=== PATIENT | female | born 1930 | race Caucasian/White ===

== ENCOUNTER → 2016-08-06 | Outpatient (CLI) | payer OTHER, MEDICARE ==
[2016-08-06 16:38] LABS: HEMOGLOBIN A1C 8.59 % (4.2-6.0); MEAN BLOOD GLUCOSE (CALC) 200.047 mg/dL
[2016-08-06 16:51] LABS: BUN/CREATININE RATIO 22.85 (6-20); CALCIUM 9.2 mg/dL (8.7-10.7); CREATININE 0.7 mg/dL (0.50-1.20); POTASSIUM 4.3 meq/L (3.8-5.2)
== END ==
LOC: MOB LAB 15:07
DX: E11.9 Type 2 diabetes mellitus without complications (principal); I10 Essential (primary) hypertension; M10.9 Gout, unspecified; M81.0 Age-related osteoporosis without current pathological fracture
CPT/HCPCS: 80048; 83036; 84550

== ENCOUNTER → 2016-09-02 | Outpatient (CLI) | payer OTHER, MEDICARE | LOC: MMPC 11:11 | DX: M10.9 Gout, unspecified (principal); E11.9 Type 2 diabetes mellitus without complications; I10 Essential (primary) hypertension; N20.0 Calculus of kidney; E78.5 Hyperlipidemia, unspecified; M81.0 Age-related osteoporosis without current pathological fracture | CPT/HCPCS: 99213; G0463 ==

== ENCOUNTER 2016-09-15 18:14 | Emergency (ER) | payer OTHER, MEDICARE ==
[2016-09-15] MEDS ORDERED: Metoprolol TARTRATE Tab 50 MG TAB PO ONE (18:27)
--- NOTE | 2016-09-15 18:34 | PDOC ---
Gen Adult / Medical Screen HPI - General Chief Complaint: General Medical Stated Complaint: HIGH BLOOD PRESSURE Date Seen by Provider: 09/15/16 Time Seen by Provider: 18:30 Source: POSITIVE: Patient, RN/MD Exam Limitations: POSITIVE: No limitations Nurse's Notes Reviewed & Considered: Yes - Indicators Temperature Between 95 and 101 Degrees: Yes Respirations Between 12 and 20: Yes Blood Pressure Between 100-165 (sys) and 60-100 (hadley): No (222\100) Pulse Range Between 60-105 (100 for age > 60 years): No Severe Pain (Greater than 5/10 Reported): No Chest or Abdominal Pain: No Inability to Walk: No Pt Reports Active High Risk Cond. (TB/Hepatitis/HIV/Chemo): No - History of Present Illness Initial Comments: Patient comes in today with chief complaint of high blood pressure. He was sent in by her home healthcare nurse after an escalation of her blood pressure over the last 3 days initially blood pressure was noted be 150/92, day before yesterday was found to be 160/94, yesterday was 274/98, today it was 200/100 and she was directed to come to the emergency department. Eyes any fever or chills sweats, no headache, changes in her vision, sore throat, chest pain, shortness of breath, no nausea vomiting or diarrhea, no hematuria or dysuria. Timing: REPORTS: Gradual, Getting Worse Duration: <1 week Similar Symptoms Previously: Yes (patient being treated for hypertension by her primary care physician. ) Recent Care Received: REPORTS: Treated by MD (She is presently being treated with metoprolol and lisinopril for her hypertension.) Any Prior Injuries Related to Current Complaint?: No - Patient Home Medications Home Medications: Home Medications Blood Sugar Diagnostic [Freestyle Lite Strips] 1 each IN QID #120 strip Aspirin [Aspirin EC] 1 tab PO QOD PRN #30 tab 02/16/15 Magnesium Hydroxide Susp [Milk Of Magnesia Susp] 30 ml PO DAILY cup 05/20/16 Atorvastatin Calcium 1 tab PO QD #90 tab 06/23/16 Lisinopril 2 tab PO QD #180 tab 06/23/16 Metformin HCl [Metformin Hcl Er] 2 tab PO BID #120 tab 08/04/16 Colchicine [Colcrys] 1 tab PO QD #85 tab 08/06/16 Allopurinol 1 tab PO BID #180 tab 08/07/16 Dulaglutide [Trulicity] 1.5 mg SUBCUT WEEKLY #12 ml 08/07/16 Cholecalciferol [Vitamin D] 1,000 unit PO DAILY 09/15/16 Metoprolol Tartrate 100 mg PO BID 09/15/16 Multivitamin [Multivitamins] 1 tab PO DAILY 09/15/16 - Patient Allergies Allergies/Adverse Reactions: Allergies Allergy/AdvReac Type Severity Reaction Status Date / Time butorphanol tartrate Allergy Severe Anaphylaxis Verified 09/15/16 18:27 [From Stadol] Penicillins Allergy Mild rash Verified 09/15/16 18:27 mushroom Allergy SHORTNESS Verified 09/15/16 18:27 OF BREATH meperidine HCl [From Demerol] AdvReac Severe difficult Verified 09/15/16 18:27 to arouse Past Medical History - heen HEENT History: Denies History Cardiovascular History: Hypertension Respiratory History: Denies History Gastrointestinal History: Denies History Genitourinary History: Denies History Endocrine History: Type 1 Diabetes Musculoskeletal History: Denies History Neurological History: Denies History Blood Disorders: Denies History Psychiatric History: Denies History History of Sexually Transmitted Diseases: No Cancer History: Denies History History of MDRO: No History of Other Communicable Diseases: No Alcohol Use: None Substance Use Type: None Previous Surgical History: No Significant Family History: No pertinent family hx ROS - Limitations ROS Limitations: No Limitations Constitution: REPORTS: Denies Symptoms Cardiovascular: REPORTS: Denies Cardiac Symptoms Neurological: REPORTS: Denies Neuro Symptoms Gastrointestinal: REPORTS: Denies GI Symptoms Endocrine: REPORTS: Denies Symptoms Musculoskeletal: REPORTS: Joint Pain (Patient with the diagnosis of gout presently on colchicine and allopurinol.) Genitourinary: REPORTS: Denies Symptoms Eyes: REPORTS: Denies Symptoms ENT: REPORTS: Denies Symptoms Skin: REPORTS: Denies Skin Symptoms Lympathic: REPORTS: Denies Lympathic Symptoms Immunologic: POSITIVE: Denies Symptoms Psychiatric: POSITIVE: Denies Psych Symptoms Gen Adult/Medical Screen Exam - General Appearance General Appearance: POSITIVE: Alert, Cooperative, No Acute Distress, No Evidence of Trauma - HEENT HEENT: POSITIVE: Head Inspection Nml, Eyes Inspection Nml, Ears Inspection Nml, Nose Inspection Nml, Oral/Dental Inspect. Nml, Pharynx Inspect. Nml, PERRL, EOMI - Pupils Pupil Size: 4 mm: Bilateral - Neck Neck: POSITIVE: Normal Inspection, Thyroid Normal - Respiratory Respiratory: POSITIVE: No Respiratory Distress, Breath Sounds Normal, Chest Non- Tender - Cardiovascular Cardiovascular: POSITIVE: Regular Rate & Rhythm, No Murmur, No Gallop, PMI Normal - Abdomen Abdomen: Soft: (All Quadrants), Normal Bowel Sounds: (All Quadrants), Denies Tenderness: (All Quadrants) - Neurological / Psychological Mental Status: POSITIVE: Mood Normal, Affect Normal Orientation: POSITIVE: Oriented x 3, Uncooperative - Skin Skin: POSITIVE: Normal Color, Warm, Dry, No Rash - Extremities Extremity: Non-Tender: (All Extremities), Normal ROM: (All Extremities), Normal Inspection: (All Extremities) Gen Adlt/Medical Scrn Progress - Results Reviewed by me Lab Results Reviewed: Yes Lab Results:: Laboratory Results 09/15/16 Range/Units 18:55 WBC 7.92 (4.8-10.8) 10^3/uL RBC 4.78 (4.20-5.40) 10^6/uL Hgb 13.1 (12.0-16.0) g/dL Hct 40.5 (37.0-47.0) % MCV 84.7 (81-99) FL MCH 27.4 (27-31) PG MCHC 32.3 L (33-37) g/dL RDW Std Deviation 51.6 H (39-50) fL RDW Coeff of Naveen 17.0 H (11.5-14.5) % Plt Count 249 (140-350) 10*3/uL MPV 10.8 (7.4-12.2) FL Immature Gran % (Auto) 0.3 (0-5) % Neut % (Auto) 34.7 L (50-80) % Lymph % (Auto) 49.6 (10-50) % [place] % (Auto) 10.0 (5-15) % Eos % (Auto) 4.4 (0-8) % Baso % (Auto) 1.0 (0-1) % Immature Gran # (Auto) 0.02 10*3/UL Neut # (Auto) 2.75 10*3/UL Lymph # (Auto) 3.93 10*3/uL [place] # (Auto) 0.79 (0.3-0.8) 10*3/UL Eos # (Auto) 0.35 10*3/UL Baso # (Auto) 0.08 10*3/UL WBC Morphology Comment Normal morphology (NORM) Plt Morphology Comment Normal morphology (NORM) RBC Morph Comment Normal morphology (NORM) Sodium 141 (135-145) meq/L Potassium 4.3 (3.8-5.2) meq/L Chloride 102 (98-112) meq/L Carbon Dioxide 26 (23-33) meq/L Anion Gap 13 (5-20) BUN 18 (7-22) mg/dL Creatinine 0.6 (0.50-1.20) mg/dL Estimated GFR (>60 ml/min/1.73m(2)) BUN/Creatinine Ratio 30.00 H (6-20) Glucose 174 H (78-110) mg/dL Calculated Osmolality 297.0 H (267-292) mOsm/kg Calcium 9.8 (8.7-10.7) mg/dL Magnesium 1.5 L (1.6-2.4) mg/dL Total Bilirubin 0.5 (0.3-1.2) mg/dL AST 24 (8-39) IU/L ALT 23 (9-52) IU/L Alkaline Phosphatase 74 (38-126) IU/L Total Protein 7.4 (6.1-8.0) g/dL Albumin 4.1 (3.5-4.8) g/dL Globulin 3.3 (2.50-4.10) g/dL Albumin/Globulin Ratio 1.20 L (1.3-2.0) mg/g TSH 2.58 (0.2700-4.2000) uIU/mL - Patient's Progress Pain Medication Addressed: POSITIVE: Not Applicable Re-Examine Time: 19:49 Status: POSITIVE: Improved MDM / ED Course: Patient comes into the emergency department and is examined, an IV started blood drawn and sent to lab for studies, she received metoprolol, lisinopril, and clonidine. Her blood pressures improved to 169/95. Magnesium was noted though this was replaced. She is discharged home in improved condition with instructions to follow up with her primary care physician. - Consult Counseled: POSITIVE: Patient, Family, RE: Lab Results, RE: Radiology Results, RE : DX, RE: Need for F/U Patient Care Time - Estimated PCT Patient Care Time (In Minutes): 20 Vital Signs - Recent Vital Signs Vital Signs: Vital Signs (Last 8 hours) Temp Pulse Resp BP BP Pulse Ox 09/15/16 19:46 167/95 180/96 09/15/16 19:20 222/100 224/102 09/15/16 18:15 99.0 F 89 20 248/128 91 - VS Reviewed Vital Signs Reviewed: Yes Discharge Clinical Impression: Hypertension associated with diabetes Discharge Disposition: Discharged to Home Condition: Stable Patient Instructions Given at Discharge: Hypertension (ED)
[2016-09-15] MEDS ORDERED: LISINOPRIL 10 MG TABLET PO ONE (18:53)
[2016-09-15] MEDS ORDERED: CloNIDine Tab 0.1 MG TABLET PO ONE (18:53)
[2016-09-15 19:02] LABS: BASOPHILS # (AUTO) 0.08 10*3/UL; EOSINOPHILS % (AUTO) 4.4 % (0-8); HEMATOCRIT 40.5 % (37.0-47.0); HEMOGLOBIN 13.1 g/dL (12.0-16.0); IMM GRAN % (AUTO) 0.3 % (0-5); IMM GRAN# (AUTO) 0.02 10*3/UL; LYMPHOCYTES # (AUTO) 3.93 10*3/uL; LYMPHOCYTES % (AUTO) 49.6 % (10-50); MEAN CORPUSCULAR HEMOGLOBIN 27.4 PG (27-31); MEAN CORPUSCULAR HGB CONC 32.3 g/dL (33-37); MEAN PLATELET VOLUME 10.8 FL (7.4-12.2); MONOCYTES # (AUTO) 0.79 10*3/UL (0.3-0.8); NEUTROPHILS # (AUTO) 2.75 10*3/UL; NEUTROPHILS % (AUTO) 34.7 % (50-80); RED BLOOD COUNT 4.78 10^6/uL (4.20-5.40); WHITE BLOOD COUNT 7.92 10^3/uL (4.8-10.8)
[2016-09-15 19:05] LABS: PLATELET MORPHOLOGY COMMENT NORMAL MORPHOLOGY (NORM)
[2016-09-15 19:10] LABS: BILIRUBIN,TOTAL 0.5 mg/dL (0.3-1.2); CALCIUM 9.8 mg/dL (8.7-10.7); CREATININE 0.6 mg/dL (0.50-1.20); MAGNESIUM 1.5 mg/dL (1.6-2.4); POTASSIUM 4.3 meq/L (3.8-5.2); TOTAL PROTEIN 7.4 g/dL (6.1-8.0)
[2016-09-15 19:37] VITALS: RESP 20; TEMP 99
[2016-09-15] MEDS ORDERED: Magnesium Sulfate 1gm (Premix) 1 GM in Dextrose 1 BAG IV ONE (19:47)
[2016-09-15] MEDS ORDERED: Magnesium Sulfate 1gm (Premix) 100 ML IV ONE (19:51)
== END 2016-09-15 20:30 | disposition home or self-care (01) ==
LOC: ER 18:14
DX: I15.2 Hypertension secondary to endocrine disorders (principal); E11.9 Type 2 diabetes mellitus without complications
CPT/HCPCS: 80053; 83735; 84443; 85025; 96365; 96368; 99282; 99283; J3475

== ENCOUNTER → 2016-09-29 | Outpatient (CLI) | payer OTHER, MEDICARE | LOC: MMPC 09:00 | DX: M10.9 Gout, unspecified (principal); E03.0 Congenital hypothyroidism with diffuse goiter; E11.9 Type 2 diabetes mellitus without complications; I10 Essential (primary) hypertension; E78.5 Hyperlipidemia, unspecified; M81.0 Age-related osteoporosis without current pathological fracture; N20.0 Calculus of kidney | CPT/HCPCS: 99213; G0463 ==

== ENCOUNTER → 2016-10-14 | Outpatient (CLI) | payer OTHER, MEDICARE | LOC: MMPC 09:00 | DX: M10.9 Gout, unspecified (principal); E11.9 Type 2 diabetes mellitus without complications; I10 Essential (primary) hypertension; N20.0 Calculus of kidney; M81.0 Age-related osteoporosis without current pathological fracture; E78.5 Hyperlipidemia, unspecified | CPT/HCPCS: 99213; G0463 ==

== ENCOUNTER 2016-10-19 15:39 | Inpatient (IN) | payer OTHER, MEDICARE ==
[2016-10-19] MEDS ORDERED: Sodium Chloride 0.9% 1,000 ML PRIMARY IV ONE ×2 (15:46→16:06)
[2016-10-19] MEDS ORDERED: NORMAL SALINE 10 ML SYRINGE FLUSH IVP PRN ×3 (15:46→19:15)
[2016-10-19] MEDS ORDERED: MORPHINE SULFATE 2 MG/1 ML IVP ONE (15:54)
--- NOTE | 2016-10-19 16:08 | EKG ---
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
--- NOTE | 2016-10-19 16:55 | PDOC ---
Fall HPI - General Chief Complaint: Fall Stated Complaint: FALL/ R HIP PAIN W/ ROTATION, R WRIST PAIN/SWELLIN Date Seen by Provider: 10/19/16 Time Seen by Provider: 15:50 Source: POSITIVE: Patient, EMS Exam Limitations: POSITIVE: No limitations Nurse's Notes Reviewed & Considered: Yes EMS Report Reviewed & Considered: Verbal - History of Present Illness Initial Comments: The patient is an 86-year-old female who is brought to the emergency department by ambulance after a fall. She states that she lost her footing and fell in her kitchen. She states that she did hit the right side of her head on a cabinet door. She also injured her right wrist and right hip. She was unable to get up and EMS was called. She did not have any loss of consciousness from hitting her head and denies any current headache or neck pain. She does however have significant pain in the right wrist and right hip. She states that she has had a history of gout in her right knee which has been bothering her for the past 6 months. She currently has pain with any movement of her right leg from her hip down to her knee. She also has pain and swelling to the right wrist. She did receive 2 doses of 25 g of fentanyl and route per EMS. She denies any chest wall or abdominal pain. She denies taking any blood thinners currently. Have you received a tetanus shot in the past 10 years?: Unknown - Patient Home Medications Home Medications: Home Medications Blood Sugar Diagnostic [Freestyle Lite Strips] 1 each IN QID #120 strip Aspirin [Aspirin EC] 1 tab PO QOD PRN #30 tab 02/16/15 Magnesium Hydroxide Susp [Milk Of Magnesia Susp] 30 ml PO DAILY cup 05/20/16 Atorvastatin Calcium 1 tab PO QD #90 tab 06/23/16 Lisinopril 2 tab PO QD #180 tab 06/23/16 Metformin HCl [Metformin Hcl Er] 2 tab PO BID #120 tab 08/04/16 Colchicine [Colcrys] 1 tab PO QD #85 tab 08/06/16 Allopurinol 1 tab PO BID #180 tab 08/07/16 Dulaglutide [Trulicity] 1.5 mg SUBCUT WEEKLY #12 ml 08/07/16 Cholecalciferol [Vitamin D] 1,000 unit PO DAILY 09/15/16 Metoprolol Tartrate 100 mg PO BID 09/15/16 Multivitamin [Multivitamins] 1 tab PO DAILY 09/15/16 Nifedipine [Nifedipine Er] 1 tab PO QD #90 tab 10/14/16 - Patient Allergies Allergies/Adverse Reactions: Allergies Allergy/AdvReac Type Severity Reaction Status Date / Time butorphanol tartrate Allergy Severe Anaphylaxis Verified 10/19/16 16:30 [From Stadol] Penicillins Allergy Mild rash Verified 10/19/16 16:30 mushroom Allergy SHORTNESS Verified 10/19/16 16:30 OF BREATH meperidine HCl [From Demerol] AdvReac Severe difficult Verified 10/19/16 16:30 to arouse Past Medical History - heen HEENT History: Denies History Cardiovascular History: Hypertension Respiratory History: Denies History Gastrointestinal History: Denies History Genitourinary History: Denies History Endocrine History: Type 2 Diabetes (oral) Musculoskeletal History: Denies History Prosthesis or Implant: No Neurological History: Denies History Blood Disorders: Denies History Psychiatric History: Denies History History of Sexually Transmitted Diseases: No Cancer History: Denies History In Past Year Been Physically Harmed or Verbally Threatened: No History of MDRO: No History of Other Communicable Diseases: No Tobacco Use: Never Smoker Alcohol Use: None Substance Use Type: None Previous Surgical History: No Type / Date of Surgery: Appendectomy. Hysterectomy. x 3 Significant Family History: No pertinent family hx Past Medical History Reviewed: Reviewed - No Changes ROS - Limitations ROS Limitations: No Limitations Constitution: DENIES: Chills, Fever Cardiovascular: DENIES: Chest Pain Respiratory: REPORTS: Denies Resp Symptoms Neurological: DENIES: Confusion, Headache Gastrointestinal: REPORTS: Denies GI Symptoms. DENIES: Abdominal Pain Eyes: REPORTS: Denies Symptoms ENT: REPORTS: Denies Symptoms Skin: DENIES: Rash Fall Physical Exam - General Appearance General Appearance: POSITIVE: Alert, Cooperative, No Acute Distress - HEENT HEENT: POSITIVE: Head Inspection Nml, Eyes Inspection Nml, Ears Inspection Nml, Nose Inspection Nml, Pharynx Inspect. Nml, PERRL, EOMI - Neck Neck: POSITIVE: Non Tender, Painless ROM, Trachea Midline - Respiratory / CVS Respiratory / CVS: POSITIVE: Chest Non Tender, Breath Sounds Normal, No Respiratory Distress, Heart Sounds Normal, Regular Rate/Rhythm - Abdomen Abdomen: Soft: (All Quadrants), Denies Tenderness: (All Quadrants), No Distention: (All Quadrants) Additional Abdominal Details: Pelvis is stable and not significantly tender with lateral compression - Neuro / Psych Neuro / Psych: POSITIVE: Oriented X3, Motor Normal, Sensation Normal - Skin Skin: POSITIVE: Other (She does have a skin tear on the right elbow/proximal forearm) - Extremities Additional Extremities Details: Examination the right wrist reveals significant swelling and early ecchymosis, she has normal sensation and cap refill in her fingertips, fairly good movement of her fingers with limited range of motion at the wrist. Examination the right lower extremity reveals pain with any attempts at flexion or abduction of the right hip, good dorsalis pedis pulse in the right foot and normal sensation in the right foot. Fall Progress - Results Reviewed by me Xrays/CTs/US Reviewed by me: Yes Discussed with Radiologist: Yes Radiology Findings: CT scan of her head reveals age-related atrophy with no acute hemorrhage or skull fracture per radiologist. X-ray of the right wrist reveals a comminuted distal radius fracture with mild dorsal displacement per radiologist. X-ray of the right hip reveals a femoral neck fracture that is impacted per radiologist. CT scan of the hip is pending. Lab Results Reviewed: Yes EKG Interpreted/Reviewed By Me:: Yes EKG Interpretation:: POSITIVE: Normal Sinus Rhythm, Normal Rate, Normal Intervals, Normal QRS, Normal ST/T - Patient's Progress MDM / ED Course: She did receive an additional 2 mg of morphine for pain control on arrival. X- rays of the right wrist, right hip and CT of the head was obtained. Her CT was normal, the x-ray of the right wrist reveals a distal radius fracture that is comminuted and slightly displaced dorsally. X-ray of the right hip reveals a femoral neck fracture that is impacted. She does have a deep skin tear to the right proximal forearm just distal to the elbow, this was cleansed and Steri- Strips were applied. She also has some bruising in this region however no bony tenderness and good range of motion of the elbow. X-ray findings were discussed with the patient. I also did consult Dr. Manriquez from orthopedic surgery. He recommended splinting the wrist in preparation for closed reduction in the OR at the time of her surgery. He also recommended CT of her right hip to evaluate further for surgical approach. He recommended admission to the hospitalist service and will likely perform surgery tomorrow. He recommended the patient stay nothing by mouth after midnight. I subsequently discussed these findings and recommendations with Dr. Fam and he is agreed to admit the patient. The patient was placed in a sugar tong splint of her right arm. - Consult Counseled: POSITIVE: Patient, Family, RE: Lab Results, RE: Radiology Results, RE : DX Patient Care Time - Estimated PCT Patient Care Time (In Minutes): 45 Vital Signs - Recent Vital Signs Vital Signs: Vital Signs (Last 8 hours) Temp Pulse Resp BP Pulse Ox 10/19/16 15:46 97.5 F 92 18 187/105 96 - VS Reviewed Vital Signs Reviewed: Yes Discharge Clinical Impression: Closed fracture of right hip, Fracture of distal end of right radius, Fall, Skin tear of forearm without complication Discharge Disposition: Admit to Inpatient Condition: Fair Date Decision to Admit to Inpatient: 10/19/16 Time Decision to Admit to Inpatient: 17:30
--- NOTE | 2016-10-19 17:22 | DI ---
HISTORY: Fell. Pain. COMPARISON: None available. FINDINGS: Examination of the right hip reveals what appears to be an impacted subcapital fracture of the neck of the femur with no significant displacement. IMPRESSION: 1. Evidence of what appears to be an impacted subcapital fracture of the neck of the femur with no si gnificant displacement. Clinical correlation is requested. NOTIFICATION: The above findings were phoned to Juanis Clarke in the CT Department on 10/19/2016 at 07:42 PM EST.
--- NOTE | 2016-10-19 17:26 | DI ---
HISTORY: Fell. Right wrist pain. COMPARISON: None available. FINDINGS: Examination of the right wrist reveals a slightly impacted triradiate fracture of the dist al radius with very slight dorsal displacement of the distal fracture fragment. IMPRESSION: 1. Slightly impacted triradiate fracture of the distal radius with very slight dorsal displacement of the distal fracture fragment. NOTIFICATION: The above findings were phoned to Juanis Clarke in the CT Department on 10/19/2016 at 07:42 PM EST.
--- NOTE | 2016-10-19 17:35 | DI ---
HISTORY: Fell and hit the right side of the head. COMPARISON: 03/14/2016. TECHNIQUE: CT images were obtained through the brain. FINDINGS: Examination demonstrates diffuse age-related volume loss. There is no mass, hemorrhage nor midline shift. There is near complete opacification of the right maxillary sinus. No fractures. IMPRESSION: 1. Age-related volume loss. 2. Right maxillary sinus disease. NOTIFICATION: The above findings were phoned to Juanis Clarke in the CT Department on 10/19/2016 at 07:42 PM EST.
[2016-10-19] MEDS ORDERED: LORazepam 2 MG/1 ML VIAL IVP ONE (17:44)
[2016-10-19 17:49] LABS: BASOPHILS # (AUTO) 0.03 10*3/UL; BASOPHILS % (AUTO) 0.3 % (0-1); EOSINOPHILS # (AUTO) 0.07 10*3/UL; EOSINOPHILS % (AUTO) 0.7 % (0-8); HEMATOCRIT 40.3 % (37.0-47.0); LYMPHOCYTES # (AUTO) 2.16 10*3/uL; MEAN CORPUSCULAR HEMOGLOBIN 27.2 PG (27-31); MEAN CORPUSCULAR HGB CONC 32.3 g/dL (33-37); MEAN CORPUSCULAR VOLUME 84.3 FL (81-99); MEAN PLATELET VOLUME 11.1 FL (7.4-12.2); MONOCYTES # (AUTO) 0.63 10*3/UL (0.3-0.8); MONOCYTES % (AUTO) 6.3 % (5-15); NEUTROPHILS # (AUTO) 7.02 10*3/UL; NEUTROPHILS % (AUTO) 70.6 % (50-80); RED BLOOD COUNT 4.78 10^6/uL (4.20-5.40)
[2016-10-19 17:55] LABS: PLATELET MORPHOLOGY COMMENT NORMAL MORPHOLOGY (NORM); RBC MORPHOLOGY COMMENT NORMAL MORPHOLOGY (NORM); WBC MORPHOLOGY COMMENT NORMAL MORPHOLOGY (NORM)
[2016-10-19 17:58] LABS: CALCIUM 9.4 mg/dL (8.7-10.7); MAGNESIUM 1.3 mg/dL (1.6-2.4)
--- NOTE | 2016-10-19 18:50 | DI ---
HISTORY: Pain after a fall. COMPARISON: None available. TECHNIQUE: Multiple helically acquired CT images were obtained through the right hip without contras t. FINDINGS: There are a few peripheral vascular calcifications seen. There is diffuse osteopenia. There is a subcapital right femoral neck fracture. Visualized portions of the pelvis are unremarkable. There is a small hemarthrosis. IMPRESSION: 1. Subcapital right femoral neck fracture. NOTIFICATION: The above findings were phoned to David Epstein in the ER Department on 10/19/2016 at 08:5 6 PM EST.
--- NOTE | 2016-10-19 19:05 | PDOC ---
History and Physical - History of Present Illness Date and Time of Service: 10/19/2016 7:42 PM Chief Complaint: Pain in the right wrist and right hip after a fall today History of Present Illness: This is a 86 years old female with medical history significant for history of diabetes, hypertension, hyperlipidemia and history of gout for which she was admitted to the hospital back in April last year, who was brought to the hospital by ambulance after a fall. She said she lost her footing and fell in her kitchen. She fell on the right side she did hit the right side of her head and she also injured her right wrist and right hip. She did not pass out. She was complaining from pain in the right wrist and hip she was unable to stand up. Evaluation in the ER revealed the right wrist and right hip fracture. She had a splint to the right wrist, And the case was discussed with orthopedic on-call who suggested admission. He is planning to do surgery tomorrow morning. Currently she rates her right wrist pain maybe 4 out of 10 and 6 out of 10 in the right hip. She denied chest pain, no neck pain and no headaches currently. She uses a walker and sometimes a cane at home because of her previous knee problem from previous gout attack. No nausea, no vomiting. She denied history of MO, and no history of strokes. Past Medical History Medical History: 1. Diabetes type II. 2. Hypertension. 3. Hyperlipidemia. 4. Osteoporosis. 5. Gout attack back in April 2016 Surgical History: 1. Hysterectomy. 2. Tonsillectomy. 3. History of nephrolithiasis. 4. C-sections Family History: Reviewed an Not Pertinent Past Social History: Doesn't smoke, rarely drinks no drugs. 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 Tobacco Use: Never Smoker Substance Use Type: None Alcohol Use: None Medication / Allergies Home Medications: Home Medications Medication Instructions Recorded Confirmed Type Blood Sugar Diagnostic [Freestyle 1 each IN QID #120 strip 08/16/13 10/19/16 Clinic Lite Strips] Aspirin [Aspirin EC] 1 tab PO QOD PRN #30 tab 02/16/15 10/19/16 Clinic Magnesium Hydroxide Susp [Milk Of 30 ml PO DAILY cup 05/20/16 10/19/16 Rx Magnesia Susp] Atorvastatin Calcium 1 tab PO QD #90 tab 06/23/16 10/19/16 Clinic Lisinopril 2 tab PO QD #180 tab 06/23/16 10/19/16 Clinic Metformin HCl [Metformin Hcl Er] 2 tab PO BID #120 tab 08/04/16 10/19/16 Clinic Colchicine [Colcrys] 1 tab PO QD #85 tab 08/06/16 10/19/16 Clinic Allopurinol 1 tab PO BID #180 tab 08/07/16 10/19/16 Clinic Dulaglutide [Trulicity] 1.5 mg SUBCUT WEEKLY #12 ml 08/07/16 10/19/16 Clinic Cholecalciferol [Vitamin D] 1,000 unit PO DAILY 09/15/16 10/19/16 History Metoprolol Tartrate 100 mg PO BID 09/15/16 10/19/16 History Multivitamin [Multivitamins] 1 tab PO DAILY 09/15/16 10/19/16 History Nifedipine [Nifedipine Er] 1 tab PO QD #90 tab 10/14/16 10/19/16 Clinic Allergies/Adverse Reactions: Allergies Allergy/AdvReac Type Severity Reaction Status Date / Time butorphanol tartrate Allergy Severe Anaphylaxis Verified 10/19/16 16:30 [From Stadol] Penicillins Allergy Mild rash Verified 10/19/16 16:30 mushroom Allergy SHORTNESS Verified 10/19/16 16:30 OF BREATH meperidine HCl [From Demerol] AdvReac Severe difficult Verified 10/19/16 16:30 to arouse Review of Systems - Review of Systems All Systems: Reviewed & No Additional Complaints Except as Stated Exam - General General Appearance: POSITIVE: No Acute Distress, Cooperative, Thin - Head Head Exam: POSITIVE: Normal Inspection, Atraumatic - Eye Eye Exam: POSITIVE: Normal Appearance - ENT ENT Exam: POSITIVE: Normal Exam - Neck Neck Exam: POSITIVE: Normal Inspection - Respiratory Respiratory Exam: POSITIVE: Clear to Auscultation - Bilaterally - Cardiovascular Cardiovascular Exam: POSITIVE: RRR - GI/Abdominal GI/Abdominal Exam: POSITIVE: Normal Bowel Sounds, Non Tender, Non Distended, Soft - Rectal Rectal Exam: POSITIVE: Deferred - External Exam: POSITIVE: Deferred - Extremities Additional Extremities Exam Details: Right forearm in a splint. Right leg somewhat shortened compared to the left. Motion is restricted because of fracture and pain. - Neurological Neurological Exam: POSITIVE: Alert, Oriented x 3, CN II-XII Intact - Psychiatric Psychiatric Exam: POSITIVE: Normal Affect - Integumentary Integumentary Exam: POSITIVE: Normal Color Results - Labs CBC and BMP: 10/19/16 17:40 10/19/16 17:40 Labs - Last 24 Hours: Laboratory Results 10/19/16 Range/Units 17:40 WBC 9.95 (4.8-10.8) 10^3/uL RBC 4.78 (4.20-5.40) 10^6/uL Hgb 13.0 (12.0-16.0) g/dL Hct 40.3 (37.0-47.0) % MCV 84.3 (81-99) FL MCH 27.2 (27-31) PG MCHC 32.3 L (33-37) g/dL RDW Std Deviation 50.2 H (39-50) fL RDW Coeff of Naveen 16.5 H (11.5-14.5) % Plt Count 231 (140-350) 10*3/uL MPV 11.1 (7.4-12.2) FL Immature Gran % (Auto) 0.4 (0-5) % Neut % (Auto) 70.6 (50-80) % Lymph % (Auto) 21.7 (10-50) % [place] % (Auto) 6.3 (5-15) % Eos % (Auto) 0.7 (0-8) % Baso % (Auto) 0.3 (0-1) % Immature Gran # (Auto) 0.04 10*3/UL Neut # (Auto) 7.02 10*3/UL Lymph # (Auto) 2.16 10*3/uL [place] # (Auto) 0.63 (0.3-0.8) 10*3/UL Eos # (Auto) 0.07 10*3/UL Baso # (Auto) 0.03 10*3/UL WBC Morphology Comment Normal morphology (NORM) Plt Morphology Comment Normal morphology (NORM) RBC Morph Comment Normal morphology (NORM) Sodium 138 (135-145) meq/L Potassium 4.0 (3.8-5.2) meq/L Chloride 100 (98-112) meq/L Carbon Dioxide 24 (23-33) meq/L Anion Gap 14 (5-20) BUN 21 (7-22) mg/dL Creatinine 0.6 (0.50-1.20) mg/dL Estimated GFR (>60 ml/min/1.73m(2)) BUN/Creatinine Ratio 35.00 H (6-20) Glucose 220 H (78-110) mg/dL Calculated Osmolality 295.0 H (267-292) mOsm/kg Calcium 9.4 (8.7-10.7) mg/dL Magnesium 1.3 L (1.6-2.4) mg/dL Total Bilirubin 0.8 (0.3-1.2) mg/dL AST 30 (8-39) IU/L ALT 20 (9-52) IU/L Alkaline Phosphatase 69 (38-126) IU/L Troponin I < 0.012 (< 0.040) ng/mL Total Protein 7.3 (6.1-8.0) g/dL Albumin 4.0 (3.5-4.8) g/dL Globulin 3.4 (2.50-4.10) g/dL Albumin/Globulin Ratio 1.10 L (1.3-2.0) mg/g - EKG Data Rate: Normal EKG Shows Normal: Sinus Rhythm - EKG Data EKG Interpretation: Other (EKG showed what looks like Q waves in the anterior leads versus poor R waves progression, when compared to the previous EKG of gets very similar to the EKG that she had back in April.) - Imaging Status: Report Reviewed by Me (Right wrist x-ray showed slightly impacted try fracture of the distal radius with very slight dorsal displacement of the distal fracture fragment, CT of the hip showed subcapital right femoral neck fracture, CT of the head showed age-related volume loss, right hip x-ray showed impacted subcapital fracture of the neck of the femur) Assessment and Plan - Patient Problems (1) Closed right hip fracture Current Visit: Yes Status: Acute Comment: We'll write for pain medication. Plan for her to have surgery tomorrow. We'll keep nothing by mouth after midnight. She is intermediate risk for surgery because of diabetes. I think though because of the need for surgery she can proceed tomorrow as planned. (2) Distal radius fracture, right Current Visit: Yes Status: Acute Comment: Plan to have surgery also tomorrow this is based on my discussion with orthopedic surgeon. We'll keep nothing by mouth after midnight (3) Diabetes Current Visit: No Status: Acute Comment: We'll hold the metformin for now. We'll check her blood sugars, she will be nothing by mouth after midnight tonight. Qualifiers: Diabetes mellitus type: type 2 Diabetes mellitus complication status: without complication Diabetes mellitus tank terminal gauger insulin use: with usp use Qualified Description: Type 2 diabetes mellitus without complication, with long-term current use of insulin Qualifier Code(s): ( E11.9) Type 2 diabetes mellitus without complications (4) Hypertension Current Visit: No Status: Chronic Comment: Blood pressure is elevated, she'll get some pain medication and will see what happens her blood pressure will give her usual medication. May give her additional dosage of nifedipine if blood pressure still high. Qualifiers: Hypertension type: essential hypertension Qualified Description: Essential hypertension Qualifier Code(s): (I10) Essential (primary) hypertension (5) History of gout Current Visit: Yes Status: Acute Comment: Continue allopurinol
[2016-10-19] MEDS ORDERED: ONDANSETRON 4 MG/2 ML VIAL IVP PRN (19:15)
[2016-10-19] MEDS ORDERED: LIDOCAINE W/ SODIUM BICARB 0.5 ML SYR SUBD PRN (19:15)
[2016-10-19] MEDS ORDERED: Magnesium Sulfate 2gm (Premix) 2 GM in Premix 1 BAG IV ONE (19:30)
[2016-10-19] MEDS: HYDROmorphone 2 MG/1 ML IVP PRN ×2 (19:36→23:26)
[2016-10-19] MEDS ORDERED: metFORMIN ER 500 MG TABLET PO SCH (21:00)
[2016-10-19] MEDS: ATORVASTATIN 40 MG TABLET PO SCH (21:15)
[2016-10-19] MEDS: Metoprolol TARTRATE Tab 50 MG TAB PO SCH (21:16)
[2016-10-19] MEDS: ALLOPURINOL 100 MG TABLET PO SCH (21:16)
[2016-10-19] MEDS: traMADol 50 MG TABLET PO PRN (21:19)
[2016-10-19 22:17] LABS: BILIRUBIN,URINE NEGATIVE (NEG); COLOR,URINE YELLOW; GLUCOSE, URINE (UA) 250 mg/dL (NEG); NITRATE,URINE NEGATIVE (NEG); OCCULT BLOOD,URINE SMALL (NEG); PH,URINE 5.5 (5.0-8.5); PROTEIN,URINE NEGATIVE (NEG); UROBILINOGEN,URINE 0.2 EU/dL (0.2)
[2016-10-19 22:19] LABS: BACTERIA,URINE RARE; CLARITY,URINE CLEAR (CLEAR); URINE SAMPLE TYPE CATH SPECIMEN
[2016-10-19] MEDS ORDERED: Sodium Chloride 0.9% 1,000 ML PRIMARY IV SCH (23:50)
--- NOTE | 2016-10-20 08:31 | PDOC(PROG) ---
Date and Time of Service: 10/20/2016 8:29 AM Interval History: Subjective Patient complaining from hip and wrist pain maybe 6-7 out of 10. No other pain , no neck pain and no headaches. No chest pain and no shortness of breath. Objective : Data - Labs CBC and BMP: 10/19/16 17:40 10/19/16 17:40 Labs - Last 24 Hours: Laboratory Results 10/19/16 10/19/16 Range/Units 17:40 22:00 WBC 9.95 (4.8-10.8) 10^3/uL RBC 4.78 (4.20-5.40) 10^6/uL Hgb 13.0 (12.0-16.0) g/dL Hct 40.3 (37.0-47.0) % MCV 84.3 (81-99) FL MCH 27.2 (27-31) PG MCHC 32.3 L (33-37) g/dL RDW Std Deviation 50.2 H (39-50) fL RDW Coeff of Naveen 16.5 H (11.5-14.5) % Plt Count 231 (140-350) 10*3/uL MPV 11.1 (7.4-12.2) FL Immature Gran % (Auto) 0.4 (0-5) % Neut % (Auto) 70.6 (50-80) % Lymph % (Auto) 21.7 (10-50) % [place] % (Auto) 6.3 (5-15) % Eos % (Auto) 0.7 (0-8) % Baso % (Auto) 0.3 (0-1) % Immature Gran # (Auto) 0.04 10*3/UL Neut # (Auto) 7.02 10*3/UL Lymph # (Auto) 2.16 10*3/uL [place] # (Auto) 0.63 (0.3-0.8) 10*3/UL Eos # (Auto) 0.07 10*3/UL Baso # (Auto) 0.03 10*3/UL WBC Morphology Comment Normal morphology (NORM) Plt Morphology Comment Normal morphology (NORM) RBC Morph Comment Normal morphology (NORM) Sodium 138 (135-145) meq/L Potassium 4.0 (3.8-5.2) meq/L Chloride 100 (98-112) meq/L Carbon Dioxide 24 (23-33) meq/L Anion Gap 14 (5-20) BUN 21 (7-22) mg/dL Creatinine 0.6 (0.50-1.20) mg/dL Estimated GFR (>60 ml/min/1.73m(2)) BUN/Creatinine Ratio 35.00 H (6-20) Glucose 220 H (78-110) mg/dL Calculated Osmolality 295.0 H (267-292) mOsm/kg Calcium 9.4 (8.7-10.7) mg/dL Magnesium 1.3 L (1.6-2.4) mg/dL Total Bilirubin 0.8 (0.3-1.2) mg/dL AST 30 (8-39) IU/L ALT 20 (9-52) IU/L Alkaline Phosphatase 69 (38-126) IU/L Troponin I < 0.012 (< 0.040) ng/mL Total Protein 7.3 (6.1-8.0) g/dL Albumin 4.0 (3.5-4.8) g/dL Globulin 3.4 (2.50-4.10) g/dL Albumin/Globulin Ratio 1.10 L (1.3-2.0) mg/g Ur Collection Type Cath specimen Urine Color Yellow Urine Clarity Clear (CLEAR) Urine pH 5.5 (5.0-8.5) Ur Specific [place] 1.025 (1.005-1.030) Urine Protein Negative (NEG) mg/dl Urine Glucose (UA) 250 (NEG) mg/dL Urine Ketones 40 (NEG) Urine Occult Blood Small H (NEG) Urine Nitrate Negative (NEG) Urine Bilirubin Negative (NEG) Urine Urobilinogen 0.2 (0.2) EU/dL Ur Leukocyte Esterase Negative (NEG) Urine RBC 1-3 (NONE) /hpf Urine WBC None (NONE) Ur Squamous Epith Cells None (NONE) Ur Renal Epithelial Cell None (NONE) Urine Crystals None Urine Bacteria Rare (NONE) Urine Casts None (NONE) Urine Mucus None (NONE) Urine Trichomonas None (NONE) Urine Yeast None (NONE) Ur Culture Indicated? Culture not set Objective : Exam - General General Appearance: No Acute Distress, Cooperative - Head Head Exam: Normal Inspection, Atraumatic - Eye Eye Exam: Normal Appearance - ENT ENT Exam: Normal Exam - Neck Neck Exam: Normal Inspection - Respiratory Respiratory Exam: Clear to Auscultation - Bilaterally - Cardiovascular Cardiovascular Exam: RRR - GI/Abdominal GI/Abdominal Exam: Normal Bowel Sounds, Non Tender, Non Distended, Soft - Rectal Rectal Exam: Deferred - External Exam: Deferred - Extremities Additional Extremities Exam Details: Right wrist in splint - Back Back Exam: Normal Inspection - Neurological Neurological Exam: Alert, Oriented x 3, CN II-XII Intact - Psychiatric Psychiatric Exam: Normal Affect Assessment and Plan - Patient Problems (1) Closed right hip fracture Current Visit: Yes Status: Acute Comment: Continue current pain medications, she is nothing by mouth for surgery today at 2:30. (2) Distal radius fracture, right Current Visit: Yes Status: Acute Comment: Same pain medication (3) Diabetes Current Visit: No Status: Acute Comment: Continue holding her metformin for now will see after surgery may consider putting her back on it and Continue monitoring her blood sugar Qualifiers: Diabetes mellitus type: type 2 Diabetes mellitus complication status: without complication Diabetes mellitus correction insulin use: with correction use Qualified Description: Type 2 diabetes mellitus without complication, with long-term current use of insulin Qualifier Code(s): ( E11.9) Type 2 diabetes mellitus without complications (4) Hypertension Current Visit: No Status: Chronic Comment: Same medications, but may hold the linsiporil for now Qualifiers: Hypertension type: essential hypertension Qualified Description: Essential hypertension Qualifier Code(s): (I10) Essential (primary) hypertension (5) History of gout Current Visit: Yes Status: Acute Comment: Same medications
[2016-10-20] MEDS: traMADol 50 MG TABLET PO PRN (08:37)
[2016-10-20] MEDS ORDERED: LISINOPRIL 20 MG TABLET PO SCH (09:00)
[2016-10-20] MEDS ORDERED: NIFEdipine 30 MG ER 24H TABLET PO SCH (09:00)
[2016-10-20] MEDS: Metoprolol TARTRATE Tab 50 MG TAB PO SCH ×2 (10:18→20:30)
[2016-10-20] MEDS: ALLOPURINOL 100 MG TABLET PO SCH ×2 (10:21→20:33)
[2016-10-20] MEDS: HYDROmorphone 2 MG/1 ML IVP PRN (11:22)
[2016-10-20] MEDS ORDERED: Lactated Ringers 1,000 ML PRIMARY IV ONE (11:43)
[2016-10-20] MEDS ORDERED: Vancomycin Inj 1gm vial ONE (12:08)
[2016-10-20] MEDS ORDERED: TRANEXAMIC ACID 1,000 MG / 10 ML VIAL ONE ×2 (12:08→15:02)
[2016-10-20] MEDS ORDERED: Sodium Chloride 0.9% 500 ML ONE (12:09)
[2016-10-20] MEDS ORDERED: Sodium Chloride 0.9% 100 ML IV ONE (12:09)
[2016-10-20] MEDS ORDERED: LIDOCAINE 2%/ EPI 1:200,000 - 20 ML VIAL ONE (12:29)
[2016-10-20] MEDS ORDERED: MORPHINE SULFATE/PF 10 MG/10 ML AMPULE ONE (12:30)
[2016-10-20] MEDS ORDERED: BUPIVACAINE 0.5% W/ EPI - 10 ML VIAL ONE (12:30)
[2016-10-20] MEDS ORDERED: MIDAZOLAM 5 MG/1 ML ONE (12:30)
[2016-10-20] MEDS ORDERED: fentaNYL Inj 250 MCG/5 ML VIAL ONE (12:30)
[2016-10-20] MEDS ORDERED: KETAMINE 100 MG/1 ML - 5 ML ONE (12:30)
[2016-10-20] MEDS ORDERED: LIDOCAINE W/ SODIUM BICARB 0.5 ML SYR ONE (12:42)
[2016-10-20] MEDS ORDERED: CLINDAMYCIN 600 MG IV ONE (14:17)
[2016-10-20] MEDS ORDERED: ePHEDrine Inj 50 MG/ML AMP ONE (14:18)
--- NOTE | 2016-10-20 14:35 | CRNA.PROCE ---
Nerve Block Documentation - - Safety Measures: Time Out Taken, Site Verified - - Type of Nerve Block Used: Right Infraclavicular Block Position for Nerve Block: Supine Moniters Used During Block: EKG, SPO2, NIBP Oxygen Sumpplented: Yes Sedation Used - Enter Amount in Comment Field: Midazolam (mg): Yes (1mg), Fentanyl (mcg): Yes (50mcg) Skin Prep Used: ChloroPrep Draped: No Technique: Nerve Stimulator Nerve Block Needle Used: 80 mm ProBlk II Stimulation Hz: 1.0 Stimulation Staring mA: 1.4 Stimulation Ending mA: 0.6 Local Anesthetic - Enter Amt in Comment Field: 0.5 % Bupivicaine with Epinephrine 1:200,000 (mL): Yes (15ml), 2 % Xylocaine with Epinephrine 1:200, 000 (mL): Yes (15ml)
--- NOTE | 2016-10-20 14:37 | CRNA.PROCE ---
Central Neuraxis Block Placemt - - Safety Measures: Time Out Taken, Site Verified - - Type of Block: Subarachnoid Reason for Block: Surgical Moniters Used During Block: EKG, SPO2, NIBP Positioning: Lateral (Right Lat Decub) Skin Infiltration - Enter Amount Used in Comment Field: 1% Xylocaine (mL): Yes Introducer User: 23 Gauge Spinal Needle Used: 25 Danny 80 mm Local Anesthetic - Enter Amount Used in Comment Field: 0.75 % Bupivacaine with Dextrose (ml): Yes (12mg) Additive Used - Enter Amount Used in Comment Field: Preservative Free Morphine ( mg): Yes (0.15)
[2016-10-20] MEDS ORDERED: Hetastarch 6% + NS 500 ML IV ONE (14:46)
[2016-10-20] MEDS ORDERED: PHENYLEPHRINE 10,000 MCG/1 ML VIAL ONE (14:47)
[2016-10-20] MEDS ORDERED: BUPivacaine Inj 0.25% PF - 10ml vial ONE (14:55)
--- NOTE | 2016-10-20 17:47 | DI ---
AP PELVIS AND RIGHT HIP, 10/20/2016 4:48 PM: Clinical History: Status post right hemiarthroplasty. Status post subcapital fracture of the right h ip. Previous Exam: 10/19/2016. An AP pelvis with AP and lateral views of the replaced hip are submitted. The patient is status post right hemiarthroplasty. The prosthetic joint articulates normally. There is osteoporosis. The bony pe lvis is intact. Readin. Status post right hemiarthroplasty. The prosthetic joint articulates normally. 2. The bony pelvis is intact. 3. Severe osteoporosis.
[2016-10-20] MEDS ORDERED: CELECOXIB 200 MG CAPSULE PO PRN (18:56)
[2016-10-20] MEDS ORDERED: ONDANSETRON 4 MG/2 ML VIAL IV PRN (18:56)
[2016-10-20] MEDS ORDERED: oxyCODONE-ACETAMINOPHEN 5-325 TAB PO PRN (18:57)
[2016-10-20] MEDS ORDERED: MORPHINE SULFATE 4 MG/1 ML IVP PRN (18:58)
[2016-10-20] MEDS: Lactated Ringers 1,000 ML PRIMARY IV SCH (19:33)
[2016-10-20] MEDS: KETOROLAC 15 MG/1 ML VIAL IVP PRN (20:33)
[2016-10-20] MEDS: ATORVASTATIN 40 MG TABLET PO SCH (20:33)
[2016-10-20] MEDS ORDERED: INSULIN REGULAR, HUMAN 100 UNIT/1 ML - 3 ML SUBCUT SCH (21:00)
[2016-10-20] MEDS ORDERED: DOCUSATE 100 MG CAPSULE PO SCH (21:00)
[2016-10-21] MEDS: KETOROLAC 15 MG/1 ML VIAL IVP PRN (02:30)
[2016-10-21] MEDS: Lactated Ringers 1,000 ML PRIMARY IV SCH ×3 (04:00→22:49)
[2016-10-21] MEDS ORDERED: NALOXONE 0.4 MG/1 ML VIAL ONE (05:11)
[2016-10-21 05:18] LABS: HEMATOCRIT 24.5 % (37.0-47.0); HEMOGLOBIN 7.7 g/dL (12.0-16.0); MEAN CORPUSCULAR HEMOGLOBIN 27.4 PG (27-31); MEAN CORPUSCULAR HGB CONC 31.4 g/dL (33-37); MEAN CORPUSCULAR VOLUME 87.2 FL (81-99); MEAN PLATELET VOLUME 11.6 FL (7.4-12.2); RED BLOOD COUNT 2.81 10^6/uL (4.20-5.40)
[2016-10-21] MEDS ORDERED: NALOXONE 0.4 MG/1 ML VIAL IVP ONE ×2 (05:25→05:49)
[2016-10-21 05:27] LABS: BLOOD UREA NITROGEN 22 mg/dL (7-22); BUN/CREATININE RATIO 16.92 (6-20); SERUM ALBUMIN 2.2 g/dL (3.5-4.8)
[2016-10-21 05:41] LABS: PLATELET MORPHOLOGY COMMENT SEE COMMENTS (NORM); RBC MORPHOLOGY COMMENT NORMAL MORPHOLOGY (NORM); WBC MORPHOLOGY COMMENT NORMAL MORPHOLOGY (NORM)
[2016-10-21 05:42] LABS: BAND NEUTROPHILS % 7 % (0-10); BASOPHILS % (MANUAL) 0 % (0-1); EOSINOPHILS % (MANUAL) 1 % (0-8); LYMPHOCYTES % (MANUAL) 21 % (10-50); MONOCYTES % (MANUAL) 3 % (0-12); NEUTROPHILS % (MANUAL) 68 % (50-80)
[2016-10-21 06:03] LABS: VENOUS PH 7.37 (7.32-7.42)
--- NOTE | 2016-10-21 06:34 | EKG ---
[address] [address] Measurements Intervals [place] Rate: 97 P: 50 NV: 148 QRS: 13 QRSD: 80 T: 87 QT: 361 QTc: 415 Interpretive Statements SINUS RHYTHM MODERATE ST DEPRESSION , POSSIBLE ANTEROLATERAL ISCHEMIA SLOW R WAVE PROGRESSION V1-V3 Compared to ECG 10/19/2016 16:04:43 ST (T wave) deviation now present Myocardial infarct finding no longer present Electronically Signed On 10-21-16 08:58:29 MDT by Andrew Wang [email or web address]
[2016-10-21] MEDS ORDERED: ONDANSETRON 4 MG/2 ML VIAL IVP PRN (07:30)
[2016-10-21] MEDS ORDERED: NORMAL SALINE 10 ML SYRINGE FLUSH IVP PRN (07:30)
[2016-10-21] MEDS ORDERED: HYDROmorphone 2 MG/1 ML IVP PRN (07:30)
[2016-10-21] MEDS ORDERED: oxyCODONE-ACETAMINOPHEN 5-325 TAB PO PRN (07:30)
--- NOTE | 2016-10-21 07:30 | PDOC(PROG) ---
Date and Time of Service: 10/21/2016 4:45 AM Interval History: Subjective I was called this morning to evaluate the patient, nursing staff reported that the patient was responsive and awake and talking to them but then later on they came into check on her she was unresponsive and breathing was also irregular and then I came in to see her. Patient was unresponsive, there was increased muscle tone throughout, pupils were equal the right was reactive to the light, the left was not reactive. Reflexes were symmetrical. She was unresponsive to verbal or painful stimuli. She had alejandro dunn breathing We gave her a total of 0.8 of Narcan. She did wakeup but she was a not communicating and not following commands. We moved her to the ICU and we did a CT of the head and chest x-ray and repeat labs. Abnormal lab was a hemoglobin of 7.7 and minimal rise in troponin. I don't have the CT and the chest x-ray report. I Checked on her again in the ICU which was more than 2 hours after the initial evaluation she started to respond and follow some of the commands. I suspect this may be medication effect. Objective : Data - Labs CBC and BMP: 10/21/16 05:00 10/21/16 05:00 Labs - Last 24 Hours: Laboratory Results 10/20/16 10/21/16 10/21/16 Range/Units 08:30 04:48 05:00 WBC 8.73 (4.8-10.8) 10^3/uL RBC 2.81 L (4.20-5.40) 10^6/uL Hgb 7.7 L (12.0-16.0) g/dL Hct 24.5 L (37.0-47.0) % MCV 87.2 (81-99) FL MCH 27.4 (27-31) PG MCHC 31.4 L (33-37) g/dL RDW Std Deviation 48.8 (39-50) fL RDW Coeff of Naveen 16.0 H (11.5-14.5) % Plt Count 143 (140-350) 10*3/uL MPV 11.6 (7.4-12.2) FL Neutrophils % (Manual) 68 (50-80) % Band Neutrophils % 7 (0-10) % Lymphocytes % (Manual) 21 (10-50) % Monocytes % (Manual) 3 (0-12) % Eosinophils % (Manual) 1 (0-8) % Basophils % (Manual) 0 (0-1) % Metamyelocytes % Not Reportable Myelocytes % Not Reportable Promyelocytes % Not Reportable Blast Cells Not Reportable WBC Morphology Comment Normal morphology (NORM) Plt Morphology Comment See comments (NORM) RBC Morph Comment Normal morphology (NORM) VBG pH 7.37 (7.32-7.42) VBG pCO2 31 L (45-55) mmHg VBG HCO3 18 L (22-26) mmol/L VBG Base Excess -7 L (-2-2) MMOL/L Sodium 135 (135-145) meq/L Potassium 4.4 (3.8-5.2) meq/L Chloride 104 (98-112) meq/L Carbon Dioxide 19 L (23-33) meq/L Anion Gap 12 (5-20) BUN 22 (7-22) mg/dL Creatinine 1.3 H (0.50-1.20) mg/dL Estimated GFR Relationship Management Lead BUN/Creatinine Ratio 16.92 (6-20) Glucose 134 H (78-110) mg/dL Calculated Osmolality 284.0 (267-292) mOsm/kg Calcium 8.0 L (8.7-10.7) mg/dL Magnesium 1.9 (1.6-2.4) mg/dL Total Bilirubin 1.1 (0.3-1.2) mg/dL AST 47 H (8-39) IU/L ALT 29 (9-52) IU/L Alkaline Phosphatase 41 (38-126) IU/L Total Creatine Kinase 462 H (30-136) IU/L Troponin I 0.043 H (< 0.040) ng/mL Total Protein 4.3 L (6.1-8.0) g/dL Albumin 2.2 L (3.5-4.8) g/dL Globulin 2.1 L (2.50-4.10) g/dL Albumin/Globulin Ratio 1.00 L (1.3-2.0) mg/g Objective : Exam - General General Appearance: Thin Additional General Exam Details: Initially unresponsive and now respond more, she follow commands and she could tell me her name but she thought that she was at voodoo - Head Head Exam: Normal Inspection - Eye Eye Exam: Normal Appearance - Neck Additional Neck Exam Details: Neck was stiff initially - Respiratory Respiratory Exam: Clear to Auscultation - Bilaterally - Cardiovascular Cardiovascular Exam: RRR - GI/Abdominal GI/Abdominal Exam: Normal Bowel Sounds, Non Tender, Non Distended, Soft - Rectal Rectal Exam: Deferred - External Exam: Deferred - Extremities Additional Extremities Exam Details: No edema dressing applied to the right side. Tone was increased in all limbs. Reflexes symmetrical. Babinski equivocal. Initially unresponsive and she became more responsive and awake and follows some of the commands - Back Back Exam: Normal Inspection - Neurological Additional Neurological Exam Details: Unresponsive initially and then she'll open her iron response to Narcan, however was not communicating and not following command and now but she is more responsive after more than 2 hours. - Integumentary Integumentary Exam: Normal Color, Dry Assessment and Plan - Patient Problems (1) Altered mental status Current Visit: Yes Status: Acute Comment: More likely medication effect. We'll see what the CT shows. We'll keep her in the ICU provide supportive care. (2) Closed right hip fracture Current Visit: Yes Status: Acute Comment: Status post surgery. (3) Distal radius fracture, right Current Visit: Yes Status: Acute Comment: Status post surgery (4) Diabetes Current Visit: No Status: Acute Comment: We'll monitor her blood sugar. Qualifiers: Diabetes mellitus type: type 2 Diabetes mellitus complication status: without complication Diabetes mellitus group home insulin use: with group home use Qualified Description: Type 2 diabetes mellitus without complication, with long-term current use of insulin Qualifier Code(s): ( E11.9) Type 2 diabetes mellitus without complications (5) Hypertension Current Visit: No Status: Chronic Comment: Her blood pressure is down compared to yesterday we will hold her blood pressure medication for now Qualifiers: Hypertension type: essential hypertension Qualified Description: Essential hypertension Qualifier Code(s): (I10) Essential (primary) hypertension (6) History of gout Current Visit: Yes Status: Acute Comment: Same med (7) Troponin level elevated Current Visit: Yes Status: Acute Comment: Troponins minimally elevated we will recheck it again. EKG showed some ST depression which was not present before. Will put her on aspirin.
[2016-10-21] MEDS ORDERED: Sodium Chloride 0.9% 500 ML PRIMARY IV ONE (07:50)
[2016-10-21] MEDS ORDERED: ACETAMINOPHEN 325 MG TABLET PO PRN (07:52)
--- NOTE | 2016-10-21 07:58 | CRNA.PROGR ---
Anesthesia Note Anesthesia Progress Note: Became less responsive this am around 0430. Is being worked up for reasons for that by Hospitalist. Little improvement with Narcan. Not CO2 retention by venous gas. Does respond and follow some requests such as wiggle toes, squeeze fingers , raise arm. Laboratory Results 10/20/16 10/21/16 10/21/16 Range/Units 08:30 04:48 05:00 WBC 8.73 (4.8-10.8) 10^3/uL RBC 2.81 L (4.20-5.40) 10^6/uL Hgb 7.7 L (12.0-16.0) g/dL Hct 24.5 L (37.0-47.0) % MCV 87.2 (81-99) FL MCH 27.4 (27-31) PG MCHC 31.4 L (33-37) g/dL RDW Std Deviation 48.8 (39-50) fL RDW Coeff of Naveen 16.0 H (11.5-14.5) % Plt Count 143 (140-350) 10*3/uL MPV 11.6 (7.4-12.2) FL Neutrophils % (Manual) 68 (50-80) % Band Neutrophils % 7 (0-10) % Lymphocytes % (Manual) 21 (10-50) % Monocytes % (Manual) 3 (0-12) % Eosinophils % (Manual) 1 (0-8) % Basophils % (Manual) 0 (0-1) % Metamyelocytes % Not Reportable Myelocytes % Not Reportable Promyelocytes % Not Reportable Blast Cells Not Reportable WBC Morphology Comment Normal morphology (NORM) Plt Morphology Comment See comments (NORM) RBC Morph Comment Normal morphology (NORM) VBG pH 7.37 (7.32-7.42) VBG pCO2 31 L (45-55) mmHg VBG HCO3 18 L (22-26) mmol/L VBG Base Excess -7 L (-2-2) MMOL/L Sodium 135 (135-145) meq/L Potassium 4.4 (3.8-5.2) meq/L Chloride 104 (98-112) meq/L Carbon Dioxide 19 L (23-33) meq/L Anion Gap 12 (5-20) BUN 22 (7-22) mg/dL Creatinine 1.3 H (0.50-1.20) mg/dL Estimated GFR Contour Band Saw Operator Vertical BUN/Creatinine Ratio 16.92 (6-20) Glucose 134 H (78-110) mg/dL Calculated Osmolality 284.0 (267-292) mOsm/kg Calcium 8.0 L (8.7-10.7) mg/dL Magnesium 1.9 (1.6-2.4) mg/dL Total Bilirubin 1.1 (0.3-1.2) mg/dL AST 47 H (8-39) IU/L ALT 29 (9-52) IU/L Alkaline Phosphatase 41 (38-126) IU/L Total Creatine Kinase 462 H (30-136) IU/L Troponin I 0.043 H (< 0.040) ng/mL Total Protein 4.3 L (6.1-8.0) g/dL Albumin 2.2 L (3.5-4.8) g/dL Globulin 2.1 L (2.50-4.10) g/dL Albumin/Globulin Ratio 1.00 L (1.3-2.0) mg/g Intake and Output (24hr x 4 totals) 10/19/16 10/20/16 10/21/16 10/22/16 05:59 05:59 05:59 05:59 Intake Total 992 905 Output Total 900 825 Balance 92 80 Vital Signs (24 hrs) Temp Pulse Pulse Pulse Resp BP BP 10/21/16 07:00 93 21 10/21/16 04:53 97.4 F 89 16 102/62 10/21/16 04:33 10/21/16 03:00 79 10/21/16 01:00 97.9 F 86 16 98/45 10/20/16 23:00 76 10/20/16 20:15 97.7 F 96 16 106/78 10/20/16 19:45 97.9 F 93 16 98/68 10/20/16 19:15 97.5 F 89 16 99/66 10/20/16 19:00 97.6 F 89 90 91 18 114/73 10/20/16 18:40 97.6 F 93 16 123/74 10/20/16 18:09 97.4 F 100 16 104/84 10/20/16 17:55 98.8 F 92 24 132/73 10/20/16 17:50 91 15 144/77 10/20/16 17:40 89 29 H 128/73 10/20/16 17:30 90 23 124/71 10/20/16 17:20 99 26 H 119/66 10/20/16 17:10 91 23 112/88 10/20/16 17:05 92 33 H 142/70 10/20/16 17:02 97.8 F 89 17 138/89 10/20/16 12:20 97.7 F 96 22 201/91 10/20/16 11:59 182/101 10/20/16 11:14 98.4 F 101 H 18 193/110 10/20/16 11:00 99 10/20/16 09:16 98.2 F 99 18 182/94 Pulse Ox 10/21/16 07:00 10/21/16 04:53 92 10/21/16 04:33 3 10/21/16 03:00 10/21/16 01:00 99 10/20/16 23:00 10/20/16 20:15 98 10/20/16 19:45 94 10/20/16 19:15 93 10/20/16 19:00 98 10/20/16 18:40 97 10/20/16 18:09 91 10/20/16 17:55 10/20/16 17:50 10/20/16 17:40 10/20/16 17:30 10/20/16 17:20 10/20/16 17:10 10/20/16 17:05 10/20/16 17:02 10/20/16 12:20 10/20/16 11:59 10/20/16 11:14 95 10/20/16 11:00 10/20/16 09:16 95 Anemic by this am labs. CT scan results pending. Kane RIGGS,BLANCHARD GRINDER OPERATOR
--- NOTE | 2016-10-21 08:05 | DI ---
HISTORY: Irregular breathing. COMPARISON: 10/08/2011. FINDINGS: Borderline cardiomegaly is noted with atheromatous changes of the dorsal aorta. Compared t o the previous examination, there appears to be suspicious early interstitial infiltrate in the right lung base extending from the right infrahilar region. The lung allison are otherwise essentially tank ar. IMPRESSION: 1. Borderline cardiomegaly. 2. Suspicious early right lung base interstitial infiltrates extends from the right infrahilar regio n. Clinical correlation is requested.
--- NOTE | 2016-10-21 08:28 | DI ---
HISTORY: Unresponsive. TECHNIQUE: Unenhanced images of the brain were obtained and submitted for interpretation. FINDINGS: There is no acute infarct, intracranial hemorrhage, or mass effect. There is no hydroceph alus, or significant midline shift. The basal cisterns are not effaced. There is persistent opacification of the right maxillary sinus with hyperdensities within. Features raise possibility of sinusitis. This is unchanged from two days ago. IMPRESSION: 1. No significant interval change. No intracranial hemorrhage. MRI is recommended if clinical symp toms persist.
[2016-10-21] MEDS ORDERED: Metoprolol TARTRATE Tab 50 MG TAB PO SCH (09:00)
[2016-10-21] MEDS ORDERED: ENOXAPARIN SODIUM 30 MG/0.3 ML SYRINGE SUBCUT SCH (09:00)
[2016-10-21] MEDS ORDERED: DULAGLUTIDE 0.75 MG/0.5 ML SUBCUT SCH (09:00)
[2016-10-21] MEDS: ASPIRIN 325 MG TABLET PO SCH (10:22)
[2016-10-21] MEDS: Metoprolol TARTRATE Tab 25 MG TAB PO SCH ×2 (10:22→20:23)
[2016-10-21] MEDS: ALLOPURINOL 100 MG TABLET PO SCH ×2 (10:22→20:23)
[2016-10-21] MEDS ORDERED: Levofloxacin 750mg (Premix) 750 MG in Dextrose 1 BAG IV SCH (11:15)
[2016-10-21] MEDS: SODIUM CHLORIDE 0.9% IV SCH ×2 (13:15→22:36)
[2016-10-21] MEDS: AZTREONAM IV SCH ×2 (13:15→22:36)
[2016-10-21] MEDS ORDERED: Acetaminophen 1000mg Inj 1,000 MG in Premix 1 BAG IV PRN (13:25)
[2016-10-21] MEDS ORDERED: FUROSEMIDE 10 MG/1 ML - 2 ML VIAL IVP ONE (17:12)
--- NOTE | 2016-10-21 18:18 | ORTHO.PROG ---
Last Taken Vital Signs: Vital Signs - Last Taken Temperature 100.2 F H 10/21/16 17:58 Pulse Rate 98 10/21/16 17:58 Respiratory Rate 25 H 10/21/16 17:58 Blood Pressure 150/74 10/21/16 17:58 Pulse Ox 94 10/21/16 17:58 Subjective: Patient had significant mental status changes early in the morning but is doing better today she was able to recognize who I was and tell me some basic information about her current situation. She is sustained a right wrist fracture which required open reduction internal fixation of a hip fracture which required a hemiarthroplasty. Patient was anemic and is receiving blood Objective: Examination shows that the patient has limited motion of the finger she does not have any significant passive stretch type pain. Her sensory exam seems to be intact median and ulna. This sugar tong splint is in place. Dressing in place from hemiarthroplasty. No active bleeding or active issues the hip motor and sensory in the lower extremities is good adductor hiatus popliteal or thigh pain. Radiographs show well-positioned cemented hemiarthroplasty. Right distal radius fracture in good position with volar plate in place Intake and Output - 8hrs 10/20/16 10/21/16 10/21/16 10/21/16 21:59 05:59 13:59 21:59 Intake: IV 0 880 1417 Intake Oral Amount 25 Intake, Blood Product 395 Amount Packed Red Bld Cells 395 Unit [id number] Output: Output, Urinary Catheter 200 Amount Output, Urine Amount 25 Output, Estimated Blood 400 Loss Amount Laboratory Results 10/20/16 10/21/16 10/21/16 Range/Units 08:30 04:48 05:00 WBC 8.73 (4.8-10.8) 10^3/uL RBC 2.81 L (4.20-5.40) 10^6/uL Hgb 7.7 L (12.0-16.0) g/dL Hct 24.5 L (37.0-47.0) % MCV 87.2 (81-99) FL MCH 27.4 (27-31) PG MCHC 31.4 L (33-37) g/dL RDW Std Deviation 48.8 (39-50) fL RDW Coeff of Naveen 16.0 H (11.5-14.5) % Plt Count 143 (140-350) 10*3/uL MPV 11.6 (7.4-12.2) FL Neutrophils % (Manual) 68 (50-80) % Band Neutrophils % 7 (0-10) % Lymphocytes % (Manual) 21 (10-50) % Monocytes % (Manual) 3 (0-12) % Eosinophils % (Manual) 1 (0-8) % Basophils % (Manual) 0 (0-1) % Metamyelocytes % Not Reportable Myelocytes % Not Reportable Promyelocytes % Not Reportable Blast Cells Not Reportable WBC Morphology Comment Normal morphology (NORM) Plt Morphology Comment See comments (NORM) RBC Morph Comment Normal morphology (NORM) VBG pH 7.37 (7.32-7.42) VBG pCO2 31 L (45-55) mmHg VBG HCO3 18 L (22-26) mmol/L VBG Base Excess -7 L (-2-2) MMOL/L Sodium 135 (135-145) meq/L Potassium 4.4 (3.8-5.2) meq/L Chloride 104 (98-112) meq/L Carbon Dioxide 19 L (23-33) meq/L Anion Gap 12 (5-20) BUN 22 (7-22) mg/dL Creatinine 1.3 H (0.50-1.20) mg/dL Estimated GFR Gift Wrapper BUN/Creatinine Ratio 16.92 (6-20) Glucose 134 H (78-110) mg/dL Calculated Osmolality 284.0 (267-292) mOsm/kg Calcium 8.0 L (8.7-10.7) mg/dL Total Bilirubin 1.1 (0.3-1.2) mg/dL AST 47 H (8-39) IU/L ALT 29 (9-52) IU/L Alkaline Phosphatase 41 (38-126) IU/L Total Creatine Kinase 462 H (30-136) IU/L Troponin I 0.043 H (< 0.040) ng/mL Total Protein 4.3 L (6.1-8.0) g/dL Albumin 2.2 L (3.5-4.8) g/dL Globulin 2.1 L (2.50-4.10) g/dL Albumin/Globulin Ratio 1.00 L (1.3-2.0) mg/g Blood Type A POSITIVE Antibody Screen Negative Crossmatch See Detail 10/21/16 Range/Units 11:00 WBC (4.8-10.8) 10^3/uL RBC (4.20-5.40) 10^6/uL Hgb (12.0-16.0) g/dL Hct (37.0-47.0) % MCV (81-99) FL MCH (27-31) PG MCHC (33-37) g/dL RDW Std Deviation (39-50) fL RDW Coeff of Naveen (11.5-14.5) % Plt Count (140-350) 10*3/uL MPV (7.4-12.2) FL Neutrophils % (Manual) (50-80) % Band Neutrophils % (0-10) % Lymphocytes % (Manual) (10-50) % Monocytes % (Manual) (0-12) % Eosinophils % (Manual) (0-8) % Basophils % (Manual) (0-1) % Metamyelocytes % Myelocytes % Promyelocytes % Blast Cells WBC Morphology Comment (NORM) Plt Morphology Comment (NORM) RBC Morph Comment (NORM) VBG pH (7.32-7.42) VBG pCO2 (45-55) mmHg VBG HCO3 (22-26) mmol/L VBG Base Excess (-2-2) MMOL/L Sodium (135-145) meq/L Potassium (3.8-5.2) meq/L Chloride (98-112) meq/L Carbon Dioxide (23-33) meq/L Anion Gap (5-20) BUN (7-22) mg/dL Creatinine (0.50-1.20) mg/dL Estimated GFR BUN/Creatinine Ratio (6-20) Glucose (78-110) mg/dL Calculated Osmolality (267-292) mOsm/kg Calcium (8.7-10.7) mg/dL Total Bilirubin (0.3-1.2) mg/dL AST (8-39) IU/L ALT (9-52) IU/L Alkaline Phosphatase (38-126) IU/L Total Creatine Kinase (30-136) IU/L Troponin I 0.070 H (< 0.040) ng/mL Total Protein (6.1-8.0) g/dL Albumin (3.5-4.8) g/dL Globulin (2.50-4.10) g/dL Albumin/Globulin Ratio (1.3-2.0) mg/g Blood Type Antibody Screen Crossmatch Assessment: Patient with right wrist fracture and hip fracture with open reduction internal fixation of right wrist and hemiarthroplasty cemented doing well. Anemiareceiving blood transfusion Mental status change improved Plan: Patient will continue with pain control hopefully she will be moved from the ICU to a regular bed to help progress with physical therapy and mobilization. Will follow patient along during her hospital stay.
[2016-10-21] MEDS ORDERED: ATORVASTATIN 40 MG TABLET PO SCH (21:00)
[2016-10-21 23:35] LABS: HEMATOCRIT 35.1 % (37.0-47.0); HEMOGLOBIN 11.9 g/dL (12.0-16.0); MEAN CORPUSCULAR HEMOGLOBIN 28.3 PG (27-31); MEAN CORPUSCULAR HGB CONC 33.9 g/dL (33-37); MEAN CORPUSCULAR VOLUME 83.6 FL (81-99); MEAN PLATELET VOLUME 11.4 FL (7.4-12.2); RED BLOOD COUNT 4.2 10^6/uL (4.20-5.40)
[2016-10-22 05:09] LABS: HEMATOCRIT 35.9 % (37.0-47.0); HEMOGLOBIN 12.2 g/dL (12.0-16.0); MEAN CORPUSCULAR HEMOGLOBIN 28.1 PG (27-31); MEAN CORPUSCULAR VOLUME 82.7 FL (81-99); MEAN PLATELET VOLUME 11.5 FL (7.4-12.2); RED BLOOD COUNT 4.34 10^6/uL (4.20-5.40)
[2016-10-22 05:33] LABS: BUN/CREATININE RATIO 36.66 (6-20); SERUM ALBUMIN 2.5 g/dL (3.5-4.8)
[2016-10-22 05:39] LABS: PLATELET MORPHOLOGY COMMENT NORMAL MORPHOLOGY (NORM); RBC MORPHOLOGY COMMENT SEE COMMENTS (NORM); WBC MORPHOLOGY COMMENT SEE COMMENTS (NORM)
[2016-10-22 05:42] LABS: BAND NEUTROPHILS % 2 % (0-10); BASOPHILS % (MANUAL) 0 % (0-1); EOSINOPHILS % (MANUAL) 2 % (0-8); LYMPHOCYTES % (MANUAL) 21 % (10-50); MONOCYTES % (MANUAL) 2 % (0-12); NEUTROPHILS % (MANUAL) 73 % (50-80)
[2016-10-22] MEDS: AZTREONAM IV SCH (06:54)
[2016-10-22] MEDS: SODIUM CHLORIDE 0.9% IV SCH (06:54)
[2016-10-22] MEDS ORDERED: ENOXAPARIN SODIUM 30 MG/0.3 ML SYRINGE SUBCUT SCH (09:00)
[2016-10-22] MEDS: Metoprolol TARTRATE Tab 25 MG TAB PO SCH (09:45)
[2016-10-22] MEDS: Lactated Ringers 1,000 ML PRIMARY IV SCH (09:46)
[2016-10-22] MEDS: ALLOPURINOL 100 MG TABLET PO SCH (09:46)
[2016-10-22] MEDS: ASPIRIN 325 MG TABLET PO SCH (09:46)
--- NOTE | 2016-10-22 12:33 | DCSUMMARY ---
Hospitalization Summary Hospital Course: Final Discharge Diagnosis: Current Visit Problems Problem Status Priority Diagnosed Code Altered mental status Acute R41.82 Closed right hip fracture Acute S72.001A Distal radius fracture, right Acute S52.501A Fall Acute W19.XXXA History of gout Acute Z87.39 Skin tear of forearm without complication Acute S51.819A Troponin level elevated Acute R74.8 Pneumonia Non-STEMI Diagnostic Data, Laboratory Data, and Procedures of Signifigance: Laboratory Results 10/19/16 10/19/16 10/20/16 Range/Units 17:40 22:00 08:30 WBC 9.95 (4.8-10.8) 10^3/uL RBC 4.78 (4.20-5.40) 10^6/uL Hgb 13.0 (12.0-16.0) g/dL Hct 40.3 (37.0-47.0) % MCV 84.3 (81-99) FL MCH 27.2 (27-31) PG MCHC 32.3 L (33-37) g/dL RDW Std Deviation 50.2 H (39-50) fL RDW Coeff of Naveen 16.5 H (11.5-14.5) % Plt Count 231 (140-350) 10*3/uL MPV 11.1 (7.4-12.2) FL Immature Gran % (Auto) 0.4 (0-5) % Neut % (Auto) 70.6 (50-80) % Lymph % (Auto) 21.7 (10-50) % Boyd % (Auto) 6.3 (5-15) % Eos % (Auto) 0.7 (0-8) % Baso % (Auto) 0.3 (0-1) % Immature Gran # (Auto) 0.04 10*3/UL Neut # (Auto) 7.02 10*3/UL Lymph # (Auto) 2.16 10*3/uL Boyd # (Auto) 0.63 (0.3-0.8) 10*3/UL Eos # (Auto) 0.07 10*3/UL Baso # (Auto) 0.03 10*3/UL Neutrophils % (Manual) (50-80) % Band Neutrophils % (0-10) % Lymphocytes % (Manual) (10-50) % Monocytes % (Manual) (0-12) % Eosinophils % (Manual) (0-8) % Basophils % (Manual) (0-1) % Metamyelocytes % Myelocytes % Promyelocytes % Blast Cells WBC Morphology Comment Normal morphology (NORM) Plt Morphology Comment Normal morphology (NORM) RBC Morph Comment Normal morphology (NORM) VBG pH (7.32-7.42) VBG pCO2 (45-55) mmHg VBG HCO3 (22-26) mmol/L VBG Base Excess (-2-2) MMOL/L Sodium 138 (135-145) meq/L Potassium 4.0 (3.8-5.2) meq/L Chloride 100 (98-112) meq/L Carbon Dioxide 24 (23-33) meq/L Anion Gap 14 (5-20) BUN 21 (7-22) mg/dL Creatinine 0.6 (0.50-1.20) mg/dL Estimated GFR (>60 ml/min/1.73m(2)) BUN/Creatinine Ratio 35.00 H (6-20) Glucose 220 H (78-110) mg/dL Calculated Osmolality 295.0 H (267-292) mOsm/kg Calcium 9.4 (8.7-10.7) mg/dL Magnesium 1.3 L 1.9 (1.6-2.4) mg/dL Total Bilirubin 0.8 (0.3-1.2) mg/dL AST 30 (8-39) IU/L ALT 20 (9-52) IU/L Alkaline Phosphatase 69 (38-126) IU/L Total Creatine Kinase (30-136) IU/L Troponin I < 0.012 (< 0.040) ng/mL Total Protein 7.3 (6.1-8.0) g/dL Albumin 4.0 (3.5-4.8) g/dL Globulin 3.4 (2.50-4.10) g/dL Albumin/Globulin Ratio 1.10 L (1.3-2.0) mg/g Ur Collection Type Cath specimen Urine Color Yellow Urine Clarity Clear (CLEAR) Urine pH 5.5 (5.0-8.5) Ur Specific Davison 1.025 (1.005-1.030) Urine Protein Negative (NEG) mg/dl Urine Glucose (UA) 250 (NEG) mg/dL Urine Ketones 40 (NEG) Urine Occult Blood Small H (NEG) Urine Nitrate Negative (NEG) Urine Bilirubin Negative (NEG) Urine Urobilinogen 0.2 (0.2) EU/dL Ur Leukocyte Esterase Negative (NEG) Urine RBC 1-3 (NONE) /hpf Urine WBC None (NONE) Ur Squamous Epith Cells None (NONE) Ur Renal Epithelial Cell None (NONE) Urine Crystals None Urine Bacteria Rare (NONE) Urine Casts None (NONE) Urine Mucus None (NONE) Urine Trichomonas None (NONE) Urine Yeast None (NONE) Ur Culture Indicated? Culture not set Blood Type A POSITIVE Antibody Screen Negative Crossmatch See Detail 10/21/16 10/21/16 10/21/16 Range/Units 04:48 05:00 11:00 WBC 8.73 (4.8-10.8) 10^3/uL RBC 2.81 L (4.20-5.40) 10^6/uL Hgb 7.7 L (12.0-16.0) g/dL Hct 24.5 L (37.0-47.0) % MCV 87.2 (81-99) FL MCH 27.4 (27-31) PG MCHC 31.4 L (33-37) g/dL RDW Std Deviation 48.8 (39-50) fL RDW Coeff of Naveen 16.0 H (11.5-14.5) % Plt Count 143 (140-350) 10*3/uL MPV 11.6 (7.4-12.2) FL Immature Gran % (Auto) (0-5) % Neut % (Auto) (50-80) % Lymph % (Auto) (10-50) % Boyd % (Auto) (5-15) % Eos % (Auto) (0-8) % Baso % (Auto) (0-1) % Immature Gran # (Auto) 10*3/UL Neut # (Auto) 10*3/UL Lymph # (Auto) 10*3/uL Boyd # (Auto) (0.3-0.8) 10*3/UL Eos # (Auto) 10*3/UL Baso # (Auto) 10*3/UL Neutrophils % (Manual) 68 (50-80) % Band Neutrophils % 7 (0-10) % Lymphocytes % (Manual) 21 (10-50) % Monocytes % (Manual) 3 (0-12) % Eosinophils % (Manual) 1 (0-8) % Basophils % (Manual) 0 (0-1) % Metamyelocytes % Not Reportable Myelocytes % Not Reportable Promyelocytes % Not Reportable Blast Cells Not Reportable WBC Morphology Comment Normal morphology (NORM) Plt Morphology Comment See comments (NORM) RBC Morph Comment Normal morphology (NORM) VBG pH 7.37 (7.32-7.42) VBG pCO2 31 L (45-55) mmHg VBG HCO3 18 L (22-26) mmol/L VBG Base Excess -7 L (-2-2) MMOL/L Sodium 135 (135-145) meq/L Potassium 4.4 (3.8-5.2) meq/L Chloride 104 (98-112) meq/L Carbon Dioxide 19 L (23-33) meq/L Anion Gap 12 (5-20) BUN 22 (7-22) mg/dL Creatinine 1.3 H (0.50-1.20) mg/dL Estimated GFR [employer] (>60 ml/min/1.73m(2)) BUN/Creatinine Ratio 16.92 (6-20) Glucose 134 H (78-110) mg/dL Calculated Osmolality 284.0 (267-292) mOsm/kg Calcium 8.0 L (8.7-10.7) mg/dL Magnesium (1.6-2.4) mg/dL Total Bilirubin 1.1 (0.3-1.2) mg/dL AST 47 H (8-39) IU/L ALT 29 (9-52) IU/L Alkaline Phosphatase 41 (38-126) IU/L Total Creatine Kinase 462 H (30-136) IU/L Troponin I 0.043 H 0.070 H (< 0.040) ng/mL Total Protein 4.3 L (6.1-8.0) g/dL Albumin 2.2 L (3.5-4.8) g/dL Globulin 2.1 L (2.50-4.10) g/dL Albumin/Globulin Ratio 1.00 L (1.3-2.0) mg/g Ur Collection Type Urine Color Urine Clarity (CLEAR) Urine pH (5.0-8.5) Ur Specific Davison (1.005-1.030) Urine Protein (NEG) mg/dl Urine Glucose (UA) (NEG) mg/dL Urine Ketones (NEG) Urine Occult Blood (NEG) Urine Nitrate (NEG) Urine Bilirubin (NEG) Urine Urobilinogen (0.2) EU/dL Ur Leukocyte Esterase (NEG) Urine RBC (NONE) /hpf Urine WBC (NONE) Ur Squamous Epith Cells (NONE) Ur Renal Epithelial Cell (NONE) Urine Crystals Urine Bacteria (NONE) Urine Casts (NONE) Urine Mucus (NONE) Urine Trichomonas (NONE) Urine Yeast (NONE) Ur Culture Indicated? Blood Type Antibody Screen Crossmatch 10/21/16 10/22/16 10/22/16 Range/Units 23:28 04:57 10:15 WBC 9.22 9.84 (4.8-10.8) 10^3/uL RBC 4.20 4.34 (4.20-5.40) 10^6/uL Hgb 11.9 L 12.2 (12.0-16.0) g/dL Hct 35.1 L 35.9 L (37.0-47.0) % MCV 83.6 82.7 (81-99) FL MCH 28.3 28.1 (27-31) PG MCHC 33.9 34.0 (33-37) g/dL RDW Std Deviation 46.0 47.1 (39-50) fL RDW Coeff of Naveen 15.3 H 16.0 H (11.5-14.5) % Plt Count 128 L 130 L (140-350) 10*3/uL MPV 11.4 11.5 (7.4-12.2) FL Immature Gran % (Auto) (0-5) % Neut % (Auto) (50-80) % Lymph % (Auto) (10-50) % Boyd % (Auto) (5-15) % Eos % (Auto) (0-8) % Baso % (Auto) (0-1) % Immature Gran # (Auto) 10*3/UL Neut # (Auto) 10*3/UL Lymph # (Auto) 10*3/uL Boyd # (Auto) (0.3-0.8) 10*3/UL Eos # (Auto) 10*3/UL Baso # (Auto) 10*3/UL Neutrophils % (Manual) 73 (50-80) % Band Neutrophils % 2 (0-10) % Lymphocytes % (Manual) 21 (10-50) % Monocytes % (Manual) 2 (0-12) % Eosinophils % (Manual) 2 (0-8) % Basophils % (Manual) 0 (0-1) % Metamyelocytes % Not Reportable Myelocytes % Not Reportable Promyelocytes % Not Reportable Blast Cells Not Reportable WBC Morphology Comment See comments (NORM) Plt Morphology Comment Normal morphology (NORM) RBC Morph Comment See comments (NORM) VBG pH (7.32-7.42) VBG pCO2 (45-55) mmHg VBG HCO3 (22-26) mmol/L VBG Base Excess (-2-2) MMOL/L Sodium 136 (135-145) meq/L Potassium 4.2 (3.8-5.2) meq/L Chloride 104 (98-112) meq/L Carbon Dioxide 21 L (23-33) meq/L Anion Gap 11 (5-20) BUN 33 H (7-22) mg/dL Creatinine 0.9 (0.50-1.20) mg/dL Estimated GFR (>60 ml/min/1.73m(2)) BUN/Creatinine Ratio 36.66 H (6-20) Glucose 290 H (78-110) mg/dL Calculated Osmolality 299.0 H (267-292) mOsm/kg Calcium 8.0 L (8.7-10.7) mg/dL Magnesium (1.6-2.4) mg/dL Total Bilirubin 1.9 H D (0.3-1.2) mg/dL AST 70 H (8-39) IU/L ALT 42 (9-52) IU/L Alkaline Phosphatase 60 (38-126) IU/L Total Creatine Kinase (30-136) IU/L Troponin I 0.120 H 0.095 H (< 0.040) ng/mL Total Protein 5.0 L (6.1-8.0) g/dL Albumin 2.5 L (3.5-4.8) g/dL Globulin 2.5 (2.50-4.10) g/dL Albumin/Globulin Ratio 1.00 L (1.3-2.0) mg/g Ur Collection Type Urine Color Urine Clarity (CLEAR) Urine pH (5.0-8.5) Ur Specific Davison (1.005-1.030) Urine Protein (NEG) mg/dl Urine Glucose (UA) (NEG) mg/dL Urine Ketones (NEG) Urine Occult Blood (NEG) Urine Nitrate (NEG) Urine Bilirubin (NEG) Urine Urobilinogen (0.2) EU/dL Ur Leukocyte Esterase (NEG) Urine RBC (NONE) /hpf Urine WBC (NONE) Ur Squamous Epith Cells (NONE) Ur Renal Epithelial Cell (NONE) Urine Crystals Urine Bacteria (NONE) Urine Casts (NONE) Urine Mucus (NONE) Urine Trichomonas (NONE) Urine Yeast (NONE) Ur Culture Indicated? Blood Type Antibody Screen Crossmatch History and Physical pertinent to Admission: History of Present Illness: Past Medical History Medical History: 1. Diabetes type II. 2. Hypertension. 3. Hyperlipidemia. 4. Osteoporosis. 5. Gout attack back in April 2016 Surgical History: 1. Hysterectomy. 2. Tonsillectomy. 3. History of nephrolithiasis. 4. C-sections Family History: Reviewed an Not Pertinent Past Social History: Doesn't smoke, rarely drinks no drugs. 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 Tobacco Use: Never Smoker Substance Use Type: None Alcohol Use: None Course of Hospitalization: This very nice 86-year-old female with past medical history significant for hypertension, hyperlipidemia, diabetes sustained a fall at home fell on the right side sustaining injuries to the right wrist right hip she did not pass out evaluation in ER revealed the right wrist and right hip fracture denies any history of ND or stroke she is postop day 2 for right hip surgery. There is a small infiltrate on chest x-ray patient was started on antibiotics also she had an episode of unresponsiveness after post operatively most likely secondary to narcotics received an anesthesia she received some Narcan and the this change of mental status totally resolved and is back to her baseline. Troponins were checked and they were 0.043 then 0.070 and then 0.[address]-T wave elevation other than in V4 V5 and V6 may be as some ST depression was likely non-STEMI. I discussed this with family members daughter's grandkids and patient herself she is a full code they would like to be aggressive in treating this I did discuss this with Dr. Tinoco which accepted the patient in transfer and that after he evaluates her they will decide if the to proceed with catheter or treat this medically but they would definitely want to see a glass carrier. Patient has no chest pain at present time I will be I will also told the patient that when she is discharged from [facility] she can come back here and do a rehabilitation in our swing bed unit All in agreement Radiographs show well-positioned cemented hemiarthroplasty. Right distal radius fracture in good position with volar plate in place On the date of discharge, the patient was examined: Gen.: [No acute distress, alert, nontoxic] Heart: [Regular rate and rhythm, no murmurs, clicks, gallops, or rubs] Lungs: [Clear to auscultation bilaterally, breathing is nonlabored] Abdomen/GI: [Normal tones on auscultation, soft, nontender, nondistended] Musculoskeletal/extremities: [No clubbing, cyanosis, or edema] Vitals reviewed and are listed below Vital Signs (24 hrs) Temp Pulse Pulse Pulse Resp BP BP 10/22/16 11:00 98 93 26 H 169/99 10/22/16 10:00 100.0 F H 107 H 28 H 162/92 10/22/16 09:00 106 H 25 H 166/98 10/22/16 08:00 104 H 25 H 10/22/16 07:00 98.4 F 109 H 109 H 104 H 28 H 10/22/16 06:00 109 H 25 H 10/22/16 05:21 10/22/16 05:00 98.2 F 103 H 23 10/22/16 04:00 105 H 25 H 10/22/16 03:00 98.8 F 107 H 106 H 25 H 10/22/16 02:00 108 H 26 H 10/22/16 01:00 99.4 F 105 H 25 H 10/22/16 00:00 108 H 26 H 10/21/16 23:00 99.3 F 104 H 105 H 24 10/21/16 22:00 104 H 28 H 10/21/16 21:24 99.5 F 24 L 103 H 150/94 10/21/16 21:00 104 H 26 H 10/21/16 20:21 100.6 F H 102 H 26 H 150/77 10/21/16 19:37 100.9 F H 101 H 25 H 152/76 10/21/16 19:22 100.8 F H 100 21 136/76 10/21/16 19:07 100.4 F H 101 H 24 137/77 10/21/16 19:00 101 H 101 H 28 H 10/21/16 18:52 100 F H 97 25 H 142/86 10/21/16 17:58 100.2 F H 98 25 H 150/74 10/21/16 17:00 98.4 F 96 98 19 141/74 10/21/16 16:14 98.5 F 97 25 H 130/70 10/21/16 15:09 99 F 94 18 110/58 10/21/16 15:00 95 94 23 10/21/16 14:55 99 F 94 21 110/64 10/21/16 14:25 98 F 95 22 109/56 10/21/16 14:00 93 26 H 10/21/16 13:00 101 F H 93 23 BP Pulse Ox 10/22/16 11:00 97 10/22/16 10:00 96 10/22/16 09:00 94 10/22/16 08:00 95 10/22/16 07:00 161/100 96 10/22/16 06:00 185/105 95 10/22/16 05:21 94 10/22/16 05:00 153/97 95 10/22/16 04:00 169/98 94 10/22/16 03:00 168/95 3 10/22/16 02:00 171/99 95 10/22/16 01:00 165/87 96 10/22/16 00:00 175/96 94 10/21/16 23:00 159/92 94 10/21/16 22:00 168/94 93 10/21/16 21:24 95 10/21/16 21:00 162/83 93 10/21/16 20:21 95 10/21/16 19:37 94 10/21/16 19:22 96 10/21/16 19:07 95 10/21/16 19:00 10/21/16 18:52 93 10/21/16 17:58 94 10/21/16 17:00 141/74 97 10/21/16 16:14 96 10/21/16 15:09 97 10/21/16 15:00 110/58 95 10/21/16 14:55 96 10/21/16 14:25 96 10/21/16 14:00 101/57 95 10/21/16 13:00 95 Assessment and Plan: 1. As per discharge assessments above 2. Disposition: [facility] accepted by Dr. Tinoco cardiology 3. Condition on discharge, stable and improved. 4. Diet: regular diet 5. Activities: resume normal activities 6. Follow-Up: 1. [PCP] 2. 7. Medications at the Time of Discharge: Active Medications Generic Name Dose Route Start Last Admin Trade Name Freq PRN Reason Stop Dose Admin Acetaminophen 650 mg 10/21/16 07:52 Tylenol PO Q6H PRN Pain Allopurinol 100 mg 10/21/16 09:00 10/22/16 09:46 Zyloprim PO 100 mg BID YANNA Administration Aspirin 325 mg 10/21/16 09:00 10/22/16 09:46 Aspirin PO 325 mg DAILY YANNA Administration Atorvastatin Calcium 40 mg 10/21/16 21:00 10/21/16 20:26 Lipitor PO Not Given BEDTIME YANNA Enoxaparin Sodium 30 mg 10/22/16 09:00 10/22/16 09:45 Lovenox Inj SUBCUT 30 mg DAILY YANNA Administration Sodium Chloride 25 mls @ 200 mls/hr 10/21/16 07:30 Normal Saline 0.9% IV .Post Infusion PRN No Primary IV for Flush ONLY Lactated Ringer's 1,000 mls @ 100 mls/hr 10/21/16 07:30 10/22/16 09:46 Lr PRIMARY IV 100 mls/hr .Q10H YANNA Administration Azithromycin 500 mg/ Sodium 250 mls @ 250 mls/hr 10/21/16 11:30 10/22/16 11:45 Chloride IV 250 mls/hr Q24H YANNA Administration Aztreonam 0.5 gm/ Sodium 100 mls @ 200 mls/hr 10/21/16 12:30 10/22/16 06:54 Chloride IV 200 mls/hr Q8H YANNA Administration Acetaminophen 1,000 mg/ Non- 100 mls @ 400 mls/hr 10/21/16 13:25 10/22/16 01:37 Formulary Medication IV 400 mls/hr Q8H PRN Administration Pain Metoprolol Tartrate 12.5 mg 10/21/16 09:00 10/22/16 09:45 Lopressor Tab PO 12.5 mg BID YANNA Administration Ondansetron HCl 4 mg 10/21/16 07:30 Zofran Inj IVP Q4H PRN NAUSEA / VOMITING Sodium Chloride 5 - 20 ml 10/21/16 07:30 Saline Flush IVP BID PRN Flush 8. Time, care, counseling and coordination of care for this discharge is greater than 30 minutes. Exam - Vitals Vital Signs: Vital Signs Temperature 100.0 F Temperature Source Temporal Artery Scan Pulse Rate [Telemetry] 93 Pulse Rate [Left Apical] 109 Pulse Rate [Pulse Oximeter] 91 Pulse Rate 98 Respiratory Rate 26 Blood Pressure [Right Arm] 161/100 Blood Pressure [Left Arm] 169/99 Blood Pressure 150/94 Pulse Ox 97 Oxygen Flow Rate 3 Oxygen Flow Rate 3 Oxygen Delivery Method Nasal Cannula Height 4 ft 11 in Weight 51.71 kg
[2016-10-22] MEDS ORDERED: Metoprolol TARTRATE Tab 50 MG TAB PO ONE (12:46)
[2016-10-22 13:06] VITALS: RESP 20; TEMP 97.8
--- NOTE | 2016-10-22 17:56 | EKG ---
[address] [address] Measurements Intervals Mason Rate: 98 P: 60 HI: 145 QRS: 2 QRSD: 88 T: 40 QT: 350 QTc: 405 Interpretive Statements SINUS RHYTHM Compared to ECG 10/21/2016 06:32:45 ST (T wave) deviation no longer present Possible ischemia no longer present Electronically Signed On 10-23-16 12:33:48 MDT by Andrew Wang [email or web address]
--- NOTE | 2016-10-23 10:18 | PTI REPORT ---
Thank you for the referral of Raymon Aaron. She was seen on 10/22/16 for an inpatient evaluation secondary to right hip and right wrist surgery. SUBJECTIVE: The patient is an 86-year-old female. The patient had surgery on Thursday evening after a slip and fall at home where she fractured her right hip and wrist. They were able to do a hip arthroplasty and ORIF of the right wrist. She spent yesterday in ICU fairly unresponsive. PAST MEDICAL HISTORY: Past medical history can be found in the patient's medical record. OBJECTIVE FINDINGS: General observations: This morning the patient is alert and oriented x1. She is eating a little bit with assistance of the nursing staff and family. Responses are appropriate and she is able to follow verbal commands. Range of motion/Strength: The patient demonstrated range of motion of the left shoulder to 90 degrees of flexion and abduction. Left lower extremity strength was within 2+/5 range. Right lower extremity was painful for any movement with Grade II+ swelling throughout. Right upper extremity was very weak and needed assist of one for active assistive movement to 90 degrees of shoulder flexion or abduction. Bed mobility: The patient needed assist of one to come from supine to sit and tolerated that position with moderate pain of the right hip. Transfers: The patient then transferred from sit to stand and stood for 15 seconds x2 and tolerated a pivot transfer to a gabby chair. ASSESSMENT: Status post fracture of the right wrist and hip. It will be a long, slow recovery due to her age and other hospital history. She does have a supportive family at home. Short-Term Goals: To be met by discharge from inpatient: Patient will be able to perform all bed mobility and transfers with stand by supervision. Patient will be able to ambulate household distances with least restrictive assistive device. Patient will increase lower extremity strength to 3+/5 or greater. Long-Term Goals: To be met following discharge from inpatient: Patient will ultimately be able to return home with family with 24-hour supervision. TREATMENT PLAN: Patient will be seen B.I.D during the week and one time per day over the weekend as an inpatient for transfer training, eventually ambulation, active range of motion, and strengthening. INITIAL TREATMENT: Treatment today consisted of the initial evaluation activities only. MTDD
--- NOTE | 2016-10-23 11:15 | OTI REPORT ---
Thank you for the referral of Raymon Aaron. She was seen on 10/22/16 for an occupational therapy inpatient evaluation secondary to right hip surgery and right wrist surgery. SUBJECTIVE: The patient is an 86-year-old female who is being seen secondary to having a fall. She is status post hip fracture and wrist fracture. She had surgery on the right wrist and the right hip. The patient reports that she lives at home with her . She states typically she is independent with all of her ADLs including dressing herself, making meals, cleaning the house, showering, and feeding self. PAST MEDICAL HISTORY: Past medical history can be found in the patient's medical record. OBJECTIVE FINDINGS: General observations: The patient was supine in bed upon the therapist's arrival. Edema: It was observed that the patient has Grade I-II swelling in the right hand and Grade I-II swelling in the right hip. Range of motion: The patient's left upper extremity demonstrated 0 to 90 degrees of motion. The patient is able to move her right shoulder from 0 to 90 degrees. She does have a temporary cast on the right side. Strength: Strength in the left upper extremity was 3+/5 for flexion and 3+/5 for shoulder extension. Elbow and wrist strength were 3+/5. Bed mobility: The patient requires max assist x2 to come from supine to sit. Transfers: The patient requires max assist to transfer from sit to stand. Activities of daily living: The patient is dependent with donning socks and dependent for lower extremity dressing as she is not able to keep her balance when pulling pants up to waist line. The patient requires max assist for upper extremity dressing. It was observed that the patient was not able to feed herself. The patient is right handed; the therapist tried to adapt the patient' s meal to be set up within easy reach; however, the patient has difficulty with left hand coordination and required max assist to feed herself with a spoon. ASSESSMENT: The patient's family members and nursing staff were instructed that the patient would need assistance in order to get her nutrition. The patient would benefit from skilled occupational therapy to address a number of different needs. She will have to learn adaptive and compensatory strategies in order to dress herself, feed herself, and complete simple ADLs and simple transfers. We will work on completing her overall strength, ADLs, and abilities to complete functional transfers. Short-Term Goals: To be met by discharge from inpatient: Patient will be able to dress upper extremities with mod assist and lower extremities with max assist. Patient will be able to complete a functional commode transfer with mod assist. Patient will be able to improve active range of motion of left upper extremity to 120 degrees to improve reaching tasks. Patient will be able to demonstrate independent exercises with her right fingers such as moving each joint and gross motor movement independently. Patient will be able to feed herself independently after set up. Patient will be able to complete simple hygiene activities while in a seated position using left upper extremity with modified independence. Long-Term Goals: To be met following discharge from inpatient: Patient will be admitted as a swingbed patient for further rehabilitation to improve her independence for home. TREATMENT PLAN: Patient will be seen B.I.D during the week and one time per day over the weekend as an inpatient to address the above goals and objectives. INITIAL TREATMENT: Treatment today consisted of the initial evaluation followed by the patient completing active assistive range of motion to bilateral upper extremities for shoulder flexion and shoulder abduction to 110 degrees x15 repetitions each. We worked on active assistive elbow flexion and extension of the left arm and wrist flexion/extension of the left arm. We also assisted the patient with donning socks. The patient required max assist to transfer from bed to chair. In chair we worked on the patient's ability to feed self. The therapist tried several times to position the patient; the patient needed max assist to hold spoon and to bring spoon to mouth. The patient had difficulty scooping the food and initiating the motion to bring the food to her mouth. The patient was positioned comfortably in her chair. Nursing and the patient's family were notified of the feeding concerns. ELLY
== END 2016-10-22 13:07 | disposition short-term general hospital (02) | DRG 999 ==
LOC: ER 15:39 → MED/SURG 17:34 → OPS 10-20 12:10 → MED/SURG 10-20 17:50 → ICU 10-21 06:24
PROVIDERS: ADMIT Internal Medicine; ATTEND Internal Medicine
PROC: 0QS404Z Reposition Right Acetabulum with Internal Fixation Device, Open Approach (ICD-10-PCS; principal; 2016-10-20 14:30)
PROC: 0SRR0J9 Replacement of Right Hip Joint, Femoral Surface with Synthetic Substitute, Cemented, Open Approach (ICD-10-PCS; 2016-10-20 14:30)
PROC: 30233N1 Transfusion of Nonautologous Red Blood Cells into Peripheral Vein, Percutaneous Approach (ICD-10-PCS; 2016-10-21)
DX: S72.001A Fracture of unspecified part of neck of right femur, initial encounter for closed fracture (principal); I21.4 Non-ST elevation (NSTEMI) myocardial infarction; W18.39XA Other fall on same level, initial encounter; S52.501A Unspecified fracture of the lower end of right radius, initial encounter for closed fracture; S51.811A Laceration without foreign body of right forearm, initial encounter; W18.30XA Fall on same level, unspecified, initial encounter; Y92.000 Kitchen of unspecified non-institutional (private) residence as the place of occurrence of the external cause; D64.9 Anemia, unspecified; E11.9 Type 2 diabetes mellitus without complications; I10 Essential (primary) hypertension; E78.5 Hyperlipidemia, unspecified
CPT/HCPCS: 36415; 36430; 70450; 71010; 73110; 73502; 73700; 76000; 80053; 81001; 81003; 82550; 82803; 82948; 83735; 84484; 85007; 85025; 85027; 86850; 86900; 86901; 86922; 87040; 87641; 93005; 93010; 94150; 94761; 97163; 97166; 97530; 99284; J0131; J1170; J1650; J1885; J1940; J2060; J2250; J2370; J2405; J3010; J3370; J3475; J3490; J7030; J7040; J7050; J7120; P9016; S0073

== ENCOUNTER 2016-10-24 13:22 | Inpatient (IN) | payer OTHER, MEDICARE ==
[~2016-10-24 13:22] MED LIST: ENOXAPARIN SODIUM 30 MG/0.3 ML SYRINGE SUBCUT SCH
--- NOTE | 2016-10-24 14:03 | PDOC ---
History and Physical - History of Present Illness Chief Complaint: Strengthening History of Present Illness: This very nice 86-year-old female status post right hip replacement and right wrist fracture had then non-STEMI post surgery with elevated troponins [facility] and treatment she underwent Lexiscan stress test which was negative and patient was really accepted here in swing bed status to finish her PT OT at the request of the family. Dr. Manriquez the surgeon had recommended alert Andrea Cuadra but family members and patient wanted to come back down in [place] to continue her physical therapy. She also has hard to control hypertension and she is on multiple medications and worst was started by the dairy inspector Dr. Tinoco. Past Medical History Medical History: 1. Diabetes type II. 2. Hypertension. 3. Hyperlipidemia. 4. Osteoporosis. 5. Gout attack back in April 2016 Surgical History: 1. Hysterectomy. 2. Tonsillectomy. 3. History of nephrolithiasis. 4. C-sections Family History: Reviewed an Not Pertinent Past Social History: Doesn't smoke, rarely drinks no drugs. 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 Substance Use Type: None Medication / Allergies Home Medications: Home Medications Medication Instructions Recorded Confirmed Type Blood Sugar Diagnostic [Freestyle 1 each IN QID #120 strip 08/16/13 10/19/16 Clinic Lite Strips] Aspirin [Aspirin EC] 1 tab PO QOD PRN #30 tab 02/16/15 10/20/16 Clinic Magnesium Hydroxide Susp [Milk Of 30 ml PO DAILY cup 05/20/16 10/19/16 Rx Magnesia Susp] Atorvastatin Calcium 1 tab PO QD #90 tab 06/23/16 10/20/16 Clinic Lisinopril 2 tab PO QD #180 tab 06/23/16 10/20/16 Clinic Metformin HCl [Metformin Hcl Er] 2 tab PO BID #120 tab 08/04/16 10/20/16 Clinic Allopurinol 1 tab PO BID #180 tab 08/07/16 10/20/16 Clinic Dulaglutide [Trulicity] 1.5 mg SUBCUT WEEKLY #12 ml 08/07/16 10/19/16 Clinic Cholecalciferol [Vitamin D] 1,000 unit PO DAILY 09/15/16 10/19/16 History Metoprolol Tartrate 100 mg PO BID 09/15/16 10/20/16 History Multivitamin [Multivitamins] 1 tab PO DAILY 09/15/16 10/20/16 History Nifedipine [Nifedipine Er] 1 tab PO QD #90 tab 10/14/16 10/20/16 Clinic Allergies/Adverse Reactions: Allergies Allergy/AdvReac Type Severity Reaction Status Date / Time butorphanol tartrate Allergy Severe Anaphylaxis Verified 10/20/16 22:00 [From Stadol] Penicillins Allergy Mild rash Verified 10/20/16 22:00 mushroom Allergy SHORTNESS Verified 10/20/16 22:00 OF BREATH meperidine HCl [From Demerol] AdvReac Severe difficult Verified 10/20/16 22:00 to arouse Review of Systems - Review of Systems All Systems: Reviewed & No Additional Complaints Except as Stated Exam - Vitals Vital Signs: Vital Signs Height 4 ft 11 in - General General Appearance: POSITIVE: No Acute Distress, Cooperative - Eye Eye Exam: POSITIVE: Normal Appearance - Respiratory Respiratory Exam: POSITIVE: Clear to Auscultation - Bilaterally, Breathing Non Labored, Normal To Percussion, Normal to Percussion and Palpation - Cardiovascular Cardiovascular Exam: POSITIVE: RRR, No Murmur, No Clicks, No Gallops - GI/Abdominal GI/Abdominal Exam: POSITIVE: Non Tender, Non Distended, Soft - Extremities Extremities Exam: POSITIVE: No Clubbing Present, No Edema Present - Neurological Neurological Exam: POSITIVE: Alert, Oriented x 3, Normal Gait, CN II-XII Intact Assessment and Plan - Patient Problems (1) Closed right hip fracture Current Visit: No Status: Acute Comment: Continue PT and OT (2) Diabetes Current Visit: No Status: Acute Comment: Continue usual medication Qualifiers: Qualified Description: Type 2 diabetes mellitus without complication, with long-term current use of insulin Qualifier Code(s): (E11.9) Type 2 diabetes mellitus without complications (3) Distal radius fracture, right Current Visit: No Status: Acute Comment: Tinea PT and OT her surgeon is in [place] inferred (4) Hypercholesterolemia Current Visit: No Status: Acute Comment: Continue statin (5) Severe hypertension Current Visit: No Status: Acute Comment: Continue medication patient had elevated troponins underwent Lexiscan stress test chooses which was negative Photo / Body Diagrams - Uploaded Photos Uploaded Photos:
[2016-10-24] MEDS ORDERED: BLOOD SUGAR DIAGNOSTIC IN SCH (17:00)
[2016-10-24] MEDS ORDERED: ACETAMINOPHEN 325 MG TABLET PO PRN (20:30)
[2016-10-24] MEDS: metFORMIN ER 500 MG TABLET PO SCH (20:33)
[2016-10-24] MEDS: Metoprolol TARTRATE Tab 50 MG TAB PO SCH (20:34)
[2016-10-24] MEDS: ALLOPURINOL 100 MG TABLET PO SCH (20:35)
[2016-10-24] MEDS ORDERED: ATORVASTATIN 40 MG TABLET PO SCH (21:00)
[2016-10-25 08:11] VITALS: RESP 18; TEMP 97.8
[2016-10-25] MEDS ORDERED: ENOXAPARIN SODIUM 30 MG/0.3 ML SYRINGE SUBCUT SCH (09:00)
[2016-10-25] MEDS ORDERED: CHOLECALCIFEROL 1000 IU TABLET PO SCH (09:00)
[2016-10-25] MEDS ORDERED: LISINOPRIL 20 MG TABLET PO SCH (09:00)
[2016-10-25] MEDS ORDERED: MAGNESIUM 400 MG/5 ML - 30 ML (MILK OF MAGNESIA) PO SCH (09:00)
[2016-10-25] MEDS ORDERED: ASPIRIN EC 81 MG TABLET PO SCH (09:00)
[2016-10-25] MEDS ORDERED: DULAGLUTIDE 0.75 MG/0.5 ML SUBCUT SCH (09:00)
[2016-10-25] MEDS: Metoprolol TARTRATE Tab 50 MG TAB PO SCH (09:24)
[2016-10-25] MEDS: ALLOPURINOL 100 MG TABLET PO SCH (09:24)
[2016-10-25] MEDS: metFORMIN ER 500 MG TABLET PO SCH (09:24)
--- NOTE | 2016-10-25 11:34 | PDOC(PROG) ---
Interval History: Was called by nurse patient has black tarry stools otherwise she has no complaints. Objective : Exam - Respiratory Respiratory Exam: Clear to Auscultation - Bilaterally, Breathing Non Labored - Cardiovascular Cardiovascular Exam: No Murmur, No Clicks - Extremities Extremities Exam: No Clubbing Present, No Edema Present, No Cyanosis Present Assessment and Plan - Patient Problems (1) Tarry stools Current Visit: Yes Status: Acute Comment: Start Protonix IV twice a day stop Lovenox check CBC since stools for occult blood might represent upper GI bleed (2) Closed right hip fracture Current Visit: No Status: Acute (3) Diabetes Current Visit: No Status: Acute Qualifiers: Qualified Description: Type 2 diabetes mellitus without complication, with long-term current use of insulin Qualifier Code(s): (E11.9) Type 2 diabetes mellitus without complications (4) Distal radius fracture, right Current Visit: No Status: Acute (5) Hypercholesterolemia Current Visit: No Status: Acute (6) Severe hypertension Current Visit: No Status: Acute Photo / Body Diagrams - Uploaded Photos Uploaded Photos:
[2016-10-25 11:50] LABS: MEAN CORPUSCULAR HEMOGLOBIN 28.5 PG (27-31); RED BLOOD COUNT 2.46 10^6/uL (4.20-5.40)
[2016-10-25 11:54] LABS: HEMATOCRIT 21.4 % (37.0-47.0); MEAN CORPUSCULAR HGB CONC 32.7 g/dL (33-37); MEAN PLATELET VOLUME 11.3 FL (7.4-12.2)
[2016-10-25 12:16] LABS: BAND NEUTROPHILS % 0 % (0-10); BASOPHILS % (MANUAL) 1 % (0-1); EOSINOPHILS % (MANUAL) 0 % (0-8); LYMPHOCYTES % (MANUAL) 25 % (10-50); MONOCYTES % (MANUAL) 7 % (0-12); NEUTROPHILS % (MANUAL) 67 % (50-80); PLATELET MORPHOLOGY COMMENT SEE COMMENTS (NORM); WBC MORPHOLOGY COMMENT NORMAL MORPHOLOGY (NORM)
[2016-10-25 12:17] LABS: RBC MORPHOLOGY COMMENT SEE COMMENTS (NORM)
[2016-10-25] MEDS ORDERED: Pantoprazole Inj 40 MG in Normal Saline Flush 10 ML IVP SCH (21:00)
--- NOTE | 2016-10-26 11:18 | DCSUMMARY ---
Hospitalization Summary Hospital Course: Final Discharge Diagnosis: Current Visit Problems Problem Status Priority Diagnosed Code Anemia Acute D64.9 Status post right hip replacement Acute Z96.641 Diagnostic Data, Laboratory Data, and Procedures of Signifigance: Laboratory Results 10/25/16 10/26/16 Range/Units 11:45 06:01 WBC 12.56 H (4.8-10.8) 10^3/uL RBC 3.98 L (4.20-5.40) 10^6/uL Hgb 11.4 L (12.0-16.0) g/dL Hct 32.1 L (37.0-47.0) % MCV 80.7 L (81-99) FL MCH 28.6 (27-31) PG MCHC 35.5 (33-37) g/dL RDW Std Deviation 46.1 (39-50) fL RDW Coeff of Naveen 16.3 H (11.5-14.5) % Plt Count 142 (140-350) 10*3/uL MPV 11.6 (7.4-12.2) FL Neutrophils % (Manual) 70 (50-80) % Band Neutrophils % 0 (0-10) % Lymphocytes % (Manual) 16 (10-50) % Monocytes % (Manual) 14 H (0-12) % Eosinophils % (Manual) 0 (0-8) % Basophils % (Manual) 0 (0-1) % Metamyelocytes % Not Reportable Myelocytes % Not Reportable Promyelocytes % Not Reportable Blast Cells Not Reportable WBC Morphology Comment Normal morphology (NORM) Plt Morphology Comment Normal morphology (NORM) RBC Morph Comment Normal morphology (NORM) PT 12.6 H (9.7-11.4) secs INR 1.22 (0.00-5.90) N/A Sodium 129 L D (135-145) meq/L Potassium 4.0 (3.8-5.2) meq/L Chloride 97 L (98-112) meq/L Carbon Dioxide 22 L (23-33) meq/L Anion Gap 10 (5-20) BUN 36 H (7-22) mg/dL Creatinine 0.7 (0.50-1.20) mg/dL Estimated GFR (>60 ml/min/1.73m(2)) BUN/Creatinine Ratio 51.42 H (6-20) Glucose 407 H* (78-110) mg/dL Calculated Osmolality 292.0 (267-292) mOsm/kg Calcium 7.4 L (8.7-10.7) mg/dL Blood Type A POSITIVE Antibody Screen Negative Crossmatch See Detail History and Physical pertinent to Admission: Vital Signs (24 hrs) Temp Pulse Pulse Resp BP BP Pulse Ox 10/26/16 09:00 77 20 179/83 1 10/26/16 07:00 75 10/26/16 04:45 97.2 F 72 18 129/68 97 10/26/16 04:06 97 10/26/16 03:00 71 10/26/16 01:14 97.8 F 70 22 115/66 97 10/26/16 00:45 97.6 F 71 18 121/64 97 10/26/16 00:20 97.2 F 71 18 115/59 98 10/25/16 23:48 98.0 F 69 18 112/59 98 10/25/16 23:31 97.8 F 68 18 105/55 96 10/25/16 23:17 97.3 F 73 18 103/54 97 10/25/16 23:03 98.0 F 70 18 100/55 95 10/25/16 23:00 71 10/25/16 22:57 98.0 F 72 18 144/76 94 10/25/16 21:26 98.1 F 78 24 137/74 93 10/25/16 20:51 97.9 F 86 18 180/95 92 10/25/16 20:41 98.6 F 85 20 210/102 94 10/25/16 20:14 98.9 F 86 18 212/98 94 10/25/16 19:41 98.0 F 85 20 174/85 95 10/25/16 19:26 98.3 F 87 18 156/81 92 10/25/16 19:11 97.9 F 82 18 142/69 91 10/25/16 19:00 85 84 18 10/25/16 18:56 98.0 F 86 18 160/80 93 10/25/16 16:20 98.8 F 84 16 137/68 94 Course of Hospitalization: This very nice 86-year-old female who was admitted to swing bed for strengthening secondary to status post hip replacement. Upon checking her labs she was found to have a hemoglobin of 7. Patient will be needing 2 units of packed red blood cells as per charge nurse we cannot do transfusions in swing bed status therefore patient will be discharged from swing bed and admitted to inpatient. Patient is hemodynamically stable. Patient was seen on the date of discharge see my previous soap note Assessment and Plan: 1. As per discharge assessments above 2. Disposition: Admit to inpatient 3. Condition on discharge, stable and improved. 4. Diet: regular diet 5. Activities: resume normal activities 6. Follow-Up: 1. [PCP] 2. 7. Medications at the Time of Discharge: Active Medications Generic Name Dose Route Start Last Admin Trade Name Freq PRN Reason Stop Dose Admin Acetaminophen 650 mg 10/26/16 03:56 Tylenol PO Q6H PRN Pain Allopurinol 100 mg 10/25/16 21:00 10/26/16 09:12 Zyloprim PO 100 mg BID YANNA Administration Atorvastatin Calcium 40 mg 10/25/16 21:00 10/25/16 20:40 Lipitor PO 40 mg BEDTIME YANNA Administration Cholecalciferol 1,000 iu 10/26/16 09:00 10/26/16 09:12 Vitamin D3 PO 1,000 iu DAILY YANNA Administration Sodium Chloride 1,000 mls @ 125 mls/hr 10/25/16 15:45 10/26/16 08:00 Normal Saline PRIMARY IV 125 mls/hr .Q8H YANNA Administration Sodium Chloride 25 mls @ 200 mls/hr 10/25/16 15:42 Normal Saline 0.9% IV .Post Infusion PRN No Primary IV for Flush ONLY Pantoprazole Sodium 40 mg/ 10 mls @ 5 mls/min 10/25/16 21:00 10/25/16 20:50 Sodium Chloride IVP 5 mls/min BEDTIME YANNA Administration Lidocaine HCl 0.5 ml 10/25/16 15:42 Lidocaine Buffered Inj SUBD ONCE PRN IV Starts Magnesium Hydroxide 30 ml 10/26/16 09:00 10/26/16 09:13 Milk Of Magnesia Susp PO 30 ml DAILY YANNA Administration Metoprolol Tartrate 100 mg 10/25/16 21:00 10/26/16 09:12 Lopressor Tab PO 100 mg BID YANNA Administration Multivitamins Therapeutic 1 tab 10/26/16 09:00 10/26/16 09:12 Thera Tab PO 1 tab DAILY YANNA Administration Nf-Dulaglutide [ 1.5 mg 10/27/16 09:00 Trulicity] 1.5 Mg/ 0 SUBCUT .5 Ml WEEKLY YANNA Ondansetron HCl 4 mg 10/25/16 15:42 Zofran Inj IVP Q4H PRN NAUSEA / VOMITING Sodium Chloride 5 - 20 ml 10/25/16 15:42 10/25/16 23:38 Saline Flush IVP 10 ml BID PRN Administration Flush 8. Time, care, counseling and coordination of care for this discharge is greater than 30 minutes. Exam - Vitals Vital Signs: Vital Signs Temperature 97.2 F Temperature Source Oral Pulse Rate [Pulse Oximeter] 77 Pulse Rate 75 Respiratory Rate 20 Blood Pressure [Left Arm] 179/83 Blood Pressure 115/66 Pulse Ox 1 Oxygen Flow Rate 98 Oxygen Delivery Method Nasal Cannula Height 4 ft 11 in Weight 51.982 kg Patient Problems - Patient Problem List (1) Tarry stools Current Visit: No Status: Acute (2) Weakness Current Visit: No Status: Acute (3) Hypertension Current Visit: No Status: Chronic Qualifiers: Qualified Description: Essential hypertension Qualifier Code(s): (I10 ) Essential (primary) hypertension (4) Status post right hip replacement Current Visit: Yes Status: Acute (5) Anemia Current Visit: Yes Status: Acute Qualifiers: Anemia type: unspecified type Qualified Description: Anemia, unspecified type Qualifier Code(s): (D64.9) Anemia, unspecified (6) Diabetes Current Visit: No Status: Acute Qualifiers: Qualified Description: Type 2 diabetes mellitus without complication, with long-term current use of insulin Qualifier Code(s): (E11.9) Type 2 diabetes mellitus without complications
[2016-10-27] MEDS ORDERED: DULAGLUTIDE 0.75 MG/0.5 ML SUBCUT SCH (09:00)
--- NOTE | 2016-10-27 11:23 | PTI REPORT ---
Thank you for the referral of Raymon Aaron. She was seen on 10/25/16 for a swingbed evaluation secondary to weakness. SUBJECTIVE: The patient is an 86-year-old female. The patient reports that she live [facility] with her . She states her helps her with a lot of her mobility. The patient reports she fell and broke her arm and her hip on her right side while using a single point cane. The patient had to go to [place] and is now back and hasn't been moving a whole lot the last couple of days. PAST MEDICAL HISTORY: Past medical history can be found in the patient's medical record. OBJECTIVE FINDINGS: General observations: The patient was seen in her room after nursing was done with her after the commode. The patient has a very posterior pelvic tilt posture. The patient had a soft cast on her right upper extremity and catheter in place. Pain: The patient states she is not in any pain. Strength: The patient's strength was 3-5. Transfers: The patient was unable to perform sit to stand transfer without max assist x2 with max cues for technique. Chair mobility: The patient required max assist for chair mobility in order to sit back into her chair. ASSESSMENT: The patient is an 86-year-old female that presents with generalized weakness following a fall. The patient is weight-bearing as tolerated on right lower extremity per nursing. The patient will benefit from skilled physical therapy in order to improve functional mobility and return to prior level of function. The patient's prognosis for therapy is fair. Problem List: Decreased strength Decreased endurance Decreased independence Decreased functional mobility Short-Term Goals: To be met by discharge from swingbed: Patient will be independent with all transfers with least restrictive assistive device. Patient will be able to ambulate 150 feet with least restrictive assistive device independently. Patient will be able to tolerate 30 minutes of activity in order to improve endurance. Long-Term Goals: To be met following discharge from swingbed: Patient will be able to return home per prior level of function. TREATMENT PLAN: Patient will be seen B.I.D during the week and one time per day over the weekend as a swingbed patient for therapeutic exercise, functional activity, pain relief modalities as needed, neuromuscular reeducation, and gait training. INITIAL TREATMENT: Treatment today consisted of the swingbed evaluation followed by functional activity of dressing the patient's lower extremities with max assist x2 for standing. The patient stood for approximately three minutes with max cues for focused extension. Blood pressure was monitored and was within normal limits. The patient got dizzy after standing and required max assist for positioning back into her chair. The patient was left in room in her chair with her daughter with call light within reach and chair alarm activated. ELLY
== END 2016-10-25 14:53 | disposition other institution (70) | DRG 812 ==
LOC: MED/SURG 15:35
PROVIDERS: ADMIT Internal Medicine; ATTEND Internal Medicine
DX: D64.9 Anemia, unspecified (principal); Z96.641 Presence of right artificial hip joint; R19.5 Other fecal abnormalities; R53.1 Weakness; I10 Essential (primary) hypertension; E11.9 Type 2 diabetes mellitus without complications; S52.501D Unspecified fracture of the lower end of right radius, subsequent encounter for closed fracture with routine healing; E78.00 Pure hypercholesterolemia, unspecified
CPT/HCPCS: 36415; 82272; 85007; 94761; 97161; 97530; J1650

== ENCOUNTER 2016-10-25 14:52 | Inpatient (IN) | payer OTHER, MEDICARE ==
[2016-10-25] MEDS ORDERED: ONDANSETRON 4 MG/2 ML VIAL IVP PRN (15:42)
[2016-10-25] MEDS ORDERED: LIDOCAINE W/ SODIUM BICARB 0.5 ML SYR SUBD PRN (15:42)
[2016-10-25] MEDS ORDERED: predniSONE Tab 20 MG TAB PO ONE (15:49)
[2016-10-25] MEDS ORDERED: FUROSEMIDE 10 MG/1 ML - 2 ML VIAL IVP ONE (15:49)
[2016-10-25] MEDS ORDERED: diphenhydrAMINE 25 MG CAPSULE PO ONE (15:49)
[2016-10-25] MEDS ORDERED: Sodium Chloride 0.9% 500 ML PRIMARY IV ONE (15:49)
[2016-10-25] MEDS ORDERED: ACETAMINOPHEN 325 MG TABLET PO ONE (15:49)
[2016-10-25] MEDS ORDERED: oxyCODONE-ACETAMINOPHEN 5-325 TAB PO ONE (19:51)
[2016-10-25] MEDS ORDERED: traMADol 50 MG TABLET PO PRN (19:58)
[2016-10-25] MEDS ORDERED: traMADol 50 MG TABLET PO ONE (20:07)
[2016-10-25] MEDS ORDERED: CloNIDine Tab 0.1 MG TABLET PO ONE (20:33)
[2016-10-25] MEDS: Metoprolol TARTRATE Tab 50 MG TAB PO SCH (20:39)
[2016-10-25] MEDS: ALLOPURINOL 100 MG TABLET PO SCH (20:40)
[2016-10-25] MEDS: ATORVASTATIN 40 MG TABLET PO SCH (20:40)
[2016-10-25] MEDS: Pantoprazole Inj 40 MG in Normal Saline Flush 10 ML IVP SCH (20:50)
[2016-10-25] MEDS: NORMAL SALINE 10 ML SYRINGE FLUSH IVP PRN ×2 (21:32→23:38)
[2016-10-25] MEDS: Sodium Chloride 0.9% 1,000 ML PRIMARY IV SCH (23:38)
[2016-10-26] MEDS ORDERED: ACETAMINOPHEN 325 MG TABLET PO PRN (03:56)
[2016-10-26 06:07] LABS: HEMATOCRIT 32.1 % (37.0-47.0); HEMOGLOBIN 11.4 g/dL (12.0-16.0); MEAN CORPUSCULAR HEMOGLOBIN 28.6 PG (27-31); MEAN CORPUSCULAR HGB CONC 35.5 g/dL (33-37); MEAN CORPUSCULAR VOLUME 80.7 FL (81-99); MEAN PLATELET VOLUME 11.6 FL (7.4-12.2); RED BLOOD COUNT 3.98 10^6/uL (4.20-5.40)
[2016-10-26 06:29] LABS: BUN/CREATININE RATIO 51.42 (6-20); CALCIUM 7.4 mg/dL (8.7-10.7)
[2016-10-26 06:48] LABS: PLATELET MORPHOLOGY COMMENT NORMAL MORPHOLOGY (NORM); RBC MORPHOLOGY COMMENT NORMAL MORPHOLOGY (NORM); WBC MORPHOLOGY COMMENT NORMAL MORPHOLOGY (NORM)
[2016-10-26 06:49] LABS: BAND NEUTROPHILS % 0 % (0-10); BASOPHILS % (MANUAL) 0 % (0-1); EOSINOPHILS % (MANUAL) 0 % (0-8); LYMPHOCYTES % (MANUAL) 16 % (10-50); MONOCYTES % (MANUAL) 14 % (0-12); NEUTROPHILS % (MANUAL) 70 % (50-80)
[2016-10-26] MEDS ORDERED: Insulin Lispro Flexpen 300 UNIT/3 ML INSULN.PEN SUBCUT ONE ×4 (07:28→11:53)
[2016-10-26] MEDS: Sodium Chloride 0.9% 1,000 ML PRIMARY IV SCH ×2 (08:00)
[2016-10-26] MEDS ORDERED: Pantoprazole Inj 40 MG in Normal Saline Flush 10 ML IVP SCH (09:00)
[2016-10-26] MEDS: CHOLECALCIFEROL 1000 IU TABLET PO SCH (09:12)
[2016-10-26] MEDS: Metoprolol TARTRATE Tab 50 MG TAB PO SCH ×2 (09:12→20:23)
[2016-10-26] MEDS: Multivitamin Tab 1 TAB PO SCH (09:12)
[2016-10-26] MEDS: ALLOPURINOL 100 MG TABLET PO SCH ×2 (09:12→20:23)
[2016-10-26] MEDS: MAGNESIUM 400 MG/5 ML - 30 ML (MILK OF MAGNESIA) PO SCH (09:13)
--- NOTE | 2016-10-26 11:08 | PDOC ---
History and Physical - History of Present Illness History of Present Illness: This very nice 86-year-old female status post right hip replacement and right wrist fracture had then non-STEMI post surgery with elevated troponins was transferred to [facility] for further evaluation and treatment she underwent Lexiscan stress test which was negative .the pt wa reaccepted here in swing bed status to finish her PT OT at the request of the family. anemia was found on lab draw hgb of 7 pt was admitted to inpatient because of inability to give blood in swing bed status as per charge nurse. pt remains hemodynamically stable. tollerated transfusion well patient looks much more energetic today she had a better time with physical therapy her stools are minimal not enough to even sent for Hemoccult. Continue clear liquids for now Past Medical History Medical History: 1. Diabetes type II. 2. Hypertension. 3. Hyperlipidemia. 4. Osteoporosis. 5. Gout attack back in April 2016 Surgical History: 1. Hysterectomy. 2. Tonsillectomy. 3. History of nephrolithiasis. 4. C-sections Family History: Reviewed an Not Pertinent Past Social History: Doesn't smoke, rarely drinks no drugs. 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 Use: Never Smoker Substance Use Type: None Medication / Allergies Home Medications: Home Medications Medication Instructions Recorded Confirmed Type Blood Sugar Diagnostic [Freestyle 1 each IN QID #120 strip 08/16/13 10/19/16 Clinic Lite Strips] Aspirin [Aspirin EC] 1 tab PO QOD PRN #30 tab 02/16/15 10/25/16 Clinic Magnesium Hydroxide Susp [Milk Of 30 ml PO DAILY cup 05/20/16 10/25/16 Rx Magnesia Susp] Atorvastatin Calcium 1 tab PO QD #90 tab 06/23/16 10/20/16 Clinic Lisinopril 2 tab PO QD #180 tab 06/23/16 10/25/16 Clinic Metformin HCl [Metformin Hcl Er] 2 tab PO BID #120 tab 08/04/16 10/25/16 Clinic Allopurinol 1 tab PO BID #180 tab 08/07/16 10/25/16 Clinic Dulaglutide [Trulicity] 1.5 mg SUBCUT WEEKLY #12 ml 08/07/16 10/19/16 Clinic Cholecalciferol [Vitamin D] 1,000 unit PO DAILY 09/15/16 10/25/16 History Metoprolol Tartrate 100 mg PO BID 09/15/16 10/25/16 History Multivitamin [Multivitamins] 1 tab PO DAILY 09/15/16 10/20/16 History Nifedipine [Nifedipine Er] 1 tab PO QD #90 tab 10/14/16 10/20/16 Clinic Allergies/Adverse Reactions: Allergies Allergy/AdvReac Type Severity Reaction Status Date / Time butorphanol tartrate Allergy Severe Anaphylaxis Verified 10/26/16 06:11 [From Stadol] meperidine HCl [From Demerol] Allergy Severe difficult Verified 10/26/16 07:50 to arouse Penicillins Allergy Mild rash Verified 10/26/16 06:11 mushroom Allergy SHORTNESS Verified 10/26/16 06:11 OF BREATH Review of Systems - Review of Systems All Systems: Reviewed & No Additional Complaints Except as Stated - Respiratory Respiratory: DENIES: Negative System Review, Cough, Sputum, Dyspnea At Rest, Dyspnea with Exertion, Pleuritic Pain, Hemoptysis, Wheezing, Other, See HPI - Gastrointestinal Gastrointestinal / Abdominal: DENIES: Negative System Review, Nausea, Vomiting, Diarrhea, Constipation, Abdominal Pain, Bloody Stool, Poor Appetite, Heartburn, Regurgitation, Bloating, Lactose Intolerance, Melena, Bright Red Blood Per Rectum, Other, See HPI - Genitourinary Genitourinary: DENIES: Negative System Review, Pain, Burning, Hematuria, Incontinence, Urgency, Hesitant Stream, Decreased Stream, Nocutria, Discharge, Sexual Dyfunction, Other, See HPI Exam - Vitals Vital Signs: Vital Signs Temperature 97.2 F Temperature Source Oral Pulse Rate [Pulse Oximeter] 77 Pulse Rate 75 Respiratory Rate 20 Blood Pressure [Left Arm] 179/83 Blood Pressure 115/66 Pulse Ox 1 Oxygen Flow Rate 98 Oxygen Delivery Method Nasal Cannula Height 4 ft 11 in Weight 51.982 kg - General General Appearance: POSITIVE: No Acute Distress, Cooperative - Respiratory Respiratory Exam: POSITIVE: Clear to Auscultation - Bilaterally, Breathing Non Labored, Normal To Percussion - Cardiovascular Cardiovascular Exam: POSITIVE: RRR, No Murmur, No Clicks, No Gallops - GI/Abdominal GI/Abdominal Exam: POSITIVE: Non Tender, Non Distended, Soft - Extremities Additional Extremities Exam Details: Her right hand is doing well she moves all the fingers she has good strength Results - Labs CBC and BMP: 10/26/16 06:01 10/26/16 06:01 Labs - Last 24 Hours: Laboratory Results 10/25/16 10/26/16 Range/Units 11:45 06:01 WBC 12.56 H (4.8-10.8) 10^3/uL RBC 3.98 L (4.20-5.40) 10^6/uL Hgb 11.4 L (12.0-16.0) g/dL Hct 32.1 L (37.0-47.0) % MCV 80.7 L (81-99) FL MCH 28.6 (27-31) PG MCHC 35.5 (33-37) g/dL RDW Std Deviation 46.1 (39-50) fL RDW Coeff of Naveen 16.3 H (11.5-14.5) % Plt Count 142 (140-350) 10*3/uL MPV 11.6 (7.4-12.2) FL Neutrophils % (Manual) 70 (50-80) % Band Neutrophils % 0 (0-10) % Lymphocytes % (Manual) 16 (10-50) % Monocytes % (Manual) 14 H (0-12) % Eosinophils % (Manual) 0 (0-8) % Basophils % (Manual) 0 (0-1) % Metamyelocytes % Not Reportable Myelocytes % Not Reportable Promyelocytes % Not Reportable Blast Cells Not Reportable WBC Morphology Comment Normal morphology (NORM) Plt Morphology Comment Normal morphology (NORM) RBC Morph Comment Normal morphology (NORM) PT 12.6 H (9.7-11.4) secs INR 1.22 (0.00-5.90) N/A Sodium 129 L D (135-145) meq/L Potassium 4.0 (3.8-5.2) meq/L Chloride 97 L (98-112) meq/L Carbon Dioxide 22 L (23-33) meq/L Anion Gap 10 (5-20) BUN 36 H (7-22) mg/dL Creatinine 0.7 (0.50-1.20) mg/dL Estimated GFR (>60 ml/min/1.73m(2)) BUN/Creatinine Ratio 51.42 H (6-20) Glucose 407 H* (78-110) mg/dL Calculated Osmolality 292.0 (267-292) mOsm/kg Calcium 7.4 L (8.7-10.7) mg/dL Blood Type A POSITIVE Antibody Screen Negative Crossmatch See Detail Assessment and Plan - Patient Problems (1) Tarry stools Current Visit: No Status: Acute Comment: check stools cont PPI continue clear liquids not enough stool sent for Hemoccult believe she needs EGD at present time we will keep on following H&H's if this should drop more then things would be different I discussed this with the family and they agree (2) Weakness Current Visit: No Status: Acute Comment: cont pt ot she did a lot better today posttransfusion (3) Hypertension Current Visit: No Status: Chronic Comment: stable (4) Status post right hip replacement Current Visit: Yes Status: Acute Comment: cont PT OT (5) Anemia Current Visit: Yes Status: Acute Comment: post op, s/p transfusion of 2 units of PRBC Qualifiers: Anemia type: unspecified type Qualified Description: Anemia, unspecified type Qualifier Code(s): (D64.9) Anemia, unspecified (6) Diabetes Current Visit: No Status: Acute Comment: give with humolog plus cont diabetic meds - Assessment / Plan Additional Assessment/Plan Details: All the above were discussed was discussed with family members and nursing inpatient on agreement Photo / Body Diagrams - Uploaded Photos Uploaded Photos:
[2016-10-26] MEDS: LISINOPRIL 20 MG TABLET PO SCH (12:09)
[2016-10-26 12:10] LABS: HEMOGLOBIN A1C 6.71 % (4.2-6.0)
--- NOTE | 2016-10-26 12:32 | PT.PROG ---
Progress Note Progress Note: daily note following IP eval. S: pt reports she is feeling better today. O: nsg okay'd prior to PT. pt instructed in scooting to Edge of chair with mod- max assist x2. pt instructed to sit<>stand with mod assist x2 for transfer, min assist x 2 or mod assist x 1 for standing balance safety. pt able to stand for 5 minutes. seated rest break and then stand 6 minutes. pt instructed in standing marching unable to lift LLE. pt took 3 shuffling steps forward but unable to right trunk on body with gait and demo posterior lean. pt instructed to perform seated marches, LAQs , and ankle pumps. issued foam for R hand . pt left in chair with chair alarm activated and call light within reach and family members present and ice on R arm, pillow under ankles . A: pt tolerated therapy much better today. pt able to stand more upright and required less assistance. pt continues to benefit from skilled therapy at this time. P: cont per POC.
[2016-10-26] MEDS ORDERED: FUROSEMIDE 10 MG/1 ML - 4 ML IVP ONE (13:08)
[2016-10-26] MEDS: metFORMIN ER 500 MG TABLET PO SCH (17:18)
[2016-10-26] MEDS ORDERED: DULAGLUTIDE 1.5 MG SUBCUT SCH (17:33)
[2016-10-26] MEDS: Pantoprazole Inj 40 MG in Normal Saline Flush 10 ML IVP SCH (20:22)
[2016-10-26] MEDS: ATORVASTATIN 40 MG TABLET PO SCH (20:23)
[2016-10-27 05:35] LABS: MEAN CORPUSCULAR VOLUME 83.3 FL (81-99)
[2016-10-27 05:46] LABS: BUN/CREATININE RATIO 41.42 (6-20); CALCIUM 7.6 mg/dL (8.7-10.7); SERUM ALBUMIN 2.1 g/dL (3.5-4.8)
[2016-10-27 05:57] LABS: HEMATOCRIT 32.5 % (37.0-47.0); MEAN CORPUSCULAR HEMOGLOBIN 28.2 PG (27-31); MEAN CORPUSCULAR HGB CONC 33.8 g/dL (33-37); MEAN PLATELET VOLUME 11.7 FL (7.4-12.2)
[2016-10-27 06:43] LABS: PLATELET MORPHOLOGY COMMENT NORMAL MORPHOLOGY (NORM); RBC MORPHOLOGY COMMENT SEE COMMENTS (NORM)
[2016-10-27 06:44] LABS: BAND NEUTROPHILS % 1 % (0-10); BASOPHILS % (MANUAL) 0 % (0-1); EOSINOPHILS % (MANUAL) 5 % (0-8); LYMPHOCYTES % (MANUAL) 29 % (10-50); MONOCYTES % (MANUAL) 16 % (0-12); NEUTROPHILS % (MANUAL) 49 % (50-80); WBC MORPHOLOGY COMMENT SEE COMMENTS (NORM)
[2016-10-27] MEDS: metFORMIN ER 500 MG TABLET PO SCH ×2 (07:05→17:28)
[2016-10-27] MEDS: MAGNESIUM 400 MG/5 ML - 30 ML (MILK OF MAGNESIA) PO SCH (08:19)
[2016-10-27] MEDS: LISINOPRIL 20 MG TABLET PO SCH (08:19)
[2016-10-27] MEDS: Metoprolol TARTRATE Tab 50 MG TAB PO SCH ×2 (08:19→20:13)
[2016-10-27] MEDS: Multivitamin Tab 1 TAB PO SCH (08:19)
[2016-10-27] MEDS: CHOLECALCIFEROL 1000 IU TABLET PO SCH (08:19)
[2016-10-27] MEDS: ALLOPURINOL 100 MG TABLET PO SCH ×2 (08:19→20:13)
[2016-10-27] MEDS ORDERED: DULAGLUTIDE 1.5 MG/0.5 ML SUBCUT SCH (09:00)
[2016-10-27] MEDS: POTASSIUM CHLORIDE 20 MEQ TAB PO SCH ×2 (09:30→20:13)
--- NOTE | 2016-10-27 11:33 | PTI REPORT ---
Thank you for the referral of Raymon Aaron. She was seen on 10/26/16 for an inpatient evaluation secondary to weakness. SUBJECTIVE: The patient is an 86-year-old female. The patient reports that she [facility] with her . She states her helps her with a lot of her mobility. The patient reports she fell and broke her arm and her hip on her right side while using a single point cane. The patient had to go to [place] and is now back and hasn't been moving a whole lot the last couple of days. PAST MEDICAL HISTORY: Past medical history can be found in the patient's medical record. OBJECTIVE FINDINGS: General observations: The patient was seen in her room after nursing was done with her after the commode. The patient has a very posterior pelvic tilt posture. The patient had a soft cast on her right upper extremity and catheter in place. Pain: The patient states she is not in any pain. Strength: The patient's strength was 3-5. Transfers: The patient was unable to perform sit to stand transfer without max assist x2 with max cues for technique. Chair mobility: The patient required max assist for chair mobility in order to sit back into her chair. ASSESSMENT: The patient is an 86-year-old female that presents with generalized weakness following a fall. The patient is weight-bearing as tolerated on right lower extremity per nursing. The patient will benefit from skilled physical therapy in order to improve functional mobility and return to prior level of function. The patient's prognosis for therapy is fair. Problem List: Decreased strength Decreased endurance Decreased independence Decreased functional mobility Short-Term Goals: To be met by discharge from inpatient: Patient will be independent with all transfers with least restrictive assistive device. Patient will be able to ambulate 150 feet with least restrictive assistive device independently. Patient will be able to tolerate 30 minutes of activity in order to improve endurance. Long-Term Goals: To be met following discharge from inpatient: Patient will be able to return home per prior level of function. TREATMENT PLAN: Patient will be seen B.I.D during the week and one time per day over the weekend as an inpatient for therapeutic exercise, functional activity, pain relief modalities as needed, neuromuscular reeducation, and gait training. INITIAL TREATMENT: Treatment today consisted of the inpatient evaluation followed by ELLY
--- NOTE | 2016-10-27 14:33 | PDOC(PROG) ---
Date and Time of Service: 10/27/2016, 1430 Interval History: No completes of chest pain or shortness breath. She states her pain is controlled and her wrist and in her hip. No nausea or vomiting. Was examined with family in room and we discussed several issues. Apparently the patient had some sort of episode where she did not do well and was a little out of it mentally in relation to her pain medication but they don't remember what pain medicine it was. Right now we cannot do anti-inflammatories due to possible GI bleed. I spoke at length about potential differential diagnosis sees, including ulcer, cancer either gastric or colon, or other issues, and gave options of proceeding with surgical consultation for EGD and colonoscopy, Protonix empirically for possible ulcer disease, and H. pylori testing for possible H. pylori infection. The patient stated that she did not want any EGD or colonoscopy to be done. She is okay with H. pylori testing and with Protonix therapy. She stated she understands that this could mean missing a diagnosis of cancer. Her family understands as well, and they expressed that they would like to keep monitoring blood counts to see if they change erratically. I recommended doing this during the hospital stay and also checking it about 4 weeks and 8 weeks post surgery to see whether or not the blood counts are staying stable or consistently in a range that might suggest that the Hemoccult positive stools related to peptic ulcer disease of some type. Objective : Data - Labs CBC and BMP: 10/27/16 05:21 10/27/16 05:21 Labs - Last 24 Hours: Laboratory Results 10/27/16 10/27/16 Range/Units 05:21 09:29 WBC 13.20 H (4.8-10.8) 10^3/uL RBC 3.90 L (4.20-5.40) 10^6/uL Hgb 11.0 L (12.0-16.0) g/dL Hct 32.5 L (37.0-47.0) % MCV 83.3 (81-99) FL MCH 28.2 (27-31) PG MCHC 33.8 (33-37) g/dL RDW Std Deviation 48.2 (39-50) fL RDW Coeff of Naveen 16.8 H (11.5-14.5) % Plt Count 189 (140-350) 10*3/uL MPV 11.7 (7.4-12.2) FL Neutrophils % (Manual) 49 L (50-80) % Band Neutrophils % 1 (0-10) % Lymphocytes % (Manual) 29 (10-50) % Monocytes % (Manual) 16 H (0-12) % Eosinophils % (Manual) 5 (0-8) % Basophils % (Manual) 0 (0-1) % Metamyelocytes % Not Reportable Myelocytes % Not Reportable Promyelocytes % Not Reportable Blast Cells Not Reportable WBC Morphology Comment See comments (NORM) Plt Morphology Comment Normal morphology (NORM) RBC Morph Comment See comments (NORM) Sodium 130 L (135-145) meq/L Potassium 3.3 L (3.8-5.2) meq/L Chloride 102 (98-112) meq/L Carbon Dioxide 25 (23-33) meq/L Anion Gap 3 L (5-20) BUN 29 H (7-22) mg/dL Creatinine 0.7 (0.50-1.20) mg/dL Estimated GFR (>60 ml/min/1.73m(2)) BUN/Creatinine Ratio 41.42 H (6-20) Glucose 198 H (78-110) mg/dL Calculated Osmolality 281.0 (267-292) mOsm/kg Calcium 7.6 L (8.7-10.7) mg/dL Total Bilirubin 1.3 H (0.3-1.2) mg/dL AST 39 (8-39) IU/L ALT 32 (9-52) IU/L Alkaline Phosphatase 66 (38-126) IU/L Total Protein 4.5 L (6.1-8.0) g/dL Albumin 2.1 L (3.5-4.8) g/dL Globulin 2.4 L (2.50-4.10) g/dL Albumin/Globulin Ratio 0.80 L (1.3-2.0) mg/g Stool Occult Blood Positive (NEGATIVE) Objective : Exam - General General Appearance: No Acute Distress, Cooperative Additional General Exam Details: Vital Signs - Last Taken Temperature 97.7 F 10/27/16 11:03 Pulse Rate 76 10/27/16 11:03 Respiratory Rate 18 10/27/16 11:03 Blood Pressure 131/85 10/27/16 11:03 Pulse Ox 96 10/27/16 11:03 On room air currently. - Eye Eye Exam: No Scleral Icterus - Respiratory Respiratory Exam: Clear to Auscultation - Bilaterally, Breathing Non Labored - Cardiovascular Cardiovascular Exam: RRR, No Murmur, No Clicks, No Gallops, No Rubs, No JVD - GI/Abdominal GI/Abdominal Exam: Normal Bowel Sounds, Non Tender, Non Distended, Soft - Extremities Extremities Exam: No Clubbing Present, No Edema Present, No Cyanosis Present Additional Extremities Exam Details: Some swelling in fingers on right hand, distal neuro sensation is intact. Cap refill looks normal. Some bruising for sure in those fingers. - Neurological Neurological Exam: Alert, Oriented x 3, No Facial Droop, Speech Intact / Clear - Psychiatric Psychiatric Exam: Normal Affect, Normal Mood Assessment and Plan - Patient Problems (1) GI bleed Current Visit: Yes Status: Acute (2) Anemia Current Visit: Yes Status: Acute Qualifiers: Anemia type: unspecified type Qualified Description: Anemia, unspecified type Qualifier Code(s): (D64.9) Anemia, unspecified (3) Closed right hip fracture Current Visit: Yes Status: Acute Qualifiers: Encounter type: initial encounter Qualified Description: Closed fracture of right hip, initial encounter Qualifier Code(s): (S72.001A) Fracture of unspecified part of neck of right femur, initial encounter for closed fracture (4) Distal radius fracture, right Current Visit: Yes Status: Acute Qualifiers: Encounter type: initial encounter Fracture type: closed Fracture morphology: unspecified fracture morphology Qualified Description: Closed fracture of distal end of right radius, unspecified fracture morphology, initial encounter Qualifier Code(s): (S52.501A) Unspecified fracture of the lower end of right radius, initial encounter for closed fracture (5) Weakness Current Visit: Yes Status: Acute (6) Hypertension Current Visit: Yes Status: Chronic Qualifiers: Hypertension type: essential hypertension Qualified Description: Essential hypertension Qualifier Code(s): (I10) Essential (primary) hypertension (7) Diabetes mellitus type II, controlled Current Visit: Yes Status: Acute Qualifiers: Diabetes mellitus complication status: without complication Diabetes mellitus mcc insulin use: with terminal gauger use Qualified Description: Controlled type 2 diabetes mellitus without complication, with long-term current use of insulin Qualifier Code(s): (E11.9) Type 2 diabetes mellitus without complications, (Z79.4) senior living (current) use of insulin - Assessment / Plan Additional Assessment/Plan Details: With black and tarry stools, Hemoccult positive result, I suspect this is likely peptic ulcer disease. She's had a stressful event with the surgery, has been exposed anti-inflammatories such as Toradol, and this seems to be the most likely diagnosis. She has been a chronic user of Pepto-Bismol for several years now, upwards of 2 decades. Pain control with Tylenol and I'll add tramadol if Tylenol does not work. Hold off on anticoagulation until we are sure that the hemoglobin and hematocrit seemed more consistent. PT and OT. Stop telemetry monitoring today. No EGD and no colonoscopy at this time. Discussed in detail with the patient and her family. See the history of present illness from today. Replace potassium. Continue diabetic medications for diabetes. Photo / Body Diagrams - Uploaded Photos Uploaded Photos:
--- NOTE | 2016-10-27 15:44 | PT.PROG ---
Progress Note Progress Note: S. Patient stated that she would go to the therapy gym this is afternoon. O. Patient ambulated 10 feet to the wheelchair then was wheeled to the therapy gym where she had heat to her hip, then performed exercises in the form of heel slides, quad sets, ankle pumps, short arc quads, all x 10 with min assist on the right. seated long arc quads, marches, heel toe raises on left x 10. Patient ambulated 8 feet to the wheelchair and was returned to her room where she ambulated 5 feet to the chair and was left with alarm and call light. A. Patient was unable to perform exercises on her right leg independently, however was able to initiate movement. Patient continues to require mod assist with transfers and ambulation. she would continue to benefit from skilled therapy at this time. P. Continue POC.
--- NOTE | 2016-10-27 16:16 | OT.PROG ---
Progress Note Progress Note: S: pt stated that she wants to get her hair done. She was very pleasant and willing to go down for therapy. O: pt was seen in room in the p.m. and completed dressing of LE/UE with max A at this time due to her pain in R leg and arm. Pt then transferred approx 10 ft before being transferred downstairs in w/c. After completing moist heat to LE , she sat up and completed AROM hand activities by isolating fingers in flex. She also completed reaching task with L and R arm although limited in R arm secondary to cast. A: pt participated well, and transferred further today. Limited with cast on R arm with overall ROM and function. continue to progress with overall transfers. P: continue per plan of care.
[2016-10-27] MEDS: ATORVASTATIN 40 MG TABLET PO SCH (20:12)
[2016-10-27] MEDS: traMADol 50 MG TABLET PO PRN (20:13)
[2016-10-27] MEDS: PANTOPRAZOLE 40 MG TABLET PO SCH (20:14)
[2016-10-27] MEDS ORDERED: Glucagon Inj Vial 1 MG/ML VIAL IM PRN (21:09)
[2016-10-27] MEDS ORDERED: DEXTROSE 31 GM GEL PO PRN (21:09)
[2016-10-27] MEDS ORDERED: Insulin Sliding Scale Protocol SUBCUT PRN (21:09)
[2016-10-27] MEDS ORDERED: DEXTROSE 50%-WATER SYRINGE 50 ML SYRINGE IVP PRN (21:09)
[2016-10-28 04:46] LABS: HEMATOCRIT 34.2 % (37.0-47.0); HEMOGLOBIN 11.2 g/dL (12.0-16.0); MEAN CORPUSCULAR HGB CONC 32.7 g/dL (33-37); MEAN CORPUSCULAR VOLUME 85.5 FL (81-99); MEAN PLATELET VOLUME 11.5 FL (7.4-12.2)
[2016-10-28 04:55] LABS: BUN/CREATININE RATIO 32.85 (6-20)
[2016-10-28] MEDS: Insulin Lispro Flexpen 300 UNIT/3 ML INSULN.PEN SUBCUT SCH ×4 (07:02→20:31)
[2016-10-28] MEDS: metFORMIN ER 500 MG TABLET PO SCH ×2 (07:02→17:27)
[2016-10-28] MEDS: MAGNESIUM 400 MG/5 ML - 30 ML (MILK OF MAGNESIA) PO SCH ×2 (08:31→08:37)
[2016-10-28] MEDS: POTASSIUM CHLORIDE 20 MEQ TAB PO SCH ×2 (08:31→20:29)
[2016-10-28] MEDS: CHOLECALCIFEROL 1000 IU TABLET PO SCH (08:32)
[2016-10-28] MEDS: Multivitamin Tab 1 TAB PO SCH (08:32)
[2016-10-28] MEDS: Metoprolol TARTRATE Tab 50 MG TAB PO SCH ×2 (08:32→20:29)
[2016-10-28] MEDS: ALLOPURINOL 100 MG TABLET PO SCH ×2 (08:32→20:29)
[2016-10-28] MEDS: LISINOPRIL 20 MG TABLET PO SCH (08:32)
[2016-10-28] MEDS: PANTOPRAZOLE 40 MG TABLET PO SCH ×2 (08:32→20:29)
--- NOTE | 2016-10-28 11:42 | PT.PROG ---
Progress Note Progress Note: S. Patient stated that she continues to struggle with pain however she would go to therapy. O. Patient was wheeled to the therapy gym where she transferred to the mat table and had heat to her hip x 20 minutes then performed supine exercises in the form of; heel slides, quad sets, ankle pumps, short arc quads all x 10 with mod assist. Patient was transferred from supine to sit where she performed long arc quads, heel toe raises, and marches on her left leg x 10. Patient ambulated 10 feet to the wheelchair and was wheeled back to her room where she transferred from the wheelchair to the chair and was left with alarm and call light. A. Patient continues to struggle with pain during movement. She continues to require mod to max assist with transfers and ambulation. She reported dizziness after transferring from supine to seated position. she would continue to benefit from skilled therapy to increase strength, mobility and endurance. P. continue POC.
--- NOTE | 2016-10-28 12:32 | OTI REPORT ---
Thank you for the referral of Raymon Aaron. She was seen on 10/27/16 for an occupational therapy inpatient evaluation secondary to generalized weakness. SUBJECTIVE: The patient is an 86-year-old female. The patient was originally admitted to [place] and then went to [place] to assess her heart conditions. She then came back to [place]. The patient reports that she fell in her kitchen while trying to make coffee. She states she had just recently "graduated" to a cane versus using a walker in her home. The patient does live in her home with her . The home is handicap accessible. The patient states she has a walk in shower with grab bars. At this point in time the patient does not sit on a seat when showering. She also has grab bars by her toilet. The patient states she was usually independent with dressing herself. The patient states recently she has had help with her household tasks including laundry and cleaning and her and her just started getting meals on wheels which she states has been a big help. The patient was not using adaptive devices besides her wheeled walker before her admission and fall. PAST MEDICAL HISTORY: Past medical history can be found in the patient's medical record. OBJECTIVE FINDINGS: General observations: The patient was supine in bed upon the therapist's arrival. Bed mobility: The patient needed max assist x2 to come from supine to sit. Transfers: The patient reported she needed to have a bowel movement. She required max assist to stand pivot transfer to the commode. Activities of daily living: The patient was dependent with toilet hygiene. She required max assist to stand for two minutes at a time. The patient required max assist for lower extremity dressing. The patient requires mod assist for upper extremity dressing for balance. Range of motion: Active range of motion for shoulder flexion was approximately 90 degrees bilaterally. Elbow flexion/extension and wrist flexion/extension were within functional limits. 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 She is able to oppose her thumb to each of her digits. Strength: Upper extremity strength is fair to poor Within her available range, strength for shoulder flexion is 3/5, elbow flexion/extension is 3+/5, and wrist flexion/extension is 3+/5. ASSESSMENT: Problem List: Decreased upper extremity range of motion Decreased upper extremity strength Decreased ability to perform functional transfers Short-Term Goals: To be met by discharge from inpatient: Patient will be able to come from supine to sit with mod assist. Patient will be able to sit edge of bed and will be able to dress self with min assist and use of adaptive equipment. Patient will improve upper extremity strength to 4/5 throughout shoulders, elbows, and hands. Patient will be able to complete a bed to commode transfer with mod assist. Patient will be able to dress upper extremities independently after set up. Patient will be able to stand at sink to complete simple hygiene activities x3 minutes without loss of balance with min assist. Long-Term Goals: To be met following discharge from inpatient: Patient will return home safe and independent with all functional transfers and ADLs. TREATMENT PLAN: Patient will be seen B.I.D during the week and one time per day over the weekend as an inpatient to address the above goals and objectives. INITIAL TREATMENT: Treatment today consisted of the initial evaluation activities only. ELLY
--- NOTE | 2016-10-28 14:00 | PDOC(PROG) ---
Date and Time of Service: 10/28/2016, 1359 Interval History: No complaints of chest pain, shortness breath, nausea or vomiting or constipation. The patient states that her wrist on the right side is hurting a bit more. She's had some hip tenderness. Tylenol seems to be helping. She feels more tired today and had a lot of family visitors. Objective : Data - Labs CBC and BMP: 10/28/16 04:17 10/28/16 04:17 Labs - Last 24 Hours: Laboratory Results 10/28/16 Range/Units 04:17 WBC 10.44 (4.8-10.8) 10^3/uL RBC 4.00 L (4.20-5.40) 10^6/uL Hgb 11.2 L (12.0-16.0) g/dL Hct 34.2 L (37.0-47.0) % MCV 85.5 (81-99) FL MCH 28.0 (27-31) PG MCHC 32.7 L (33-37) g/dL RDW Std Deviation 49.3 (39-50) fL RDW Coeff of Naveen 17.4 H (11.5-14.5) % Plt Count 249 (140-350) 10*3/uL MPV 11.5 (7.4-12.2) FL Sodium 133 L (135-145) meq/L Potassium 4.8 D (3.8-5.2) meq/L Chloride 102 (98-112) meq/L Carbon Dioxide 26 (23-33) meq/L Anion Gap 5 (5-20) BUN 23 H (7-22) mg/dL Creatinine 0.7 (0.50-1.20) mg/dL Estimated GFR (>60 ml/min/1.73m(2)) BUN/Creatinine Ratio 32.85 H (6-20) Glucose 243 H (78-110) mg/dL Calculated Osmolality 287.0 (267-292) mOsm/kg Calcium 8.0 L (8.7-10.7) mg/dL Objective : Exam - General General Appearance: No Acute Distress, Cooperative Additional General Exam Details: Vital Signs - Last Taken Temperature 98.9 F 10/28/16 11:05 Pulse Rate 81 10/28/16 11:05 Respiratory Rate 17 10/28/16 11:05 Blood Pressure 143/75 04/11/17 11:05 Pulse Ox 94 10/28/16 11:05 - Respiratory Respiratory Exam: Clear to Auscultation - Bilaterally, Breathing Non Labored - Cardiovascular Cardiovascular Exam: RRR, No Murmur, No Clicks, No Gallops, No Rubs, No JVD - GI/Abdominal GI/Abdominal Exam: Normal Bowel Sounds, Non Tender, Non Distended, Soft - Extremities Extremities Exam: No Clubbing Present, No Edema Present, No Cyanosis Present Additional Extremities Exam Details: Swelling in right hand fingers is better. - Neurological Neurological Exam: Alert, Oriented x 3, No Facial Droop, Speech Intact / Clear, Moves All Extremities Equally Assessment and Plan - Patient Problems (1) GI bleed Current Visit: Yes Status: Resolved Qualifiers: GI bleed type/associated pathology: unspecified gastrointestinal hemorrhage type Qualified Description: Gastrointestinal hemorrhage, unspecified gastrointestinal hemorrhage type Qualifier Code(s): (K92.2) Gastrointestinal hemorrhage, unspecified (2) Anemia Current Visit: Yes Status: Acute Qualifiers: Anemia type: unspecified type Qualified Description: Anemia, unspecified type Qualifier Code(s): (D64.9) Anemia, unspecified (3) Closed right hip fracture Current Visit: Yes Status: Acute Qualifiers: Encounter type: initial encounter Qualified Description: Closed fracture of right hip, initial encounter Qualifier Code(s): (S72.001A) Fracture of unspecified part of neck of right femur, initial encounter for closed fracture (4) Distal radius fracture, right Current Visit: Yes Status: Acute Qualifiers: Encounter type: initial encounter Fracture type: closed Fracture morphology: unspecified fracture morphology Qualified Description: Closed fracture of distal end of right radius, unspecified fracture morphology, initial encounter Qualifier Code(s): (S52.501A) Unspecified fracture of the lower end of right radius, initial encounter for closed fracture (5) Weakness Current Visit: Yes Status: Acute (6) Hypertension Current Visit: Yes Status: Chronic Qualifiers: Hypertension type: essential hypertension Qualified Description: Essential hypertension Qualifier Code(s): (I10) Essential (primary) hypertension (7) Diabetes mellitus type II, controlled Current Visit: Yes Status: Acute Qualifiers: Diabetes mellitus complication status: without complication 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 CBC ordered for tomorrow. Continue Tylenol and tramadol for pain control. Physical therapy and occupational therapy. Follow-up as well over the next 48 hours, may consider resumption of swing bed status. Photo / Body Diagrams - Uploaded Photos Uploaded Photos:
[2016-10-28] MEDS: traMADol 50 MG TABLET PO PRN ×2 (14:23→20:30)
[2016-10-28] MEDS: HEPARIN 5000 UNIT/1 ML SUBCUT SCH ×2 (14:23→21:13)
--- NOTE | 2016-10-28 16:22 | OT.PROG ---
Progress Note Progress Note: S: pt reports being tired. States there is pain in arm and leg. O: pt was seen in her room in the a.m. She was Mod A with sit to stand to finish donning LE pants. Her daughter donned her Ue shirt per pt's request. She then stood x2 more times needing anywhere from Mod A to max A. pt then completed transfer approx 10 ft, very slow and did not need to complete any hygiene activity at this time. She was transferred downstairs in w/c. She then completed sit to stand with Mod A x1 and transferred approx 6 ft needing cues on when to turn and sit. pt needed max A to complete bed mobility. Pt was left in supine position with moist heat on hip and Ice on hand. A: pt may continue to benefit from therapy to increase her overall function during transfers and ADL's. ADL's are difficult due to cast on R arm. P: continue per plan of care.
--- NOTE | 2016-10-28 16:28 | OT.PROG ---
Progress Note Progress Note: No therapy today secondary to pt being extremely fatigued and displayed inability to open eyes.
[2016-10-28] MEDS: ATORVASTATIN 40 MG TABLET PO SCH (20:29)
[2016-10-29] MEDS: traMADol 50 MG TABLET PO PRN ×2 (04:39→20:37)
[2016-10-29 04:52] LABS: HEMATOCRIT 35.6 % (37.0-47.0); HEMOGLOBIN 11.5 g/dL (12.0-16.0); MEAN CORPUSCULAR HEMOGLOBIN 28.1 PG (27-31); MEAN CORPUSCULAR HGB CONC 32.3 g/dL (33-37); MEAN PLATELET VOLUME 11.1 FL (7.4-12.2); RED BLOOD COUNT 4.09 10^6/uL (4.20-5.40)
[2016-10-29] MEDS: HEPARIN 5000 UNIT/1 ML SUBCUT SCH ×3 (05:03→22:33)
[2016-10-29] MEDS: Insulin Lispro Flexpen 300 UNIT/3 ML INSULN.PEN SUBCUT SCH ×4 (07:32→20:39)
[2016-10-29] MEDS: metFORMIN ER 500 MG TABLET PO SCH ×2 (07:49→16:55)
[2016-10-29] MEDS: CHOLECALCIFEROL 1000 IU TABLET PO SCH (08:21)
[2016-10-29] MEDS: Metoprolol TARTRATE Tab 50 MG TAB PO SCH ×2 (08:21→20:37)
[2016-10-29] MEDS: PANTOPRAZOLE 40 MG TABLET PO SCH ×2 (08:21→20:37)
[2016-10-29] MEDS: POTASSIUM CHLORIDE 20 MEQ TAB PO SCH (08:21)
[2016-10-29] MEDS: MAGNESIUM 400 MG/5 ML - 30 ML (MILK OF MAGNESIA) PO SCH ×2 (08:21→08:56)
[2016-10-29] MEDS: LISINOPRIL 20 MG TABLET PO SCH (08:22)
[2016-10-29] MEDS: ALLOPURINOL 100 MG TABLET PO SCH ×2 (08:22→20:37)
[2016-10-29] MEDS: Multivitamin Tab 1 TAB PO SCH (08:22)
--- NOTE | 2016-10-29 11:37 | OT.PROG ---
Progress Note Progress Note: S: pt reported that she was awfully tired yesterday. Reports pain in Leg but not so much in arm today. she believes she can move her arm better today. O: pt was seen in therapy in the a.m. after PT brought them down to the gym. She was in supine position and needed max A to complete transition from supine to EOB. pt completed dynamic reaching task with L and R hand, although limited with R. She had a difficult time reaching directly in front with R arm and mainly used torso. pt also completed Ther ex with L UE with YTB x15 in bicep flex, shoulder ext and bicep flex. Pt needed vc's to stay on task with exercises. She completed postural transfer approx 25 ft and then returned to her room in w/c. Once in room she completed one more transfer approx 6 ft with Mod A sit to stand. She was left in a slightly reclined position in chair with legs up and alarm on and call light within reach. A: pt completed transfer further today and will continue to progress with this task. She needs vc's to stay on task. P: continue per plan of care.
--- NOTE | 2016-10-29 11:42 | PT.PROG ---
Progress Note Progress Note: S. Patient states that she is feeling a little better this morning and would like to go to therapy. O. Patient was wheeled to the therapy gym where she transferred to the mat table and had heat to her hip x 20 minutes then performed supine exercises in the form of; heel slides, quad sets, ankle pumps, short arc quads all x 10 with mod assist. Patient was transferred from supine to sit where she performed long arc quads, heel toe raises, and marches on her left leg x 10. Patient was left with OT for further therapy. A. Patient continues to struggle with pain during movement. She continues to require mod to max assist with transfers and ambulation. She would continue to benefit from skilled therapy to increase strength, mobility and endurance. P. continue POC.
--- NOTE | 2016-10-29 16:13 | PT.PROG ---
Progress Note Progress Note: S. Patient stated that she is very tired this afternoon however would go to the therapy gym. O. Patient ambulated 10 feet to the wheel chair and was wheeled to the therapy gym where she had heat to her hip x 20 minutes. Patient performed supine exercises in the form of; heel slides, quad sets, ankle pumps, short arc quads, seated marches, long arc quads and heel toe raises all x 10 bilaterally. Patient ambulated 30 feet to the wheelchair and was returned to her room and left in bed with alarm and call light. A. Patient continues to require frequent verbal cues for encouragement and to stay on task. Patient requires mod assist with exercise, ambulation and transfers. Patient would continue to benefit from skilled therapy at this time. P. Continue POC.
--- NOTE | 2016-10-29 17:01 | OT.PROG ---
Progress Note Progress Note: S: pt reports that she is really tired today. O: pt was seen in the p.m. in the gym today after PT transferred pt downstairs. While in supine position pt completed BUE with cane into shoulder flex x15. She completed AROM with finger flex and ext with R hand. She completed postural transition with Max A. While sitting upright she completed sit to stand with Mod A and needed vc's in preparation for walking. Assisted pt into bed and completed bed mobility with Max A. Pt was left in supine position in bed with call light within reach and alarm on. A: pt fatigues easily toward end of afternoon. she is completing transfers further at this time. P: continue per plan of care.
[2016-10-29] MEDS: ATORVASTATIN 40 MG TABLET PO SCH (20:38)
[2016-10-29] MEDS: Potassium Chloride 20mEq Packet PO SCH (20:48)
[2016-10-29] MEDS ORDERED: MAGNESIUM 400 MG/5 ML - 30 ML (MILK OF MAGNESIA) PO PRN (21:34)
--- NOTE | 2016-10-29 21:34 | PDOC(PROG) ---
Date and Time of Service: 10/29/2016, 12:30 Interval History: No chest pain and no shortness breath. Seen with 2 of her family members present at bedside. No nausea or vomiting, eating better. Feels like pain is controlled. Feels like bowels are loose enough and not having constipation. Objective : Data - Labs CBC and BMP: 10/29/16 04:32 10/28/16 04:17 Labs - Last 24 Hours: Laboratory Results 10/28/16 10/29/16 Range/Units 04:17 04:32 WBC 11.78 H (4.8-10.8) 10^3/uL RBC 4.09 L (4.20-5.40) 10^6/uL Hgb 11.5 L (12.0-16.0) g/dL Hct 35.6 L (37.0-47.0) % MCV 87.0 (81-99) FL MCH 28.1 (27-31) PG MCHC 32.3 L (33-37) g/dL RDW Std Deviation 50.2 H (39-50) fL RDW Coeff of Naveen 17.3 H (11.5-14.5) % Plt Count 295 (140-350) 10*3/uL MPV 11.1 (7.4-12.2) FL Vitamin B12 890 (239-931) pg/mL Serum Folate 16.3 (2.76-20.0) NG/ML Objective : Exam - General General Appearance: No Acute Distress, Cooperative Additional General Exam Details: Vital Signs - Last Taken Temperature 98.0 F 10/29/16 20:06 Pulse Rate 81 10/29/16 20:06 Respiratory Rate 16 10/29/16 20:06 Blood Pressure 155/76 10/29/16 20:06 Pulse Ox 93 10/29/16 20:06 - Eye Eye Exam: No Scleral Icterus - Respiratory Respiratory Exam: Clear to Auscultation - Bilaterally, Breathing Non Labored - Cardiovascular Cardiovascular Exam: RRR, No Murmur, No Clicks, No Gallops, No Rubs, No JVD - Extremities Extremities Exam: No Clubbing Present, No Edema Present, No Cyanosis Present - Neurological Neurological Exam: Alert, Oriented x 3, No Facial Droop, Speech Intact / Clear Assessment and Plan - Patient Problems (1) Closed right hip fracture Current Visit: Yes Status: Acute Qualifiers: Encounter type: initial encounter Qualified Description: Closed fracture of right hip, initial encounter Qualifier Code(s): (S72.001A) Fracture of unspecified part of neck of right femur, initial encounter for closed fracture (2) GI bleed Current Visit: Yes Status: Resolved Qualifiers: GI bleed type/associated pathology: unspecified gastrointestinal hemorrhage type Qualified Description: Gastrointestinal hemorrhage, unspecified gastrointestinal hemorrhage type Qualifier Code(s): (K92.2) Gastrointestinal hemorrhage, unspecified (3) Anemia Current Visit: Yes Status: Acute Qualifiers: Anemia type: unspecified type Qualified Description: Anemia, unspecified type Qualifier Code(s): (D64.9) Anemia, unspecified (4) Distal radius fracture, right Current Visit: Yes Status: Acute Qualifiers: Encounter type: initial encounter Fracture type: closed Fracture morphology: unspecified fracture morphology Qualified Description: Closed fracture of distal end of right radius, unspecified fracture morphology, initial encounter Qualifier Code(s): (S52.501A) Unspecified fracture of the lower end of right radius, initial encounter for closed fracture (5) Weakness Current Visit: Yes Status: Acute (6) Hypertension Current Visit: Yes Status: Chronic Qualifiers: Hypertension type: essential hypertension Qualified Description: Essential hypertension Qualifier Code(s): (I10) Essential (primary) hypertension (7) Diabetes mellitus type II, controlled Current Visit: Yes Status: Acute Qualifiers: Diabetes mellitus complication status: without complication Diabetes mellitus care home insulin use: with care home use Qualified Description: Controlled type 2 diabetes mellitus without complication, with long-term current use of insulin Qualifier Code(s): (E11.9) Type 2 diabetes mellitus without complications - Assessment / Plan Additional Assessment/Plan Details: I put in for evaluation a swing bed, and hopefully will get to swing bed tomorrow or by Thursday. Very encouraged by the drop in hemoglobin with the start up of subcutaneous heparin for DVT prophylaxis. Would like to continue DVT prophylaxis for a total of 28-35 days. Continue physical therapy and occupational therapy. Back off on medications for constipation. Photo / Body Diagrams - Uploaded Photos Uploaded Photos:
[2016-10-30] MEDS: traMADol 50 MG TABLET PO PRN ×3 (03:34→15:10)
[2016-10-30 05:20] LABS: BUN/CREATININE RATIO 23.33 (6-20); CALCIUM 8.2 mg/dL (8.7-10.7)
[2016-10-30] MEDS: HEPARIN 5000 UNIT/1 ML SUBCUT SCH ×2 (05:36→15:23)
[2016-10-30] MEDS: Insulin Lispro Flexpen 300 UNIT/3 ML INSULN.PEN SUBCUT SCH ×3 (06:58→16:28)
[2016-10-30] MEDS: metFORMIN ER 500 MG TABLET PO SCH (06:58)
[2016-10-30 07:01] VITALS: RESP 17
[2016-10-30] MEDS: Metoprolol TARTRATE Tab 50 MG TAB PO SCH (08:01)
[2016-10-30] MEDS: LISINOPRIL 20 MG TABLET PO SCH (08:01)
[2016-10-30] MEDS: ALLOPURINOL 100 MG TABLET PO SCH (08:02)
[2016-10-30] MEDS: CHOLECALCIFEROL 1000 IU TABLET PO SCH (08:02)
[2016-10-30] MEDS: PANTOPRAZOLE 40 MG TABLET PO SCH (08:02)
[2016-10-30] MEDS: Potassium Chloride 20mEq Packet PO SCH (08:02)
[2016-10-30] MEDS: Multivitamin Tab 1 TAB PO SCH (08:02)
[2016-10-30] MEDS ORDERED: Potassium Chloride 20mEq Packet PO SCH (09:28)
--- NOTE | 2016-10-30 12:24 | PT.PROG ---
Progress Note Progress Note: S. Patient stated that she is in a lot of pain in her right arm however she would go to the therapy gym. O. Patient was wheeled to the therapy gym where she had heat to her hip and arm x 20 minutes then performed exercises in the form of; heel slides, quad sets, ankle pumps, short arc quads all x 10 she then performed seated long arc quads, heel toe raises x 10 on her left leg. Patient performed sit to stands x 3 then ambulated 10 feet to the wheelchair and was returned to her room where she ambulated 10 feet and was left in her chair with alarm and call light. A. Patient continues to require min to mod assist with exercise, transfers and ambulation. Patient struggles when backing up to a chair, she lost her balance and required mod assist to correct before falling. Patient would continue to benefit from skilled therapy to increase strength, mobility, balance and endurance. P. Continue POC.
--- NOTE | 2016-10-30 16:16 | DCSUMMARY ---
Hospitalization Summary Admit Date: 10/26/16 Discharge Date: 10/30/16 Primary Diagnosis:: GI bleed, probably upper GI bleed Secondary Diagnosis:: hip and wrist fracture, right side, s/p ORIF Hospital Course: This very pleasant 86-year-old female who presents with a GI bleed. She bled down to a very low hemoglobin and required blood transfusions. She is placed on a proton pump inhibitor in a yovani discussion with the family regarding EGD and/or colonoscopy and the benefit of that at the patient's age was discussed. Benefits would be potentially diagnosing cancer, ulcer, or lower GI source. Most likely this is an ulcer. Discussing the risks and benefits, the patient and family decided not to proceed with EGD or colonoscopy as it was considered too risky for the patient to do. We did and her proton pump inhibitor therapy as this was most likely some sort of ulcer and the patient's hemoglobin and hematocrit stabilized and we were actually able to resume DVT prophylaxis therapy for the next 28-35 days. The patient did well with therapy although she's had some slow gains, and she is amenable to going back to the swing bed status. Other medical conditions did not cause major issues during the hospital stay, the patient's blood sugars been well controlled in terms of her diabetes. We have had some sliding scale insulin to help with higher blood sugars, and they came down very nicely over the last 48-72 hours to blood sugars 180 or less for the most part. Today, no completes of chest pain, but the patient's arm hurts a little bit more. No nausea or vomiting and no shortness of breath. Assessment and Plan: 1. As per discharge assessments noted 2. Disposition: Patient is discharged to the swing bed 3. Condition on discharge, stable and improved. 4. Diet: regular diet 5. Activities: resume normal activities and as per physical therapy 6. Follow-Up: 1. Hospital service will continue to follow patient's primary care 2. 7. Medications at the Time of Discharge: Home Medications Medication Instructions Recorded Confirmed Type Blood Sugar Diagnostic [Freestyle 1 each IN QID #120 strip 08/16/13 10/19/16 Clinic Lite Strips] Aspirin [Aspirin EC] 1 tab PO QOD PRN #30 tab 02/16/15 10/25/16 Clinic Atorvastatin Calcium 1 tab PO QD #90 tab 06/23/16 10/20/16 Clinic Lisinopril 2 tab PO QD #180 tab 06/23/16 10/25/16 Clinic Metformin HCl [Metformin HCl ER] 2 tab PO BID #120 tab 08/04/16 10/25/16 Clinic Allopurinol 1 tab PO BID #180 tab 08/07/16 10/25/16 Clinic Dulaglutide [Trulicity] 1.5 mg SUBCUT WEEKLY #12 ml 08/07/16 10/19/16 Clinic Cholecalciferol [Vitamin D] 1,000 unit PO DAILY 09/15/16 10/25/16 History Metoprolol Tartrate 100 mg PO BID 09/15/16 10/25/16 History Multivitamin [Multivitamins] 1 tab PO DAILY 09/15/16 10/20/16 History Amlodipine Besylate [Norvasc] 10 mg PO DAILY #30 tab 10/30/16 Rx Magnesium Hydroxide Susp [Milk Of 30 ml PO DAILY PRN #30 cup 10/30/16 Rx Magnesia Susp] 8. Time, care, counseling and coordination of care for this discharge is less than 30 minutes. Exam - Vitals Vital Signs: Vital Signs Vital Signs - Last Taken Temperature 98.6 F 10/30/16 16:18 Pulse Rate 75 10/30/16 16:18 Respiratory Rate 17 10/30/16 16:18 Blood Pressure 146/89 10/30/16 16:18 Pulse Ox 93 10/30/16 16:18 On room air - General General Appearance: POSITIVE: No Acute Distress, Cooperative - Eye Eye Exam: POSITIVE: No Scleral Icterus - Respiratory Respiratory Exam: POSITIVE: Clear to Auscultation - Bilaterally, Breathing Non Labored - Cardiovascular Cardiovascular Exam: POSITIVE: RRR, No Murmur, No Clicks, No Gallops, No Rubs, No JVD - GI/Abdominal GI/Abdominal Exam: POSITIVE: Normal Bowel Sounds, Non Tender, Non Distended, Soft - Extremities Extremities Exam: POSITIVE: No Clubbing Present, No Edema Present, No Cyanosis Present Additional Extremities Exam Details: Edema reduced in right fingers. Good cap refill. Right hip incision is dressed, dry and appears intact. - Neurological Neurological Exam: POSITIVE: Alert, Oriented x 3, No Facial Droop, Speech Intact / Clear Data Perinent Studies: Laboratory Results 04/08/17 04/09/17 04/10/17 Range/Units 11:45 06:01 05:21 WBC 12.56 H 13.20 H (4.8-10.8) 10^3/uL RBC 3.98 L 3.90 L (4.20-5.40) 10^6/uL Hgb 11.4 L 11.0 L (12.0-16.0) g/dL Hct 32.1 L 32.5 L (37.0-47.0) % MCV 80.7 L 83.3 (81-99) FL MCH 28.6 28.2 (27-31) PG MCHC 35.5 33.8 (33-37) g/dL RDW Std Deviation 46.1 48.2 (39-50) fL RDW Coeff of Naveen 16.3 H 16.8 H (11.5-14.5) % Plt Count 142 189 (140-350) 10*3/uL MPV 11.6 11.7 (7.4-12.2) FL Neutrophils % (Manual) 70 49 L (50-80) % Band Neutrophils % 0 1 (0-10) % Lymphocytes % (Manual) 16 29 (10-50) % Monocytes % (Manual) 14 H 16 H (0-12) % Eosinophils % (Manual) 0 5 (0-8) % Basophils % (Manual) 0 0 (0-1) % Metamyelocytes % Not Reportable Not Reportable Myelocytes % Not Reportable Not Reportable Promyelocytes % Not Reportable Not Reportable Blast Cells Not Reportable Not Reportable WBC Morphology Comment Normal morphology See comments (NORM) Plt Morphology Comment Normal morphology Normal morphology (NORM) RBC Morph Comment Normal morphology See comments (NORM) PT 12.6 H (9.7-11.4) secs INR 1.22 (0.00-5.90) N/A Sodium 129 L D 130 L (135-145) meq/L Potassium 4.0 3.3 L (3.8-5.2) meq/L Chloride 97 L 102 (98-112) meq/L Carbon Dioxide 22 L 25 (23-33) meq/L Anion Gap 10 3 L (5-20) BUN 36 H 29 H (7-22) mg/dL Creatinine 0.7 0.7 (0.50-1.20) mg/dL Estimated GFR (>60 ml/min/1.73m(2)) BUN/Creatinine Ratio 51.42 H 41.42 H (6-20) Glucose 407 H* 198 H (78-110) mg/dL Mean Blood Glucose 137.443 mg/dL Hemoglobin A1c 6.71 H (4.2-6.0) % Calculated Osmolality 292.0 281.0 (267-292) mOsm/kg Calcium 7.4 L 7.6 L (8.7-10.7) mg/dL Total Bilirubin 1.3 H (0.3-1.2) mg/dL AST 39 (8-39) IU/L ALT 32 (9-52) IU/L Alkaline Phosphatase 66 (38-126) IU/L Total Protein 4.5 L (6.1-8.0) g/dL Albumin 2.1 L (3.5-4.8) g/dL Globulin 2.4 L (2.50-4.10) g/dL Albumin/Globulin Ratio 0.80 L (1.3-2.0) mg/g Vitamin B12 (239-931) pg/mL Serum Folate (2.76-20.0) NG/ML Stool Occult Blood (NEGATIVE) Blood Type A POSITIVE Antibody Screen Negative Crossmatch See Detail 10/27/16 10/28/16 10/29/16 Range/Units 09:29 04:17 04:32 WBC 10.44 11.78 H (4.8-10.8) 10^3/uL RBC 4.00 L 4.09 L (4.20-5.40) 10^6/uL Hgb 11.2 L 11.5 L (12.0-16.0) g/dL Hct 34.2 L 35.6 L (37.0-47.0) % MCV 85.5 87.0 (81-99) FL MCH 28.0 28.1 (27-31) PG MCHC 32.7 L 32.3 L (33-37) g/dL RDW Std Deviation 49.3 50.2 H (39-50) fL RDW Coeff of Naveen 17.4 H 17.3 H (11.5-14.5) % Plt Count 249 295 (140-350) 10*3/uL MPV 11.5 11.1 (7.4-12.2) FL Neutrophils % (Manual) (50-80) % Band Neutrophils % (0-10) % Lymphocytes % (Manual) (10-50) % Monocytes % (Manual) (0-12) % Eosinophils % (Manual) (0-8) % Basophils % (Manual) (0-1) % Metamyelocytes % Myelocytes % Promyelocytes % Blast Cells WBC Morphology Comment (NORM) Plt Morphology Comment (NORM) RBC Morph Comment (NORM) PT (9.7-11.4) secs INR (0.00-5.90) N/A Sodium 133 L (135-145) meq/L Potassium 4.8 D (3.8-5.2) meq/L Chloride 102 (98-112) meq/L Carbon Dioxide 26 (23-33) meq/L Anion Gap 5 (5-20) BUN 23 H (7-22) mg/dL Creatinine 0.7 (0.50-1.20) mg/dL Estimated GFR (>60 ml/min/1.73m(2)) BUN/Creatinine Ratio 32.85 H (6-20) Glucose 243 H (78-110) mg/dL Mean Blood Glucose mg/dL Hemoglobin A1c (4.2-6.0) % Calculated Osmolality 287.0 (267-292) mOsm/kg Calcium 8.0 L (8.7-10.7) mg/dL Total Bilirubin (0.3-1.2) mg/dL AST (8-39) IU/L ALT (9-52) IU/L Alkaline Phosphatase (38-126) IU/L Total Protein (6.1-8.0) g/dL Albumin (3.5-4.8) g/dL Globulin (2.50-4.10) g/dL Albumin/Globulin Ratio (1.3-2.0) mg/g Vitamin B12 890 (239-931) pg/mL Serum Folate 16.3 (2.76-20.0) NG/ML Stool Occult Blood Positive (NEGATIVE) Blood Type Antibody Screen Crossmatch 10/30/16 Range/Units 04:28 WBC (4.8-10.8) 10^3/uL RBC (4.20-5.40) 10^6/uL Hgb (12.0-16.0) g/dL Hct (37.0-47.0) % MCV (81-99) FL MCH (27-31) PG MCHC (33-37) g/dL RDW Std Deviation (39-50) fL RDW Coeff of Naveen (11.5-14.5) % Plt Count (140-350) 10*3/uL MPV (7.4-12.2) FL Neutrophils % (Manual) (50-80) % Band Neutrophils % (0-10) % Lymphocytes % (Manual) (10-50) % Monocytes % (Manual) (0-12) % Eosinophils % (Manual) (0-8) % Basophils % (Manual) (0-1) % Metamyelocytes % Myelocytes % Promyelocytes % Blast Cells WBC Morphology Comment (NORM) Plt Morphology Comment (NORM) RBC Morph Comment (NORM) PT (9.7-11.4) secs INR (0.00-5.90) N/A Sodium 129 L (135-145) meq/L Potassium 4.6 (3.8-5.2) meq/L Chloride 97 L (98-112) meq/L Carbon Dioxide 26 (23-33) meq/L Anion Gap 6 (5-20) BUN 14 (7-22) mg/dL Creatinine 0.6 (0.50-1.20) mg/dL Estimated GFR (>60 ml/min/1.73m(2)) BUN/Creatinine Ratio 23.33 H (6-20) Glucose 171 H (78-110) mg/dL Mean Blood Glucose mg/dL Hemoglobin A1c (4.2-6.0) % Calculated Osmolality 272.0 (267-292) mOsm/kg Calcium 8.2 L (8.7-10.7) mg/dL Total Bilirubin (0.3-1.2) mg/dL AST (8-39) IU/L ALT (9-52) IU/L Alkaline Phosphatase (38-126) IU/L Total Protein (6.1-8.0) g/dL Albumin (3.5-4.8) g/dL Globulin (2.50-4.10) g/dL Albumin/Globulin Ratio (1.3-2.0) mg/g Vitamin B12 (239-931) pg/mL Serum Folate (2.76-20.0) NG/ML Stool Occult Blood (NEGATIVE) Blood Type Antibody Screen Crossmatch Patient Problems - Patient Problem List (1) Closed right hip fracture Current Visit: Yes Status: Acute Qualifiers: Encounter type: initial encounter Qualified Description: Closed fracture of right hip, initial encounter Qualifier Code(s): (S72.001A) Fracture of unspecified part of neck of right femur, initial encounter for closed fracture (2) GI bleed Current Visit: Yes Status: Resolved Qualifiers: GI bleed type/associated pathology: unspecified gastrointestinal hemorrhage type Qualified Description: Gastrointestinal hemorrhage, unspecified gastrointestinal hemorrhage type Qualifier Code(s): (K92.2) Gastrointestinal hemorrhage, unspecified (3) Anemia Current Visit: Yes Status: Acute Qualifiers: Anemia type: unspecified type Qualified Description: Anemia, unspecified type Qualifier Code(s): (D64.9) Anemia, unspecified (4) Distal radius fracture, right Current Visit: Yes Status: Acute Qualifiers: Encounter type: initial encounter Fracture type: closed Fracture morphology: unspecified fracture morphology Qualified Description: Closed fracture of distal end of right radius, unspecified fracture morphology, initial encounter Qualifier Code(s): (S52.501A) Unspecified fracture of the lower end of right radius, initial encounter for closed fracture (5) Weakness Current Visit: Yes Status: Acute (6) Hypertension Current Visit: Yes Status: Chronic Qualifiers: Hypertension type: essential hypertension Qualified Description: Essential hypertension Qualifier Code(s): (I10) Essential (primary) hypertension (7) Diabetes mellitus type II, controlled Current Visit: Yes Status: Acute Qualifiers: Diabetes mellitus complication status: without complication Diabetes mellitus mcfp insulin use: with manufacturing applications engineer use Qualified Description: Controlled type 2 diabetes mellitus without complication, with long-term current use of insulin Qualifier Code(s): (E11.9) Type 2 diabetes mellitus without complications
--- NOTE | 2016-10-30 16:38 | PT.PROG ---
Progress Note Progress Note: S. Patient stated she was very tired this afternoon due to having company all day. Patient agreed to do exercise in her room. O. Patient performed supine exercises in the form of; heel slides, quad sets, ankle pumps, short arc quads, Patient ambulated 30 feet around her room and was left in her chair with alarm and call light. A. Patient was struggling to stay alert during exercises, she is making gains with mobility however continues to require mod assist with transfers ambulation and exercises. Patient would continue to benefit from skilled therapy at this time. P. Continue POC.
[2016-10-30 16:39] VITALS: TEMP 98.6
--- NOTE | 2016-10-30 16:44 | OT.PROG ---
Progress Note Progress Note: S: pt stated that she is really tired, and reported having visitors in her room all afternoon. O: pt was seen in room and completed toilet/toilet transfer with Joaquín Viera and chair positioning with joaquín Viera. pt was left in chair with call light within reach and was accompanied by friend. A: pt can tolerate x2 a day of therapy but becomes fatigued when she has visitors all day and is unable to rest. Pt is walking further but still needs cues on direction change and proper sit to stands. P: continue per plan of care.
--- NOTE | 2016-11-01 14:09 | OT AM DAY ---
Diagnosis : Weakness AM - Occupational Therapy S: The patient reports she still has decreased endurance. She says she is having a harder day than she did yesterday. O: The patient worked on functional activities including transfer from the chair to the sink. We attempted hygiene activities; however, the patient did not have the balance or the strength to participate at the sink. She was able to walk from her chair to the sink with max assist and max verbal cues; she was lifting her right leg slightly but still drags it along the ground and goes very slowly with her walker with the trough on the right side. The patient also reported today that her right wrist hurt worse than normal. She was cued a couple of times to not put pressure on the wrist. When she first stood up she was pressing on the chair with the right wrist and was advised not to do so. The patient walked approximately 10 feet in the room. We attempted hygiene ; but again, it was very difficult for the patient to stand and participate. Downstairs in therapy the patient completed strengthening exercises with yellow theraband on the left side for elbow flexion, internal/external rotation, and shoulder extension x10 repetitions. The patient needed cues to continue with exercise. We then put yellow theraband around the right humerus and worked on light shoulder extension exercises. A: The patient requires increased time; sometimes her processing skills are decreased and she has difficulty following directions and she needs cues to continue her exercises. Overall, the patient is making gains. P: Continue seeing patient BID during the week and one time per day over the weekend for upper extremity strengthening, ADLs, and overall functional mobility. MTDD
== END 2016-10-30 16:35 | disposition swing bed (61) | DRG 379 ==
LOC: MED/SURG 15:42
PROVIDERS: ADMIT Internal Medicine; ATTEND Internal Medicine
PROC: 30233N1 Transfusion of Nonautologous Red Blood Cells into Peripheral Vein, Percutaneous Approach (ICD-10-PCS; principal; 2016-10-25)
DX: K92.2 Gastrointestinal hemorrhage, unspecified (principal); Z96.641 Presence of right artificial hip joint; S52.501D Unspecified fracture of the lower end of right radius, subsequent encounter for closed fracture with routine healing; D64.9 Anemia, unspecified; R53.1 Weakness; I10 Essential (primary) hypertension; E11.9 Type 2 diabetes mellitus without complications
CPT/HCPCS: 36415; 36430; 80048; 80053; 82272; 82607; 82746; 82948; 83036; 85007; 85027; 85610; 86850; 86900; 86901; 86922; 94761; 97110; 97164; 97165; 97530; J1644; J1940; J3490; J7030; J7040; J7512; P9016; Q0163

== ENCOUNTER 2016-10-30 10:36 | Inpatient (IN) | payer OTHER, MEDICARE ==
[2016-10-30] MEDS ORDERED: MAGNESIUM 400 MG/5 ML - 30 ML (MILK OF MAGNESIA) PO PRN (16:25)
[2016-10-30] MEDS ORDERED: DEXTROSE 31 GM GEL PO PRN (16:26)
[2016-10-30] MEDS ORDERED: ACETAMINOPHEN 325 MG TABLET PO PRN (16:26)
[2016-10-30] MEDS ORDERED: DEXTROSE 50%-WATER SYRINGE 50 ML SYRINGE IVP PRN (16:26)
[2016-10-30] MEDS ORDERED: Glucagon Inj Vial 1 MG/ML VIAL IM PRN (16:26)
[2016-10-30] MEDS ORDERED: Insulin Sliding Scale Protocol SUBCUT PRN (16:26)
[2016-10-30] MEDS: ATORVASTATIN 40 MG TABLET PO SCH (20:07)
[2016-10-30] MEDS: metFORMIN ER 500 MG TABLET PO SCH (20:07)
[2016-10-30] MEDS: Insulin Lispro Flexpen 300 UNIT/3 ML INSULN.PEN SUBCUT SCH (20:07)
[2016-10-30] MEDS: ALLOPURINOL 100 MG TABLET PO SCH (20:08)
[2016-10-30] MEDS: Metoprolol TARTRATE Tab 50 MG TAB PO SCH (20:08)
[2016-10-30] MEDS: HEPARIN 5000 UNIT/1 ML SUBCUT SCH (22:15)
[2016-10-31] MEDS: HEPARIN 5000 UNIT/1 ML SUBCUT SCH ×3 (05:22→20:59)
[2016-10-31 05:37] LABS: HEMATOCRIT 34.9 % (37.0-47.0); HEMOGLOBIN 11.2 g/dL (12.0-16.0); MEAN CORPUSCULAR HEMOGLOBIN 27.9 PG (27-31); MEAN CORPUSCULAR HGB CONC 32.1 g/dL (33-37); MEAN CORPUSCULAR VOLUME 86.8 FL (81-99); MEAN PLATELET VOLUME 11.5 FL (7.4-12.2); RED BLOOD COUNT 4.02 10^6/uL (4.20-5.40)
[2016-10-31] MEDS: Insulin Lispro Flexpen 300 UNIT/3 ML INSULN.PEN SUBCUT SCH ×4 (07:00→20:51)
[2016-10-31] MEDS: LISINOPRIL 20 MG TABLET PO SCH (08:33)
[2016-10-31] MEDS: CHOLECALCIFEROL 1000 IU TABLET PO SCH (08:33)
[2016-10-31] MEDS: ASPIRIN EC 81 MG TABLET PO SCH (08:34)
[2016-10-31] MEDS: metFORMIN ER 500 MG TABLET PO SCH ×2 (08:34→20:46)
[2016-10-31] MEDS: ALLOPURINOL 100 MG TABLET PO SCH ×2 (08:34→20:46)
[2016-10-31] MEDS: Multivitamin Tab 1 TAB PO SCH (08:34)
[2016-10-31] MEDS: Metoprolol TARTRATE Tab 50 MG TAB PO SCH ×2 (08:35→20:46)
--- NOTE | 2016-10-31 14:44 | PDOC(PROG) ---
Date and Time of Service: 10/31/2016, 1440 Interval History: No chest pain and no shortness breath. Patient is napping well. Her pain is well controlled. No nausea or vomiting. She states therapy made her a little tired today. Objective : Data - Labs CBC and BMP: 10/31/16 04:15 Labs - Last 24 Hours: Laboratory Results 10/31/16 Range/Units 04:15 WBC 12.81 H (4.8-10.8) 10^3/uL RBC 4.02 L (4.20-5.40) 10^6/uL Hgb 11.2 L (12.0-16.0) g/dL Hct 34.9 L (37.0-47.0) % MCV 86.8 (81-99) FL MCH 27.9 (27-31) PG MCHC 32.1 L (33-37) g/dL RDW Std Deviation 48.6 (39-50) fL RDW Coeff of Naveen 16.6 H (11.5-14.5) % Plt Count 358 H (140-350) 10*3/uL MPV 11.5 (7.4-12.2) FL Objective : Exam - General General Appearance: No Acute Distress, Cooperative Additional General Exam Details: Vital Signs - Last Taken Temperature 98.2 F 10/31/16 07:13 Pulse Rate 77 10/31/16 07:13 Respiratory Rate 16 10/31/16 07:13 Blood Pressure 148/73 10/31/16 07:13 Pulse Ox 90 10/31/16 07:13 - Eye Eye Exam: No Scleral Icterus - ENT ENT Exam: Mucous Membranes Moist - Respiratory Respiratory Exam: Clear to Auscultation - Bilaterally, Breathing Non Labored - Cardiovascular Cardiovascular Exam: RRR, No Murmur, No Clicks, No Gallops, No Rubs, No JVD - GI/Abdominal GI/Abdominal Exam: Non Tender, Non Distended, Soft - Extremities Extremities Exam: No Clubbing Present, No Edema Present, No Cyanosis Present Additional Extremities Exam Details: Right forearm dressed, swelling is significantly reduced in right hand and fingers. - Neurological Neurological Exam: Alert, Oriented x 3, No Facial Droop, Speech Intact / Clear Assessment and Plan - Patient Problems (1) Weakness Current Visit: Yes Status: Acute (2) Closed right hip fracture Current Visit: Yes Status: Acute Qualifiers: Encounter type: subsequent encounter Fracture healing: with routine healing Qualified Description: Closed fracture of right hip, with routine healing, subsequent encounter Qualifier Code(s): (S72.001D) Fracture of unspecified part of neck of right femur, subsequent encounter for closed fracture with routine healing (3) Diabetes mellitus type II, controlled Current Visit: No Status: Acute Qualifiers: Diabetes mellitus complication status: without complication Diabetes mellitus mcfp insulin use: without mcfp use Qualified Description : Controlled type 2 diabetes mellitus without complication, without long-term current use of insulin Qualifier Code(s): (E11.9) Type 2 diabetes mellitus without complications (4) Distal radius fracture, right Current Visit: Yes Status: Acute Qualifiers: Encounter type: subsequent encounter Fracture type: closed Fracture morphology: unspecified fracture morphology Fracture healing: with routine healing Qualified Description: Closed fracture of distal end of right radius with routine healing, unspecified fracture morphology, subsequent encounter Qualifier Code(s): (S52.501D) Unspecified fracture of the lower end of right radius, subsequent encounter for closed fracture with routine healing (5) Gouty arthropathy Current Visit: Yes Status: Chronic (6) Hypercholesterolemia Current Visit: Yes Status: Chronic (7) Hypertension Current Visit: Yes Status: Chronic Qualifiers: Hypertension type: essential hypertension Qualified Description: Essential hypertension (8) History of GI bleed Current Visit: Yes Status: Acute - Assessment / Plan Additional Assessment/Plan Details: Patient has been admitted to the swing bed. Continue PT and OT. Tylenol and tramadol seem to be controlling pain well. In terms of recent GI bleed as suspected upper GI bleed, hemoglobin is been consistently in the 11's range for this past week, and I think we can go to checking the CBC weekly unless the patient gives a signs of any further bleeding for the short-term. Continue proton pump inhibitor. Blood pressure is well-controlled no changes on blood pressure medicines. Also is aware that the patient is here and will continue to follow as well There is a skin tear or small area close to the right elbow that has an inferior portion of about 1 inch that's open, and we dressed with Silvadene and I think that should be addressed every 48-72 hours and a consult to PT to help assist with wound care. Meds as necessary for constipation. Photo / Body Diagrams - Uploaded Photos Uploaded Photos:
[2016-10-31] MEDS: traMADol 50 MG TABLET PO PRN (15:03)
--- NOTE | 2016-10-31 16:23 | OT.PROG ---
Progress Note Progress Note: S: pt was in her bed sleeping upon arrival. pt did not like the idea of therapy although agreed. pt did report that she was having some pain in the arm and would take a pain pill. O: pt was able to functionally ambulate 20 feet with increased time and min A sit to stand. pt ambulated with the front wheeled walker with a trough for the right arm. pt then came to therapy and completed yellow theraband exercises seated at EOB. pt struggled to complete 10 reps of rows, horiz abduction, shoulder extension, and bicep flexion on the left arm. A: pt struggles with endurance to complete any activities at this time. pain in the hip and arm is hindering pt. nursing reports pt has been refusing pain meds , which would probably increase her ability to complete tasks. P: cont per POC
--- NOTE | 2016-10-31 17:00 | PT.PROG ---
Progress Note Progress Note: S. Patient stated that she is very tired this afternoon however she would be willing to go to the therapy gym. O. Patient was wheeled to the therapy gym where she used the nu-step x 10 minutes, then ambulated 15 feet to the mat table where she performed exercises in the form of; heel toe raises, and long arc quads x 10 bilaterally with mod assist on right. Patient was transferred to supine on the mat table where she had heat to her hip and right shoulder x 20 minutes, Patient ambulated 40 feet to the wheelchair and was wheeled back to her room where she was left on the commode and nursing was notified. A. Patient tolerated exercises fair, she continues to struggle with pain and weakness. She requires mod assist with transfers and ambulation. Patient would continue to benefit from skilled therapy to increase strength, mobility and endurance. P. Continue POC.
[2016-10-31] MEDS: ATORVASTATIN 40 MG TABLET PO SCH (20:46)
[2016-11-01] MEDS: HEPARIN 5000 UNIT/1 ML SUBCUT SCH ×3 (06:07→22:30)
[2016-11-01] MEDS: Insulin Lispro Flexpen 300 UNIT/3 ML INSULN.PEN SUBCUT SCH ×4 (06:40→20:14)
[2016-11-01] MEDS: Multivitamin Tab 1 TAB PO SCH (08:33)
[2016-11-01] MEDS: metFORMIN ER 500 MG TABLET PO SCH ×2 (08:33→20:02)
[2016-11-01] MEDS: CHOLECALCIFEROL 1000 IU TABLET PO SCH (08:33)
[2016-11-01] MEDS: LISINOPRIL 20 MG TABLET PO SCH (08:33)
[2016-11-01] MEDS: Metoprolol TARTRATE Tab 50 MG TAB PO SCH ×2 (08:33→20:03)
[2016-11-01] MEDS: ALLOPURINOL 100 MG TABLET PO SCH ×2 (08:34→20:02)
[2016-11-01] MEDS: traMADol 50 MG TABLET PO PRN ×2 (08:34→20:03)
--- NOTE | 2016-11-01 10:49 | PT.PROG ---
Progress Note Progress Note: S: Pt reports that she is tired this morning and her R elbow is really sore today. O: Treatment consisted of: MH to R hip and R UE 20', followed by STS transfer activities with RW with platform 5x, ambulated 30' with RW with platform, gentle R wrist AROM in all planes 5x each, digits 1-5 AROM in all planes, R UE dressing change: dressing in place soiled with mod dry drainage, R UE cleaned with saline, skin tear on lateral epicondyle covered with silverdon followed by krylex from wrist to elbow and coban. A: Pt required mod VCs for participation and TCing for RW management with amulation, completed activities at self selected pace. P: Continue to treat per POC
--- NOTE | 2016-11-01 11:47 | ORTHO.CON ---
Consult Note - Consult Consult Date: 11/01/16 Reason for Consult: Other (Follow-up from previous surgery by another surgeon.) Requesting Physician: Dr. Spears Primary Care Provider: Krunal Gee MD - History of Present Illness History of Present Illness: Patient is an 86-year-old female who sustained a fracture of her right hip where she underwent a hemiarthroplasty and also right wrist where she underwent open reduction internal fixation. Her postoperative course was complicated by a non-ST elevation myocardial infarction was sent to [facility] and then subsequently was sent back here in apparently had a gastro-intestinal bleed and is making excellent progress and is here for evaluation. Past Medical History Medical History: 1. Diabetes type II. 2. Hypertension. 3. Hyperlipidemia. 4. Osteoporosis. 5. Gout attack back in April 2016 Surgical History: 1. Hysterectomy. 2. Tonsillectomy. 3. History of nephrolithiasis. 4. C-sections Family History: Reviewed an Not Pertinent Past Social History: Doesn't smoke, rarely drinks no drugs. 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 Tobacco Use: Never Smoker Substance Use Type: None Medication / Allergies Home Medications: Home Medications Medication Instructions Recorded Confirmed Type Blood Sugar Diagnostic [Freestyle 1 each IN QID #120 strip 08/16/13 11/01/16 Clinic Lite Strips] Aspirin [Aspirin EC] 1 tab PO QOD PRN #30 tab 02/16/15 11/01/16 Clinic Atorvastatin Calcium 1 tab PO QD #90 tab 06/23/16 11/01/16 Clinic Lisinopril 2 tab PO QD #180 tab 06/23/16 11/01/16 Clinic Metformin HCl [Metformin HCl ER] 2 tab PO BID #120 tab 08/04/16 11/01/16 Clinic Allopurinol 1 tab PO BID #180 tab 08/07/16 11/01/16 Clinic Dulaglutide [Trulicity] 1.5 mg SUBCUT WEEKLY #12 ml 08/07/16 11/01/16 Clinic Cholecalciferol [Vitamin D] 1,000 unit PO DAILY 09/15/16 11/01/16 History Metoprolol Tartrate 100 mg PO BID 09/15/16 11/01/16 History Multivitamin [Multivitamins] 1 tab PO DAILY 09/15/16 11/01/16 History Amlodipine Besylate [Norvasc] 10 mg PO DAILY #30 tab 10/30/16 11/01/16 Rx Magnesium Hydroxide Susp [Milk Of 30 ml PO DAILY PRN #30 cup 10/30/16 11/01/16 Rx Magnesia Susp] Allergies/Adverse Reactions: Allergies Allergy/AdvReac Type Severity Reaction Status Date / Time butorphanol tartrate Allergy Severe Anaphylaxis Verified 11/01/16 06:25 [From Stadol] meperidine HCl [From Demerol] Allergy Severe difficult Verified 11/01/16 06:25 to arouse Penicillins Allergy Mild rash Verified 11/01/16 06:25 mushroom Allergy SHORTNESS Verified 11/01/16 06:25 OF BREATH Exam - - Exam: Examination shows that the patient's arm had a skin tear which is a partially healed over and this is addressed her wrist fracture site is generally clean and dry who is a dressing which was removed which had old dried blood and a volar splint. Wrist motion is limited digit motion is reasonable not a lot of swelling at the current time. Ecchymosis in various stages of near resolution and otherwise good elbow motion the limited supination and pronation. Examination of the hip shows a gentle range of motion well-healed incisions motor and sensory exam is nonfocal with good pulses and brisk refill. X-rays which were obtained previously showed a wrist fracture with a plate in place with near anatomic alignment. Radiographs of the hip showed previous hemiarthroplasty cemented femoral stem. No active issues at that time - Vitals Vital Signs: Vital Signs Temperature 98.6 F Temperature Source Temporal Artery Scan Pulse Rate [Apical] 90 Pulse Rate [Pulse Oximeter] 82 Respiratory Rate 16 Blood Pressure [Left Arm] 141/71 Pulse Ox 91 Oxygen Delivery Method Room Air Height 4 ft 11 in Weight 50.077 kg Results - Labs CBC and BMP: 10/31/16 04:15 Assessment and Plan - Assessment / Plan Additional Assessment/Plan Details: Impression: I have placed the patient's right arm in a volar splint she had a compression dressing on and a dressing covering her skin from sitting volar splint is still needed were too early to be without anything. I think we will get a more formal Thermoplast splint made at the beginning of the week once occupational therapy is available for this. As far as the hip that seems to be doing well she will continue to progress with weightbearing and physical therapy/ occupational therapy. Plan: Patient will continue with physical therapy and occupational therapy as outlined above for both problems and we will continue to follow her and observe her.
--- NOTE | 2016-11-01 14:43 | PTI REPORT ---
Thank you for the referral of Raymon Aaron. She was seen on 10/31/16 for a swingbed evaluation secondary to generalized weakness. SUBJECTIVE: The patient is an 86-year-old female. The patient reports that she [place] [facility] with [place] . She states her helps her with a lot of her mobility. The patient reports she fell and broke her arm and her hip on her right side while using a single point cane. The patient had to go to [facility] and is now back. The patient reports she is getting better each day. The patient states she has a walker at home. PAST MEDICAL HISTORY: Past medical history can be found in the patient's medical record. OBJECTIVE FINDINGS: Bed mobility: The patient requires max assist x2 for bed mobility, depending on the transfer. Transfers: The patient requires mod to max assist x1 for sit to stand transfer. Ambulation: The patient requires mod to max assist x1 for gait with front wheeled walker with platform. The patient is starting to bear more weight on right lower extremity with gait and standing endurance has improved. The patient is able to stand approximately 10 minutes prior to seated rest break. ASSESSMENT: The patient is an 86-year-old female that is status post fall. The patient's endurance is improving and functional mobility is improving but she still requires a lot of assistance for functional activity. The patient will benefit from continued skilled therapy to improve overall mobility. The patient's prognosis for therapy is fair. Problem List: Decreased strength Decreased endurance Decreased independence Decreased functional mobility Short-Term Goals: To be met by discharge from swingbed: Patient will be independent with all transfers with least restrictive assistive device. Patient will be able to ambulate 150 feet with least restrictive assistive device independently. Patient will be able to tolerate 30 minutes of activity in order to improve endurance. Long-Term Goals: To be met following discharge from swingbed: Patient will be able to return to least restrictive assistive device. Patient will be able to perform all activities of daily living independently. TREATMENT PLAN: Patient will be seen B.I.D during the week and one time per day over the weekend as a swingbed patient for therapeutic exercise, functional activity, pain relief modalities as needed, neuromuscular reeducation, and gait training. INITIAL TREATMENT: Treatment today consisted of the swingbed evaluation followed by an application of moist heat pack x20 minutes including set up x20 minutes including set up to the lower back, hip, and left shoulder for pain. The patient performed seated marches, heel/toe raises, and long arc quads. The patient ambulated approximately 40 feet and performed 5 sit to stands. The patient was returned to her room and was placed in her bed with bed alarm activated and call light within reach. ELLY
--- NOTE | 2016-11-01 14:57 | OTI REPORT ---
Thank you for the referral of Raymon Aaron. She was seen on 10/31/16 for an occupational therapy swingbed evaluation secondary to generalized weakness. SUBJECTIVE: The patient is an 86-year-old female. The patient was originally admitted to [facility] and then went to [facility] to assess her heart conditions. She then came back to [facility]. The patient reports that she fell in her kitchen while trying to make coffee. She states she had just recently "graduated" to a cane versus using a walker in her home. The patient does live in her home with her . The home is handicap accessible. The patient states she has a walk in shower with grab bars. At this point in time the patient does not sit on a seat when showering. She also has grab bars by her toilet. The patient states she was usually independent with dressing herself. The patient states recently she has had help with her household tasks including laundry and cleaning and her and her just started getting meals on wheels which she states has been a big help. The patient was not using adaptive devices besides her wheeled walker before her admission and fall. The patient reports she is doing a little bit better today. Her goal is to get home. PAST MEDICAL HISTORY: Past medical history can be found in the patient's medical record. OBJECTIVE FINDINGS: General observations: The patient is alert and oriented x4. Her cognitive and processing is a lot slower and she does need increased time to perform tasks. Transfers: The patient requires mod assist and verbal cues to transfer from sit to stand safely. She requires mod assist for all other functional transfers as well. Activities of daily living: The patient requires max assist for lower extremity dressing and mod assist for upper extremity dressing with button up shirts. The patient requires mod assist to doff briefs for toileting. She is dependent with socks and shoes at this point in time. Range of motion: The patient has shoulder motion of the right upper extremity from 0 to 90 degrees. On the left upper extremity the patient has 0 to 110 degrees. Elbow flexion/extension is within normal limits. Strength: Strength in the hands is limited. Her right fingers have Grade I swelling. Her left fingers have arthritis and she has limited search strategist. Strength in the left upper extremity is 2+/5 for shoulder flexion, 3/5 for elbow flexion/ extension, and 3/5 for wrist flexion/extension. ASSESSMENT: Problem List: Decreased ability to perform activities of daily living Decreased upper extremity range of motion Decreased upper extremity strength Decreased activity tolerance Decreased ability to perform functional transfers Short-Term Goals: To be met by discharge from swingbed: Patient will be able to dress lower extremities with min assist and upper extremities independently after set up. Patient will be able to doff and don her pants independently during toileting task. Patient will be independent with toilet hygiene. Patient will be able to complete a shower with min assist. Patient will improve upper extremity strength in the left arm to 4+/5 and strength in the right shoulder to 4/5. Patient will be able to complete all functional transfers with min assist for balance. Long-Term Goals: To be met following discharge from swingbed: Patient will return home safe and independent with all functional transfers and ADLs. TREATMENT PLAN: Patient will be seen B.I.D during the week and one time per day over the weekend as a swingbed patient to address the above goals and objectives. INITIAL TREATMENT: Treatment today consisted of the swingbed evaluation followed by the patient sitting in chair. She does need increased time to put legs down secondary to right lower extremity pain that she rated as a 6 to 7/10. The patient was able to complete functional transfer with mod assist. Overall it took the patient 40 minutes to get dressed as she did struggle and need increased time to complete task. The therapist tried to promote as much independence as possible. The patient definitely had difficulty on the right side with upper and lower extremity dressing. The patient completed hygiene tasks at the sink x1 minute and then walked out of the room to the nurse's station which was approximately 25 feet. ELLY
[2016-11-01] MEDS: ATORVASTATIN 40 MG TABLET PO SCH (20:03)
[2016-11-02] MEDS: HEPARIN 5000 UNIT/1 ML SUBCUT SCH ×3 (05:29→22:09)
[2016-11-02] MEDS: Insulin Lispro Flexpen 300 UNIT/3 ML INSULN.PEN SUBCUT SCH ×4 (07:15→20:52)
--- NOTE | 2016-11-02 07:47 | PDOC(PROG) ---
Date and Time of Service: 11/02/2016 7:44 AM Interval History: Subjective Patient seemed to be better than the last time I saw her, she said her pain seemed to be controlled with the current pain medication. She is still limited in what she is able to do, she is moving from the bed to the chair, she is denying chest pain, shortness of breath. Some minimal swelling in her legs. She said the swelling in her right wrist seemed to be less compared to what it was. Objective : Data - Labs CBC and BMP: 10/31/16 04:15 Objective : Exam - General General Appearance: No Acute Distress, Cooperative, Thin - Head Head Exam: Normal Inspection, Atraumatic - Eye Eye Exam: Normal Appearance - ENT ENT Exam: Normal Exam - Neck Neck Exam: Normal Inspection - Respiratory Respiratory Exam: Clear to Auscultation - Bilaterally - Cardiovascular Cardiovascular Exam: RRR - GI/Abdominal GI/Abdominal Exam: Normal Bowel Sounds, Non Tender, Non Distended, Soft - Rectal Rectal Exam: Deferred - External Exam: Deferred - Extremities Extremities Exam: Pedal Edema - Back Back Exam: Normal Inspection - Neurological Neurological Exam: Alert, Oriented x 3, CN II-XII Intact Additional Neurological Exam Details: Write the forearm in a splint - Psychiatric Psychiatric Exam: Normal Affect - Integumentary Integumentary Exam: Normal Color Assessment and Plan - Patient Problems (1) Closed right hip fracture Current Visit: Yes Status: Acute Comment: Status post surgery continue PT and OT. Qualifiers: Encounter type: subsequent encounter Fracture healing: with routine healing Qualified Description: Closed fracture of right hip, with routine healing, subsequent encounter Qualifier Code(s): (S72.001D) Fracture of unspecified part of neck of right femur, subsequent encounter for closed fracture with routine healing (2) Distal radius fracture, right Current Visit: Yes Status: Acute Comment: Continue PT and OT. Qualifiers: Encounter type: subsequent encounter Fracture type: closed Fracture morphology: unspecified fracture morphology Fracture healing: with routine healing Qualified Description: Closed fracture of distal end of right radius with routine healing, unspecified fracture morphology, subsequent encounter Qualifier Code(s): (S52.501D) Unspecified fracture of the lower end of right radius, subsequent encounter for closed fracture with routine healing (3) Hypertension Current Visit: Yes Status: Chronic Comment: Same medications Qualifiers: Hypertension type: essential hypertension Qualified Description: Essential hypertension Qualifier Code(s): (I10) Essential (primary) hypertension (4) History of GI bleed Current Visit: Yes Status: Acute Comment: She is on Protonix continue. For DVT prophylaxis she was restarted on heparin hemoglobin seems to be stable continue follow-up. 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
[2016-11-02] MEDS: CHOLECALCIFEROL 1000 IU TABLET PO SCH (08:12)
[2016-11-02] MEDS: Multivitamin Tab 1 TAB PO SCH (08:12)
[2016-11-02] MEDS: LISINOPRIL 20 MG TABLET PO SCH (08:12)
[2016-11-02] MEDS: PANTOPRAZOLE 40 MG TABLET PO SCH ×2 (08:12→17:16)
[2016-11-02] MEDS: Metoprolol TARTRATE Tab 50 MG TAB PO SCH ×2 (08:12→20:36)
[2016-11-02] MEDS: metFORMIN ER 500 MG TABLET PO SCH ×2 (08:12→20:36)
[2016-11-02] MEDS: ASPIRIN EC 81 MG TABLET PO SCH (08:13)
[2016-11-02] MEDS: ALLOPURINOL 100 MG TABLET PO SCH ×2 (08:38→20:36)
[2016-11-02] MEDS: traMADol 50 MG TABLET PO PRN ×2 (08:41→20:35)
--- NOTE | 2016-11-02 09:24 | PT.PROG ---
Progress Note Progress Note: S: Pt reports that she is doing better today, that her hand is moving much more freely. States mild constant R hip ache. O: Treatment consisted of: Yellow theraputty R UE rolling and pinching to fatigue, STS to RW with platform 10x, seated marching 30x ea LE, seated hip abduction 30x each LE, ankle pumps 20x each LE, LAQ 30x each LE, gentle R wrist AROM in all planes to tolerance, R digits 1-5 AROM to pt tolerance, ambulation 40' with RW with platform and CGA. A: Pt was a motivated, active participant in activities today, is demonstrating increased tolerance to theraputic exercise and functional activities. Does require TC for walker management for safety upon fatigue. P: Continue to address established goals and objectives per POC.
[2016-11-02] MEDS ORDERED: DULAGLUTIDE 1.5 MG SUBCUT SCH (16:30)
[2016-11-02] MEDS: ATORVASTATIN 40 MG TABLET PO SCH (20:35)
[2016-11-03] MEDS: HEPARIN 5000 UNIT/1 ML SUBCUT SCH ×3 (05:47→21:05)
[2016-11-03] MEDS: PANTOPRAZOLE 40 MG TABLET PO SCH ×2 (07:13→16:15)
[2016-11-03] MEDS: Insulin Lispro Flexpen 300 UNIT/3 ML INSULN.PEN SUBCUT SCH ×4 (07:14→21:05)
[2016-11-03] MEDS: traMADol 50 MG TABLET PO PRN (09:11)
[2016-11-03] MEDS: metFORMIN ER 500 MG TABLET PO SCH ×2 (09:13→20:23)
[2016-11-03] MEDS: Metoprolol TARTRATE Tab 50 MG TAB PO SCH ×2 (09:13→20:23)
[2016-11-03] MEDS: LISINOPRIL 20 MG TABLET PO SCH (09:14)
[2016-11-03] MEDS: Multivitamin Tab 1 TAB PO SCH (09:15)
[2016-11-03] MEDS: CHOLECALCIFEROL 1000 IU TABLET PO SCH (09:15)
[2016-11-03] MEDS: ALLOPURINOL 100 MG TABLET PO SCH ×2 (09:16→20:23)
--- NOTE | 2016-11-03 11:56 | OT.PROG ---
Progress Note Progress Note: S: pt stated that her leg is not working very well today. O: pt was seen in therapy working on transfers which were completed with Mod A sit to stand and cues for directions and CGA at all times for safety. Pt was also fitted for a wrist cock up brace. A: pt would continue to benefit from therapy to increase overall functional activity such as ADL's and transfers. pt has increase number of visitors in the afternoon that makes her very fatigued in the afternoon for therapy. P: continue per plan of care.
--- NOTE | 2016-11-03 12:07 | PT.PROG ---
Progress Note Progress Note: S. Patient states that she is having pain in her arm and her hip. O. Patient was wheeled to the therapy gym where she had heat on her hip and arm x 20 minutes. Patient performed exercises in the form of; heel slides, quad sets , ankle pumps, short arc quads all x 10 bilaterally, sit to stands x 5. Patient ambulated 40 feet around the physical therapy gym. then was wheeled back to her room where she transferred from the wheelchair to the bed and left with alarm and call light. A. Patient continues to require mod assist with transfers and ambulation. Patient continues to gain strength and mobility, however continues to be very weak and fatigues easily. Patient would continue to benefit from skilled therapy at this time. P. Continue POC.
--- NOTE | 2016-11-03 16:36 | OT.PROG ---
Progress Note Progress Note: S: pt reports pain in forearm. O: pt was seen in therapy in the pm. While receiving moist heat to her back she completed ther ex with RTB with L non affected arm. she completed shoulder flex , ext, bicep flex, tri ext and IROT x15 to increase her strength to assist with postural transitions. Once she sat up she completed reaching task with R arm extending it forward x10 and sitting balance activity with balloon to increase strength and movement of LUE. Pt needed cues to stay engaged in this activity. OT assisted PT with her return to room. A: pt continues to progress with her functional transfers. She does need cues to stay on task. P: continue per plan of care.
--- NOTE | 2016-11-03 16:39 | PT.PROG ---
Progress Note Progress Note: S. Patient stated that she is feeling a little better this afternoon. O. Patient ambulated 60 feet to the wheelchair where she was wheeled to the therapy gym where she had heat to her hip and arm x 20 minutes then performed supine exercises in the form of; heel slides, quad sets, ankle pumps, short arc quads, seated, marches, long arc quads, heel toe raises all x 10 bilaterally. Patient ambulated 60 feet to the wheelchair and was returned to her room where she was left in her chair with alarm and call light. A. Patient tolerated exercise fair this afternoon, she continues to require mod assist with transfers, ambulation, and exercises. Patient continues to very weak and fatigues easily. Patient would continue to benefit from skilled therapy at this time. P. continue POC.
--- NOTE | 2016-11-03 17:02 | ORTHO.PROG ---
Last Taken Vital Signs: Vital Signs - Last Taken Temperature 98.1 F 11/03/16 07:19 Pulse Rate 72 11/03/16 07:19 Respiratory Rate 18 11/03/16 07:19 Blood Pressure 158/76 11/03/16 07:19 Pulse Ox 94 11/03/16 07:19 Subjective: Patient with a right wrist fracture with some discomfort no pain in right hip. Patient had a hemiarthroplasty right hip Objective: Examination of the right hip wound show that the patient has a hematoma that is relatively soft with movement of the deep tissues and the lateral buttock region around her surgical incision. There is no redness or evidence of infection there is some bruising around this which seems to be in various shades of resolution and resorption. She has Steri-Strips in place several areas ofstroke which have worn off. In the most proximal aspect in the incision there is a small amount of dried blood on the Steri-Strips but no active bleeding. Examination of the wrist shows that she has significant arthritis of the fingers ecchymosis into the finger region. She has extension and limited flexion. She has a skin tear up around the elbow joint region. She has generalized soreness and tenderness in the forearm. Intake and Output - 8hrs 11/02/16 11/03/16 11/03/16 11/03/16 21:59 05:59 13:59 21:59 Intake: Intake Oral Amount 240 75 340 450 Output: Output, Urine Amount 60 150 Other: Percent Meal Consumed 75% 75% Output,Number of Bowel 1 1 Movements Number of Voids 1 1 1 Vital Signs (24 hrs) Temp Pulse Resp BP Pulse Ox 11/03/16 07:19 98.1 F 72 18 158/76 94 11/03/16 05:12 94 11/02/16 18:46 98.2 F 76 20 155/73 94 Assessment: Status post right femoral neck fracture with hemiarthroplasty overall doing well Hematoma right hip after surgery Right wrist open reduction internal fixation stable Plan: Patient is 2 weeks out from her surgery I would proceed with some x-rays of the wrist and forearm since she is complaining of some generalized pain. I would also have her continue with therapy for the wrist and the hip and generalized conditioning. We have placed a sterile clean dressing over the hip and we will follow this along clinically. We'll see her back sooner for problems. Activity modifications symptomatic care in the meantime.
[2016-11-03] MEDS: ATORVASTATIN 40 MG TABLET PO SCH (20:23)
[2016-11-04] MEDS: HEPARIN 5000 UNIT/1 ML SUBCUT SCH ×3 (05:08→22:01)
[2016-11-04 07:15] LABS: BASOPHILS # (AUTO) 0.14 10*3/UL; BASOPHILS % (AUTO) 1.7 % (0-1); EOSINOPHILS # (AUTO) 0.27 10*3/UL; EOSINOPHILS % (AUTO) 3.2 % (0-8); HEMATOCRIT 34.9 % (37.0-47.0); HEMOGLOBIN 11.3 g/dL (12.0-16.0); LYMPHOCYTES # (AUTO) 1.99 10*3/uL; MEAN CORPUSCULAR HEMOGLOBIN 28.8 PG (27-31); MEAN CORPUSCULAR HGB CONC 32.4 g/dL (33-37); MEAN CORPUSCULAR VOLUME 88.8 FL (81-99); MEAN PLATELET VOLUME 10.1 FL (7.4-12.2); MONOCYTES # (AUTO) 0.89 10*3/UL (0.3-0.8); MONOCYTES % (AUTO) 10.6 % (5-15); NEUTROPHILS # (AUTO) 5.02 10*3/UL; RED BLOOD COUNT 3.93 10^6/uL (4.20-5.40)
[2016-11-04 07:27] LABS: PLATELET MORPHOLOGY COMMENT NORMAL MORPHOLOGY (NORM); RBC MORPHOLOGY COMMENT NORMAL MORPHOLOGY (NORM); WBC MORPHOLOGY COMMENT NORMAL MORPHOLOGY (NORM)
[2016-11-04 07:36] LABS: BUN/CREATININE RATIO 21.66 (6-20); CALCIUM 8.6 mg/dL (8.7-10.7)
[2016-11-04] MEDS: PANTOPRAZOLE 40 MG TABLET PO SCH ×2 (07:39→16:49)
[2016-11-04] MEDS: Insulin Lispro Flexpen 300 UNIT/3 ML INSULN.PEN SUBCUT SCH ×4 (07:40→20:36)
--- NOTE | 2016-11-04 07:46 | DI ---
RIGHT WRIST, 11/04/2016 7:00 AM: Clinical History: Status post ORIF of the right wrist fracture. Previous Exam: 10/19/2016. AP and lateral views are submitted. The patient is status post ORIF with placement of the volar buttr ess plate to transfix the comminuted impacted distal radial fracture with intra-articular involvement . On the AP view, the articular surface is in anatomic alignment and position. On the lateral view, t he distal radial articular surface is in neutral position. There is a comminuted fracture of the ulna r styloid. Arthritic changes are present in the triscaphe joint. There is severe osteoporosis. Readin. Status post ORIF of the comminuted intra-articular fracture of the distal radius with christianity of length. The articular surface on the AP projection is in anatomic alignment and position and it i s in neutral position on the lateral view. There is a comminuted fracture of the ulnar styloid. 2. Severe osteoporosis. Arthritis of the triscaphe joint.
[2016-11-04] MEDS: traMADol 50 MG TABLET PO PRN (09:05)
[2016-11-04] MEDS: ALLOPURINOL 100 MG TABLET PO SCH ×2 (09:07→20:30)
[2016-11-04] MEDS: Multivitamin Tab 1 TAB PO SCH (09:07)
[2016-11-04] MEDS: metFORMIN ER 500 MG TABLET PO SCH ×2 (09:07→20:30)
[2016-11-04] MEDS: CHOLECALCIFEROL 1000 IU TABLET PO SCH (09:07)
[2016-11-04] MEDS: LISINOPRIL 20 MG TABLET PO SCH (09:07)
[2016-11-04] MEDS: Metoprolol TARTRATE Tab 50 MG TAB PO SCH ×2 (09:07→20:29)
[2016-11-04] MEDS: ASPIRIN EC 81 MG TABLET PO SCH (09:09)
--- NOTE | 2016-11-04 11:52 | PT.PROG ---
Progress Note Progress Note: S. Patient stated that she is feeling a better this morning. O. Patient ambulated 50 feet to the wheelchair then was wheeled to the therapy gym where she had heat on her back and hip x 20 minutes. then performed exercises in the form of; heel slides, quad sets, ankle pumps, short arc quads, seated heel toe raises, long arc quads, all x 10 bilaterally, sit to stands x 5. Patient ambulated approximately 20 feet then was returned to her room where she was left in her chair with call light and alarm. A. Patient continues to be very weak, she was able to ambulate easier this morning compared to previous treatments, she continues to fatigue easily and would continue to benefit from skilled therapy at this time. P. Continue POC.
[2016-11-04] MEDS ORDERED: Ondansetron ODT Tab 4 MG TAB PO PRN (14:00)
--- NOTE | 2016-11-04 16:53 | OT.PROG ---
Progress Note Progress Note: No therapy today secondary to pt not feeling well, as she became nauseous x2.
[2016-11-04] MEDS: ATORVASTATIN 40 MG TABLET PO SCH (20:30)
[2016-11-05] MEDS: HEPARIN 5000 UNIT/1 ML SUBCUT SCH ×3 (05:17→21:17)
[2016-11-05] MEDS: Insulin Lispro Flexpen 300 UNIT/3 ML INSULN.PEN SUBCUT SCH ×4 (07:13→20:48)
[2016-11-05] MEDS: PANTOPRAZOLE 40 MG TABLET PO SCH ×2 (07:15→17:16)
[2016-11-05] MEDS: Multivitamin Tab 1 TAB PO SCH (08:44)
[2016-11-05] MEDS: ALLOPURINOL 100 MG TABLET PO SCH ×2 (08:44→20:43)
[2016-11-05] MEDS: metFORMIN ER 500 MG TABLET PO SCH ×2 (08:45→20:44)
[2016-11-05] MEDS: LISINOPRIL 20 MG TABLET PO SCH (08:45)
[2016-11-05] MEDS: CHOLECALCIFEROL 1000 IU TABLET PO SCH (08:46)
[2016-11-05] MEDS: Metoprolol TARTRATE Tab 50 MG TAB PO SCH ×2 (08:46→20:44)
--- NOTE | 2016-11-05 11:00 | PDOC(PROG) ---
Date and Time of Service: 11/05/2016 11 AM Interval History: Subjective Patient felt nauseated yesterday afternoon after she did vomit and then she said she felt better after that. She is feeling better today. She said that she is a little bit tired but otherwise no other symptoms. Objective : Data - Labs CBC and BMP: 11/04/16 07:10 11/04/16 07:10 Objective : Exam - General General Appearance: No Acute Distress, Cooperative - Head Head Exam: Normal Inspection - Eye Eye Exam: Normal Appearance - ENT ENT Exam: Normal Exam - Neck Neck Exam: Normal Inspection - Respiratory Respiratory Exam: Clear to Auscultation - Bilaterally - Cardiovascular Cardiovascular Exam: RRR - GI/Abdominal GI/Abdominal Exam: Normal Bowel Sounds, Non Tender, Non Distended, Soft - Rectal Rectal Exam: Deferred - External Exam: Deferred - Extremities Additional Extremities Exam Details: Right forearm in splint - Back Back Exam: Normal Inspection - Neurological Neurological Exam: Alert, Oriented x 3, CN II-XII Intact - Psychiatric Psychiatric Exam: Normal Affect - Integumentary Integumentary Exam: Normal Color Assessment and Plan - Patient Problems (1) Closed right hip fracture Current Visit: Yes Status: Acute Comment: Continue PT and OT. Qualifiers: Encounter type: subsequent encounter Fracture healing: with routine healing Qualified Description: Closed fracture of right hip, with routine healing, subsequent encounter Qualifier Code(s): (S72.001D) Fracture of unspecified part of neck of right femur, subsequent encounter for closed fracture with routine healing (2) Distal radius fracture, right Current Visit: Yes Status: Acute Comment: Continue PT and OT Qualifiers: Encounter type: subsequent encounter Fracture type: closed Fracture morphology: unspecified fracture morphology Fracture healing: with routine healing Qualified Description: Closed fracture of distal end of right radius with routine healing, unspecified fracture morphology, subsequent encounter Qualifier Code(s): (S52.501D) Unspecified fracture of the lower end of right radius, subsequent encounter for closed fracture with routine healing (3) Hypertension Current Visit: Yes Status: Chronic Comment: Same blood pressure medication Qualifiers: Hypertension type: essential hypertension Qualified Description: Essential hypertension Qualifier Code(s): (I10) Essential (primary) hypertension (4) History of GI bleed Current Visit: Yes Status: Acute Comment: Continue Protonix. She vomited yesterday but no significant or some other symptoms today I think will watch. (5) Gouty arthropathy Current Visit: Yes Status: Chronic Comment: Same med (6) Diabetes Current Visit: No Status: Chronic Comment: Same med (7) DVT prophylaxis Current Visit: Yes Status: Acute Comment: She is on heparin Photo / Body Diagrams - Uploaded Photos Uploaded Photos:
--- NOTE | 2016-11-05 11:55 | PT.PROG ---
Progress Note Progress Note: S. Patient states that she is feeling better today. "A little better everyday." O. Patient ambulated 40 feet to the wheelchair and was wheeled to the therapy gym where she had heat on her hip and arm x 20 minutes. Patient performed exercises in the form of; heel slides, quad sets, ankle pumps, short arc quads all x 10 bilaterally, sit to stands x 5. Patient ambulated 40 feet around the physical therapy gym. then was wheeled back to her room where she transferred from the wheelchair to the bed and left with alarm and call light. A. Patient continues to require mod assist with transfers and ambulation. Patient continues to gain strength and mobility, however continues to be very weak and fatigues easily. Patient would continue to benefit from skilled therapy at this time. P. Continue POC.
--- NOTE | 2016-11-05 16:24 | PT.PROG ---
Progress Note Progress Note: S. Patient stated that she is tired however continues to feel a little better. O. Patient ambulated 35 feet to the wheelchair and was wheeled to the therapy gym where she ambulated 5 feet and transferred to the mat table and had heat to her hip x 20 minutes then performed exercises in the form of; heel slides, quad sets, ankle pumps, short arc quads, seated heel toe raises, and long arc quads marches x 10 bilaterally with mod assist on right. She was left with OT for further therapy. A. Patient tolerated exercises fair, she continues to struggle with pain and weakness. She requires mod assist with transfers and ambulation, min assist with exercises and frequent verbal cues for encouragement. Patient would continue to benefit from skilled therapy to increase strength, mobility and endurance. P. Continue POC.
--- NOTE | 2016-11-05 16:53 | OT.PROG ---
Progress Note Progress Note: S: pt reports that she is tired. She did ask some questions about home health. O: pt was seen in therapy in the p.m. She completed UE activities to increase function. She has difficulty with extending R affected arm out straight as she appears to lack strength to do so. She completed UE exercises with RTB in shoulder flex/ext, bicep flex and tricep ext x1o. She also completed AROM finger flex and ext needing cues to stay on task. Pt completed transfer upstairs approx 40 ft with walker and CGA for safety. pt was left upright in chair with alarm on and nursing was notified. A: pt lacks function with with RUE, including shoulder flex. Pt needs cues to stay on task. She can tolerate x2 therapy sessions during day when she recieves proper rest. P: continue per plan of care.
[2016-11-05] MEDS: ATORVASTATIN 40 MG TABLET PO SCH (20:43)
[2016-11-06] MEDS: HEPARIN 5000 UNIT/1 ML SUBCUT SCH ×3 (06:26→21:03)
[2016-11-06] MEDS: Insulin Lispro Flexpen 300 UNIT/3 ML INSULN.PEN SUBCUT SCH ×3 (07:31→22:03)
[2016-11-06] MEDS: PANTOPRAZOLE 40 MG TABLET PO SCH ×2 (07:32→16:59)
[2016-11-06] MEDS: metFORMIN ER 500 MG TABLET PO SCH ×2 (08:48→21:02)
[2016-11-06] MEDS: LISINOPRIL 20 MG TABLET PO SCH (08:48)
[2016-11-06] MEDS: CHOLECALCIFEROL 1000 IU TABLET PO SCH (08:48)
[2016-11-06] MEDS: Multivitamin Tab 1 TAB PO SCH (08:49)
[2016-11-06] MEDS: Metoprolol TARTRATE Tab 50 MG TAB PO SCH ×2 (08:49→21:03)
[2016-11-06] MEDS: ALLOPURINOL 100 MG TABLET PO SCH ×2 (08:57→21:03)
[2016-11-06] MEDS: ASPIRIN EC 81 MG TABLET PO SCH (09:25)
--- NOTE | 2016-11-06 10:47 | OT AM DAY ---
Diagnosis : Weakness AM - Occupational Therapy S: The patient reports she is doing okay this morning. 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 O: Today the patient was able to work on upper extremity strengthening x30 minutes. She performed wall pulleys in all motions with yellow theraband including shoulder extension, rows, biceps curls, internal/external rotation, shoulder extension, shoulder adduction, and PNF diagonals. With the left upper extremity she performed right active assistive range of motion with shoulder flexion and elbow flexion/extension. She also performed power web for hand strengthening. A: The patient would continue to benefit from skilled occupational therapy to address overall functional abilities and strength. P: Continue seeing patient BID during the week and one time per day over the weekend for upper extremity strengthening, ADLs, and overall functional mobility. MTDD
--- NOTE | 2016-11-06 11:30 | PDOC(PROG) ---
Interval History: Patient is doing great this very nice to see this lady she is doing well has no complaints no nausea no vomiting no chest pain Objective : Data - Labs CBC and BMP: 11/04/16 07:10 11/04/16 07:10 Objective : Exam - Neck Neck Exam: Normal Inspection - Respiratory Respiratory Exam: Clear to Auscultation - Bilaterally, Breathing Non Labored, Normal To Percussion - Cardiovascular Cardiovascular Exam: RRR, No Murmur, No Clicks - GI/Abdominal GI/Abdominal Exam: Normal Bowel Sounds, Non Tender, Non Distended, Soft Assessment and Plan - Patient Problems (1) Closed right hip fracture Current Visit: Yes Status: Acute Qualifiers: Encounter type: subsequent encounter Fracture healing: with routine healing Qualified Description: Closed fracture of right hip, with routine healing, subsequent encounter Qualifier Code(s): (S72.001D) Fracture of unspecified part of neck of right femur, subsequent encounter for closed fracture with routine healing (2) Distal radius fracture, right Current Visit: Yes Status: Acute Qualifiers: Encounter type: subsequent encounter Fracture type: closed Fracture morphology: unspecified fracture morphology Fracture healing: with routine healing Qualified Description: Closed fracture of distal end of right radius with routine healing, unspecified fracture morphology, subsequent encounter Qualifier Code(s): (S52.501D) Unspecified fracture of the lower end of right radius, subsequent encounter for closed fracture with routine healing (3) Hypercholesterolemia Current Visit: Yes Status: Chronic (4) Hypertension Current Visit: Yes Status: Chronic Qualifiers: Hypertension type: essential hypertension Qualified Description: Essential hypertension Qualifier Code(s): (I10) Essential (primary) hypertension (5) Diabetes mellitus type II, controlled Current Visit: No Status: Acute Qualifiers: Diabetes mellitus complication status: without complication Diabetes mellitus jail insulin use: without ad terminal makeup operator use Qualified Description : Controlled type 2 diabetes mellitus without complication, without long-term current use of insulin Qualifier Code(s): (E11.9) Type 2 diabetes mellitus without complications - Assessment / Plan Additional Assessment/Plan Details: Home medical issues are stable at present time she did have the elevated troponins a couple weeks ago she was sent to [place] where she had a Lexiscan stress test which what we were unable to do here at [facility] at that time also had a non-STEMI with elevated troponins and the family wanted to be very aggressive and wanted everything done and evaluated. I offered him a medical treatment but the without knowing the extent of her coronary artery disease I didn't want to commit this patient to lifelong the cardiac meds patient was readmitted to the [facility] for swing bed status and rehabilitation most likely she will be discharged next week when she gets a little stronger and of dictation thank you Photo / Body Diagrams - Uploaded Photos Uploaded Photos:
--- NOTE | 2016-11-06 11:35 | OT.PROG ---
Progress Note Progress Note: S: pt stated that she had a good night. she reports pain down the her R leg today and pain more in the elbow of her R arm. O: pt was seen in the a.m and was supine in bed. She was assisted with bed mobility Mod-Max A to EOB. Mod A transfer from EOB to bedside commode and from there to w/c with same assistance level. pt was transferred downstairs after meds were administered. After PT completed their portion of therapy we worked on RUE strengthening as it remains weak. She completed some AROM in shoulder flex and AAROM with use of cane. She received PROM to UE shoulder and elbow as well. She completed transfer approx 40 ft before being transferred back to room in w/c. She was left upright in recliner with alarm on. A: pt remains weak in UE shoulder and elbow and has difficulty raising arm Ind past 45-50 deg. Continue to strengthen shoulder to increase her overall function. She tolerates further ambulation. P: continue per plan of care.
--- NOTE | 2016-11-06 16:47 | OT.PROG ---
Progress Note Progress Note: S: pt reports pain going down her R leg. She also stated she was tired. O: pt was seen in therapy today in the p.m. She worked on sitting and standing dynamic balance activities using L UE to reach and tap balloon. While standing we maintained CGA for safety. Pt also completed functional transfer approx 40 ft with CGA and occasional cue to keep walking. Pt completed one more transfer back to recliner and needed Max A x2 for chair mobility. Pt received PROM to [place]. A: pt lacks overall function in BUE's as she had difficulty reaching for objects today. pt needs cues to stay on task as her attention has decreased. Continue to progress with balance and increase strength of UE. P: continue per plan of care.
--- NOTE | 2016-11-06 17:06 | PT.PROG ---
Progress Note Progress Note: S. Patient stated she is tired this afternoon however is feeling better everyday. O. Patient ambulated 40 feet to the wheelchair and was wheeled to the therapy gym where she had heat on her hip and shoulder then Performed exercises in the form of; heel slides, quad sets, ankle pumps, short arc quads, glute sets, abdominal squeezes, seated marches, long arc quads, heel toe raises all x 10 bilaterally. Sit to stands x 5, standing balance x 3 minutes on stable surface and 3 minutes on unstable surface. Patient was left with OT for further therapy. A. Patient continues to make gains with strength, mobility and endurance, she continues to struggle with pain and weakness, she would continue to benefit from skilled therapy at this time to prepare for home soon. P. continue POC.
--- NOTE | 2016-11-06 17:16 | PT.PROG ---
Progress Note Progress Note: S. Patient stated that she is feels a little better everyday. O. Patient ambulated 50 feet to the wheelchair then was wheeled to the therapy gym where she had heat on her back and hip x 20 minutes. then performed exercises in the form of; heel slides, quad sets, ankle pumps, short arc quads, seated heel toe raises, long arc quads, all x 10 bilaterally, sit to stands x 5. Patient ambulated approximately 20 feet then was returned to her room where she was left in her chair with call light and alarm. A. Patient continues to be very weak, she continues to require mod assist with transfers however she is able to ambulate further than previous treatments, she continues to fatigue easily and would continue to benefit from skilled therapy at this time. P. Continue POC.
[2016-11-06] MEDS: ATORVASTATIN 40 MG TABLET PO SCH (21:02)
[2016-11-07] MEDS: HEPARIN 5000 UNIT/1 ML SUBCUT SCH (05:45)
[2016-11-07] MEDS: PANTOPRAZOLE 40 MG TABLET PO SCH (07:32)
[2016-11-07 08:51] VITALS: RESP 18; TEMP 97.6
[2016-11-07] MEDS: LISINOPRIL 20 MG TABLET PO SCH (08:54)
[2016-11-07] MEDS: metFORMIN ER 500 MG TABLET PO SCH (08:54)
[2016-11-07] MEDS: ALLOPURINOL 100 MG TABLET PO SCH (08:55)
[2016-11-07] MEDS: traMADol 50 MG TABLET PO PRN (08:55)
[2016-11-07] MEDS: Metoprolol TARTRATE Tab 50 MG TAB PO SCH (08:55)
[2016-11-07] MEDS: CHOLECALCIFEROL 1000 IU TABLET PO SCH (08:56)
[2016-11-07] MEDS: Multivitamin Tab 1 TAB PO SCH (08:56)
--- NOTE | 2016-11-07 10:31 | DCSUMMARY ---
Hospitalization Summary Hospital Course: Final Discharge Diagnosis: Current Visit Problems Problem Status Priority Diagnosed Code Closed right hip fracture Acute S72.001A DVT prophylaxis Acute [id number] Distal radius fracture, right Acute S52.501A History of GI bleed Acute Z87.19 Weakness Acute R53.1 Gouty arthropathy Chronic M10.9 Hypercholesterolemia Chronic E78.00 Hypertension Chronic I10 Diagnostic Data, Laboratory Data, and Procedures of Signifigance: Laboratory Results 10/31/16 11/04/16 Range/Units 04:15 07:10 WBC 12.81 H 8.38 (4.8-10.8) 10^3/uL RBC 4.02 L 3.93 L (4.20-5.40) 10^6/uL Hgb 11.2 L 11.3 L (12.0-16.0) g/dL Hct 34.9 L 34.9 L (37.0-47.0) % MCV 86.8 88.8 (81-99) FL MCH 27.9 28.8 (27-31) PG MCHC 32.1 L 32.4 L (33-37) g/dL RDW Std Deviation 48.6 51.4 H (39-50) fL RDW Coeff of Naveen 16.6 H 17.0 H (11.5-14.5) % Plt Count 358 H 399 H (140-350) 10*3/uL MPV 11.5 10.1 (7.4-12.2) FL Immature Gran % (Auto) 0.8 (0-5) % Neut % (Auto) 60.0 (50-80) % Lymph % (Auto) 23.7 (10-50) % Cocke % (Auto) 10.6 (5-15) % Eos % (Auto) 3.2 (0-8) % Baso % (Auto) 1.7 H (0-1) % Immature Gran # (Auto) 0.07 10*3/UL Neut # (Auto) 5.02 10*3/UL Lymph # (Auto) 1.99 10*3/uL Cocke # (Auto) 0.89 H (0.3-0.8) 10*3/UL Eos # (Auto) 0.27 10*3/UL Baso # (Auto) 0.14 10*3/UL WBC Morphology Comment Normal morphology (NORM) Plt Morphology Comment Normal morphology (NORM) RBC Morph Comment Normal morphology (NORM) Sodium 135 D (135-145) meq/L Potassium 3.8 (3.8-5.2) meq/L Chloride 102 (98-112) meq/L Carbon Dioxide 26 (23-33) meq/L Anion Gap 7 (5-20) BUN 13 (7-22) mg/dL Creatinine 0.6 (0.50-1.20) mg/dL Estimated GFR (>60 ml/min/1.73m(2)) BUN/Creatinine Ratio 21.66 H (6-20) Glucose 139 H (78-110) mg/dL Calculated Osmolality 281.0 (267-292) mOsm/kg Calcium 8.6 L (8.7-10.7) mg/dL History and Physical pertinent to Admission: Course of Hospitalization: Home medical issues are stable at present time she did have the elevated troponins a couple weeks ago she was sent to [place] where she had a Lexiscan stress test which what we were unable to do here at [facility] at that time also had a non-STEMI with elevated troponins and the family wanted to be very aggressive and wanted everything done and evaluated. I offered him a medical treatment but the without knowing the extent of her coronary artery disease I didn't want to commit this patient to lifelong the cardiac meds patient was readmitted to the [facility] for swing bed status and rehabilitation most likely she will be discharged next week when she gets a little stronger On the date of discharge, the patient was examined: Because of her hematoma she will be made inpatient and taken to the ER by Dr. Jackson Gen.: No acute distress, alert, nontoxic Heart: Regular rate and rhythm, no murmurs, clicks, gallops, or rubs Lungs: Clear to auscultation bilaterally, breathing is nonlabored Abdomen/GI: Normal tones on auscultation, soft, nontender, nondistended Musculoskeletal/extremities: No clubbing, cyanosis, or edema Vitals reviewed and are listed below Assessment and Plan: 1. As per discharge assessments above 2. Disposition: Discharged to inpatient 3. Condition on discharge, stable and improved. 4. Diet: Nothing by mouth 5. Activities: resume normal activities 6. Follow-Up: 1. PCP 2. 7. Medications at the Time of Discharge: 8. Time, care, counseling and coordination of care for this discharge is greater than 30 minutes. Exam - Vitals Vital Signs: Vital Signs Temperature 97.6 F Temperature Source Temporal Artery Scan Pulse Rate [Apical] 74 Pulse Rate [Pulse Oximeter] 86 Respiratory Rate 18 Blood Pressure [Left Arm] 135/66 Pulse Ox 91 Oxygen Delivery Method Room Air Height 4 ft 11 in Weight 46.266 kg Patient Problems - Patient Problem List (1) Closed right hip fracture Current Visit: Yes Status: Acute Qualifiers: Encounter type: subsequent encounter Fracture healing: with routine healing Qualified Description: Closed fracture of right hip, with routine healing, subsequent encounter Qualifier Code(s): (S72.001D) Fracture of unspecified part of neck of right femur, subsequent encounter for closed fracture with routine healing (2) Distal radius fracture, right Current Visit: Yes Status: Acute Qualifiers: Encounter type: subsequent encounter Fracture type: closed Fracture morphology: unspecified fracture morphology Fracture healing: with routine healing Qualified Description: Closed fracture of distal end of right radius with routine healing, unspecified fracture morphology, subsequent encounter Qualifier Code(s): (S52.501D) Unspecified fracture of the lower end of right radius, subsequent encounter for closed fracture with routine healing (3) Hypercholesterolemia Current Visit: Yes Status: Chronic (4) Hypertension Current Visit: Yes Status: Chronic Qualifiers: Hypertension type: essential hypertension Qualified Description: Essential hypertension Qualifier Code(s): (I10) Essential (primary) hypertension (5) Diabetes mellitus type II, controlled Current Visit: No Status: Acute Qualifiers: Diabetes mellitus complication status: without complication Diabetes mellitus intermediate insulin use: without intermediate use Qualified Description : Controlled type 2 diabetes mellitus without complication, without long-term current use of insulin Qualifier Code(s): (E11.9) Type 2 diabetes mellitus without complications
[2016-11-07] MEDS ORDERED: LIDOCAINE W/ SODIUM BICARB 0.5 ML SYR ONE ×2 (11:07→12:50)
--- NOTE | 2016-11-07 11:58 | PT.PROG ---
Progress Note Progress Note: S. Patient stated that she is feeling a little better. O. Patient was wheeled to the therapy gym where she was transferred onto the mat table and had heat to her back and hip x [address] Jackson viewed her incision, which was draining blood, and he suggested that he go back in and wash it out. A. Patient was very worried and fatigued after hearing from the Doctor and was not feeling up to doing exercises, She was left with OT for further therapy. P. continue POC.
[2016-11-07] MEDS ORDERED: Lactated Ringers 1,000 ML PRIMARY IV ONE (12:14)
--- NOTE | 2016-11-07 17:23 | ORTHO.PROG ---
Last Taken Vital Signs: Vital Signs - Last Taken Temperature 97.6 F 11/07/16 08:50 Pulse Rate 86 11/07/16 08:50 Respiratory Rate 18 11/07/16 08:50 Blood Pressure 135/66 11/07/16 08:50 Pulse Ox 91 11/07/16 08:50 Subjective: Patient states she is doing relatively well has some soreness still around the hip. Therapy has been look at her hip because her dressing has some drainage today. Objective: The right hip shows no gross evidence of infection there is ecchymosis in various stages of resolution a palpable hematoma. On the dressing there is black contact type drainage consistent with hematoma coming from the most inferior aspect of the incision and then just a small amount of blood from the superior aspect of the incision. No redness or erythema. Vital Signs (24 hrs) Temp Pulse Pulse Resp BP Pulse Ox 11/07/16 08:50 97.6 F 86 18 135/66 91 11/07/16 07:00 74 11/06/16 19:00 98.0 F 87 16 145/71 90 Assessment: Right hematoma with spontaneous drainage Plan: At the current time we will going to get the patient set up for evacuation of the hematoma and closing this over a deep drain and then also aPREVENA dressing to provide suction to try and prevent hematoma formation. This does not appear to be infected. The best we can tell we will obtain cultures at that point in time. Discussed the case with the patient and her family and they agree and wish to proceed with surgical treatment. We discussed the patient's current condition and clinical findings as it pertains to the current situation. Surgical versus nonsurgical options risks and benefits were discussed and reviewed. Options moving forward include but are not limited to continued choice to live with their current condition; evaluate their current condition further with imaging studies and/or diagnostic testing, etc.; treat problem/problems with surgical versus nonsurgical methods. The patient demonstrates a clear understanding of our discussion. All questions were answered. Surgical versus nonsurgical options risks and benefits were discussed and reviewed. The risks include but are not limited to bleeding, infection, neurovascular damage, wound problems, deep vein thromboses, pulmonary embolism, fracture, dislocation, nonunion/malunion, need for further surgery, need for blood transfusion, and loss of life and limb. Certainly any surgical procedure may not improve symptoms and potentially could makes symptoms worse. There are no guarantees implied with the discussion of surgical treatment. All questions are answered and the patient wishes to proceed with surgical treatment.
--- NOTE | 2016-11-10 10:28 | OT AM DAY ---
Diagnosis : Weakness AM - Occupational Therapy S: The patient was already dressed by the INSPECTING ENGINEER this morning. O: Today the patient was able to complete red theraband for biceps curls, rows, internal/external rotation, shoulder extension, shoulder adduction, PNF patterns with the left arm, active assistive range of motion on the right side, and moving of her right fingers, but nothing majorly resistive on the right side secondary to her fracture healing. The patient worked on hand strength with the left hand with power web and digi-flex x15 repetitions each. A: The patient is doing well with the exercises. She is a little bit slower moving. We are talking with the team about possibly getting home health at some point for this patient. P: Continue seeing patient BID during the week and one time per day over the weekend for upper extremity strengthening, ADLs, and overall functional mobility. MTDD
--- NOTE | 2016-11-10 14:24 | OT AM DAY ---
Diagnosis : WEAKNESS AM - Occupational Therapy S: Patient still reports that she is having some pain down the right side of her leg. Patient was up and ready after breakfast, she was accompanied by her inside plant supervisor. O: Patient was seen in room and was in supine position. Mod to max assists to complete bed mobility to edge of bed, patient was then transferred to [facility] with mod assist stand pivot transfer. We returned later after inside plant supervisor assisted her with toileting, nursing assisted as well. She was transferred downstairs in a wheel chair, with front wheel walker and walked approximately 6 feet, needed cues to rehearse and sit down. Patients bandages were inspected, the doctor reviewed them as well. Patient then received heat to her back. Patient then completed transfer approximately 45 ft, and was transferred the rest of the way in her wheelchair. Patient was assisted with bed mobility with mod to max assist, she was left with the inside plant supervisor and nursing was notified, alarm was set and call light was within reach. A: Determined by Dr. Jackson that due to the hematoma, they will go in and drain the hematoma form her right side, due to increased drainage. Patient will be put on NPO and hold in the afternoon. P: Continue seeing patient per plan of care after surgery BID during the week and one time per day over the weekend for transfers, ambulation, and range of motion/strengthening exercises.[] MTDD
== END 2016-11-07 10:41 | disposition other institution (70) | DRG 999 ==
LOC: MED/SURG 16:23
PROVIDERS: ADMIT Family Medicine; ATTEND Family Medicine
DX: S72.001A Fracture of unspecified part of neck of right femur, initial encounter for closed fracture (principal); S52.501A Unspecified fracture of the lower end of right radius, initial encounter for closed fracture; Z87.19 Personal history of other diseases of the digestive system; R53.1 Weakness; M10.9 Gout, unspecified; E78.00 Pure hypercholesterolemia, unspecified; I10 Essential (primary) hypertension; E11.9 Type 2 diabetes mellitus without complications
CPT/HCPCS: 36415; 73100; 80048; 82948; 85025; 85027; 94761; 97010; 97110; 97164; 97168; 97530; 97535; J1644; J7120

== ENCOUNTER 2016-11-07 10:39 | Inpatient (IN) | payer OTHER, MEDICARE ==
[2016-11-07] MEDS ORDERED: NORMAL SALINE 10 ML SYRINGE FLUSH IVP PRN ×4 (10:42→17:16)
[2016-11-07] MEDS ORDERED: LIDOCAINE W/ SODIUM BICARB 0.5 ML SYR SUBD PRN ×2 (10:42→17:16)
[2016-11-07] MEDS ORDERED: ONDANSETRON 4 MG/2 ML VIAL IVP PRN ×3 (10:42→17:16)
[2016-11-07] MEDS ORDERED: HYDROmorphone 2 MG/1 ML IVP PRN ×3 (10:42→17:16)
[2016-11-07] MEDS ORDERED: Lactated Ringers 1,000 ML PRIMARY IV SCH ×3 (10:45→17:16)
--- NOTE | 2016-11-07 10:49 | PDOC ---
History and Physical - History of Present Illness History of Present Illness: The very nice 86-year-old female who is then was in her swing bed unit for rehabilitation status post right hip surgery she developed the small hematoma which the orthopedic surgeon has decided to go and drain for incision and drainage in the OR. She did have a non-STEMI Lexiscan was negative patient has no other complaint Past Medical History Medical History: 1. Diabetes type II. 2. Hypertension. 3. Hyperlipidemia. 4. Osteoporosis. 5. Gout attack back in April 2016 Surgical History: 1. Hysterectomy. 2. Tonsillectomy. 3. History of nephrolithiasis. 4. C-sections Family History: Reviewed an Not Pertinent Past Social History: Doesn't smoke, rarely drinks no drugs. 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 Substance Use Type: None Medication / Allergies Home Medications: Home Medications Medication Instructions Recorded Confirmed Type Blood Sugar Diagnostic [Freestyle 1 each IN QID #120 strip 08/16/13 11/01/16 Clinic Lite Strips] Aspirin [Aspirin EC] 1 tab PO QOD PRN #30 tab 02/16/15 11/01/16 Clinic Atorvastatin Calcium 1 tab PO QD #90 tab 06/23/16 11/01/16 Clinic Lisinopril 2 tab PO QD #180 tab 06/23/16 11/01/16 Clinic Metformin HCl [Metformin HCl ER] 2 tab PO BID #120 tab 08/04/16 11/01/16 Clinic Allopurinol 1 tab PO BID #180 tab 08/07/16 11/01/16 Clinic Dulaglutide [Trulicity] 1.5 mg SUBCUT WEEKLY #12 ml 08/07/16 11/01/16 Clinic Cholecalciferol [Vitamin D] 1,000 unit PO DAILY 09/15/16 11/01/16 History Metoprolol Tartrate 100 mg PO BID 09/15/16 11/01/16 History Multivitamin [Multivitamins] 1 tab PO DAILY 09/15/16 11/01/16 History Amlodipine Besylate [Norvasc] 10 mg PO DAILY #30 tab 10/30/16 11/01/16 Rx Magnesium Hydroxide Susp [Milk Of 30 ml PO DAILY PRN #30 cup 10/30/16 11/01/16 Rx Magnesia Susp] Allergies/Adverse Reactions: Allergies Allergy/AdvReac Type Severity Reaction Status Date / Time butorphanol tartrate Allergy Severe Anaphylaxis Verified 11/06/16 03:50 [From Stadol] meperidine HCl [From Demerol] Allergy Severe difficult Verified 11/06/16 03:50 to arouse Penicillins Allergy Mild rash Verified 11/06/16 03:50 mushroom Allergy SHORTNESS Verified 11/06/16 03:50 OF BREATH Review of Systems - Respiratory Respiratory: DENIES: Negative System Review, Cough, Sputum, Dyspnea At Rest, Dyspnea with Exertion, Pleuritic Pain, Hemoptysis, Wheezing, Other, See HPI - Cardiovascular Cardiovascular: DENIES: Negative System Review, Chest Pain, Edema, Syncope, Palpitations, Orthopnea, Paroxysmal Nocturnal Dyspnea, Other, See HPI - Gastrointestinal Gastrointestinal / Abdominal: DENIES: Negative System Review, Nausea, Vomiting, Diarrhea, Constipation, Abdominal Pain, Bloody Stool, Poor Appetite, Heartburn, Regurgitation, Bloating, Lactose Intolerance, Melena, Bright Red Blood Per Rectum, Other, See HPI Exam - Vitals Vital Signs: Vital Signs Height 4 ft 11 in - General General Appearance: POSITIVE: No Acute Distress, Cooperative - Eye Eye Exam: POSITIVE: Normal Appearance, PERRL, EOMI - Respiratory Respiratory Exam: POSITIVE: Clear to Auscultation - Bilaterally, Breathing Non Labored, Normal To Percussion - Cardiovascular Cardiovascular Exam: POSITIVE: RRR, No Murmur, No Clicks, No Gallops - GI/Abdominal GI/Abdominal Exam: POSITIVE: Normal Bowel Sounds, Non Tender, Soft - Extremities Extremities Exam: POSITIVE: No Clubbing Present, No Edema Present, No Cyanosis Present Assessment and Plan - Patient Problems (1) Closed right hip fracture Status: Acute Qualifiers: Qualified Description: Closed fracture of right hip, with routine healing, subsequent encounter (2) Distal radius fracture, right Status: Acute Qualifiers: Qualified Description: Closed fracture of distal end of right radius with routine healing, unspecified fracture morphology, subsequent encounter (3) Hypercholesterolemia Status: Chronic (4) Hypertension Status: Chronic Qualifiers: Qualified Description: Essential hypertension (5) Diabetes mellitus type II, controlled Status: Acute Qualifiers: Qualified Description: Controlled type 2 diabetes mellitus without complication, without long-term current use of insulin (6) History of gout Status: Acute - Assessment / Plan Additional Assessment/Plan Details: Patient will be going to the OR this afternoon for right lower extremity hematoma and incision and drainage Diabetes we will hold the metformin and [place] patient is nothing by mouth Hypertension continue Norvasc and beta jerry Coronary artery disease previous non-STEMI 2 weeks ago continue beta jerry aspirin Photo / Body Diagrams - Uploaded Photos Uploaded Photos:
[2016-11-07 11:29] LABS: BASOPHILS # (AUTO) 0.09 10*3/UL; BASOPHILS % (AUTO) 1.2 % (0-1); EOSINOPHILS # (AUTO) 0.23 10*3/UL; EOSINOPHILS % (AUTO) 3.1 % (0-8); HEMOGLOBIN 11.8 g/dL (12.0-16.0); LYMPHOCYTES # (AUTO) 2.37 10*3/uL; MEAN CORPUSCULAR HEMOGLOBIN 28.6 PG (27-31); MEAN CORPUSCULAR HGB CONC 31.9 g/dL (33-37); MEAN CORPUSCULAR VOLUME 89.8 FL (81-99); MEAN PLATELET VOLUME 10.2 FL (7.4-12.2); MONOCYTES # (AUTO) 0.79 10*3/UL (0.3-0.8); MONOCYTES % (AUTO) 10.6 % (5-15); NEUTROPHILS # (AUTO) 3.97 10*3/UL; RED BLOOD COUNT 4.12 10^6/uL (4.20-5.40)
[2016-11-07 11:35] LABS: PLATELET MORPHOLOGY COMMENT NORMAL MORPHOLOGY (NORM); RBC MORPHOLOGY COMMENT NORMAL MORPHOLOGY (NORM); WBC MORPHOLOGY COMMENT NORMAL MORPHOLOGY (NORM)
[2016-11-07 12:38] LABS: BUN/CREATININE RATIO 26.66 (6-20); CALCIUM 8.7 mg/dL (8.7-10.7)
[2016-11-07] MEDS ORDERED: Sodium Chloride 0.9% vial 10 ML ONE (14:02)
[2016-11-07] MEDS ORDERED: Vancomycin Inj 1gm vial ONE (14:02)
[2016-11-07] MEDS ORDERED: fentaNYL Inj 250 MCG/5 ML VIAL ONE (14:27)
[2016-11-07] MEDS ORDERED: MIDAZOLAM 5 MG/1 ML ONE (14:27)
[2016-11-07] MEDS ORDERED: LIDOCAINE MPF 2% - 5 ML (20 MG/1 ML) ONE (14:27)
[2016-11-07] MEDS ORDERED: CLINDAMYCIN 600 MG IV ONE (14:36)
[2016-11-07] MEDS ORDERED: KETAMINE 100 MG/1 ML - 5 ML ONE (15:01)
[2016-11-07] MEDS ORDERED: ONDANSETRON 4 MG/2 ML VIAL ONE (15:19)
[2016-11-07] MEDS ORDERED: HYDROmorphone 2 MG/1 ML ONE (16:23)
[2016-11-07] MEDS ORDERED: fentaNYL Inj 100 MCG/2 ML VIAL IVP PRN (16:25)
[2016-11-07] MEDS ORDERED: ACETAMINOPHEN 325 MG TABLET PO PRN (17:16)
[2016-11-07] MEDS ORDERED: IBUPROFEN 400 MG TABLET PO PRN (17:16)
[2016-11-07] MEDS ORDERED: Prochlorperazine Tab 10 MG TAB PO PRN (17:16)
[2016-11-07] MEDS ORDERED: CALCIUM CARBONATE 500 MG (TUMS) CHEWABLE TABLET PO PRN (17:16)
[2016-11-07] MEDS ORDERED: BISACODYL 10 MG SUPPOSITORY RECTAL PRN (17:16)
[2016-11-07] MEDS ORDERED: BISACODYL 5 MG TABLET PO PRN (17:16)
[2016-11-07] MEDS ORDERED: diphenhydrAMINE 25 MG CAPSULE PO PRN (17:16)
[2016-11-07] MEDS ORDERED: MAG HYDROX/AL HYDROX/SIMETH 30 ML SUSP PO PRN (17:16)
[2016-11-07] MEDS ORDERED: Ondansetron ODT Tab 8 MG TAB PO PRN (17:16)
[2016-11-07] MEDS ORDERED: CLINDAMYCIN IV SCH (19:00)
[2016-11-07] MEDS ORDERED: DEXTROSE IV SCH (19:00)
[2016-11-07] MEDS: Metoprolol TARTRATE Tab 50 MG TAB PO SCH (20:32)
[2016-11-07] MEDS: DOCUSATE 100 MG CAPSULE PO SCH (20:32)
[2016-11-07] MEDS: ATORVASTATIN 40 MG TABLET PO SCH (20:33)
[2016-11-07] MEDS ORDERED: ALLOPURINOL 100 MG TABLET PO SCH (21:00)
[2016-11-07] MEDS ORDERED: Metoprolol TARTRATE Tab 50 MG TAB PO SCH (21:00)
[2016-11-07] MEDS ORDERED: ATORVASTATIN 40 MG TABLET PO SCH (21:00)
[2016-11-07] MEDS: HYDROcodone-APAP 5 MG -325 MG TABLET PO PRN (21:31)
[2016-11-07] MEDS: ALLOPURINOL 100 MG TABLET PO SCH (21:54)
[2016-11-07] MEDS: Lactated Ringers 1,000 ML PRIMARY IV SCH (21:54)
[2016-11-08] MEDS: DEXTROSE IV SCH ×2 (02:36→09:26)
[2016-11-08] MEDS: CLINDAMYCIN IV SCH ×2 (02:36→09:26)
[2016-11-08] MEDS: HYDROcodone-APAP 5 MG -325 MG TABLET PO PRN ×4 (03:21→20:37)
[2016-11-08 05:52] LABS: BASOPHILS # (AUTO) 0.04 10*3/UL; BASOPHILS % (AUTO) 0.5 % (0-1); EOSINOPHILS # (AUTO) 0.26 10*3/UL; EOSINOPHILS % (AUTO) 3.4 % (0-8); HEMATOCRIT 29.8 % (37.0-47.0); HEMOGLOBIN 9.3 g/dL (12.0-16.0); LYMPHOCYTES # (AUTO) 1.68 10*3/uL; MEAN CORPUSCULAR HEMOGLOBIN 28.2 PG (27-31); MEAN CORPUSCULAR HGB CONC 31.2 g/dL (33-37); MEAN CORPUSCULAR VOLUME 90.3 FL (81-99); MEAN PLATELET VOLUME 10.9 FL (7.4-12.2); MONOCYTES # (AUTO) 0.82 10*3/UL (0.3-0.8); MONOCYTES % (AUTO) 10.7 % (5-15); NEUTROPHILS # (AUTO) 4.85 10*3/UL; NEUTROPHILS % (AUTO) 63.2 % (50-80)
[2016-11-08 05:57] LABS: PLATELET MORPHOLOGY COMMENT NORMAL MORPHOLOGY (NORM); RBC MORPHOLOGY COMMENT NORMAL MORPHOLOGY (NORM); WBC MORPHOLOGY COMMENT NORMAL MORPHOLOGY (NORM)
[2016-11-08 05:59] LABS: CALCIUM 8.3 mg/dL (8.7-10.7); SERUM ALBUMIN 2.5 g/dL (3.5-4.8)
[2016-11-08] MEDS: Lactated Ringers 1,000 ML PRIMARY IV SCH ×2 (08:06→12:26)
[2016-11-08] MEDS ORDERED: Multivitamin Tab 1 TAB PO SCH (09:00)
[2016-11-08] MEDS ORDERED: LISINOPRIL 20 MG TABLET PO SCH (09:00)
[2016-11-08] MEDS ORDERED: ASPIRIN EC 81 MG TABLET PO SCH (09:00)
[2016-11-08] MEDS: LISINOPRIL 20 MG TABLET PO SCH (09:25)
[2016-11-08] MEDS: ALLOPURINOL 100 MG TABLET PO SCH ×2 (09:25→20:37)
[2016-11-08] MEDS: Metoprolol TARTRATE Tab 50 MG TAB PO SCH ×2 (09:25→20:37)
[2016-11-08] MEDS: Multivitamin Tab 1 TAB PO SCH (09:26)
--- NOTE | 2016-11-08 09:26 | ORTHO.PROG ---
Last Taken Vital Signs: Vital Signs - Last Taken Temperature 97.8 F 11/08/16 07:38 Pulse Rate 76 11/08/16 07:38 Respiratory Rate 18 11/08/16 07:38 Blood Pressure 128/64 11/08/16 07:38 Pulse Ox 97 11/08/16 07:38 Subjective: Patient is very sleepy and tired this morning. Objective: Patient is alert and oriented 3, pleasant. She has a splint in place on the right hand some mild swelling to the fingers but has good extension and can make a light fist in her brace. Her sensory exam is generally intact with brisk refill. The PREVENA suction dressing is in place and has suction applied and seems to be working well she has a deep drain in place which put out 30 mL over the last PM and this looks mostly like serous he type fluid at the current time and very little blood in the line at the current time. Motor and sensory exam is intact otherwise. Intake and Output - 8hrs 11/07/16 11/07/16 11/08/16 11/08/16 13:59 21:59 05:59 13:59 Intake: IV 1200 1220 Intake Oral Amount 150 50 Output: Output, Drainage Amount 30 right hip 30 Output, Urine Amount 350 100 300 Output, Estimated Blood 100 Loss Amount Other: Percent Meal Consumed Refused Output,Number of Bowel 1 Movements Number of Voids 1 Weight 45.813 kg 47.718 kg Weight Measurement Method Wheelchair Wheelchair Laboratory Results 11/07/16 11/07/16 11/08/16 Range/Units 11:20 14:00 04:50 WBC 7.48 7.67 (4.8-10.8) 10^3/uL RBC 4.12 L 3.30 L (4.20-5.40) 10^6/uL Hgb 11.8 L 9.3 L (12.0-16.0) g/dL Hct 37.0 29.8 L (37.0-47.0) % MCV 89.8 90.3 (81-99) FL MCH 28.6 28.2 (27-31) PG MCHC 31.9 L 31.2 L (33-37) g/dL RDW Std Deviation 54.4 H 53.3 H (39-50) fL RDW Coeff of [place]aveen 17.6 H 17.3 H (11.5-14.5) % Plt Count 411 H 304 (140-350) 10*3/uL MPV 10.2 10.9 (7.4-12.2) FL Immature Gran % (Auto) 0.4 0.3 (0-5) % Neut % (Auto) 53.0 63.2 (50-80) % Lymph % (Auto) 31.7 21.9 (10-50) % [place] % (Auto) 10.6 10.7 (5-15) % Eos % (Auto) 3.1 3.4 (0-8) % Baso % (Auto) 1.2 H 0.5 (0-1) % Immature Gran # (Auto) 0.03 0.02 10*3/UL Neut # (Auto) 3.97 4.85 10*3/UL Lymph # (Auto) 2.37 1.68 10*3/uL [place] # (Auto) 0.79 0.82 H (0.3-0.8) 10*3/UL Eos # (Auto) 0.23 0.26 10*3/UL Baso # (Auto) 0.09 0.04 10*3/UL WBC Morphology Comment Normal morphology Normal morphology (NORM) Plt Morphology Comment Normal morphology Normal morphology (NORM) RBC Morph Comment Normal morphology Normal morphology (NORM) PT 11.8 H (9.7-11.4) secs INR 1.14 (0.00-5.90) N/A APTT 36.2 H (22.6-31.3) SECS Sodium 139 137 (135-145) meq/L Potassium 3.8 3.3 L (3.8-5.2) meq/L Chloride 104 103 (98-112) meq/L Carbon Dioxide 24 28 (23-33) meq/L Anion Gap 11 6 (5-20) BUN 16 12 (7-22) mg/dL Creatinine 0.6 0.6 (0.50-1.20) mg/dL Estimated GFR (>60 ml/min/1.73m(2)) BUN/Creatinine Ratio 26.66 H 20.00 (6-20) Glucose 135 H 88 (78-110) mg/dL Calculated Osmolality 290.0 282.0 (267-292) mOsm/kg Calcium 8.7 8.3 L (8.7-10.7) mg/dL Total Bilirubin 1.0 (0.3-1.2) mg/dL AST 83 H (8-39) IU/L ALT 16 (9-52) IU/L Alkaline Phosphatase 69 (38-126) IU/L Total Protein 4.9 L (6.1-8.0) g/dL Albumin 2.5 L (3.5-4.8) g/dL Globulin 2.4 L (2.50-4.10) g/dL Albumin/Globulin Ratio 1.00 L (1.3-2.0) mg/g Vital Signs (24 hrs) Temp Pulse Pulse Pulse Resp BP BP 11/08/16 07:38 97.8 F 76 18 128/64 11/08/16 05:39 11/08/16 04:52 97.2 F 80 18 125/67 11/08/16 01:00 98.8 F 86 20 110/64 11/07/16 20:25 97.2 F 79 16 133/77 11/07/16 19:55 97.3 F 78 16 139/74 11/07/16 19:00 78 18 11/07/16 18:20 97.4 F 18 128/63 11/07/16 17:54 97.5 F 79 20 125/77 11/07/16 17:40 97.6 F 80 20 132/78 11/07/16 17:26 97.8 F 79 20 123/68 11/07/16 17:10 97.0 F 81 20 140/91 11/07/16 16:50 97.4 F 80 23 146/71 11/07/16 16:45 77 11 L 135/75 11/07/16 16:40 79 21 141/80 11/07/16 16:35 97.1 F 79 18 139/72 11/07/16 16:30 80 24 139/76 11/07/16 16:27 80 15 121/73 11/07/16 16:14 97.3 F 82 22 132/88 11/07/16 13:00 97.9 F 82 28 H 209/119 11/07/16 12:11 97.3 F 82 18 147/72 11/07/16 11:59 97.3 F 74 82 16 147/72 Pulse Ox 11/08/16 07:38 97 11/08/16 05:39 92 11/08/16 04:52 92 11/08/16 01:00 94 11/07/16 20:25 94 11/07/16 19:55 95 11/07/16 19:00 11/07/16 18:20 91 11/07/16 17:54 95 11/07/16 17:40 95 11/07/16 17:26 94 11/07/16 17:10 96 11/07/16 16:50 11/07/16 16:45 11/07/16 16:40 11/07/16 16:35 11/07/16 16:30 11/07/16 16:27 11/07/16 16:14 11/07/16 13:00 11/07/16 12:11 94 11/07/16 11:59 91 Assessment: Patient with significant hematoma above the fascia right hip, hemiarthroplasty. Patient also with open reduction internal fixation fracture of the right wrist , in splint. Plan: There was concerned that the patient had diarrhea and may have C. difficile and is being evaluated for this at the current time. Patient received clindamycin for surgery prophylactically answered several doses postoperatively. Patient only put 30 mL out since time of surgery yesterday about 12 hours. We' ll see how she is doing at the end of the day if there is very little output or if it's about the same we may relieve this until tomorrow morning. Since this is outside of the fascia I think waiting till tomorrow would be fine. We will have the patient continue to mobilize bed to chair as tolerated.
[2016-11-08] MEDS: ASPIRIN EC 81 MG TABLET PO SCH (09:35)
[2016-11-08] MEDS: DOCUSATE 100 MG CAPSULE PO SCH ×2 (09:35→20:36)
--- NOTE | 2016-11-08 10:47 | PT.PROG ---
Progress Note Progress Note: Pt's family refuses therapy today for patient. They state she is tired and needs to rest. Will attempt again tomorrow. Natty Holliday, NETWORK SUPPORT ANALYST
--- NOTE | 2016-11-08 11:07 | PDOC(PROG) ---
Interval History: Patient is doing well but has feels very tired today she did refuse physical therapy as per the family I discussed it with the physical therapist. Denies chest pain nausea vomiting Objective : Data - Labs CBC and BMP: 11/08/16 04:50 11/08/16 04:50 Labs - Last 24 Hours: Laboratory Results 11/07/16 11/07/16 11/08/16 Range/Units 11:20 14:00 04:50 WBC 7.48 7.67 (4.8-10.8) 10^3/uL RBC 4.12 L 3.30 L (4.20-5.40) 10^6/uL Hgb 11.8 L 9.3 L (12.0-16.0) g/dL Hct 37.0 29.8 L (37.0-47.0) % MCV 89.8 90.3 (81-99) FL MCH 28.6 28.2 (27-31) PG MCHC 31.9 L 31.2 L (33-37) g/dL RDW Std Deviation 54.4 H 53.3 H (39-50) fL RDW Coeff of Naveen 17.6 H 17.3 H (11.5-14.5) % Plt Count 411 H 304 (140-350) 10*3/uL MPV 10.2 10.9 (7.4-12.2) FL Immature Gran % (Auto) 0.4 0.3 (0-5) % Neut % (Auto) 53.0 63.2 (50-80) % Lymph % (Auto) 31.7 21.9 (10-50) % [place] % (Auto) 10.6 10.7 (5-15) % Eos % (Auto) 3.1 3.4 (0-8) % Baso % (Auto) 1.2 H 0.5 (0-1) % Immature Gran # (Auto) 0.03 0.02 10*3/UL Neut # (Auto) 3.97 4.85 10*3/UL Lymph # (Auto) 2.37 1.68 10*3/uL [place] # (Auto) 0.79 0.82 H (0.3-0.8) 10*3/UL Eos # (Auto) 0.23 0.26 10*3/UL Baso # (Auto) 0.09 0.04 10*3/UL WBC Morphology Comment Normal morphology Normal morphology (NORM) Plt Morphology Comment Normal morphology Normal morphology (NORM) RBC Morph Comment Normal morphology Normal morphology (NORM) PT 11.8 H (9.7-11.4) secs INR 1.14 (0.00-5.90) N/A APTT 36.2 H (22.6-31.3) SECS Sodium 139 137 (135-145) meq/L Potassium 3.8 3.3 L (3.8-5.2) meq/L Chloride 104 103 (98-112) meq/L Carbon Dioxide 24 28 (23-33) meq/L Anion Gap 11 6 (5-20) BUN 16 12 (7-22) mg/dL Creatinine 0.6 0.6 (0.50-1.20) mg/dL Estimated GFR (>60 ml/min/1.73m(2)) BUN/Creatinine Ratio 26.66 H 20.00 (6-20) Glucose 135 H 88 (78-110) mg/dL Calculated Osmolality 290.0 282.0 (267-292) mOsm/kg Calcium 8.7 8.3 L (8.7-10.7) mg/dL Total Bilirubin 1.0 (0.3-1.2) mg/dL AST 83 H (8-39) IU/L ALT 16 (9-52) IU/L Alkaline Phosphatase 69 (38-126) IU/L Total Protein 4.9 L (6.1-8.0) g/dL Albumin 2.5 L (3.5-4.8) g/dL Globulin 2.4 L (2.50-4.10) g/dL Albumin/Globulin Ratio 1.00 L (1.3-2.0) mg/g Objective : Exam - General General Appearance: Cooperative - Respiratory Respiratory Exam: Clear to Auscultation - Bilaterally, Breathing Non Labored, Normal To Percussion, Normal to Percussion and Palpation - Cardiovascular Cardiovascular Exam: RRR, No Murmur, No Clicks - GI/Abdominal GI/Abdominal Exam: Normal Bowel Sounds, Non Tender, Soft Assessment and Plan - Patient Problems (1) Closed right hip fracture Current Visit: No Status: Acute Comment: With her right hip hematoma status post evacuation defer to orthopedic surgery. Poor urine output hemoglobin stable we'll give half a liter bolus of normal saline Qualifiers: Qualified Description: Closed fracture of right hip, with routine healing, subsequent encounter Qualifier Code(s): (S72.001D) Fracture of unspecified part of neck of right femur, subsequent encounter for closed fracture with routine healing (2) Distal radius fracture, right Current Visit: No Status: Acute Comment: Defer to orthopedic surgery Qualifiers: Qualified Description: Closed fracture of distal end of right radius with routine healing, unspecified fracture morphology, subsequent encounter Qualifier Code(s): (S52.501D) Unspecified fracture of the lower end of right radius, subsequent encounter for closed fracture with routine healing (3) Hypercholesterolemia Current Visit: No Status: Chronic Comment: Stable continue current meds (4) Hypertension Current Visit: No Status: Chronic Comment: Stable at this time Qualifiers: Qualified Description: Essential hypertension Qualifier Code(s): (I10 ) Essential (primary) hypertension (5) Diabetes mellitus type II, controlled Current Visit: No Status: Acute Comment: Continue current meds Qualifiers: Qualified Description: Controlled type 2 diabetes mellitus without complication, without long-term current use of insulin Qualifier Code(s): (E11.9) Type 2 diabetes mellitus without complications (6) History of gout Current Visit: No Status: Acute Comment: Continue current Photo / Body Diagrams - Uploaded Photos Uploaded Photos:
[2016-11-08] MEDS ORDERED: Sodium Chloride 0.9% 500 ML PRIMARY IV ONE ×2 (11:08→12:15)
[2016-11-08] MEDS ORDERED: Sodium Chloride 0.9% 500 ML ONE (11:17)
[2016-11-08] MEDS: POTASSIUM CHLORIDE 20 MEQ TAB PO SCH ×2 (11:22→20:36)
[2016-11-08] MEDS: ATORVASTATIN 40 MG TABLET PO SCH (20:36)
[2016-11-09] MEDS: HYDROcodone-APAP 5 MG -325 MG TABLET PO PRN ×4 (00:30→15:03)
[2016-11-09 05:44] LABS: BASOPHILS # (AUTO) 0.04 10*3/UL; BASOPHILS % (AUTO) 0.5 % (0-1); EOSINOPHILS # (AUTO) 0.34 10*3/UL; EOSINOPHILS % (AUTO) 4.4 % (0-8); HEMATOCRIT 33.4 % (37.0-47.0); HEMOGLOBIN 10.5 g/dL (12.0-16.0); LYMPHOCYTES # (AUTO) 1.86 10*3/uL; MEAN CORPUSCULAR HEMOGLOBIN 28.4 PG (27-31); MEAN CORPUSCULAR HGB CONC 31.4 g/dL (33-37); MEAN CORPUSCULAR VOLUME 90.3 FL (81-99); MEAN PLATELET VOLUME 10.7 FL (7.4-12.2); MONOCYTES # (AUTO) 0.88 10*3/UL (0.3-0.8); MONOCYTES % (AUTO) 11.4 % (5-15); NEUTROPHILS % (AUTO) 59.4 % (50-80)
[2016-11-09 05:45] LABS: PLATELET MORPHOLOGY COMMENT NORMAL MORPHOLOGY (NORM); RBC MORPHOLOGY COMMENT NORMAL MORPHOLOGY (NORM); WBC MORPHOLOGY COMMENT NORMAL MORPHOLOGY (NORM)
[2016-11-09 05:51] LABS: BUN/CREATININE RATIO 18.33 (6-20); CALCIUM 8.8 mg/dL (8.7-10.7); SERUM ALBUMIN 2.9 g/dL (3.5-4.8)
[2016-11-09] MEDS: Metoprolol TARTRATE Tab 50 MG TAB PO SCH ×2 (08:42→20:31)
[2016-11-09] MEDS: ALLOPURINOL 100 MG TABLET PO SCH ×2 (08:43→20:30)
[2016-11-09] MEDS: POTASSIUM CHLORIDE 20 MEQ TAB PO SCH (08:43)
[2016-11-09] MEDS: DOCUSATE 100 MG CAPSULE PO SCH ×2 (08:43→20:30)
[2016-11-09] MEDS: LISINOPRIL 20 MG TABLET PO SCH (08:43)
[2016-11-09] MEDS: Multivitamin Tab 1 TAB PO SCH (08:43)
--- NOTE | 2016-11-09 11:57 | ORTHO.PROG ---
Last Taken Vital Signs: Vital Signs - Last Taken Temperature 98.1 F 11/09/16 11:07 Pulse Rate 81 11/09/16 11:07 Respiratory Rate 16 11/09/16 11:07 Blood Pressure 129/66 11/09/16 11:07 Pulse Ox 96 11/09/16 11:07 Subjective: Patient doing better today with less pain and actually went down to therapy and did up [place] and was able to mobilize and they change her dressing on her wrist/ forearm. Objective: The dressing is clean and dry,PREVENA suction dressing in place working. Deep drain in place with 50 mL last 24 hours serous he bloody fluid. Over the last 6 hours scant amount of fluid less than a few cc. Leg with no marked swelling. Motor and sensory exam is nonfocal with good pulses and brisk refill Laboratory Results 11/09/16 Range/Units 05:20 WBC 7.74 (4.8-10.8) 10^3/uL RBC 3.70 L (4.20-5.40) 10^6/uL Hgb 10.5 L (12.0-16.0) g/dL Hct 33.4 L (37.0-47.0) % MCV 90.3 (81-99) FL MCH 28.4 (27-31) PG MCHC 31.4 L (33-37) g/dL RDW Std Deviation 56.1 H (39-50) fL RDW Coeff of Naveen 17.9 H (11.5-14.5) % Plt Count 303 (140-350) 10*3/uL MPV 10.7 (7.4-12.2) FL Immature Gran % (Auto) 0.3 (0-5) % Neut % (Auto) 59.4 (50-80) % Lymph % (Auto) 24.0 (10-50) % [place] % (Auto) 11.4 (5-15) % Eos % (Auto) 4.4 (0-8) % Baso % (Auto) 0.5 (0-1) % Immature Gran # (Auto) 0.02 10*3/UL Neut # (Auto) 4.60 10*3/UL Lymph # (Auto) 1.86 10*3/uL [place] # (Auto) 0.88 H (0.3-0.8) 10*3/UL Eos # (Auto) 0.34 10*3/UL Baso # (Auto) 0.04 10*3/UL WBC Morphology Comment Normal morphology (NORM) Plt Morphology Comment Normal morphology (NORM) RBC Morph Comment Normal morphology (NORM) Sodium 138 (135-145) meq/L Potassium 4.7 D (3.8-5.2) meq/L Chloride 105 (98-112) meq/L Carbon Dioxide 26 (23-33) meq/L Anion Gap 7 (5-20) BUN 11 (7-22) mg/dL Creatinine 0.6 (0.50-1.20) mg/dL Estimated GFR (>60 ml/min/1.73m(2)) BUN/Creatinine Ratio 18.33 (6-20) Glucose 112 H (78-110) mg/dL Calculated Osmolality 285.0 (267-292) mOsm/kg Calcium 8.8 (8.7-10.7) mg/dL Total Bilirubin 0.9 (0.3-1.2) mg/dL AST 73 H (8-39) IU/L ALT 17 (9-52) IU/L Alkaline Phosphatase 76 (38-126) IU/L Total Protein 5.7 L (6.1-8.0) g/dL Albumin 2.9 L (3.5-4.8) g/dL Globulin 2.8 (2.50-4.10) g/dL Albumin/Globulin Ratio 1.00 L (1.3-2.0) mg/g Intake and Output - 8hrs 11/08/16 11/08/16 11/09/16 11/09/16 13:59 21:59 05:59 13:59 Intake: IV 500 133 310 Intake Oral Amount 480 540 150 480 Output: Output, Drainage Amount 50 right hip 50 Output, Urine Amount 800 375 500 Other: Percent Meal Consumed 25% 75% 100% Output,Number of Bowel 1 Movements Number of Voids 1 1 Weight 47.718 kg 48.262 kg Weight Measurement Method Wheelchair Standing Scale Microbiology 11/07/16 16:18 Hip - Right Gram Stain - Final 11/07/16 16:18 Hip - Right Anaerobic Culture - Preliminary 11/07/16 16:18 Hip - Right Aerobic Culture - Preliminary Cultures negative to date Assessment: Right hip hematoma and a right wrist fracture open reduction internal fixation Anemia Plan: Deep drain was pulled today and sterile dressing applied along the inferior edge where drain was. The suction dressing remains in place working continue with physical therapy mobilization.
--- NOTE | 2016-11-09 12:25 | PDOC(PROG) ---
Interval History: Patient has no complaints she is doing great no nausea no vomiting no chest pain eating with good appetite the deep drain was pulled by Dr. Jackson Objective : Data - Labs CBC and BMP: 11/09/16 05:20 11/09/16 05:20 Labs - Last 24 Hours: Laboratory Results 11/09/16 Range/Units 05:20 WBC 7.74 (4.8-10.8) 10^3/uL RBC 3.70 L (4.20-5.40) 10^6/uL Hgb 10.5 L (12.0-16.0) g/dL Hct 33.4 L (37.0-47.0) % MCV 90.3 (81-99) FL MCH 28.4 (27-31) PG MCHC 31.4 L (33-37) g/dL RDW Std Deviation 56.1 H (39-50) fL RDW Coeff of Naveen 17.9 H (11.5-14.5) % Plt Count 303 (140-350) 10*3/uL MPV 10.7 (7.4-12.2) FL Immature Gran % (Auto) 0.3 (0-5) % Neut % (Auto) 59.4 (50-80) % Lymph % (Auto) 24.0 (10-50) % [place] % (Auto) 11.4 (5-15) % Eos % (Auto) 4.4 (0-8) % Baso % (Auto) 0.5 (0-1) % Immature Gran # (Auto) 0.02 10*3/UL Neut # (Auto) 4.60 10*3/UL Lymph # (Auto) 1.86 10*3/uL [place] # (Auto) 0.88 H (0.3-0.8) 10*3/UL Eos # (Auto) 0.34 10*3/UL Baso # (Auto) 0.04 10*3/UL WBC Morphology Comment Normal morphology (NORM) Plt Morphology Comment Normal morphology (NORM) RBC Morph Comment Normal morphology (NORM) Sodium 138 (135-145) meq/L Potassium 4.7 D (3.8-5.2) meq/L Chloride 105 (98-112) meq/L Carbon Dioxide 26 (23-33) meq/L Anion Gap 7 (5-20) BUN 11 (7-22) mg/dL Creatinine 0.6 (0.50-1.20) mg/dL Estimated GFR (>60 ml/min/1.73m(2)) BUN/Creatinine Ratio 18.33 (6-20) Glucose 112 H (78-110) mg/dL Calculated Osmolality 285.0 (267-292) mOsm/kg Calcium 8.8 (8.7-10.7) mg/dL Total Bilirubin 0.9 (0.3-1.2) mg/dL AST 73 H (8-39) IU/L ALT 17 (9-52) IU/L Alkaline Phosphatase 76 (38-126) IU/L Total Protein 5.7 L (6.1-8.0) g/dL Albumin 2.9 L (3.5-4.8) g/dL Globulin 2.8 (2.50-4.10) g/dL Albumin/Globulin Ratio 1.00 L (1.3-2.0) mg/g Objective : Exam - General General Appearance: Cooperative - Respiratory Respiratory Exam: Clear to Auscultation - Bilaterally, Breathing Non Labored, Normal To Percussion, Normal to Percussion and Palpation - Cardiovascular Cardiovascular Exam: RRR, No Murmur, No Clicks, No Gallops - GI/Abdominal GI/Abdominal Exam: Normal Bowel Sounds, Non Tender, Non Distended, Soft - Extremities Extremities Exam: No Clubbing Present, No Edema Present, No Cyanosis Present - Neurological Neurological Exam: Alert, Oriented x 3, CN II-XII Intact - Psychiatric Psychiatric Exam: Normal Affect, Normal Mood Assessment and Plan - Patient Problems (1) Closed right hip fracture Current Visit: No Status: Acute Comment: Deferred Dr. Jackson deep drain was pulled patient continues to do physical therapy CBC stable cultures negative Qualifiers: Qualified Description: Closed fracture of right hip, with routine healing, subsequent encounter Qualifier Code(s): (S72.001D) Fracture of unspecified part of neck of right femur, subsequent encounter for closed fracture with routine healing (2) Distal radius fracture, right Current Visit: No Status: Acute Comment: Deferred to orthopedic surgery Qualifiers: Qualified Description: Closed fracture of distal end of right radius with routine healing, unspecified fracture morphology, subsequent encounter Qualifier Code(s): (S52.501D) Unspecified fracture of the lower end of right radius, subsequent encounter for closed fracture with routine healing (3) Hypercholesterolemia Current Visit: No Status: Chronic Comment: Continue statin (4) Hypertension Current Visit: No Status: Chronic Comment: Continue usual meds stop IV fluids Qualifiers: Qualified Description: Essential hypertension Qualifier Code(s): (I10 ) Essential (primary) hypertension (5) Diabetes mellitus type II, controlled Current Visit: No Status: Acute Comment: Continue usual meds resume metformin tomorrow Qualifiers: Qualified Description: Controlled type 2 diabetes mellitus without complication, without long-term current use of insulin Qualifier Code(s): (E11.9) Type 2 diabetes mellitus without complications (6) History of gout Current Visit: No Status: Acute Comment: Continue allopurinol (7) Hypokalemia Current Visit: Yes Status: Acute Comment: This is been replaced I will stop replacement therapy Photo / Body Diagrams - Uploaded Photos Uploaded Photos:
[2016-11-09] MEDS: Lactated Ringers 1,000 ML PRIMARY IV SCH (12:34)
[2016-11-09] MEDS: ATORVASTATIN 40 MG TABLET PO SCH (20:33)
[2016-11-10 05:07] LABS: BASOPHILS # (AUTO) 0.05 10*3/UL; BASOPHILS % (AUTO) 0.8 % (0-1); EOSINOPHILS # (AUTO) 0.38 10*3/UL; EOSINOPHILS % (AUTO) 5.7 % (0-8); HEMATOCRIT 34.6 % (37.0-47.0); HEMOGLOBIN 10.9 g/dL (12.0-16.0); LYMPHOCYTES # (AUTO) 2.12 10*3/uL; MEAN CORPUSCULAR HEMOGLOBIN 28.5 PG (27-31); MEAN CORPUSCULAR HGB CONC 31.5 g/dL (33-37); MEAN CORPUSCULAR VOLUME 90.3 FL (81-99); MEAN PLATELET VOLUME 10.4 FL (7.4-12.2); MONOCYTES % (AUTO) 10.5 % (5-15); NEUTROPHILS # (AUTO) 3.38 10*3/UL; NEUTROPHILS % (AUTO) 50.9 % (50-80); RED BLOOD COUNT 3.83 10^6/uL (4.20-5.40)
[2016-11-10 05:09] LABS: PLATELET MORPHOLOGY COMMENT NORMAL MORPHOLOGY (NORM); RBC MORPHOLOGY COMMENT NORMAL MORPHOLOGY (NORM); WBC MORPHOLOGY COMMENT NORMAL MORPHOLOGY (NORM)
--- NOTE | 2016-11-10 06:00 | PDOC(PROG) ---
Interval History: Patient is doing well she has no nausea no vomiting no chest pain she is not confused she rested comfortably no fevers Objective : Data - Labs CBC and BMP: 11/10/16 04:54 11/09/16 05:20 Labs - Last 24 Hours: Laboratory Results 11/09/16 11/10/16 Range/Units 05:20 04:54 WBC 6.64 (4.8-10.8) 10^3/uL RBC 3.83 L (4.20-5.40) 10^6/uL Hgb 10.9 L (12.0-16.0) g/dL Hct 34.6 L (37.0-47.0) % MCV 90.3 (81-99) FL MCH 28.5 (27-31) PG MCHC 31.5 L (33-37) g/dL RDW Std Deviation 56.4 H (39-50) fL RDW Coeff of Naveen 17.9 H (11.5-14.5) % Plt Count 276 (140-350) 10*3/uL MPV 10.4 (7.4-12.2) FL Immature Gran % (Auto) 0.2 (0-5) % Neut % (Auto) 50.9 (50-80) % Lymph % (Auto) 31.9 (10-50) % [place] % (Auto) 10.5 (5-15) % Eos % (Auto) 5.7 (0-8) % Baso % (Auto) 0.8 (0-1) % Immature Gran # (Auto) 0.01 10*3/UL Neut # (Auto) 3.38 10*3/UL Lymph # (Auto) 2.12 10*3/uL [place] # (Auto) 0.70 (0.3-0.8) 10*3/UL Eos # (Auto) 0.38 10*3/UL Baso # (Auto) 0.05 10*3/UL WBC Morphology Comment Normal morphology (NORM) Plt Morphology Comment Normal morphology (NORM) RBC Morph Comment Normal morphology (NORM) Sodium 138 (135-145) meq/L Potassium 4.7 D (3.8-5.2) meq/L Chloride 105 (98-112) meq/L Carbon Dioxide 26 (23-33) meq/L Anion Gap 7 (5-20) BUN 11 (7-22) mg/dL Creatinine 0.6 (0.50-1.20) mg/dL Estimated GFR (>60 ml/min/1.73m(2)) BUN/Creatinine Ratio 18.33 (6-20) Glucose 112 H (78-110) mg/dL Calculated Osmolality 285.0 (267-292) mOsm/kg Calcium 8.8 (8.7-10.7) mg/dL Total Bilirubin 0.9 (0.3-1.2) mg/dL AST 73 H (8-39) IU/L ALT 17 (9-52) IU/L Alkaline Phosphatase 76 (38-126) IU/L Total Protein 5.7 L (6.1-8.0) g/dL Albumin 2.9 L (3.5-4.8) g/dL Globulin 2.8 (2.50-4.10) g/dL Albumin/Globulin Ratio 1.00 L (1.3-2.0) mg/g Objective : Exam - General General Appearance: Cooperative - Head Head Exam: Normal Inspection - Eye Eye Exam: Normal Appearance - Respiratory Respiratory Exam: Clear to Auscultation - Bilaterally, Breathing Non Labored, Normal To Percussion - Cardiovascular Cardiovascular Exam: RRR, No Murmur, No Clicks - GI/Abdominal GI/Abdominal Exam: Normal Bowel Sounds, Non Tender, Non Distended, Soft - Extremities Additional Extremities Exam Details: Trace edema bilaterally - Neurological Neurological Exam: Oriented x 3, CN II-XII Intact Assessment and Plan - Patient Problems (1) Hematoma complicating a procedure Current Visit: Yes Status: Acute Comment: From a right hip replacement evacuated the drain was pulled hemoglobin stable continue PT and OT (2) Closed right hip fracture Current Visit: No Status: Acute Comment: Defer to orthopedic surgery PT and OT as recommended by them (3) Distal radius fracture, right Current Visit: No Status: Acute Comment: Defer to orthopedic surgery PT and OT as recommended by them (4) Hypercholesterolemia Current Visit: No Status: Chronic Comment: Statin (5) Hypertension Current Visit: No Status: Chronic Comment: Patient is already on metoprolol 100 twice a day, fosinopril 40, and Norvasc 10 blood pressures maintaining around 150-160 I will add Lasix 20 by mouth twice a day I will also stop the ibuprofen written by the orthopedic service for pain control (6) Diabetes mellitus type II, controlled Current Visit: No Status: Acute Comment: GEN usual medication may resume metformin (7) History of gout Current Visit: No Status: Acute Comment: Continue allopurinol (8) Hypokalemia Current Visit: Yes Status: Acute Comment: This was replaced (9) Edema Current Visit: Yes Status: Acute Comment: We will start Lasix 20 mg a by mouth twice a day no need for [place] I discussed it with the nurse Photo / Body Diagrams - Uploaded Photos Uploaded Photos:
[2016-11-10] MEDS: FUROSEMIDE 20 MG TABLET PO SCH ×2 (07:04→13:38)
[2016-11-10] MEDS ORDERED: MAGNESIUM 400 MG/5 ML - 30 ML (MILK OF MAGNESIA) PO PRN (07:46)
[2016-11-10] MEDS: ALLOPURINOL 100 MG TABLET PO SCH ×2 (09:05→20:37)
[2016-11-10] MEDS: LISINOPRIL 20 MG TABLET PO SCH (09:05)
[2016-11-10] MEDS: HYDROcodone-APAP 5 MG -325 MG TABLET PO PRN ×3 (09:06→20:49)
[2016-11-10] MEDS: ASPIRIN EC 81 MG TABLET PO SCH (09:06)
[2016-11-10] MEDS: DOCUSATE 100 MG CAPSULE PO SCH ×2 (09:06→20:37)
[2016-11-10] MEDS: metFORMIN ER 500 MG TABLET PO SCH ×2 (09:06→20:38)
[2016-11-10] MEDS: Multivitamin Tab 1 TAB PO SCH (09:07)
[2016-11-10] MEDS: Metoprolol TARTRATE Tab 50 MG TAB PO SCH ×2 (11:13→20:38)
--- NOTE | 2016-11-10 12:35 | PTI REPORT ---
Thank you for the referral of Raymon Aaron. She was seen on 11/07/16 for an inpatient evaluation secondary to weakness. SUBJECTIVE: The patient is an 86-year-old female. The patient reports she had surgery again this afternoon due to excessive bleeding from her incision site. Otherwise she feels like she is doing well. She states due to having surgery she refuses to participate with any physical activity this afternoon. PAST MEDICAL HISTORY: Past medical history can be found in the patient's medical record. OBJECTIVE FINDINGS: Pain: The patient reports a pain level currently of 7/10 on the verbal analog scale (0=no pain, 10=worst pain). Incision: Her incision site was covered with surgical bandaging. Mobility: Her mobility was unable to be assessed or tested due to the patient's refusal to perform any movement; however, prior to the surgery she was able to perform movement with moderate to maximum assistance x1 depending on her fatigue level. ASSESSMENT: The patient is an 86-year-old female that is status post fall. The patient's endurance is improving and functional mobility is improving but she still requires a lot of assistance for functional activity. The patient will benefit from continued skilled therapy to improve overall mobility. The patient's prognosis for therapy is fair. Problem List: Decreased strength Decreased endurance Decreased independence Decreased functional mobility Short-Term Goals: To be met by discharge from inpatient: Patient will be independent with all transfers with least restrictive assistive device. Patient will be able to ambulate 150 feet with least restrictive assistive device independently. Patient will be able to tolerate 30 minutes of activity in order to improve endurance. Long-Term Goals: To be met following discharge from inpatient: Patient will be able to return to least restrictive assistive device. Patient will be able to perform all activities of daily living independently. TREATMENT PLAN: Patient will be seen B.I.D during the week and one time per day over the weekend as an inpatient for therapeutic exercise, functional activity, pain relief modalities as needed, neuromuscular reeducation, and gait training. INITIAL TREATMENT: Treatment today consisted of the inpatient evaluation activities only. ELLY
--- NOTE | 2016-11-10 14:38 | OT.PROG ---
Progress Note Progress Note: S: pt reports that she is really tired. She was accompanied by care provider who reported surgery on thursday went well. O: pt was seen in her room in the a.m. She completed transfer to toilet with Min A sit to stand and cues to maneuver walker. pt was assisted with toileting by PT and care provide. She then transferred downstairs after completing ambulation approx 60 ft. while in therapy pt completed UE exercises with RTB with L non affected arm x10 in all ranges. She then completed Active exercises in shoulder ext/abd x10 with holds at 90 deg. She also completed red powerweb, and digi flex x10. pt was returned to her room and left upright in chair with bed alarm on and call light within reach. A: pt continues to need cues on simple tasks which mainly could be due to decreased attention. She can tolerate ambulation much further than in past. Continue to progress. P: continue per plan of care.
--- NOTE | 2016-11-10 14:39 | OTI REPORT ---
Thank you for the referral of Raymon Aaron. She was seen on 11/09/16 for an occupational therapy inpatient evaluation secondary to weakness. SUBJECTIVE: The patient is an 86-year-old female. The patient reports that she didn't do much in therapy yesterday secondary to having a hematoma removed in her right hip. She reports that this was limiting her quite a bit. The patient's goal is to get back home. She was not expecting to have another surgery. The patient does have a caregiver that has been helping her in the room and this caregiver will follow her to home. The patient was initially admitted to [facility] and then went to [facility] to assess her heart conditions. She then came back to [facility]. The patient reports that she fell in her kitchen while trying to make coffee. The patient does live in her home with her . The home is handicap accessible. The patient states she has a walk in shower with grab bars. At this point in time the patient does not sit on a seat when showering. She also has grab bars by her toilet. The patient states she was usually independent with dressing herself. The patient states recently she has had help with her household tasks including laundry and cleaning and her and her just started getting meals on wheels which she states has been a big help. The patient was not using adaptive devices besides her wheeled walker before her admission and fall. PAST MEDICAL HISTORY: Past medical history can be found in the patient's medical record. OBJECTIVE FINDINGS: Bed mobility: The patient was able to come from supine to sit with max assist x2. Transfers: The patient was able to come from sit to stand with min assist. She had difficulty moving from the back position to the forward position of the chair. Activities of daily living: The patient completed a commode transfer with min assist. The patient needed max assist to doff her pants. She was dependent with toilet hygiene and required max assist to pull her pants to waist line again. The patient needs max assist for lower extremity and upper extremity dressing secondary to her right wrist fracture, right hip surgery, and recent hematoma removal. At this point in time she would need max assist for showering activities. Ambulation: The patient was able to ambulate x10 feet with min assist before transferring into her wheelchair. ASSESSMENT: At this time the patient is demonstrating less abilities than prior to her surgery. She is not moving as well. She requires max assist for mobility within the chair and in bed. She requires max assist for her ADLs. She is not ambulating as well prior to the hematoma removal. The patient needs a lot of increased time to complete activities as she is very slow moving. Problem List: Decreased ability to perform activities of daily living Decreased upper extremity range of motion Decreased upper extremity strength Decreased activity tolerance Decreased ability to perform functional transfers Short-Term Goals: To be met by discharge from inpatient: Patient will be able to dress lower extremities with min assist and upper extremities independently after set up. Patient will be able to doff and don her pants independently during toileting task. Patient will be independent with toilet hygiene. Patient will be able to complete a shower with min assist. Patient will improve upper extremity strength in the left arm to 4+/5 and strength in the right shoulder to 4/5. Patient will be able to complete all functional transfers with min assist for balance. Long-Term Goals: To be met following discharge from inpatient: Patient will return home safe and independent with all functional transfers and ADLs. TREATMENT PLAN: Patient will be seen B.I.D during the week and one time per day over the weekend as an inpatient to address the above goals and objectives. INITIAL TREATMENT: Treatment today consisted of the inpatient evaluation followed by the patient transferring to therapy where she received an application of moist heat pack x20 minutes to her back and hip area. She performed red theraband for biceps curls, internal/external rotation, triceps, shoulder extension, red digi-flex, and red power web on the left side. On the ride side the patient's brace was adjusted. She stated that it was very uncomfortable. The therapist worked on adjusting her brace to have her wrist in more of a neutral position and to have the straps be a little bit more comfortable for her. The patient stated that this felt much better after the adjustments were made. Because it was Thursday, the occupational therapist had instructions from the physical therapist to work on leg exercises. We worked on quad contractions, heel slides with mod assist, toe raises, and short arc quads with mod assist to move leg. The patient rated her leg pain as a 6/10 on the verbal analog scale (0=no pain, 10=worst pain). She then came from supine to sit with max assist x2. She was then able to ambulate x10 feet with min assist. She then transferred into her wheelchair. We then transferred the patient back into her room. She then transferred back into her chair. She needed max assist to transfer to the back of the chair as she is not able to push herself to the back of the chair. ELLY
--- NOTE | 2016-11-10 14:49 | PT.PROG ---
Progress Note Progress Note: S. Patient stated that she is having some pain however is feeling better today compared to yesterday. O. Patient ambulated 50 feet to the wheelchair and was wheeled to the therapy gym where she had heat to her hip and arm x 20 minutes then performed exercises in the form of; heel slides, short arc quads, ankle pumps, hip abduction/ adduction, seated marches, long arc quads, heel toe raises, and sit to stands all x 10 bilaterally. Patient ambulated 30 feet to the wheelchair and was returned to her room where she was left in chair with alarm and call light. A. Patient tolerated therapy fair this morning, she continues to require min assist with exercise and frequent verbal cues for motivation. Patient continues to require mod assist with transfers and ambulation. She would continue to benefit from skilled therapy at this time. P. continue POC.
--- NOTE | 2016-11-10 16:41 | PT.PROG ---
Progress Note Progress Note: S. Patient stated that she is very tired this afternoon. O. Patient ambulated 15 feet to the wheelchair and was wheeled to the therapy gym where she had heat to her hip and arm x 20 minutes, then had bandage on her right arm changed and cleaned with wound cleanser, Adaptic was placed on wound and wrapped with kirlex and coban. Patient performed exercises in the form of; heel slides, quad sets, ankle pumps, glute sets, seated heel toe raises, and long arc quads, patient was left with OT for further therapy. A. Patient's wound was healing well, silverlon was removed and replaced with adaptic. Patient tolerated exercises fair, she continues to require min to mod assist with sit to stand transfer and mod to max assist with supine to sit transfer. Patient requires frequent verbal cues to stay motivated and complete all tasks. P. Continue POC.
--- NOTE | 2016-11-10 16:42 | OT.PROG ---
Progress Note Progress Note: S: pt states that she is tired, but overall in good spirits. O: pt was seen in therapy in the afternoon. After receiving PT, she sat on EOB and completed exercises with RTB in L UE in bicep flex, shoulder ext and rows x25 to increase strength in L non affected UE. Pt completed AROM activities with R UE and was able to complete shoulder flex to 70-80 deg but does use trunk ext to compensate shoulder elevation. pt received PROM of RUE as well. Pt completed x5 sit to stands, before completing transfer back upstairs approx 35 ft and was taken in w/c the rest of way. She was left upright in chair after completing max A x2 chair mobility for comfort. A: pt needs vc's during transfers as she looks towards ground and has difficulty managing turns with walker. pt does display decreased attention and needs cues to stay on task. pt may be a good candidate for home health. P: continue per plan of care.
--- NOTE | 2016-11-10 18:07 | ORTHO.PROG ---
Last Taken Vital Signs: Vital Signs - Last Taken Temperature 98.2 F 11/10/16 16:23 Pulse Rate 74 11/10/16 16:23 Respiratory Rate 17 11/10/16 16:23 Blood Pressure 131/72 11/10/16 16:23 Pulse Ox 93 11/10/16 16:23 Subjective: Patient doing well feels she is getting stronger Objective: PREVENA dressing is in place suction is in place and working no active drainage from around the end of the dressing. Motor and sensory exam in the lower extremities good as well as in the upper extremity. Patient with her a thermoplastic splint in place and dressing no evidence of infection. Laboratory Results 11/10/16 Range/Units 04:54 WBC 6.64 (4.8-10.8) 10^3/uL RBC 3.83 L (4.20-5.40) 10^6/uL Hgb 10.9 L (12.0-16.0) g/dL Hct 34.6 L (37.0-47.0) % MCV 90.3 (81-99) FL MCH 28.5 (27-31) PG MCHC 31.5 L (33-37) g/dL RDW Std Deviation 56.4 H (39-50) fL RDW Coeff of Naveen 17.9 H (11.5-14.5) % Plt Count 276 (140-350) 10*3/uL MPV 10.4 (7.4-12.2) FL Immature Gran % (Auto) 0.2 (0-5) % Neut % (Auto) 50.9 (50-80) % Lymph % (Auto) 31.9 (10-50) % [place] % (Auto) 10.5 (5-15) % Eos % (Auto) 5.7 (0-8) % Baso % (Auto) 0.8 (0-1) % Immature Gran # (Auto) 0.01 10*3/UL Neut # (Auto) 3.38 10*3/UL Lymph # (Auto) 2.12 10*3/uL Hoke # (Auto) 0.70 (0.3-0.8) 10*3/UL Eos # (Auto) 0.38 10*3/UL Baso # (Auto) 0.05 10*3/UL WBC Morphology Comment Normal morphology (NORM) Plt Morphology Comment Normal morphology (NORM) RBC Morph Comment Normal morphology (NORM) Microbiology 11/07/16 16:18 Hip - Right Gram Stain - Final 11/07/16 16:18 Hip - Right Anaerobic Culture - Final 11/07/16 16:18 Hip - Right Aerobic Culture - Final Gram stain results negative and aerobic and anaerobic cultures negative Vital Signs (24 hrs) Temp Pulse Pulse Resp BP Pulse Ox 11/10/16 16:23 98.2 F 74 17 131/72 93 11/10/16 11:06 98.3 F 76 17 139/77 93 11/10/16 07:09 97.6 F 82 16 161/77 95 11/10/16 07:07 82 16 11/10/16 05:00 92 11/10/16 04:59 98.0 F 88 16 168/81 98 11/10/16 00:32 98.1 F 83 16 154/76 93 11/09/16 20:00 98.0 F 79 16 159/76 95 11/09/16 19:00 88 16 Assessment: Right hematoma after right hemiarthroplasty, right distal radius fracture doing well Plan: Continue with physical therapy and occupational therapy Pain control Mobilize with weightbearing as tolerated with a walker. We will remove the dressing once the battery runs place a Silverlon dressing in place.
[2016-11-10] MEDS: ATORVASTATIN 40 MG TABLET PO SCH (20:37)
--- NOTE | 2016-11-11 10:51 | PDOC(PROG) ---
Date and Time of Service: 11/11/2016, 1047 Interval History: No complains of chest pain, shortness breath, nausea or vomiting. Reports increased urinary frequency, upper to 8 times yesterday. Temperature max is up to 99. She was described as lethargic from the nurses but was alert for my exam. She states that she is sore, but Tylenol seems to be controlling her pain. Family wants her to do the swing bed for additional therapy. Objective : Data - Labs CBC and BMP: 11/10/16 04:54 11/09/16 05:20 Labs - Last 24 Hours: Laboratory Results 11/07/16 11/07/16 11/08/16 Range/Units 11:20 14:00 04:50 WBC 7.48 7.67 (4.8-10.8) 10^3/uL RBC 4.12 L 3.30 L (4.20-5.40) 10^6/uL Hgb 11.8 L 9.3 L (12.0-16.0) g/dL Hct 37.0 29.8 L (37.0-47.0) % MCV 89.8 90.3 (81-99) FL MCH 28.6 28.2 (27-31) PG MCHC 31.9 L 31.2 L (33-37) g/dL RDW Std Deviation 54.4 H 53.3 H (39-50) fL RDW Coeff of Naveen 17.6 H 17.3 H (11.5-14.5) % Plt Count 411 H 304 (140-350) 10*3/uL MPV 10.2 10.9 (7.4-12.2) FL Immature Gran % (Auto) 0.4 0.3 (0-5) % Neut % (Auto) 53.0 63.2 (50-80) % Lymph % (Auto) 31.7 21.9 (10-50) % [place] % (Auto) 10.6 10.7 (5-15) % Eos % (Auto) 3.1 3.4 (0-8) % Baso % (Auto) 1.2 H 0.5 (0-1) % Immature Gran # (Auto) 0.03 0.02 10*3/UL Neut # (Auto) 3.97 4.85 10*3/UL Lymph # (Auto) 2.37 1.68 10*3/uL [place] # (Auto) 0.79 0.82 H (0.3-0.8) 10*3/UL Eos # (Auto) 0.23 0.26 10*3/UL Baso # (Auto) 0.09 0.04 10*3/UL WBC Morphology Comment Normal morphology Normal morphology (NORM) Plt Morphology Comment Normal morphology Normal morphology (NORM) RBC Morph Comment Normal morphology Normal morphology (NORM) PT 11.8 H (9.7-11.4) secs INR 1.14 (0.00-5.90) N/A APTT 36.2 H (22.6-31.3) SECS Sodium 139 137 (135-145) meq/L Potassium 3.8 3.3 L (3.8-5.2) meq/L Chloride 104 103 (98-112) meq/L Carbon Dioxide 24 28 (23-33) meq/L Anion Gap 11 6 (5-20) BUN 16 12 (7-22) mg/dL Creatinine 0.6 0.6 (0.50-1.20) mg/dL Estimated GFR (>60 ml/min/1.73m(2)) BUN/Creatinine Ratio 26.66 H 20.00 (6-20) Glucose 135 H 88 (78-110) mg/dL Calculated Osmolality 290.0 282.0 (267-292) mOsm/kg Calcium 8.7 8.3 L (8.7-10.7) mg/dL Total Bilirubin 1.0 (0.3-1.2) mg/dL AST 83 H (8-39) IU/L ALT 16 (9-52) IU/L Alkaline Phosphatase 69 (38-126) IU/L Total Protein 4.9 L (6.1-8.0) g/dL Albumin 2.5 L (3.5-4.8) g/dL Globulin 2.4 L (2.50-4.10) g/dL Albumin/Globulin Ratio 1.00 L (1.3-2.0) mg/g 11/09/16 11/10/16 Range/Units 05:20 04:54 WBC 7.74 6.64 (4.8-10.8) 10^3/uL RBC 3.70 L 3.83 L (4.20-5.40) 10^6/uL Hgb 10.5 L 10.9 L (12.0-16.0) g/dL Hct 33.4 L 34.6 L (37.0-47.0) % MCV 90.3 90.3 (81-99) FL MCH 28.4 28.5 (27-31) PG MCHC 31.4 L 31.5 L (33-37) g/dL RDW Std Deviation 56.1 H 56.4 H (39-50) fL RDW Coeff of Naveen 17.9 H 17.9 H (11.5-14.5) % Plt Count 303 276 (140-350) 10*3/uL MPV 10.7 10.4 (7.4-12.2) FL Immature Gran % (Auto) 0.3 0.2 (0-5) % Neut % (Auto) 59.4 50.9 (50-80) % Lymph % (Auto) 24.0 31.9 (10-50) % [place] % (Auto) 11.4 10.5 (5-15) % Eos % (Auto) 4.4 5.7 (0-8) % Baso % (Auto) 0.5 0.8 (0-1) % Immature Gran # (Auto) 0.02 0.01 10*3/UL Neut # (Auto) 4.60 3.38 10*3/UL Lymph # (Auto) 1.86 2.12 10*3/uL [place] # (Auto) 0.88 H 0.70 (0.3-0.8) 10*3/UL Eos # (Auto) 0.34 0.38 10*3/UL Baso # (Auto) 0.04 0.05 10*3/UL WBC Morphology Comment Normal morphology Normal morphology (NORM) Plt Morphology Comment Normal morphology Normal morphology (NORM) RBC Morph Comment Normal morphology Normal morphology (NORM) PT (9.7-11.4) secs INR (0.00-5.90) N/A APTT (22.6-31.3) SECS Sodium 138 (135-145) meq/L Potassium 4.7 D (3.8-5.2) meq/L Chloride 105 (98-112) meq/L Carbon Dioxide 26 (23-33) meq/L Anion Gap 7 (5-20) BUN 11 (7-22) mg/dL Creatinine 0.6 (0.50-1.20) mg/dL Estimated GFR (>60 ml/min/1.73m(2)) BUN/Creatinine Ratio 18.33 (6-20) Glucose 112 H (78-110) mg/dL Calculated Osmolality 285.0 (267-292) mOsm/kg Calcium 8.8 (8.7-10.7) mg/dL Total Bilirubin 0.9 (0.3-1.2) mg/dL AST 73 H (8-39) IU/L ALT 17 (9-52) IU/L Alkaline Phosphatase 76 (38-126) IU/L Total Protein 5.7 L (6.1-8.0) g/dL Albumin 2.9 L (3.5-4.8) g/dL Globulin 2.8 (2.50-4.10) g/dL Albumin/Globulin Ratio 1.00 L (1.3-2.0) mg/g Objective : Exam - General General Appearance: No Acute Distress, Cooperative Additional General Exam Details: Vital Signs - Last Taken Temperature 99 F 11/11/16 08:22 Pulse Rate 83 11/11/16 08:22 Respiratory Rate 18 11/11/16 08:22 Blood Pressure 135/69 11/11/16 08:22 Pulse Ox 93 11/11/16 08:22 - Eye Eye Exam: No Scleral Icterus - Respiratory Respiratory Exam: Clear to Auscultation - Bilaterally, Breathing Non Labored - Cardiovascular Cardiovascular Exam: RRR, No Murmur, No Clicks, No Gallops, No Rubs, No JVD - GI/Abdominal GI/Abdominal Exam: Normal Bowel Sounds, Non Tender, Non Distended, Soft - Extremities Extremities Exam: No Clubbing Present, No Edema Present, No Cyanosis Present - Neurological Neurological Exam: Alert, No Facial Droop, Speech Intact / Clear Additional Neurological Exam Details: Ambulated well with assistance in the hallway from the shower to her room. Assessment and Plan - Patient Problems (1) Hematoma complicating a procedure Current Visit: Yes Status: Acute (2) Closed right hip fracture Current Visit: Yes Status: Chronic Qualifiers: Encounter type: subsequent encounter Fracture healing: with routine healing Qualified Description: Closed fracture of right hip, with routine healing, subsequent encounter Qualifier Code(s): (S75.001D) Fracture of unspecified part of neck of right femur, subsequent encounter for closed fracture with routine healing (3) Diabetes mellitus type II, controlled Current Visit: Yes Status: Chronic Qualifiers: Diabetes mellitus complication status: without complication Diabetes mellitus intermediate insulin use: without intermediate use Qualified Description : Controlled type 2 diabetes mellitus without complication, without long-term current use of insulin Qualifier Code(s): (E11.9) Type 2 diabetes mellitus without complications (4) Distal radius fracture, right Current Visit: Yes Status: Chronic Qualifiers: Encounter type: subsequent encounter Fracture type: closed Fracture morphology: other fracture Fracture healing: with routine healing Qualified Description: Other closed fracture of distal end of right radius with routine healing, subsequent encounter Qualifier Code(s): (S52.591D) Other fractures of lower end of right radius, subsequent encounter for closed fracture with routine healing (5) History of GI bleed Current Visit: No Status: Acute (6) Gouty arthropathy Current Visit: Yes Status: Chronic (7) Hypercholesterolemia Current Visit: Yes Status: Chronic (8) Hypertension Current Visit: Yes Status: Chronic Qualifiers: Hypertension type: essential hypertension Qualified Description: Essential hypertension Qualifier Code(s): (I10) Essential (primary) hypertension - Assessment / Plan Additional Assessment/Plan Details: I don't think the patient will be able to tolerate Lasix with increased urinary frequency and urgency and 8 times in trying to urinate through the day. This could also be indicative of a urine infection given the increase in temperature for the patient as well. Get H. pylori send out as it does not appear that it was done on prior hospital stays. Continue PT and OT. Swing bed evaluation. Eliminate hydrocodone as Tylenol seems to be controlling the patient's pain, and I think that narcotics could compromise patient's mental status. I discussed the above plan with the patient and she agrees with the plan. I talked with a caregiver who also agreed with plan. Photo / Body Diagrams - Uploaded Photos Uploaded Photos:
[2016-11-11] MEDS: metFORMIN ER 500 MG TABLET PO SCH ×2 (11:31→20:49)
[2016-11-11] MEDS: LISINOPRIL 20 MG TABLET PO SCH (11:31)
[2016-11-11] MEDS: Metoprolol TARTRATE Tab 50 MG TAB PO SCH ×2 (11:31→20:49)
[2016-11-11] MEDS: DOCUSATE 100 MG CAPSULE PO SCH ×2 (11:32→20:49)
[2016-11-11] MEDS: ALLOPURINOL 100 MG TABLET PO SCH ×2 (11:32→20:48)
[2016-11-11] MEDS: Multivitamin Tab 1 TAB PO SCH (11:32)
[2016-11-11] MEDS: FUROSEMIDE 20 MG TABLET PO SCH (11:35)
--- NOTE | 2016-11-11 11:39 | PT.PROG ---
Progress Note Progress Note: S. Patient stated that she is tired this morning, and she didn't sleep well last night. O. Patient was wheeled to the therapy gym where she had heat to her hip and arm x 20 minutes then performed exercises in the form of; heel slides, quad sets, ankle pumps (red theraband), bridges, short arc quads, seated marches, long arc quads, all x 10 bilaterally. Sit to stands x 5 then ambulated 50 feet to the wheelchair and was returned to her room where she was left in her chair with alarm and call light. A. Patient continues to require mod assist with sit to stand transfer, max assist with supine to sit transfers, min with ambulation and balance. Patient continues to require frequent verbal cues for motivation. Patient would continue to benefit from skilled therapy to increase strength, mobility and endurance. P. Continue POC.
[2016-11-11 14:15] LABS: BILIRUBIN,URINE NEGATIVE (NEG); COLOR,URINE YELLOW; GLUCOSE, URINE (UA) NEGATIVE (NEG); NITRATE,URINE NEGATIVE (NEG); OCCULT BLOOD,URINE NEGATIVE (NEG); PH,URINE 6.5 (5.0-8.5); PROTEIN,URINE TRACE mg/dl (NEG)
[2016-11-11 14:27] LABS: BACTERIA,URINE MODERATE; CLARITY,URINE SLIGHTLY CLOUDY (CLEAR); SQUAMOUS EPITHELIAL CELL,UR RARE; URINE SAMPLE TYPE CLEAN CATCH URINE; WBC,URINE 15-20
[2016-11-11] MEDS: ACETAMINOPHEN 500 MG TABLET PO SCH ×2 (14:30→20:49)
--- NOTE | 2016-11-11 16:17 | PT.PROG ---
Progress Note Progress Note: S. Patient stated that she is very tired this afternoon. O. Patient was wheeled to the therapy gym where she had heat to her hip and arm x 20 minutes. Patient performed exercises in the form of; heel slides, quad sets , ankle pumps, glute sets, seated heel toe raises, and long arc quads, patient ambulated 60 feet to the wheelchair and was wheeled to her room where she was left in her chair. A. Patient tolerated exercises fair, she continues to require min to mod assist with sit to stand transfer and mod to max assist with supine to sit transfer. Patient requires frequent verbal cues to stay motivated and complete all tasks. P. Continue POC.
--- NOTE | 2016-11-11 16:28 | OT.PROG ---
Progress Note Progress Note: S: Pt. reported feeling fatigued secondary to having to transfer to the toilet 8 times during the night. Nurse confirmed pt's verbal report. O: Pt. participated in 75 minute OT session in hospital shower to address decreased independence with ADLs secondary to decreased strength, ROM and coordination of the UEs. Session began when therapist arrived, pt. was on the commode and was DEP with toilet hygiene. Pt. required min A to complete sit-to- stand transfers from the commode. Pt. was transported to walk-in shower utilizing wheelchair. Pt. transferred from / to [facility] utilizing a layne- walker with min A to maintain balance. PT. required max A to doff pants, depends and socks. Pt. required max A to complete washing, rinsing and drying of perineum, back and LEs. Pt. required mod A with washing of hair on right side and was (I) with washing of hair on left. Pt. required increased time but was (I) with washing, rinsing and drying of anterior side of trunk and face. Pt. required max A to don shirt and sweater. Pt. was (I) with fastening of front buttons on shirt. Pt. required max A to don depends and pants and was dependent with donning of socks. Pt. required min A to transfer from shower bench to walker to maintain balance and min A to maintain balance while ambulating 30 ft. to [facility] Pt. required mod A with combing of hair on the right side and was (I) with combing on left. Pt. remained alert and attentive for 100% of the session. A: Pt. demonstrates decreased independence with ADLs secondary to decreased strength, ROM and coordination of the UEs which limits her ability to maintain success for d/c home. Pt. genevieve fair progress by remaining alert and attentive for 100% of the treatment session. Pt. genevieve fair rehab potential with desire to d/c home and achieve higher independence. Pt. would benefit from continued skilled OT to address UE strengthening, increase in UE ROM and coordination for an increase in independence with ADLs. P: Pt. will continue skilled OT services 1-2X/day to address UE strength, ROM and coordination for an increase in independence with ADLs.
[2016-11-11] MEDS ORDERED: PANTOPRAZOLE 40 MG TABLET PO SCH (16:30)
--- NOTE | 2016-11-11 16:46 | OT.PROG ---
Progress Note Progress Note: Pt. seen from 3:45 to 4 p.m. for skilled occupational therapy S: Pt. verbalized feeling incredibly fatigued secondary to an inability to sleep throughout the day. O: Pt. participated in 15 minute OT session in therapy gym to address bilateral UE strength and ROM to increase functional independence with ADLs. Pt. completed 7 repetitions of shoulder flexion exercises, shoulder extension exercises, elbow extension exercises and elbow flexion exercises utilizing red resistance theraband bilaterally. Pt. required min tactile cues, one-step commands and visual demonstrations to initiate exercises initially but performed them (I) once demonstration was completed. Pt. completed 10 repetitions of hand and finger flexion and extension utilizing the yellow resistance power web. A: Pt. demonstrates decreased bilateral strength and ROM in UEs which impedes functional independence with ADLs. Pt. demos fair progress by completing 7 repetitions of UE theraband exercises in comparison to 4 from the previous session. Pt. demos fair rehab potential with desire to d/c home and achieve higher independence and strength. Pt. would benefit from continued skilled OT to address bilateral UE strength and ROM to increase functional independence with ADLs. P: Pt. will continue skilled OT services to address decreased bilateral strength and ROM in UEs to improve functional independence with ADLs.
[2016-11-11] MEDS: ATORVASTATIN 40 MG TABLET PO SCH (20:49)
[2016-11-12 05:19] LABS: HEMATOCRIT 34.7 % (37.0-47.0); MEAN CORPUSCULAR HEMOGLOBIN 28.6 PG (27-31); MEAN CORPUSCULAR HGB CONC 31.7 g/dL (33-37); MEAN CORPUSCULAR VOLUME 90.1 FL (81-99); MEAN PLATELET VOLUME 10.1 FL (7.4-12.2); RED BLOOD COUNT 3.85 10^6/uL (4.20-5.40)
--- NOTE | 2016-11-12 08:02 | ORTHO.PROG ---
Last Taken Vital Signs: Vital Signs - Last Taken Temperature 98.9 F 11/12/16 06:46 Pulse Rate 74 11/12/16 07:26 Respiratory Rate 18 11/12/16 07:25 Blood Pressure 158/81 11/12/16 06:46 Pulse Ox 92 11/12/16 06:46 Subjective: Patient doing well has decreasing pain and is slowly getting stronger. Objective: The right hip PREVENA dressing is in place. This is a suction dressing. There is no drainage from the old drain site. There is good motor and sensory exam of the lower extremity upper wrist on the right with her Thermoplast splint in place with no active issues. Laboratory Results 11/11/16 11/12/16 Range/Units 14:09 05:14 WBC 6.02 (4.8-10.8) 10^3/uL RBC 3.85 L (4.20-5.40) 10^6/uL Hgb 11.0 L (12.0-16.0) g/dL Hct 34.7 L (37.0-47.0) % MCV 90.1 (81-99) FL MCH 28.6 (27-31) PG MCHC 31.7 L (33-37) g/dL RDW Std Deviation 57.4 H (39-50) fL RDW Coeff of Naveen 18.1 H (11.5-14.5) % Plt Count 274 (140-350) 10*3/uL MPV 10.1 (7.4-12.2) FL Ur Collection Type Clean catch urine Urine Color Yellow Urine Clarity Slightly cloudy (CLEAR) Urine pH 6.5 (5.0-8.5) Ur Specific [place]da 1.015 (1.005-1.030) Urine Protein Trace (NEG) mg/dl Urine Glucose (UA) Negative (NEG) mg/dL Urine Ketones Negative (NEG) Urine Occult Blood Negative (NEG) Urine Nitrate Negative (NEG) Urine Bilirubin Negative (NEG) Urine Urobilinogen 1.0 (0.2) EU/dL Ur Leukocyte Esterase Small (NEG) Urine RBC 1-3 (NONE) /hpf Urine WBC 15-20 (NONE) Ur Squamous Epith Cells Rare (NONE) Ur Renal Epithelial Cell None (NONE) Urine Crystals None Urine Bacteria Moderate (NONE) Urine Casts None (NONE) Urine Mucus None (NONE) Urine Trichomonas None (NONE) Urine Yeast None (NONE) Ur Culture Indicated? Culture set Assessment: Status post right hematoma evacuation doing well and right wrist fracture open reduction internal fixation doing well Plan: Patient will continue with current plan I think she is going to be transferred to swing bed by the hospitalist which I think is appropriate. The cultures which were taken at the time of surgery with a hematoma had no evidence of organisms on Gram stain and cultures were without growth. Continue with previous plan
[2016-11-12] MEDS: Metoprolol TARTRATE Tab 50 MG TAB PO SCH (08:30)
[2016-11-12] MEDS: metFORMIN ER 500 MG TABLET PO SCH (08:30)
[2016-11-12] MEDS: ASPIRIN EC 81 MG TABLET PO SCH (08:30)
[2016-11-12] MEDS: Multivitamin Tab 1 TAB PO SCH (08:30)
[2016-11-12] MEDS: LISINOPRIL 20 MG TABLET PO SCH (08:30)
[2016-11-12] MEDS: ALLOPURINOL 100 MG TABLET PO SCH (08:31)
[2016-11-12] MEDS: DOCUSATE 100 MG CAPSULE PO SCH (08:31)
[2016-11-12] MEDS: ACETAMINOPHEN 500 MG TABLET PO SCH ×2 (08:31→15:05)
[2016-11-12 12:20] VITALS: RESP 16; TEMP 97.8
--- NOTE | 2016-11-12 14:40 | DCSUMMARY ---
Hospitalization Summary Admit Date: 11/07/16 Discharge Date: 11/12/16 Primary Diagnosis:: hematoma following ORIF of right hip Hospital Course: This very pleasant 86-year-old female who was on the swing bed, but developed a hematoma that required surgical evacuation. She was on heparin for DVT prophylaxis and also on aspirin with the recent non-STEMI although negative for coronary artery disease on stress testing. That said, she went back to the operating room, and had 2 drains placed, and one of them has been removed and the other one will remain in place until or Thursday of this week. At this time, she's been doing well with physical therapy and occupational therapy, her blood counts have remained consistently in the tens to 11 range for her hemoglobin, and her only other complaint was urinary frequency and urgency. Her temperature max was 99, but a urinalysis shows contamination pattern and I think it was more due to the Lasix than anything. Blood pressures have been okay off of Lasix at this time. Blood pressures were elevated at one point, Lasix was attempted to bring them down, but again dysuria and urinary frequency prevented use of this. Systolic pressures have been noticeably in the 130s to 150s over the last 48 hours and I think it's tolerable. Given all this, discussion with the family, the patient and the family felt it was perfect go back to swing bed for continued rehabilitation, physical therapy and occupational therapy. Today, no completes of chest pain, shortness breath, nausea or vomiting. Patient states that she is sore but overall her pain is very well controlled on Tylenol alone. Assessment and Plan: 1. As per discharge assessments noted 2. Disposition: Patient is discharged to swing bed. 3. Condition on discharge, stable and improved. 4. Diet: regular diet 5. Activities: resume normal activities/as per PT and OT 6. Follow-Up: 1. Hospital service and orthopedic service will continue to follow the patient. 2. 7. Medications at the Time of Discharge: Home Medications Medication Instructions Recorded Confirmed Type Blood Sugar Diagnostic [Freestyle 1 each IN QID #120 strip 08/16/13 11/01/16 Clinic Lite Strips] Atorvastatin Calcium 1 tab PO QD #90 tab 06/23/16 11/01/16 Clinic Lisinopril 2 tab PO QD #180 tab 06/23/16 11/01/16 Clinic Metformin HCl [Metformin HCl ER] 2 tab PO BID #120 tab 08/04/16 11/01/16 Clinic Allopurinol 1 tab PO BID #180 tab 08/07/16 11/01/16 Clinic Dulaglutide [Trulicity] 1.5 mg SUBCUT WEEKLY #12 ml 08/07/16 11/01/16 Clinic Cholecalciferol [Vitamin D] 1,000 unit PO DAILY 09/15/16 11/01/16 History Metoprolol Tartrate 100 mg PO BID 09/15/16 11/01/16 History Multivitamin [Multivitamins] 1 tab PO DAILY 09/15/16 11/01/16 History Amlodipine Besylate [Norvasc] 10 mg PO DAILY #30 tab 10/30/16 11/01/16 Rx Magnesium Hydroxide Susp [Milk Of 30 ml PO DAILY PRN #30 cup 10/30/16 11/01/16 Rx Magnesia Susp] Acetaminophen [Tylenol] 1,000 mg PO TID tab 11/12/16 Rx Aspirin EC 81 mg PO Q48H tab 11/12/16 Rx Docusate Sodium [Colace] 100 mg PO BID cap 11/12/16 Rx Pantoprazole Sodium [Protonix] 40 mg PO AC DIN #90 tab 11/12/16 Rx 8. Time, care, counseling and coordination of care for this discharge is greater than 30 minutes. Exam - Vitals Vital Signs: Vital Signs Vital Signs - Last Taken Temperature 97.8 F 11/12/16 12:19 Pulse Rate 67 11/12/16 12:19 Respiratory Rate 16 11/12/16 12:19 Blood Pressure 135/61 11/12/16 12:19 Pulse Ox 92 11/12/16 12:19 - General General Appearance: POSITIVE: No Acute Distress, Cooperative - Respiratory Respiratory Exam: POSITIVE: Clear to Auscultation - Bilaterally, Breathing Non Labored - Cardiovascular Cardiovascular Exam: POSITIVE: RRR, No Murmur, No Clicks, No Gallops, No Rubs, No JVD - GI/Abdominal GI/Abdominal Exam: POSITIVE: Normal Bowel Sounds, Non Tender, Non Distended, Soft - Extremities Extremities Exam: POSITIVE: No Clubbing Present, No Edema Present, No Cyanosis Present - Neurological Neurological Exam: POSITIVE: Alert, Oriented x 3, Normal Gait (Good gait with standby assistance with gait belt and walker. Definitely will require walker indefinitely.), No Facial Droop, Speech Intact / Clear - Psychiatric Psychiatric Exam: POSITIVE: Normal Affect, Normal Mood Data Perinent Studies: Laboratory Results 11/07/16 11/07/16 11/08/16 Range/Units 11:20 14:00 04:50 WBC 7.48 7.67 (4.8-10.8) 10^3/uL RBC 4.12 L 3.30 L (4.20-5.40) 10^6/uL Hgb 11.8 L 9.3 L (12.0-16.0) g/dL Hct 37.0 29.8 L (37.0-47.0) % MCV 89.8 90.3 (81-99) FL MCH 28.6 28.2 (27-31) PG MCHC 31.9 L 31.2 L (33-37) g/dL RDW Std Deviation 54.4 H 53.3 H (39-50) fL RDW Coeff of Naveen 17.6 H 17.3 H (11.5-14.5) % Plt Count 411 H 304 (140-350) 10*3/uL MPV 10.2 10.9 (7.4-12.2) FL Immature Gran % (Auto) 0.4 0.3 (0-5) % Neut % (Auto) 53.0 63.2 (50-80) % Lymph % (Auto) 31.7 21.9 (10-50) % Ferry % (Auto) 10.6 10.7 (5-15) % Eos % (Auto) 3.1 3.4 (0-8) % Baso % (Auto) 1.2 H 0.5 (0-1) % Immature Gran # (Auto) 0.03 0.02 10*3/UL Neut # (Auto) 3.97 4.85 10*3/UL Lymph # (Auto) 2.37 1.68 10*3/uL Ferry # (Auto) 0.79 0.82 H (0.3-0.8) 10*3/UL Eos # (Auto) 0.23 0.26 10*3/UL Baso # (Auto) 0.09 0.04 10*3/UL WBC Morphology Comment Normal morphology Normal morphology (NORM) Plt Morphology Comment Normal morphology Normal morphology (NORM) RBC Morph Comment Normal morphology Normal morphology (NORM) PT 11.8 H (9.7-11.4) secs INR 1.14 (0.00-5.90) N/A APTT 36.2 H (22.6-31.3) SECS Sodium 139 137 (135-145) meq/L Potassium 3.8 3.3 L (3.8-5.2) meq/L Chloride 104 103 (98-112) meq/L Carbon Dioxide 24 28 (23-33) meq/L Anion Gap 11 6 (5-20) BUN 16 12 (7-22) mg/dL Creatinine 0.6 0.6 (0.50-1.20) mg/dL Estimated GFR (>60 ml/min/1.73m(2)) BUN/Creatinine Ratio 26.66 H 20.00 (6-20) Glucose 135 H 88 (78-110) mg/dL Calculated Osmolality 290.0 282.0 (267-292) mOsm/kg Calcium 8.7 8.3 L (8.7-10.7) mg/dL Total Bilirubin 1.0 (0.3-1.2) mg/dL AST 83 H (8-39) IU/L ALT 16 (9-52) IU/L Alkaline Phosphatase 69 (38-126) IU/L Total Protein 4.9 L (6.1-8.0) g/dL Albumin 2.5 L (3.5-4.8) g/dL Globulin 2.4 L (2.50-4.10) g/dL Albumin/Globulin Ratio 1.00 L (1.3-2.0) mg/g Ur Collection Type Urine Color Urine Clarity (CLEAR) Urine pH (5.0-8.5) Ur Specific [place] (1.005-1.030) Urine Protein (NEG) mg/dl Urine Glucose (UA) (NEG) mg/dL Urine Ketones (NEG) Urine Occult Blood (NEG) Urine Nitrate (NEG) Urine Bilirubin (NEG) Urine Urobilinogen (0.2) EU/dL Ur Leukocyte Esterase (NEG) Urine RBC (NONE) /hpf Urine WBC (NONE) Ur Squamous Epith Cells (NONE) Ur Renal Epithelial Cell (NONE) Urine Crystals Urine Bacteria (NONE) Urine Casts (NONE) Urine Mucus (NONE) Urine Trichomonas (NONE) Urine Yeast (NONE) Ur Culture Indicated? 04/23/17 04/24/17 04/25/17 Range/Units 05:20 04:54 14:09 WBC 7.74 6.64 (4.8-10.8) 10^3/uL RBC 3.70 L 3.83 L (4.20-5.40) 10^6/uL Hgb 10.5 L 10.9 L (12.0-16.0) g/dL Hct 33.4 L 34.6 L (37.0-47.0) % MCV 90.3 90.3 (81-99) FL MCH 28.4 28.5 (27-31) PG MCHC 31.4 L 31.5 L (33-37) g/dL RDW Std Deviation 56.1 H 56.4 H (39-50) fL RDW Coeff of Naveen 17.9 H 17.9 H (11.5-14.5) % Plt Count 303 276 (140-350) 10*3/uL MPV 10.7 10.4 (7.4-12.2) FL Immature Gran % (Auto) 0.3 0.2 (0-5) % Neut % (Auto) 59.4 50.9 (50-80) % Lymph % (Auto) 24.0 31.9 (10-50) % Ferry % (Auto) 11.4 10.5 (5-15) % Eos % (Auto) 4.4 5.7 (0-8) % Baso % (Auto) 0.5 0.8 (0-1) % Immature Gran # (Auto) 0.02 0.01 10*3/UL Neut # (Auto) 4.60 3.38 10*3/UL Lymph # (Auto) 1.86 2.12 10*3/uL Ferry # (Auto) 0.88 H 0.70 (0.3-0.8) 10*3/UL Eos # (Auto) 0.34 0.38 10*3/UL Baso # (Auto) 0.04 0.05 10*3/UL WBC Morphology Comment Normal morphology Normal morphology (NORM) Plt Morphology Comment Normal morphology Normal morphology (NORM) RBC Morph Comment Normal morphology Normal morphology (NORM) PT (9.7-11.4) secs INR (0.00-5.90) N/A APTT (22.6-31.3) SECS Sodium 138 (135-145) meq/L Potassium 4.7 D (3.8-5.2) meq/L Chloride 105 (98-112) meq/L Carbon Dioxide 26 (23-33) meq/L Anion Gap 7 (5-20) BUN 11 (7-22) mg/dL Creatinine 0.6 (0.50-1.20) mg/dL Estimated GFR (>60 ml/min/1.73m(2)) BUN/Creatinine Ratio 18.33 (6-20) Glucose 112 H (78-110) mg/dL Calculated Osmolality 285.0 (267-292) mOsm/kg Calcium 8.8 (8.7-10.7) mg/dL Total Bilirubin 0.9 (0.3-1.2) mg/dL AST 73 H (8-39) IU/L ALT 17 (9-52) IU/L Alkaline Phosphatase 76 (38-126) IU/L Total Protein 5.7 L (6.1-8.0) g/dL Albumin 2.9 L (3.5-4.8) g/dL Globulin 2.8 (2.50-4.10) g/dL Albumin/Globulin Ratio 1.00 L (1.3-2.0) mg/g Ur Collection Type Clean catch urine Urine Color Yellow Urine Clarity Slightly cloudy (CLEAR) Urine pH 6.5 (5.0-8.5) Ur Specific [place] 1.015 (1.005-1.030) Urine Protein Trace (NEG) mg/dl Urine Glucose (UA) Negative (NEG) mg/dL Urine Ketones Negative (NEG) Urine Occult Blood Negative (NEG) Urine Nitrate Negative (NEG) Urine Bilirubin Negative (NEG) Urine Urobilinogen 1.0 (0.2) EU/dL Ur Leukocyte Esterase Small (NEG) Urine RBC 1-3 (NONE) /hpf Urine WBC 15-20 (NONE) Ur Squamous Epith Cells Rare (NONE) Ur Renal Epithelial Cell None (NONE) Urine Crystals None Urine Bacteria Moderate (NONE) Urine Casts None (NONE) Urine Mucus None (NONE) Urine Trichomonas None (NONE) Urine Yeast None (NONE) Ur Culture Indicated? Culture set 11/12/16 Range/Units 05:14 WBC 6.02 (4.8-10.8) 10^3/uL RBC 3.85 L (4.20-5.40) 10^6/uL Hgb 11.0 L (12.0-16.0) g/dL Hct 34.7 L (37.0-47.0) % MCV 90.1 (81-99) FL MCH 28.6 (27-31) PG MCHC 31.7 L (33-37) g/dL RDW Std Deviation 57.4 H (39-50) fL RDW Coeff of Naveen 18.1 H (11.5-14.5) % Plt Count 274 (140-350) 10*3/uL MPV 10.1 (7.4-12.2) FL Immature Gran % (Auto) (0-5) % Neut % (Auto) (50-80) % Lymph % (Auto) (10-50) % Ferry % (Auto) (5-15) % Eos % (Auto) (0-8) % Baso % (Auto) (0-1) % Immature Gran # (Auto) 10*3/UL Neut # (Auto) 10*3/UL Lymph # (Auto) 10*3/uL Ferry # (Auto) (0.3-0.8) 10*3/UL Eos # (Auto) 10*3/UL Baso # (Auto) 10*3/UL WBC Morphology Comment (NORM) Plt Morphology Comment (NORM) RBC Morph Comment (NORM) PT (9.7-11.4) secs INR (0.00-5.90) N/A APTT (22.6-31.3) SECS Sodium (135-145) meq/L Potassium (3.8-5.2) meq/L Chloride (98-112) meq/L Carbon Dioxide (23-33) meq/L Anion Gap (5-20) BUN (7-22) mg/dL Creatinine (0.50-1.20) mg/dL Estimated GFR (>60 ml/min/1.73m(2)) BUN/Creatinine Ratio (6-20) Glucose (78-110) mg/dL Calculated Osmolality (267-292) mOsm/kg Calcium (8.7-10.7) mg/dL Total Bilirubin (0.3-1.2) mg/dL AST (8-39) IU/L ALT (9-52) IU/L Alkaline Phosphatase (38-126) IU/L Total Protein (6.1-8.0) g/dL Albumin (3.5-4.8) g/dL Globulin (2.50-4.10) g/dL Albumin/Globulin Ratio (1.3-2.0) mg/g Ur Collection Type Urine Color Urine Clarity (CLEAR) Urine pH (5.0-8.5) Ur Specific [place] (1.005-1.030) Urine Protein (NEG) mg/dl Urine Glucose (UA) (NEG) mg/dL Urine Ketones (NEG) Urine Occult Blood (NEG) Urine Nitrate (NEG) Urine Bilirubin (NEG) Urine Urobilinogen (0.2) EU/dL Ur Leukocyte Esterase (NEG) Urine RBC (NONE) /hpf Urine WBC (NONE) Ur Squamous Epith Cells (NONE) Ur Renal Epithelial Cell (NONE) Urine Crystals Urine Bacteria (NONE) Urine Casts (NONE) Urine Mucus (NONE) Urine Trichomonas (NONE) Urine Yeast (NONE) Ur Culture Indicated? Procedures: See procedure note by Dr. Jackson regarding hematoma evacuation. Patient Problems - Patient Problem List (1) Hematoma complicating a procedure Current Visit: Yes Status: Acute (2) Closed right hip fracture Current Visit: Yes Status: Chronic Qualifiers: Encounter type: subsequent encounter Fracture healing: with routine healing Qualified Description: Closed fracture of right hip, with routine healing, subsequent encounter Qualifier Code(s): (S72.001D) Fracture of unspecified part of neck of right femur, subsequent encounter for closed fracture with routine healing (3) Diabetes mellitus type II, controlled Current Visit: Yes Status: Chronic Qualifiers: Diabetes mellitus complication status: without complication 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 mellitus 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 technician insulin use: without retirement use Qualified Description : Controlled type 2 diabetes mellitus without complication, without long-term current use of insulin Qualifier Code(s): (E11.9) Type 2 diabetes mellitus without complications (4) Distal radius fracture, right Current Visit: Yes Status: Chronic Qualifiers: Encounter type: subsequent encounter Fracture type: closed Fracture morphology: other fracture Fracture healing: with routine healing Qualified Description: Other closed fracture of distal end of right radius with routine healing, subsequent encounter Qualifier Code(s): (S52.596S) Other fractures of lower end of right radius, subsequent encounter for closed fracture with routine healing (5) History of GI bleed Current Visit: No Status: Acute (6) Gouty arthropathy Current Visit: Yes Status: Chronic (7) Hypercholesterolemia Current Visit: Yes Status: Chronic (8) Hypertension Current Visit: Yes Status: Chronic Qualifiers: Hypertension type: essential hypertension Qualified Description: Essential hypertension Qualifier Code(s): (I10) Essential (primary) hypertension
--- NOTE | 2016-11-17 10:31 | PT AM DAY ---
Diagnosis : Weakness AM - Physical Therapy S: The patient states she is feeling better today. She slept better last night and was able to get more rest. O: The patient ambulated 75 feet to the wheelchair and was wheeled to the therapy gym where she received an application of moist heat pack x20 minutes including set up to her hip and arm. She then performed exercises including heel slides, quad sets, short arc quads, ankle pumps, hip abduction/adduction, pillow squeezes, seated long arc quads, heel/toe raises, marches, and sit to stands, all x10. The patient was left with OT for further care. A: The patient tolerated therapy well this morning. She continues to require min assist with transfers and ambulation. The patient would continue to benefit from skilled therapy at this time. P: Continue seeing patient BID during the week and one time per day over the weekend for transfers, ambulation, and range of motion/strengthening exercises. ELLY
--- NOTE | 2016-11-17 10:38 | PT PM DAY ---
Diagnosis : Weakness PM - Physical Therapy S: The patient states she is tired this afternoon; however, she is feeling better everyday. O: The patient ambulated 75 feet to the wheelchair and was wheeled to the therapy gym where she received an application of moist heat pack to her hip and arm x20 minutes. The patient worked with OT and then performed exercises in the form of heel slides, quad sets ankle pumps, and short arc quads, all x10. The patient performed sit to stands x5. The patient then ambulated 75 feet to the wheelchair and was wheeled back to her room where she was left in her chair with alarm and call light. A: The patient tolerated exercise well this afternoon. She continues to make gains with strength and endurance. She is able to walk further today vs. previous treatments. The patient would continue to benefit from skilled therapy. P: Continue seeing patient BID during the week and one time per day over the weekend for transfers, ambulation, and range of motion/strengthening exercises. ELLY
== END 2016-11-12 15:05 | disposition swing bed (61) | DRG 921 ==
LOC: MED/SURG 10:41 → OPS 12:15 → MED/SURG 16:48
PROVIDERS: ADMIT Internal Medicine; ATTEND Orthopaedic Surgery
DX: M96.840 Postprocedural hematoma of a musculoskeletal structure following a musculoskeletal system procedure (principal); S52.591D Other fractures of lower end of right radius, subsequent encounter for closed fracture with routine healing; E11.9 Type 2 diabetes mellitus without complications; M10.9 Gout, unspecified; E78.00 Pure hypercholesterolemia, unspecified; I10 Essential (primary) hypertension
CPT/HCPCS: 36415; 80048; 80053; 81001; 81003; 85025; 85027; 85610; 85730; 87070; 87075; 87088; 87205; 94150; 94761; 97110; 97164; 97168; 97530; 97535; A4216; J1170; J2001; J2250; J2405; J3010; J3370; J3490; J7040; J7120

== ENCOUNTER 2016-11-12 12:07 | Inpatient (IN) | payer OTHER, MEDICARE ==
[2016-11-12] MEDS ORDERED: MAGNESIUM 400 MG/5 ML - 30 ML (MILK OF MAGNESIA) PO PRN (14:45)
[2016-11-12] MEDS: ACETAMINOPHEN 500 MG TABLET PO SCH ×2 (15:26→21:32)
[2016-11-12] MEDS: ASPIRIN EC 81 MG TABLET PO SCH (15:26)
[2016-11-12] MEDS ORDERED: PANTOPRAZOLE 40 MG TABLET PO SCH (16:30)
--- NOTE | 2016-11-12 16:53 | OT.PROG ---
Progress Note Progress Note: S: Pt. reported feeling more energetic secondary to discontinuing her water pill and having to make less frequent transfers during the night. Nurse confirmed client's verbal report. O: Patient participated in 30 minute OT session to address decreased standing tolerance, balance and upper extremity ROM and strength. Pt. transferred from recliner into w/c with the use of hemiwalker and CGA to be transported down to the therapy gym. While standing at walker, pt. completed functional reaching activity with bilateral UEs. Pt. completed two sets of five dynamic reaches with each arm in all planes of motion. Pt. required four sitting rest breaks of three minutes in duration after each set of five functional reaches. During each rest break the pt. transferred from hemiwalker to sitting with CGA and from sitting to hemiwalker with CGA. Pt. required min. tactile cues to reach backwards to maintain balance when transferring into sitting and to push up from the seat when transferring into standing. Pt. also required min. verbal cues for hemiwalker positioning when completing transfers. Pt. was alert, attentive and oriented for 100% of the session and independently initiated participation. A: Pt.'s decreased standing tolerance, balance and upper extremity ROM and strength limit her ability to maintain functional independence. Pt. demos good progress by requiring CGA with all [id number] transfers in comparison to min. A from the previous session. Pt. demos good rehab potential by independently initiating participation in treatment session and maintaining level of alertness , attentiveness and orientation throughout the session. Pt. would benefit from continued skilled OT to address decreased standing tolerance, balance and UE ROM and strength. P: Pt. will continue skilled OT services 2x/day to address decreased standing tolerance, balance and UE ROM and strength to improve functional independence.
[2016-11-12] MEDS: ACIDOPHILUS/BULGARICUS CHEWABLE TABLET PO SCH (21:24)
[2016-11-12] MEDS: metFORMIN ER 500 MG TABLET PO SCH (21:32)
[2016-11-12] MEDS: ATORVASTATIN 40 MG TABLET PO SCH (21:32)
[2016-11-12] MEDS: Metoprolol TARTRATE Tab 50 MG TAB PO SCH (21:32)
[2016-11-12] MEDS: DOCUSATE 100 MG CAPSULE PO SCH (21:33)
[2016-11-13] MEDS: ACIDOPHILUS/BULGARICUS CHEWABLE TABLET PO SCH ×3 (07:45→16:59)
[2016-11-13] MEDS: DOCUSATE 100 MG CAPSULE PO SCH (09:26)
[2016-11-13] MEDS: LISINOPRIL 20 MG TABLET PO SCH (09:26)
[2016-11-13] MEDS: ACETAMINOPHEN 500 MG TABLET PO SCH ×3 (09:26→20:51)
[2016-11-13] MEDS: Multivitamin Tab 1 TAB PO SCH (09:26)
[2016-11-13] MEDS: Metoprolol TARTRATE Tab 50 MG TAB PO SCH ×2 (09:27→20:50)
[2016-11-13] MEDS: ALLOPURINOL 100 MG TABLET PO SCH (09:27)
[2016-11-13] MEDS: metFORMIN ER 500 MG TABLET PO SCH ×2 (09:28→20:50)
[2016-11-13] MEDS: CHOLECALCIFEROL 1000 IU TABLET PO SCH (09:28)
--- NOTE | 2016-11-13 16:40 | PDOC(PROG) ---
Date and Time of Service: 11/13/2016, 1534 Interval History: No chest pain. No shortness of breath. States her pain is well controlled and her wrist and her leg. States the diarrhea is better, but does not feel constipated, and was relieved to find that it was negative for C. difficile toxin. Eating very well. States therapy is going well. Wants to be on Protonix twice daily. Objective : Exam - General General Appearance: No Acute Distress, Cooperative Additional General Exam Details: Vital Signs - Last Taken Temperature 98.7 F 11/13/16 07:57 Pulse Rate 81 11/13/16 07:57 Respiratory Rate 17 11/13/16 07:57 Blood Pressure 144/70 11/13/16 07:57 Pulse Ox 90 11/13/16 07:57 - Eye Eye Exam: No Scleral Icterus - Respiratory Respiratory Exam: Clear to Auscultation - Bilaterally, Breathing Non Labored - Cardiovascular Cardiovascular Exam: RRR, No Murmur, No Clicks, No Gallops, No Rubs, No JVD - GI/Abdominal GI/Abdominal Exam: Non Tender, Non Distended, Soft - Extremities Extremities Exam: No Clubbing Present, No Edema Present, Joint Swelling (Right wrist swelling and elbow swelling has improved. Braces in place.) - Neurological Neurological Exam: Alert, Oriented x 3, No Facial Droop, Speech Intact / Clear Additional Neurological Exam Details: I saw the patient walks in the latter part of yesterday and she did very well with walker with standby assist and her endurance is still quite low, but I think that will improve with therapy on the swing bed. - Psychiatric Psychiatric Exam: Normal Affect, Normal Mood Assessment and Plan - Patient Problems (1) Weakness Current Visit: Yes Status: Acute (2) Status post right hip replacement Current Visit: Yes Status: Acute (3) Diabetes mellitus type II, controlled Current Visit: Yes Status: Chronic Qualifiers: Diabetes mellitus complication status: without complication Diabetes mellitus terminologist insulin use: without terminologist use Qualified Description : Controlled type 2 diabetes mellitus without complication, without long-term current use of insulin Qualifier Code(s): (E11.9) Type 2 diabetes mellitus without complications (4) Distal radius fracture, right Current Visit: Yes Status: Acute Qualifiers: Encounter type: subsequent encounter Fracture type: closed Fracture morphology: other fracture Fracture healing: with routine healing Qualified Description: Other closed fracture of distal end of right radius with routine healing, subsequent encounter Qualifier Code(s): (S52.591D) Other fractures of lower end of right radius, subsequent encounter for closed fracture with routine healing (5) Hypercholesterolemia Current Visit: Yes Status: Chronic (6) Hypertension Current Visit: Yes Status: Chronic Qualifiers: Hypertension type: essential hypertension Qualified Description: Essential hypertension Qualifier Code(s): (I10) Essential (primary) hypertension - Assessment / Plan Additional Assessment/Plan Details: Stop Colace. We've milk of magnesia when necessary in case constipation develops. Off of opiates, so hopefully constipation will become a problem but again addressed above. Continue PT and OT. Changed to consistent carbohydrate diet, continue metformin and trulicity. With a hematoma that had developed, no further DVT prophylaxis. It is too risky from a bleeding standpoint. Protonix to twice a day. Pending is still H. pylori antibody studies. If positive, then treat. Photo / Body Diagrams - Uploaded Photos Uploaded Photos:
--- NOTE | 2016-11-13 16:42 | OT.PROG ---
Progress Note Progress Note: S: pt stated she has a meeting at 3 about her care. O: pt was seen in therapy in the P.m. after PT finished up their portion of tx. While in supine position pt completed cane activity in Bilateral shoulder flex, hor abd/add and press to increase her RUE function and movement. Pt needed Max a to complete bed mobility. she sat on EOB and completed functional reaching activity while crossing midline with L and R. She did use her R hand to grasp ball using tips of her fingers. Pt received manual therapy in form of PROM to RUE to increase ROM and to ensure function when strength returns. pt returned to her room after completing transfer approx 50 ft and was left upright in chair with call light within reach and alarm on. Family was present to take part in care plan. A: pt fatigues easily in afternoon, especially if she has not had adequate sleep. She may be a good candidate for SB next week or two, depending on how strength returns. She does have help at home. P: continue per plan of care.
[2016-11-13] MEDS: PANTOPRAZOLE 40 MG TABLET PO SCH (16:59)
[2016-11-13] MEDS: ATORVASTATIN 40 MG TABLET PO SCH (20:50)
[2016-11-14] MEDS: PANTOPRAZOLE 40 MG TABLET PO SCH ×2 (07:55→17:36)
[2016-11-14] MEDS: ACIDOPHILUS/BULGARICUS CHEWABLE TABLET PO SCH ×3 (07:55→17:36)
[2016-11-14] MEDS: Multivitamin Tab 1 TAB PO SCH (09:14)
[2016-11-14] MEDS: CHOLECALCIFEROL 1000 IU TABLET PO SCH (09:14)
[2016-11-14] MEDS: Metoprolol TARTRATE Tab 50 MG TAB PO SCH ×2 (09:14→20:03)
[2016-11-14] MEDS: LISINOPRIL 20 MG TABLET PO SCH (09:14)
[2016-11-14] MEDS: ACETAMINOPHEN 500 MG TABLET PO SCH ×3 (09:14→20:04)
[2016-11-14] MEDS: ALLOPURINOL 100 MG TABLET PO SCH (09:14)
[2016-11-14] MEDS: metFORMIN ER 500 MG TABLET PO SCH ×2 (09:14→20:03)
--- NOTE | 2016-11-14 12:05 | OT.PROG ---
Progress Note Progress Note: S: Pt. reported significant soreness in her R shoulder secondary to her exercises and level of activity the day prior. She verbalized feeling more alert and ready for therapy. O: Pt. participated in 30 minute OT session to address UE strength. Session began when therapist entered the room and pt. was sitting in recliner. Pt. required min A to slide to the edge of the chair and min A to maintain balance while performing a [id number] transfer to hemiwalker. Pt. required CGA to maintain balance and walker safety while ambulating 90 feet. She required CGA to perform [id number] transfer into w/c to be transported down to therapy. Pt. completed 10 repetitions each of resistance arm exercises with red level theraband for the L UE and gravity resistance for the R UE to strengthen; elbow flexion, elbow extension, IROT, EROT, shoulder flexion, shoulder extension and shoulder abduction. Pt. required three rest breaks of one minute in length each during exercises. Pt. remained alert, attentive and oriented for the duration of the session. A: Pt.'s limited UE strength inhibits her ability to achieve maximal functional independence. Pt. demos good progress by requiring only three rest breaks, ambulating a total of 90 feet with zero rest breaks and requiring CGA while ambulating. Pt. demos good rehab potential by remaining alert, attentive and oriented for the duration of her therapy sessions. Pt. would benefit from continued skilled OT to address decreased bilateral UE strength. P: Pt. will continue skilled OT services 2x/day to address decreased bilateral UE strength for an improvement in functional independence.
[2016-11-14] MEDS ORDERED: Loperamide Tab 2 MG TABLET PO PRN (14:41)
[2016-11-14] MEDS: ASPIRIN EC 81 MG TABLET PO SCH (15:38)
--- NOTE | 2016-11-14 15:56 | OT.PROG ---
Progress Note Progress Note: S: Pt. verbalized that her R hip and R UE hurt more than normal secondary to skipping her acetaminophen earlier in the day. O: Pt. participated in 20 minute OT session to address decreased standing balance and UE strength. Pt. required min A to move R leg when completing a [id number] transfer. Pt. required CGA to perform [id number] transfer to hemiwalker. Pt. completed 7 minutes of functional reaching with an emphasis on spontaneous use of bilateral UEs through the use of a passing activity. Pt. required one three minute rest break after completing first functional reaching activity. Pt. again required CGA to perform [id number] transfer to hemiwalker after rest break. Pt. then completed 5 minutes of UE conditioning utilizing a 1 ft. therapy ball. Pt. then ambulated 121 ft. with CGA and a hemiwalker to maintain balance. Pt. then required min A to sit in w/c for transport back to room. Pt. required CGA to perform [id number] transfer from w/c to recliner and was DEP to reposition herself in the recliner. Pt. remained alert, attentive and oriented for the duration of the session. A: Pt.'s decreased standing balance and UE strength limit her ability to achieve maximum functional independence. Pt. demos good progress by ambulating 121 ft. and requiring only CGA for bal-kv-[id number] transfers for the duration of the session. Pt. demos good rehab potential by remaining alert, attentive and oriented throughout the therapy session. Pt. would benefit from continued skilled OT to address decreased standing balance and UE strength. P: Pt. will continue skilled OT services 2x/day to improve standing balance and UE strength.
--- NOTE | 2016-11-14 16:47 | PT.PROG ---
Progress Note Progress Note: S. Patient stated that she is feeling good this morning. O. patient ambulated 75 feet to the the wheelchair and was wheeled to the therapy gym where she had heat and performed exercises in the form of; heel slides, quad sets, ankle pumps, short arc quads, seated marches, long arc quads and sit to stands all 10. Patient ambulated 60 feet to the wheelchair and was returned to her room where she was left in her chair with alarm and call light. A. Patient tolerated exercises well. She continues to gain strength and mobility. She continues to require min assist with transfers and ambulation. She was able to perform bed mobility much easier today compared to previous treatments. Patient would continue to benefit from skilled therapy at this time. P. Continue POC.
--- NOTE | 2016-11-14 16:51 | PT.PROG ---
Progress Note Progress Note: S. patient stated that she feels that she is getting stronger and is making gains. O. patient ambulated 90 feet to the wheelchair and was wheeled to the therapy gym where she had heat and performed exercises in the form of; heel slides, quad sets, ankle pumps, short arc quads, seated marches, long arc quads and sit to stands all x 10. Patient performed bed mobility x3. Patient was left with OT for further therapy. A. Patient tolerated exercises well this afternoon, she continues to make gains with strength, mobility and endurance. Patient was able to perform bed mobility with min assist. Patient continues to make gains with strength and endurance. Patient would continue to benefit from skilled therapy at this time. P. Continue POC.
--- NOTE | 2016-11-14 17:03 | ORTHO.PROG ---
Last Taken Vital Signs: Vital Signs - Last Taken Temperature 98.4 F 11/14/16 09:44 Pulse Rate 83 11/14/16 08:00 Respiratory Rate 16 11/14/16 08:00 Blood Pressure 161/80 11/14/16 08:00 Pulse Ox 95 11/14/16 08:00 Subjective: Patient doing well today with no complaints of pain or discomfort Objective: Lateral hip incision the suction dressing was removed, this dressing is clean and dry no evidence of hematoma or evidence of infection. Vital Signs (24 hrs) Temp Pulse Resp BP Pulse Ox 11/14/16 09:44 98.4 F 11/14/16 08:00 98.4 F 83 16 161/80 95 11/14/16 07:00 20 11/14/16 05:07 92 11/13/16 19:00 98.1 F 87 20 130/68 92 Assessment: PREVENA Dressing removed and a Silverlon dressing applied no evidence of hematoma she is doing well. Right wrist fracture also doing well in Thermoplast splint Plan: Continue with physical therapy and occupational therapy Plan on removal of shell at around 12-14 days
[2016-11-14] MEDS: ATORVASTATIN 40 MG TABLET PO SCH (20:03)
[2016-11-15] MEDS: PANTOPRAZOLE 40 MG TABLET PO SCH ×2 (08:09→17:15)
[2016-11-15] MEDS: ACIDOPHILUS/BULGARICUS CHEWABLE TABLET PO SCH ×3 (08:10→17:14)
[2016-11-15] MEDS: metFORMIN ER 500 MG TABLET PO SCH ×2 (09:28→20:41)
[2016-11-15] MEDS: CHOLECALCIFEROL 1000 IU TABLET PO SCH (09:29)
[2016-11-15] MEDS: LISINOPRIL 20 MG TABLET PO SCH (09:29)
[2016-11-15] MEDS: ACETAMINOPHEN 500 MG TABLET PO SCH ×3 (09:29→20:41)
[2016-11-15] MEDS: Metoprolol TARTRATE Tab 50 MG TAB PO SCH ×2 (09:29→20:41)
[2016-11-15] MEDS: ALLOPURINOL 100 MG TABLET PO SCH (09:30)
[2016-11-15] MEDS: Multivitamin Tab 1 TAB PO SCH (09:30)
[2016-11-15] MEDS ORDERED: traMADol 50 MG TABLET PO ONE ×2 (17:07→17:14)
[2016-11-15] MEDS: ATORVASTATIN 40 MG TABLET PO SCH (20:41)
[2016-11-16] MEDS: PANTOPRAZOLE 40 MG TABLET PO SCH ×2 (07:59→16:28)
[2016-11-16] MEDS: ACIDOPHILUS/BULGARICUS CHEWABLE TABLET PO SCH ×3 (07:59→16:31)
[2016-11-16] MEDS: ACETAMINOPHEN 500 MG TABLET PO SCH ×3 (08:56→20:28)
[2016-11-16] MEDS: metFORMIN ER 500 MG TABLET PO SCH ×2 (08:57→20:28)
[2016-11-16] MEDS: LISINOPRIL 20 MG TABLET PO SCH (08:57)
[2016-11-16] MEDS: CHOLECALCIFEROL 1000 IU TABLET PO SCH (08:58)
[2016-11-16] MEDS: Multivitamin Tab 1 TAB PO SCH (08:58)
[2016-11-16] MEDS: ALLOPURINOL 100 MG TABLET PO SCH (08:58)
[2016-11-16] MEDS: Metoprolol TARTRATE Tab 50 MG TAB PO SCH ×2 (08:58→20:28)
--- NOTE | 2016-11-16 10:50 | PDOC(PROG) ---
Date and Time of Service: 11/16/2016 10:46 AM Interval History: Subjective Patient is denying new symptoms, no constipation, she had some pain earlier in the hip while working with physical therapy but it's better now. There was a hematoma in the right the thigh she had surgery and that was evacuated and she was switched to inpatient and now she is back on swing bed to continue physical therapy. Objective : Exam - General General Appearance: No Acute Distress, Cooperative - Head Head Exam: Normal Inspection, Atraumatic - Eye Eye Exam: Normal Appearance - ENT ENT Exam: Normal Exam - Neck Neck Exam: Normal Inspection - Respiratory Respiratory Exam: Clear to Auscultation - Bilaterally - Cardiovascular Cardiovascular Exam: RRR - GI/Abdominal GI/Abdominal Exam: Normal Bowel Sounds, Non Tender, Non Distended, Soft - Rectal Rectal Exam: Deferred - External Exam: Deferred - Extremities Extremities Exam: Normal Inspection Additional Extremities Exam Details: Wound looks clean - Back Back Exam: Normal Inspection - Neurological Neurological Exam: Alert, Oriented x 3, CN II-XII Intact, Moves All Extremities Equally - Psychiatric Psychiatric Exam: Normal Affect - Integumentary Integumentary Exam: Normal Color Additional Integumentary Exam Details: Her wound looks clean Assessment and Plan - Patient Problems (1) Hematoma complicating a procedure Current Visit: No Status: Acute Comment: Wound looks clean continue PT and OT. (2) Closed right hip fracture Current Visit: No Status: Chronic Comment: Status post surgery continue PT and OT Qualifiers: Encounter type: subsequent encounter Fracture healing: with routine healing Qualified Description: Closed fracture of right hip, with routine healing, subsequent encounter Qualifier Code(s): (S72.001D) Fracture of unspecified part of neck of right femur, subsequent encounter for closed fracture with routine healing (3) Diabetes mellitus type II, controlled Current Visit: Yes Status: Chronic Comment: Same medications Qualifiers: Diabetes mellitus complication status: without complication Diabetes mellitus nursing home insulin use: without terminologist use Qualified Description : Controlled type 2 diabetes mellitus without complication, without long-term current use of insulin Qualifier Code(s): (E11.9) Type 2 diabetes mellitus without complications (4) Hypertension Current Visit: Yes Status: Chronic Comment: Same med Qualifiers: Hypertension type: essential hypertension Qualified Description: Essential hypertension Qualifier Code(s): (I10) Essential (primary) hypertension (5) Hypercholesterolemia Current Visit: Yes Status: Chronic Comment: Same med Photo / Body Diagrams - Uploaded Photos Uploaded Photos:
--- NOTE | 2016-11-16 11:53 | PT.PROG ---
Progress Note Progress Note: S: Pt. states she is doing ok. O: Treatment consisted of transporting patient to clinic where she received moist heat to hip while performing B UE exercises: bicep curls, IR/ER, rows, bench press; B LE saw, sit to stands x 10, box step ups wtih #2 box x 5, 4 way ankle theraband x 10. She also ambulated approx 30 feet x 1 with walker. Pt. was taken back up to her room and placed in her recliner with call button and nursing notified. A: Pt. continues to present with poor tolerance to ambulating as well as strengthening activities. She attempts most very exercises but is still weak. She continues to benefit from skilled therapeutic intervention to address these areas. P: Continue per POC to increase strength and activity tolerance. Natty Holliday, RETAIL AGENT
--- NOTE | 2016-11-16 11:56 | PT.PROG ---
Progress Note Progress Note: S: Pt. states she is doing good today. O: Treatment consisted of transporting patient down the out patient clinic where she received moist heat while performing B UE bicep curls, shoulder extension, IR/ER, bench press with 3#; B LE saq, sit to stands x 10, ball squeezes, ankle pumps, box step ups with #2 box and walking x 40 feet x 1. Pt. was placed in her recliner with call button and nursing notified. A: Pt. continues to participate in exercises. Her walking is improving as well as her strength. She fatigues quickly and requires rest breaks. Otherwise progressing well with therapy. P: Continue per POC to increase strength and activity tolerance. Natty Holliday, DIRECTOR OF TECHNOLOGY
[2016-11-16] MEDS: ASPIRIN EC 81 MG TABLET PO SCH (16:28)
[2016-11-16] MEDS: ATORVASTATIN 40 MG TABLET PO SCH (20:28)
[2016-11-17] MEDS: PANTOPRAZOLE 40 MG TABLET PO SCH ×2 (07:57→17:01)
[2016-11-17] MEDS: ACIDOPHILUS/BULGARICUS CHEWABLE TABLET PO SCH ×3 (07:57→17:01)
[2016-11-17] MEDS: LISINOPRIL 20 MG TABLET PO SCH (08:45)
[2016-11-17] MEDS: CHOLECALCIFEROL 1000 IU TABLET PO SCH (08:45)
[2016-11-17] MEDS: ACETAMINOPHEN 500 MG TABLET PO SCH ×3 (08:45→21:05)
[2016-11-17] MEDS: Metoprolol TARTRATE Tab 50 MG TAB PO SCH ×2 (08:45→21:05)
[2016-11-17] MEDS: metFORMIN ER 500 MG TABLET PO SCH ×2 (08:45→21:05)
[2016-11-17] MEDS: Multivitamin Tab 1 TAB PO SCH (08:45)
[2016-11-17] MEDS: ALLOPURINOL 100 MG TABLET PO SCH (08:45)
--- NOTE | 2016-11-17 10:49 | PTI REPORT ---
Thank you for the referral of Raymon Aaron. She was seen on 11/13/16 for a swingbed evaluation secondary to weakness. SUBJECTIVE: The patient is an 86-year-old female who sustained a hip fracture and subsequent ORIF of the hip approximately two and a half weeks ago. She was most recently taken back to the OR for an I&D of the hip incision and resulting hematoma from surgery. She has been taken out of her acute care status from that surgery and she is back into swingbed status for rehabilitation. PAST MEDICAL HISTORY: Past medical history can be found in the patient's medical record. OBJECTIVE FINDINGS: General observations: The patient is alert and oriented this morning. She was a little upset because we were there during her breakfast time the first go around and getting a schedule for rehab/nursing/breakfast, etc. is going to be important during her care. Strength: Right lower extremity is 2/5 for hip strength and 3-/5 for knee and ankle strength. Left side is 3-/5 throughout. Transfers: The patient still needs supervision or stand by assist at all times for all of her transfers and is a high risk for falling. Ambulation: The patient can ambulate with a walker approximately 15 feet before fatigue or refusing to go any further. ASSESSMENT: Problem List: Decreased strength Decreased endurance Decreased independence Decreased functional mobility Short-Term Goals: To be met by discharge from swingbed: Patient will be independent with all transfers with least restrictive assistive device. Patient will be able to ambulate 150 feet with least restrictive assistive device independently. Patient will be able to tolerate 30 minutes of activity in order to improve endurance. Long-Term Goals: To be met following discharge from swingbed: Patient will be able to return to least restrictive assistive device. Patient will be able to perform all activities of daily living independently. TREATMENT PLAN: Patient will be seen B.I.D during the week and one time per day over the weekend as a swingbed patient for transfer training, ambulatory activities, gait training, pain relief modalities, and strengthening to all four extremities. INITIAL TREATMENT: Treatment today consisted of the swingbed evaluation. The patient was brought to the department via wheelchair and was seen initially for some moist heat to the back and hip. We then worked on open chain exercises including heel slides , quad sets, short arc quads, sit to stands, and transfers. She can ambulate with a walker approximately 15 feet before fatigue or refusing to go any further. ELLY
--- NOTE | 2016-11-17 14:38 | OTI REPORT ---
Thank you for the referral of Raymon Aaron. She was seen on 11/13/16 for a swingbed evaluation secondary to weakness. SUBJECTIVE: The patient is an 86-year-old female. The patient reports that she is doing a little better since the second surgery. The patient's goal is to get back home. The patient does have a caregiver that has been helping her in the room and this caregiver will follow her to home. The patient initially fell in her kitchen while trying to make coffee. The patient does live in her home with her . The home is handicap accessible. The patient states she has a walk in shower with grab bars. At this point in time the patient does not sit on a seat when showering. She also has grab bars by her toilet. The patient states she was usually independent with dressing herself. The patient states she did have help with her household tasks including laundry and cleaning and her and her just started getting meals on wheels which she states had been a big help. The patient was not using adaptive devices besides her wheeled walker before her admission and fall. PAST MEDICAL HISTORY: Past medical history can be found in the patient's medical record. OBJECTIVE FINDINGS: Activities of daily living: The patient requires max assist for lower extremity dressing and mod assist for upper extremity dressing. Transfers: Functional transfers are difficult for the patient. The patient requires min assist for sit to stand transfers. Bed mobility: The patient requires max assist for bed mobility. Ambulation: The patient requires contact guard to stand by assist when ambulating with her layne-walker. Endurance: The patient does fatigue slightly easy. Range of motion: The patient has right upper extremity range of motion that is within normal limits. On the right side she has 110 degrees of active shoulder motion. Strength: Strength is 3+/5 throughout the left upper extremity. Strength in the right shoulder is 3/5 within her available range of motion. ASSESSMENT: The patient would benefit from skilled occupational therapy to improve her independence and strength as much as possible before returning home. She will have a caregiver throughout the day but may not have a caregiver at night and her is concerned about her abilities to get up in the middle of the night and go to the bathroom. He would like her to really improve in this area so that he does not have to worry about her falling. Problem List: Decreased ability to perform activities of daily living Decreased upper extremity range of motion Decreased upper extremity strength Decreased activity tolerance Decreased ability to perform functional transfers Short-Term Goals: To be met by discharge from swingbed: Patient will be able to complete a shower with 75% independence with transfers and ability to shower self. Patient will be able to dress lower extremities with mod assist and upper extremities with min assist. Patient will be able to complete a toilet transfer and complete toilet hygiene with contact guard assist. Patient will improve upper extremity strength in the right arm to 4+/5. Long-Term Goals: To be met following discharge from swingbed: Patient will return home with 24-hour care between a caregiver and her family, demonstrating safety with functional transfers with a minimum of contact guard assist. TREATMENT PLAN: Patient will be seen B.I.D during the week and one time per day over the weekend as a swingbed patient to address the above goals and objectives. INITIAL TREATMENT: Treatment today consisted of the swingbed evaluation followed by the patient completing functional reaching activities while in a standing position. We worked her right upper extremity with yellow theraband for shoulder extension and light yellow theraband for left elbow internal/external shoulder extension, shoulder adduction, and triceps. MTDD
[2016-11-17] MEDS: ATORVASTATIN 40 MG TABLET PO SCH (21:05)
[2016-11-18] MEDS: ACIDOPHILUS/BULGARICUS CHEWABLE TABLET PO SCH ×3 (07:21→16:50)
[2016-11-18] MEDS: PANTOPRAZOLE 40 MG TABLET PO SCH ×2 (07:21→16:50)
[2016-11-18] MEDS: ALLOPURINOL 100 MG TABLET PO SCH (09:07)
[2016-11-18] MEDS: metFORMIN ER 500 MG TABLET PO SCH ×2 (09:07→20:11)
[2016-11-18] MEDS: ACETAMINOPHEN 500 MG TABLET PO SCH ×3 (09:07→20:11)
[2016-11-18] MEDS: LISINOPRIL 20 MG TABLET PO SCH (09:07)
[2016-11-18] MEDS: Metoprolol TARTRATE Tab 50 MG TAB PO SCH ×2 (09:07→20:11)
[2016-11-18] MEDS: Multivitamin Tab 1 TAB PO SCH (09:07)
[2016-11-18] MEDS: CHOLECALCIFEROL 1000 IU TABLET PO SCH (09:08)
--- NOTE | 2016-11-18 12:36 | PT.PROG ---
Progress Note Progress Note: S. Patient stated that she is feeling good this morning. O. Patient ambulated 60 feet to the wheelchair and was wheeled to the therapy gym where she had heat and performed exercises in the form of; quad sets, heel slides, short arc quads, ankle pumps (red thera band), all x 20, sit to stands x 10. Patient ambulated 70 feet to the wheelchair and was wheeled back to her room and was left in her chair with alarm and call light. A. Patient tolerated therapy well this morning, she is making gains with strengthening and mobility, she continues to require min assist with transfers, and would continue to benefit from skilled therapy at this time. P. continue POC.
[2016-11-18] MEDS: ASPIRIN EC 81 MG TABLET PO SCH (15:10)
--- NOTE | 2016-11-18 17:05 | OT.PROG ---
Progress Note Progress Note: S: pt stated that she just got done with shower and breakfast O: pt was seen in the am and was transferred downstairs in w/c. She completed transfer from w/c to EOB completing bed mobility with mod Ind. After PT she then sat up with min A and completed RTB in all ranges and completed transfer to elevator apprx 120 ft. pt practiced getting into/out of bed with mod Ind. A: pt would continue to benefit from therapy to increase Ind with bed mobility. P: continue per plan of care.
--- NOTE | 2016-11-18 17:25 | PT.PROG ---
Progress Note Progress Note: S. Patient stated that she is feeling better this afternoon. She reports that she feels better everyday. O. Patient ambulated 75 feet to the wheelchair and was wheeled to the therapy gym where she had heat and performed exercises in the form of; heel slides, quad sets, ankle pumps, short arc quads all x 15. Patient performed supine to sit transfer x 2, then performed sit to stands x 10. Patient ambulated 175 feet back to her room where she was left with OT for further care. A. Patient tolerated therapy very well this afternoon, she was able to ambulate the full distance with CGA, she continues to require verbal cues to stay motivated however. She would continue to benefit from skilled therapy at this time. P. Continue POC.
[2016-11-18] MEDS: ATORVASTATIN 40 MG TABLET PO SCH (20:11)
[2016-11-19] MEDS: ACIDOPHILUS/BULGARICUS CHEWABLE TABLET PO SCH ×3 (07:21→16:46)
[2016-11-19] MEDS: PANTOPRAZOLE 40 MG TABLET PO SCH ×2 (07:22→16:06)
--- NOTE | 2016-11-19 09:21 | OT.PROG ---
Progress Note Progress Note: S: pt was in bed upon arrival. pt had completed breakfast and was ready for therapy. O: pt was able to complete bed mobility supine to sit from a full flat supine position with 10% assist. pt then completed LE dressing with 10% assist to get the pants over her feet. pt lost her balance backwards 2 times while trying to get her pants pulled up. pt then dressed UE with CGA only. pt was able to ambulate to the bathroom and complete clothing management with 10% assist to help with clothing over the bandage which was causing pain. pt ambulated another 75 feet to the wheelchair where she was brought downstairs for therapy. pt transferred to the mat table with SBA only. A: pt is improving and is hoping to go home next week. She will require care during transfers for safety P: pt is continuing to improve with transfers and I. we will continue to see her 2 times a day till discharge home
[2016-11-19] MEDS: metFORMIN ER 500 MG TABLET PO SCH ×2 (09:45→21:01)
[2016-11-19] MEDS: ALLOPURINOL 100 MG TABLET PO SCH (09:46)
[2016-11-19] MEDS: LISINOPRIL 20 MG TABLET PO SCH (09:46)
[2016-11-19] MEDS: ACETAMINOPHEN 500 MG TABLET PO SCH ×3 (09:46→21:00)
[2016-11-19] MEDS: Multivitamin Tab 1 TAB PO SCH (09:46)
[2016-11-19] MEDS: CHOLECALCIFEROL 1000 IU TABLET PO SCH (09:47)
[2016-11-19] MEDS: Metoprolol TARTRATE Tab 50 MG TAB PO SCH ×2 (09:47→21:00)
--- NOTE | 2016-11-19 14:44 | OT AM DAY ---
Diagnosis : Weakness AM - Occupational Therapy S: The patient states she is kind of sleepy. She states she did have a fairly good weekend. O: The patient was seen in her room. She completed transfer down to the therapy gym with PT. Once in therapy the patient completed bench press with bilateral upper extremities with cane followed by red theraband resisted triceps and biceps, mainly with her left upper extremity as the right is still painful and in a splint, all to increase her upper extremity strength to assist with postural transitions. She also completed cane exercises with bilateral upper extremities including biceps flexion x15 to assist with movement of her right upper extremity. The patient then walked from bed to door before being transferred back to her room. A: The patient would continue to benefit from therapy to increase her functional transfers in and out of bed and her overall activity tolerance with transfers. P: Continue seeing patient BID during the week and one time per day over the weekend for upper extremity strengthening, ADLs, and overall functional mobility. ELLY
--- NOTE | 2016-11-19 15:04 | OT PM DAY ---
Diagnosis : Weakness PM - Occupational Therapy S: The patient states she is tired. She understands what she needs to do in order to go home. O: The patient was seen in her room. She completed postural transition from sit to stand with min assist and completed transfer approximately 150 feet before sitting in wheelchair and transferring the rest of the way to therapy. Once in therapy she completed transfer approximately 8 feet from wheelchair to edge of bed where we worked on getting into supine position independently. The patient completed this the first attempt with min assist. Following PT session , we worked on this again and the patient was able to complete this with modified independence. She needed min assist to go from supine to edge of bed. The patient completed box step ups on the #1 box x10 to increase function of her lower extremities. The patient then transferred back upstairs via wheelchair and she practiced getting into bed. The patient was able to complete this with modified independence. As long as the patient had a grab bar she was able to complete supine to edge of bed transfer with modified independence. She completed sit to stand transfer with modified independence and transferred to recliner where she was left with call light within reach and alarm on. A: The patient would continue to benefit from therapy to work on her functional ability to get in and out of bed to prepare her for home. P: Continue seeing patient BID during the week and one time per day over the weekend for upper extremity strengthening, ADLs, and overall functional mobility. MTDD
--- NOTE | 2016-11-19 15:40 | PT AM DAY ---
Diagnosis : Weakness AM - Physical Therapy S: The patient is doing well this morning. She did participate in occupational therapy prior to physical therapy. O: After receiving moist heat to her hip and wrist, the patient was instructed in therapeutic exercise 10x each of the following: ankle pumps, hip abduction/adduction, short arc quads, heel slides, quad sets, sit to stand transfers, seated alternating long arc quads, seated alternating marching, pillow squeezes for hip adduction, resisted hip abduction with red theraband, and heel/toe raises. The patient does require assist of one for getting into and out of a supine position. At the end of treatment the patient was able to ambulate x50 feet and was brought up to her room and left in her bed with alarm set and call light within reach. A: The patient is making improvements with her endurance and also her walking distance. The patient still is struggling with her transfers into and out of bed which will be something that we will continue to work on. P: Continue seeing patient BID during the week and one time per day over the weekend for transfers, ambulation, and range of motion/strengthening exercises. MTDD
--- NOTE | 2016-11-19 15:59 | PT PM DAY ---
Diagnosis : Weakness PM - Physical Therapy S: The patient states she is doing well this afternoon with no new complaints. The patient did receive heat prior to start of exercises. O: Treatment consisted of the patient performing therapeutic exercises and functional activities including glut squeezes, quad sets, heel slides, four way ankle exercises, and short arc quads. The patient required assist of one to move from a supine to seated position. In a seated position the patient performed resisted hip abduction, pillow squeezes for hip adduction, alternating long arc quads, and sit to stand transfers x10 with rest breaks. The patient was able to ambulate 50 feet at end of treatment with walker and contact guard assist x1 for safety. A: The patient continues to be making improvements with therapy. Our biggest limitation at this time continues to be her transfers. She will continue to benefit from therapy to address these limitations in order for her to return back home safely. P: Continue seeing patient BID during the week and one time per day over the weekend for transfers, ambulation, and range of motion/strengthening exercises. ELLY
--- NOTE | 2016-11-19 16:28 | PT.PROG ---
Progress Note Progress Note: S. Patient stated that she is feeling alright today. O. patient ambulated 175 feet to the therapy gym where she had heat and performed exercises in the form of; heel slides, quad sets, ankle pumps, seated marches, long arc quads, heel toe raises, clamshells, resisted knee flexion (red ) all x20 bilaterally. Patient performed sit to stands x 10, then ambulated 50 feet to the wheelchair and was wheeled to her room where she was left in her chair with alarm and call light. A. Patient tolerated exercises fair, she continues to have weakness and fatigues easily. Patient continues to require SBG assist with supine to sit transfers. Patient would continue to benefit from skilled therapy at this time. P. Continue POC.
--- NOTE | 2016-11-19 16:37 | OT.PROG ---
Progress Note Progress Note: S: pt stated that she wants to know how long she has to wear splint. She does report elbow pain. O: pt was seen in her room in the p.m. She completed transfer from chair to EOB approx 10 ft. She practiced bed mobility, from sitting up to supine Mod Ind , from supine to EOB Mod Ind with minimal cues. After this she did report small amount of pain in her hip. She then transferred approx 300 ft with CGA taking 2 breaks. She completed x1 more bed mobility tasks completing with MOd Ind. After receiving heat PT took over tx. A: pt would continue to benefit from therapy to improve and ensure safe and pain free transition with bed mobility. She has improved with sitting up to supine but could require more practice to go supine to EOB. Pt will have hospital bed that will assist with this transition. P: continue per plan of care.
--- NOTE | 2016-11-19 16:47 | ORTHO.PROG ---
Last Taken Vital Signs: Vital Signs - Last Taken Temperature 97.4 F 11/19/16 07:00 Pulse Rate 76 11/19/16 07:00 Respiratory Rate 20 11/19/16 07:00 Blood Pressure 146/77 11/19/16 07:00 Pulse Ox 92 11/19/16 07:00 Subjective: Patient with right hemiarthroplasty of right wrist open reduction internal fixation overall doing well about 4 weeks out from her injury complicating matters about 10 days ago patient had a large hematoma which started to drain we took her back to surgery did incision drainage and a superficial and deep drain and patient has done well. She states her hip feels good. Wondering when she can take off her wrist splint. Objective: Examination shows a swelling is gone down considerably in the wrist splint. She has reasonable extension of the digits and reasonable flexion to the limits of the brace she does have arthritic changes of sensory exam is intact no evidence of infection as far as the hip incision this looks clean and dry no evidence of infection motor and sensory exam in the upper and lower extremity is good no focal findings. Assessment: Right distal radius fracture open reduction internal fixation and right hemiarthroplasty doing well Plan: Patient will continue with physical therapy and occupational therapy. Patient will continue to mobilize and try to condition and gain strength and we will follow her along while she is in the hospital. We discussed removal of the splint probably around the 6 week layo but she is only just over 4 weeks. We would get x-rays prior to this cessation of the splint.
[2016-11-19] MEDS: ATORVASTATIN 40 MG TABLET PO SCH (21:01)
[2016-11-20] MEDS: ACIDOPHILUS/BULGARICUS CHEWABLE TABLET PO SCH ×3 (07:25→16:17)
[2016-11-20] MEDS: PANTOPRAZOLE 40 MG TABLET PO SCH ×2 (07:25→16:17)
[2016-11-20] MEDS: ACETAMINOPHEN 500 MG TABLET PO SCH ×3 (08:34→20:41)
[2016-11-20] MEDS: CHOLECALCIFEROL 1000 IU TABLET PO SCH (08:35)
[2016-11-20] MEDS: Multivitamin Tab 1 TAB PO SCH (08:35)
[2016-11-20] MEDS: metFORMIN ER 500 MG TABLET PO SCH ×2 (08:36→20:41)
[2016-11-20] MEDS: LISINOPRIL 20 MG TABLET PO SCH (08:36)
[2016-11-20] MEDS: ALLOPURINOL 100 MG TABLET PO SCH (08:36)
[2016-11-20] MEDS: Metoprolol TARTRATE Tab 50 MG TAB PO SCH ×2 (08:36→20:41)
--- NOTE | 2016-11-20 12:04 | PDOC(PROG) ---
Date and Time of Service: 11/20/2016 12 PM Interval History: Subjective Patient is denying symptoms. Objective : Exam - General General Appearance: No Acute Distress, Cooperative, Thin - Head Head Exam: Normal Inspection, Atraumatic - Eye Eye Exam: Normal Appearance - ENT ENT Exam: Normal Exam - Neck Neck Exam: Normal Inspection - Respiratory Respiratory Exam: Clear to Auscultation - Bilaterally - Cardiovascular Cardiovascular Exam: RRR - GI/Abdominal GI/Abdominal Exam: Normal Bowel Sounds, Non Tender, Non Distended, Soft - Rectal Rectal Exam: Deferred - External Exam: Deferred - Extremities Additional Extremities Exam Details: No edema in the legs noted. Right arm splint - Back Back Exam: Normal Inspection - Neurological Neurological Exam: Alert, Oriented x 3, CN II-XII Intact - Psychiatric Psychiatric Exam: Normal Affect Assessment and Plan - Patient Problems (1) Hematoma complicating a procedure Current Visit: No Status: Acute Comment: This seemed to be resolved. We'll recheck her labs tomorrow (2) Closed right hip fracture Current Visit: No Status: Chronic Comment: Continue PT and OT Qualifiers: Encounter type: subsequent encounter Fracture healing: with routine healing Qualified Description: Closed fracture of right hip, with routine healing, subsequent encounter Qualifier Code(s): (S72.001D) Fracture of unspecified part of neck of right femur, subsequent encounter for closed fracture with routine healing (3) Diabetes mellitus type II, controlled Current Visit: Yes Status: Chronic Comment: Same med Qualifiers: Diabetes mellitus complication status: without complication Diabetes mellitus senior care insulin use: without senior care use Qualified Description : Controlled type 2 diabetes mellitus without complication, without long-term current use of insulin Qualifier Code(s): (E11.9) Type 2 diabetes mellitus without complications (4) Hypertension Current Visit: Yes Status: Chronic Comment: Same med Qualifiers: Hypertension type: essential hypertension Qualified Description: Essential hypertension Qualifier Code(s): (I10) Essential (primary) hypertension (5) Hypercholesterolemia Current Visit: Yes Status: Chronic Comment: Same med Photo / Body Diagrams - Uploaded Photos Uploaded Photos:
[2016-11-20] MEDS: ASPIRIN EC 81 MG TABLET PO SCH (14:38)
--- NOTE | 2016-11-20 16:48 | OT.PROG ---
Progress Note Progress Note: S: pt reports she had a good night. O: pt participated in transfers well this morning. While in therapy she completed UE exercises with RTB in all ranges x15 with LUE. With her R she completed AROM activities to maintain function. Pt was returned to her room and was left in chair with call light within reach and alarm on. A: pt may continue to benefit from therapy to increase strength and ability to complete bed mobility to prepare her for return home. P:continue per plan of care.
--- NOTE | 2016-11-20 17:08 | OT.PROG ---
Progress Note Progress Note: S: pt states she is wanting to return home. She reports itching on silverlon on leg. O: pt was seen in therapy today in the pm. working on transfer training with . She completed 4 transfers from chair, to toilet, to bed, back to chair. Pt's assisted with all transfers very well. She completed bed mobility with mod ind as it took her longer to complete. Her splint was adjusted while in therapy to allow more movement in MCP's. Also was present for Care conference. A: during care conference it was advised that she may return home on thursday afternoon. Her demonstrated good assistance during transfers. P: continue per plan of care with d/c home on thursday.
--- NOTE | 2016-11-20 17:11 | PT.PROG ---
Progress Note Progress Note: S. Patient states that she is very tired this morning, and she doesn't feel up to walking much this morning. O. Patient ambulated 20 feet to the wheelchair and was wheeled to the therapy gym where she had heat and performed exercises in the form of; heel slides, quad sets, ankle pumps, short arc quads, mini- sit ups, seated marches, long arc quads, marches, heel toe raises, sit to stands all x 10. Patient ambulated 80 feet to the wheelchair and was wheeled to her room where she was left in her chair with alarm and call light. A. Patient tolerated exercises fair, she continues to have soreness in her hip and wrist however is making gains with endurance and strength. Patient would continue to benefit from skilled therapy at this time. P. continue POC.
[2016-11-20] MEDS: ATORVASTATIN 40 MG TABLET PO SCH (20:41)
[2016-11-21 05:27] LABS: HEMATOCRIT 35.3 % (37.0-47.0); HEMOGLOBIN 11.3 g/dL (12.0-16.0); MEAN CORPUSCULAR VOLUME 90.5 FL (81-99); MEAN PLATELET VOLUME 10.8 FL (7.4-12.2); RED BLOOD COUNT 3.9 10^6/uL (4.20-5.40)
[2016-11-21 05:32] LABS: CALCIUM 8.8 mg/dL (8.7-10.7)
[2016-11-21] MEDS: PANTOPRAZOLE 40 MG TABLET PO SCH ×2 (06:36→16:38)
[2016-11-21] MEDS: ACIDOPHILUS/BULGARICUS CHEWABLE TABLET PO SCH ×3 (06:36→16:38)
[2016-11-21] MEDS: ALLOPURINOL 100 MG TABLET PO SCH (08:22)
[2016-11-21] MEDS: Metoprolol TARTRATE Tab 50 MG TAB PO SCH ×2 (08:22→20:29)
[2016-11-21] MEDS: Multivitamin Tab 1 TAB PO SCH (08:22)
[2016-11-21] MEDS: metFORMIN ER 500 MG TABLET PO SCH ×2 (08:22→20:29)
[2016-11-21] MEDS: ACETAMINOPHEN 500 MG TABLET PO SCH ×3 (08:23→20:34)
[2016-11-21] MEDS: LISINOPRIL 20 MG TABLET PO SCH (08:23)
[2016-11-21] MEDS: CHOLECALCIFEROL 1000 IU TABLET PO SCH (08:23)
--- NOTE | 2016-11-21 08:29 | PT.PROG ---
Progress Note Progress Note: S. Patient stated that she is feeling good this afternoon and would like to go outside. O. Patient was wheeled outside then ambulated 300 feet around the park Patient was wheeled into the therapy gym and she had her stitches removed from her wrist and bandage changed. Patient was wheeled back to her room where she was left in chair with alarm and call light. A. Patient tolerated ambulation fair, she continues to require min assist with ambulation and transfers. She is gaining strength and endurance. Patient's incision and wound appear to be healing well. Patient would continue to benefit from skilled therapy at this time. P. Continue POC.
--- NOTE | 2016-11-21 11:59 | OT.PROG ---
Progress Note Progress Note: S: pt stated she is ready to go home. reports a little pain in hip today but stated her splint feels better. O: pt was seen in room, completing One transfer to toilet and assisted by healthcare receptionist for rest of toileting. Pt was transferred downstairs in w/c. Pt returned to room and completed bed mobility tasks, completing with Mod Ind in and out of bed. Pt was left in chair with call light within reach and chair alarm on. A: pt has progressed well with bed mobility. She will continue to benefit from therapy over the weekend into thursday in preparation for returning home. P: continue to progress per plan of care.
[2016-11-21] MEDS: oxyCODONE-ACETAMINOPHEN 5-325 TAB PO PRN ×2 (14:17→20:32)
--- NOTE | 2016-11-21 16:38 | PT.PROG ---
Progress Note Progress Note: S. Patient stated that she is feeling good this morning. O. patient ambulated 175 feet to the the therapy gym where she had heat and performed exercises in the form of; heel slides, quad sets, ankle pumps, short arc quads, seated marches, long arc quads, bridges, situps and sit to stands all 10. Patient ambulated 60 feet to the wheelchair and was returned to her room where she was left in her chair with alarm and call light. A. Patient tolerated exercises well. She continues to gain strength and mobility. she was able to ambulate the full distance to the therapy gym however she required a short seated rest break after approximately 100 feet. She continues to require SBG assist with transfers and ambulation, and continues to make gains with strength and mobility. Patient would continue to benefit from skilled therapy at this time. P. Continue POC.
[2016-11-21] MEDS: ATORVASTATIN 40 MG TABLET PO SCH (20:29)
[2016-11-22] MEDS: oxyCODONE-ACETAMINOPHEN 5-325 TAB PO PRN (07:20)
[2016-11-22] MEDS: PANTOPRAZOLE 40 MG TABLET PO SCH ×2 (07:20→16:48)
[2016-11-22] MEDS: ACIDOPHILUS/BULGARICUS CHEWABLE TABLET PO SCH ×3 (07:20→16:48)
[2016-11-22] MEDS: Metoprolol TARTRATE Tab 50 MG TAB PO SCH ×2 (09:15→20:09)
[2016-11-22] MEDS: CHOLECALCIFEROL 1000 IU TABLET PO SCH (09:15)
[2016-11-22] MEDS: LISINOPRIL 20 MG TABLET PO SCH (09:16)
[2016-11-22] MEDS: ALLOPURINOL 100 MG TABLET PO SCH (09:16)
[2016-11-22] MEDS: metFORMIN ER 500 MG TABLET PO SCH ×2 (09:16→20:09)
[2016-11-22] MEDS: Multivitamin Tab 1 TAB PO SCH (09:16)
[2016-11-22] MEDS: ACETAMINOPHEN 500 MG TABLET PO SCH ×3 (09:18→20:09)
--- NOTE | 2016-11-22 11:29 | PT.PROG ---
Progress Note Progress Note: S: pt reports she hurts but is agreeable to PT. O: nsg okay'd prior to PT. pt min assist x 1 with platform walker with transfers. pt instructed to walk with min assist x 1 and platform walker 20 feet before requires a seated rest break. pt instructed in LUE strengthening and BLE strengthening ex with RTB all open chain ex x 10 reps. 10 sit to stands with min assist x 1. Pt ambulated another 30 feet with CGA x 1 and platform walker and returned to chair with chair alarm activated and call light within reach and nsg present. A: pt tolerated therapy fair. pt fatigues easily and requires frequent rest breaks. continues to benefit from skilled therapy at this time. P: cont per POC.
[2016-11-22] MEDS: ASPIRIN EC 81 MG TABLET PO SCH (15:20)
[2016-11-22] MEDS: ATORVASTATIN 40 MG TABLET PO SCH (20:08)
[2016-11-23] MEDS: PANTOPRAZOLE 40 MG TABLET PO SCH ×2 (07:30→17:03)
[2016-11-23] MEDS: ACIDOPHILUS/BULGARICUS CHEWABLE TABLET PO SCH ×3 (07:30→17:03)
[2016-11-23] MEDS: Multivitamin Tab 1 TAB PO SCH (09:30)
[2016-11-23] MEDS: CHOLECALCIFEROL 1000 IU TABLET PO SCH (09:30)
[2016-11-23] MEDS: metFORMIN ER 500 MG TABLET PO SCH ×2 (09:30→20:45)
[2016-11-23] MEDS: LISINOPRIL 20 MG TABLET PO SCH (09:30)
[2016-11-23] MEDS: Metoprolol TARTRATE Tab 50 MG TAB PO SCH ×2 (09:30→20:46)
[2016-11-23] MEDS: ACETAMINOPHEN 500 MG TABLET PO SCH ×3 (09:30→20:45)
[2016-11-23] MEDS: ALLOPURINOL 100 MG TABLET PO SCH (09:30)
--- NOTE | 2016-11-23 10:59 | ORTHO.PROG ---
Last Taken Vital Signs: Vital Signs - Last Taken Temperature 98.6 F 11/23/16 07:04 Pulse Rate 76 11/23/16 07:04 Respiratory Rate 17 11/23/16 07:04 Blood Pressure 155/71 11/23/16 07:04 Pulse Ox 92 11/23/16 07:04 Subjective: Patient notes her right wrist is feeling better she still has some irritation to the thumb in her splint. Objective: Examination shows that the splint fits well no evidence of breakdown around the thumb. The lateral hip incision is clean and dry. Motor and sensory exam is nonfocal with good pulses and brisk refill both the right upper extremity and lower extremity. Assessment: Right distal radius fracture status post open reduction internal fixation doing well Right hemiarthroplasty status post left femoral neck fracture doing well Plan: At the current time we will proceed with x-rays of the wrist and also the pelvis so. The patient did have a hematoma that subsequently had to be washed out. She is doing well otherwise the wounds well-healed. She'll continue with physical therapy and occupational therapy.
--- NOTE | 2016-11-23 11:48 | PT.PROG ---
Progress Note Progress Note: S. Patient stated that her hip is very sore this morning. O. Patient ambulated 75 feet to the wheelchair and was wheeled to the therapy gym where she had heat and performed exercise in the form of; heel slides, quad sets, ankle pumps, seated marches, heel toe raises sit to stands all x 10 bilaterally. Patient ambulated 90 feet to the wheelchair and was wheeled back to her room where she was left in her chair with alarm and call light. A. Patient tolerated exercises fair this morning due to pain she was not willing to do as much as usual. she continues to require frequent verbal cues for motivation, She requires min assist with sit to stand transfers. she continues to make gains with strength, and mobility however would continue to benefit from therapy for endurance and independence. P. Continue POC.
[2016-11-23] MEDS: oxyCODONE-ACETAMINOPHEN 5-325 TAB PO PRN (16:58)
[2016-11-23] MEDS: ATORVASTATIN 40 MG TABLET PO SCH (20:46)
[2016-11-24 07:23] VITALS: RESP 17; TEMP 98.9
[2016-11-24] MEDS: ACETAMINOPHEN 500 MG TABLET PO SCH (08:01)
[2016-11-24] MEDS: metFORMIN ER 500 MG TABLET PO SCH (08:01)
[2016-11-24] MEDS: LISINOPRIL 20 MG TABLET PO SCH (08:01)
[2016-11-24] MEDS: ALLOPURINOL 100 MG TABLET PO SCH (08:02)
[2016-11-24] MEDS: PANTOPRAZOLE 40 MG TABLET PO SCH (08:02)
[2016-11-24] MEDS: CHOLECALCIFEROL 1000 IU TABLET PO SCH (08:02)
[2016-11-24] MEDS: Multivitamin Tab 1 TAB PO SCH (08:02)
[2016-11-24] MEDS: Metoprolol TARTRATE Tab 50 MG TAB PO SCH (08:02)
[2016-11-24] MEDS: ACIDOPHILUS/BULGARICUS CHEWABLE TABLET PO SCH ×2 (08:03→12:06)
--- NOTE | 2016-11-24 09:23 | DI ---
XR WRIST 2 VW,11/24/2016 7:00 AM: Clinical History: Right wrist pain. Previous Exam: November 04, 2016 Findings: AP and lateral views of the right wrist are obtained, and demonstrate stable diffuse osteopenia. There are advanced degenerative changes involving the right first carpometacarpal joint. There is loss of joint space throughout the interphalangeal joints with osteophyte formation. There is screw and plate fixation of the right distal radius. There is a comminuted intra-articular f racture with some early signs of healing. The surrounding soft tissues are unremarkable. 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
--- NOTE | 2016-11-24 09:34 | DI ---
XR HIP COMPLETE MIN 2VW U/L,11/24/2016 7:00 AM: Clinical History: Right hip arthroplasty. Previous Exam: None at this facility. Findings: AP and crosstable lateral views of the right hip are obtained, and demonstrate postsurgical changes c onsistent with a right total hip arthroplasty. Diffuse osteopenia is seen. A nonobstructive bowel gas pattern is noted. Impression: Status post right total hip arthroplasty.
--- NOTE | 2016-11-24 10:11 | DCSUMMARY ---
Hospitalization Summary Hospital Course: Final Discharge Diagnosis: Current Visit Problems Problem Status Priority Diagnosed Code Distal radius fracture, right Acute S52.501A Status post right hip replacement Acute Z96.641 Weakness Acute R53.1 Diabetes mellitus type II, controlled Chronic E11.9 Hypercholesterolemia Chronic E78.00 Hypertension Chronic I10 Diagnostic Data, Laboratory Data, and Procedures of Signifigance: Laboratory Results 11/21/16 Range/Units 04:45 WBC 7.39 (4.8-10.8) 10^3/uL RBC 3.90 L (4.20-5.40) 10^6/uL Hgb 11.3 L (12.0-16.0) g/dL Hct 35.3 L (37.0-47.0) % MCV 90.5 (81-99) FL MCH 29.0 (27-31) PG MCHC 32.0 L (33-37) g/dL RDW Std Deviation 58.1 H (39-50) fL RDW Coeff of Naveen 18.2 H (11.5-14.5) % Plt Count 272 (140-350) 10*3/uL MPV 10.8 (7.4-12.2) FL Sodium 139 (135-145) meq/L Potassium 3.8 (3.8-5.2) meq/L Chloride 103 (98-112) meq/L Carbon Dioxide 26 (23-33) meq/L Anion Gap 10 (5-20) BUN 15 (7-22) mg/dL Creatinine 0.6 (0.50-1.20) mg/dL Estimated GFR (>60 ml/min/1.73m(2)) BUN/Creatinine Ratio 25.00 H (6-20) Glucose 162 H (78-110) mg/dL Calculated Osmolality 292.0 (267-292) mOsm/kg Calcium 8.8 (8.7-10.7) mg/dL History and Physical pertinent to Admission: Course of Hospitalization: This is a very nice 86-year-old female with past medical history of hypertension , underwent hip replacement, also had the left wrist fracture from the fall she sustained also she sustained a non-STEMI with the negative for coronary artery disease stress testing in [place] evaluated by cardiology. She was on swing bed status for rehabilitation and developed a hematoma that the required surgical evacuation. She had to drain placed at that time and she did quite well from that standpoint with resolution of her hematoma she was subsequently readmitted to swing bed for further rehabilitation and physical therapy. She has now completed her therapy and is back to her baseline I had a meeting with the daughter and the patient and spoke to the social workers they've made some modifications at their house to make this more accessible for the patient. And she will be discharged home in stable and improved condition with help from her daughter. She denies any chest pain nausea vomiting and is feeling great and very happy to be going home. She both had the x-rays of her wrist and hip which she had there are no acute findings per the read these were ordered by Dr. Jackson she will follow-up with her primary care physician at or so she will also continue PT OT as an outpatient on date of discharge, the patient was examined: Gen.: No acute distress, alert, nontoxic Heart: Regular rate and rhythm, no murmurs, clicks, gallops, or rubs Lungs: Clear to auscultation bilaterally, breathing is nonlabored Abdomen/GI: Normal tones on auscultation, soft, nontender, nondistended Musculoskeletal/extremities: No clubbing, cyanosis, or edema Vitals reviewed and are listed below Vital Signs (24 hrs) Temp Pulse Pulse Resp BP Pulse Ox 11/24/16 07:21 98.9 F 84 17 166/84 93 11/23/16 19:00 99.3 F 88 77 20 150/73 94 Assessment and Plan: 1. As per discharge assessments above 2. Disposition: 3. Condition on discharge, stable and improved. 4. Diet: regular diet 5. Activities: resume normal activities 6. Follow-Up: 1. PCP 2. Dr. Jackson 7. Medications at the Time of Discharge: 8. Time, care, counseling and coordination of care for this discharge is greater than 30 minutes. Exam - Vitals Vital Signs: Vital Signs Temperature 98.9 F Temperature Source Temporal Artery Scan Pulse Rate [Apical] 88 Pulse Rate [Pulse Oximeter] 84 Respiratory Rate 17 Blood Pressure [Left Arm] 166/84 Pulse Ox 93 Oxygen Delivery Method Room Air Height 4 ft 10 in Weight 44.452 kg
--- NOTE | 2016-11-24 11:05 | OT PM DAY ---
Diagnosis : Weakness PM - Occupational Therapy S: The patient was in good spirits. She did not report much pain. She stated she was looking forward to watching TV tonight as she is a big sports fan. O: The patient was seen in therapy. The patient completed functional transfer all the way from therapy to her room. Once in her room she completed bed mobility activities including getting in and out of bed x4 with modified independence. The patient's was educated and assisted her in transferring to chair to educate him and prepare him for when she does discharge home. The patient completed chair mobility with modified independence as it takes her a little longer to complete. A: The patient has increased her ability to transfer. She appears to be getting stronger. We will continue to work on her strength and mobility getting in and out of bed in preparation for home. P: Continue seeing patient BID during the week and one time per day over the weekend for upper extremity strengthening, ADLs, and overall functional mobility. ELLY
--- NOTE | 2016-11-24 14:35 | PT AM DAY ---
Diagnosis : Weakness AM - Physical Therapy S: The patient reports no new changes. O: The patient ambulated to the department with OT. She received an application of moist heat to her low back. She performed therapeutic exercises and functional activities including short arc quads, hip abduction, sit ups, bridges, sit to stands, and boxes on the #3 box. She then ambulated to the elevator with assist of one. A: The patient's overall spirit and attitude is significantly improved. P: Continue seeing patient BID during the week and one time per day over the weekend for transfers, ambulation, and range of motion/strengthening exercises. MTDD
--- NOTE | 2016-11-25 09:02 | OT AM DAY ---
Diagnosis : Weakness AM - Occupational Therapy S: The patient states she is ready to go home; she states she is excited. She is accompanied by her daughter who has several questions about her going home. O: The patient was seen in her room, upright in her chair. The patient transferred from sit to stand with minimal cues. She completed functional transfer approximately 150 feet to therapy with contact guard assist for safety. We worked on bed mobility once in therapy x2 with modified independence as it takes her a little longer to complete. The patient was assisted back upstairs by PT after treatment. A: The patient completes bed mobility well. Her has demonstrated assistance with her with bed mobility and toilet transfers at the end of last week. It appears that patient is ready to go home as her daughter will be there to assist her. She will have day help later next week when her care provider returns from her vacation. P: Patient will be discharged this afternoon. ELLY
--- NOTE | 2016-11-25 16:12 | PT AM DAY ---
Diagnosis : Weakness AM - Physical Therapy S: The patient states she is feeling good. She states she is ready to go home. She states she wants to do one more therapy session before she leaves. O: The patient ambulated 175 feet to the therapy gym where she received an application of moist heat to the right hip. She then performed therapeutic exercises in the form of heel slides, quad sets, ankle pumps, short arc quads, seated marches, long arc quads, sit to stands, resisted knee flexion with red theraband, clamshells with red theraband, and ball squeezes, all x15 bilaterally. The patient used the NuStep x5 minutes and then ambulated 175 feet back to her room where she was left in her chair with alarm activated and call light within reach. A: The patient tolerated therapy very well this morning. She continues to have some weaknesses; however, this may be addressed with home health. P: Patient will be discharged to home and home health will be set up. ELLY
== END 2016-11-24 14:24 | disposition home or self-care (01) | DRG 563 ==
LOC: MED/SURG 15:14
PROVIDERS: ADMIT Family Medicine; ATTEND Family Medicine
DX: S52.501A Unspecified fracture of the lower end of right radius, initial encounter for closed fracture (principal); L76.32 Postprocedural hematoma of skin and subcutaneous tissue following other procedure; Z96.641 Presence of right artificial hip joint; R53.1 Weakness; E11.9 Type 2 diabetes mellitus without complications; E78.00 Pure hypercholesterolemia, unspecified; I10 Essential (primary) hypertension
CPT/HCPCS: 36415; 73100; 73502; 80048; 85027; 87493; 94761; 97010; 97110; 97116; 97164; 97168; 97530; 97535

== ENCOUNTER → 2016-12-09 | Outpatient (CLI) | payer OTHER, MEDICARE | LOC: MMPC 11:11 | DX: E11.9 Type 2 diabetes mellitus without complications (principal); I10 Essential (primary) hypertension; E78.5 Hyperlipidemia, unspecified; N20.0 Calculus of kidney; M81.0 Age-related osteoporosis without current pathological fracture; M10.9 Gout, unspecified | CPT/HCPCS: 99213; G0463 ==

== ENCOUNTER → 2016-12-19 | Outpatient (CLI) | payer OTHER, MEDICARE ==
--- NOTE | 2016-12-19 13:03 | DI ---
AP PELVIS and RIGHT HIP, 12/19/2016 12:28 PM: Clinical History: Status post right hemiarthroplasty for a subcapital right hip fracture sustained on 10/19/2016. Previous Exam: 11/24/2016. There is no soft tissue abnormality. The bony structures of the pelvis are normal. 2 views of the rig ht hip show the right hemiarthroplasty. The prosthetic joint articulates normally. There is no eviden ce of loosening of the prosthesis in the femoral shaft. Readin. Status post right hemiarthroplasty. The prosthetic device articulates normally and there is no ev idence of loosening of the prosthesis. 2. The AP pelvis view is unremarkable.
--- NOTE | 2016-12-19 14:09 | DI ---
RIGHT WRIST, 12/19/2016 12:28 PM: Clinical History: Closed fracture of the distal right radius. Previous Exam: 11/24/2016. 3 views are submitted. The patient is status post ORIF of a fracture of the distal radius with a vola r buttress plate, and the distal radioarticular surface is in neutral position. Since the last examin ation, there has been slight loss of the volar angulation. The fracture lucency is less visible indic ating healing. There is some old fracture of the ulnar styloid. Arthritic changes are present in the triscaphe joint as well as the MCP, IP, and DIP joints of the hand. There is osteoporosis. Readin. Progressive healing of the fracture of the distal radius with slight loss in the volar angulation since the last exam. There is an old fracture of the ulnar styloid. 2. 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 3. Severe osteoporosis. .
== END ==
LOC: ORTHO 12:48
PROVIDERS: ATTEND Orthopaedic Surgery
DX: S52.59 Other fractures of lower end of radius (principal); S72.01 Unspecified intracapsular fracture of femur; Z96.641 Presence of right artificial hip joint; Z98.890 Other specified postprocedural states
CPT/HCPCS: 73110; 73502

== ENCOUNTER → 2017-01-12 | Outpatient (CLI) | payer OTHER, MEDICARE ==
[2017-01-12 15:42] LABS: BASOPHILS # (AUTO) 0.06 10*3/UL; BASOPHILS % (AUTO) 0.7 % (0-1); EOSINOPHILS # (AUTO) 0.24 10*3/UL; EOSINOPHILS % (AUTO) 2.8 % (0-8); HEMATOCRIT 39.9 % (37.0-47.0); LYMPHOCYTES # (AUTO) 4.16 10*3/uL; MEAN CORPUSCULAR HEMOGLOBIN 29.8 PG (27-31); MEAN CORPUSCULAR HGB CONC 32.6 g/dL (33-37); MEAN CORPUSCULAR VOLUME 91.5 FL (81-99); MEAN PLATELET VOLUME 11.2 FL (7.4-12.2); MONOCYTES # (AUTO) 0.83 10*3/UL (0.3-0.8); MONOCYTES % (AUTO) 9.8 % (5-15); NEUTROPHILS # (AUTO) 3.14 10*3/UL; NEUTROPHILS % (AUTO) 37.3 % (50-80); RED BLOOD COUNT 4.36 10^6/uL (4.20-5.40)
[2017-01-12 15:45] LABS: PLATELET MORPHOLOGY COMMENT NORMAL MORPHOLOGY (NORM); RBC MORPHOLOGY COMMENT NORMAL MORPHOLOGY (NORM); WBC MORPHOLOGY COMMENT NORMAL MORPHOLOGY (NORM)
[2017-01-12 16:14] LABS: CHOL/HDL RATIO 2.06 RATIO (0-4.0); LDL CHOLESTEROL,CALCULATED 22.8 mg/dL
== END ==
LOC: MOB LAB 14:58
DX: E11.9 Type 2 diabetes mellitus without complications (principal); E78.5 Hyperlipidemia, unspecified; I10 Essential (primary) hypertension; D64.9 Anemia, unspecified; S62.101D Fracture of unspecified carpal bone, right wrist, subsequent encounter for fracture with routine healing; N20.0 Calculus of kidney; M81.0 Age-related osteoporosis without current pathological fracture; Z98.890 Other specified postprocedural states
CPT/HCPCS: 36415; 80061; 83036; 85025

== ENCOUNTER → 2017-01-19 | Outpatient (CLI) | payer OTHER, MEDICARE | LOC: MOB LAB 10:29 | DX: N39.0 Urinary tract infection, site not specified (principal); R35.0 Frequency of micturition; R82.99 Other abnormal findings in urine | CPT/HCPCS: 81002; 87077; 87088; 87186 ×2; 99212; G0463 ==

== ENCOUNTER → 2017-01-26 | Outpatient (CLI) | payer OTHER, MEDICARE ==
--- NOTE | 2017-01-26 19:53 | DI ---
AP PELVIS and RIGHT HIP, 01/26/2017 2:05 PM: Clinical History: Right hip pain. Status post right hemiarthroplasty for a right hip fracture. Previous Exam: 12/19/2016. There is no soft tissue abnormality. The bony structures of the pelvis are normal. There is osteoporo sis. 2 views of the right hip show the patient to be status post right hemiarthroplasty. The prosthet ic device articulates normally with the [place] acetabulum. There is no evidence of loosening of the p rosthetic device. Readin. Status post right hemiarthroplasty. The prosthetic device articulates normally and there is no ev idence of loosening of the prosthesis. 2. The AP pelvis view is unremarkable. 3. Severe osteoporosis.
== END ==
LOC: ORTHO 14:22
PROVIDERS: ATTEND Orthopaedic Surgery
DX: M25.551 Pain in right hip (principal); Z98.890 Other specified postprocedural states
CPT/HCPCS: 73502

== ENCOUNTER 2018-10-22 09:48 | Inpatient (IN) ==
[2018-10-22] MEDS ORDERED: Sodium Chloride 0.9% 1,000 ML PRIMARY IV ONE (10:33)
[2018-10-22] MEDS ORDERED: ALBUTEROL SULFATE 2.5 MG/3 ML NEB ONE (10:33)
[2018-10-22] MEDS ORDERED: methylPREDNISolone 125 MG/2 ML VIAL IVP ONE (10:33)
[2018-10-22 10:41] LABS: BASOPHILS # (AUTO) 0.17 10*3/UL; BASOPHILS % (AUTO) 2.7 % (0-1); EOSINOPHILS # (AUTO) 0.03 10*3/UL; EOSINOPHILS % (AUTO) 0.5 % (0-8); Hematocrit [HCT] 43.3 % (37.0-47.0); Hemoglobin [HGB] 14.1 g/dL (12.0-16.0); LYMPHOCYTES # (AUTO) 2.91 10*3/uL; MEAN CORPUSCULAR HEMOGLOBIN 29.3 PG (27-31); MEAN CORPUSCULAR HGB CONC 32.6 g/dL (33-37); MEAN PLATELET VOLUME 12.1 FL (7.4-12.2); MONOCYTES # (AUTO) 0.73 10*3/UL (0.3-0.8); MONOCYTES % (AUTO) 11.8 % (5-15); NEUTROPHILS # (AUTO) 2.35 10*3/UL; NEUTROPHILS % (AUTO) 37.8 % (50-80); RED BLOOD COUNT 4.81 10^6/uL (4.20-5.40)
[2018-10-22 10:48] LABS: BLOOD UREA NITROGEN 21 mg/dL (7-22); BUN/CREATININE RATIO 26.25 (6-20); SERUM ALBUMIN 3.7 g/dL (3.5-4.8)
--- NOTE | 2018-10-22 10:49 | EKG ---
[address] [address] Measurements Intervals [place] Rate: 62 P: 59 NH: 146 QRS: -22 QRSD: 94 T: 89 QT: 441 QTc: 447 Interpretive Statements SINUS RHYTHM SLOW R WAVE PROGRESSION V1-V4, MAY BE LEAD POSITIONING. CANNOT R/O POSSIBLE ANTERIOR MYOCARDIAL INFARCTION OF INDETERMINATE AGE Compared to ECG 10/22/2016 11:24:43 Myocardial infarct finding now present Electronically Signed On 10-22-18 10:57:23 MDT by Andrew Wang [email or web address]
[2018-10-22 10:57] LABS: PLATELET MORPHOLOGY COMMENT NORMAL MORPHOLOGY (NORM); RBC MORPHOLOGY COMMENT NORMAL MORPHOLOGY (NORM); WBC MORPHOLOGY COMMENT SEE COMMENTS (NORM)
[2018-10-22 11:02] LABS: VENOUS PH 7.36 (7.32-7.42)
--- NOTE | 2018-10-22 11:30 | PDOC ---
Dyspnea HPI - General Chief Complaint: Dyspnea Stated Complaint: DYSPNEA Date Seen by Provider: 10/22/18 Time Seen by Provider: 10:30 Source: POSITIVE: Patient, EMS, Other (family) Exam Limitations: POSITIVE: Clinical condition Treatment Prior to Arrival: REPORTS: Oxygen, Other (DuoNeb) Nurse's Notes Reviewed & Considered: Yes EMS Report Reviewed & Considered: Verbal - History of Present Illness Initial Comments: The patient is an 88-year-old female who is brought to the emergency department by ambulance from the clinic with complaints of increased shortness of breath. Her family reports that she has had a dry cough for the past 5 or 6 days. Last night the cough became noticeably looser and this morning she seemed to be having increased difficulty breathing and she seemed more out of it and confused. Her family reports that she insisted on finishing breakfast prior to going to the clinic. When she arrived at the clinic her oxygen saturations were low and they subsequently recommended transfer here to the emergency department for further evaluation. The patient does not normally wear oxygen at home and has no significant history of lung disease. She does have a history of diabetes and hypertension. Her blood sugars typically run in the 1 and 200s. This morning her blood sugar was over 400. She did receive a dose of insulin at home prior to coming to the clinic. She has not had any vomiting or complaints of abdominal pain, diarrhea, swelling in her legs. She does not have any known history of heart disease. Her family reports that she had cardiac workup prior to hip surgery several years ago and was clear at that time. The patient did receive a DuoNeb in route to the hospital. - Patient Home Medications Home Medications: Home Medications Blood Sugar Diagnostic [Freestyle Lite Strips] 1 ea IN QID #120 strip 08/16/13 Multivitamin [Multivitamins] 1 tab PO DAILY 09/15/16 Magnesium Hydroxide Susp [Milk Of Magnesia Susp] 30 ml PO DAILY PRN #30 cp 10/30/16 Aspirin EC 81 mg PO Q48H tab 11/12/16 cholecalciferol (vitamin D3) 1,000 unit capsule 2,000 unit PO DAILY #250 cap 11/19/17 metformin ER 500 mg tablet,extended release 24 hr 500 mg PO BID #120 tab 11/20/17 donepezil 10 mg tablet 10 mg PO QDAY 01/14/18 mirtazapine 7.5 mg tablet 7.5 mg PO QDAY #30 tab 01/14/18 nifedipine ER 30 mg tablet,extended release 24 hr 30 mg PO QD #30 tab 04/19/18 allopurinol 100 mg tablet 100 mg PO QDAY #90 tab 05/08/18 insulin degludec (U-100) 100 unit/mL (3 mL) subcutaneous pen 1 unit SUBCUT QDAY #3 ml 08/10/18 atorvastatin 40 mg tablet 20 mg PO QDAY #45 tab 08/16/18 metoprolol tartrate 100 mg tablet 100 mg PO BID #60 tab 08/25/18 ciprofloxacin 250 mg tablet 250 mg PO BID #6 tab 09/03/18 nitrofurantoin macrocrystal 50 mg capsule 50 mg PO QDAY #30 cap 09/03/18 lisinopril 20 mg tablet 40 mg PO QD #180 tab 10/18/18 - Patient Allergies Allergies/Adverse Reactions: Allergies Allergy/AdvReac Type Severity Reaction Status Date / Time butorphanol tartrate Allergy Severe Anaphylaxis Verified 10/22/18 10:07 [From Stadol] meperidine HCl [From Demerol] Allergy Severe difficult Verified 10/22/18 10:07 to arouse Penicillins Allergy Mild rash Verified 10/22/18 10:07 mushroom Allergy SHORTNESS Verified 10/22/18 10:07 OF BREATH Past Medical History - heen HEENT History: Denies History Cardiovascular History: Hypertension Respiratory History: Denies History Gastrointestinal History: Denies History Genitourinary History: Denies History Endocrine History: Type 2 Diabetes (oral) Musculoskeletal History: Denies History Prosthesis or Implant: No Neurological History: Denies History Blood Disorders: Denies History Psychiatric History: Denies History History of Sexually Transmitted Diseases: No Female Reproductive History: Hysterectomy LMP: UNKNOWN Obstetrical History: Denies History Cancer History: Denies History In Past Year Been Physically Harmed or Verbally Threatened: No History of MDRO: No History of Other Communicable Diseases: No Tobacco Use: Never Smoker Alcohol Use: None In the Past 12 Months, Have Used or Abuse Any Substance: None Previous Surgical History: Yes Type / Date of Surgery: Appendectomy. Hysterectomy. x 3. recent right hip layne-arthroplasty. recent right wrist ORIF Anesthesia Reactions: No Malignant Hyperthermia: No Significant Family History: No pertinent family hx Past Medical History Reviewed: Reviewed - No Changes ROS - Limitations ROS Limitations: No Limitations Constitution: REPORTS: Weakness (Generalized weakness and increased confusion this morning). DENIES: Fever Cardiovascular: DENIES: Chest Pain Respiratory: REPORTS: Cough Non Productive, Cough Productive (Cough became more productive last night and this morning), Shortness Of Breath, Wheezing Gastrointestinal: DENIES: Abdominal Pain, Nausea, Vomitting, Diarrhea Endocrine: REPORTS: Fatigue Musculoskeletal: DENIES: Lower Extremity Swelling Genitourinary: REPORTS: Denies Symptoms Eyes: REPORTS: Denies Symptoms ENT: REPORTS: Congestion Skin: DENIES: Rash Dyspnea Physical Exam - General Appearance General Appearance: REPORTS: Other (The patient is awake and will answer ques tions however she does appear to be groggy and somewhat confused, she does follow commands) - HEENT HEENT: POSITIVE: Head Inspection Nml, Eyes Inspection Nml, Ears Inspection Nml, Nose Inspection Nml, Pharynx Inspect. Nml - Neck Neck: REPORTS: Normal Inspection. DENIES: Lymphadenopathy - Respiratory Respiratory: REPORTS: Other (Her breath sounds are diminished with some expiratory wheezes noted and rhonchi in the bases, she does have a very wheezy sounding cough) - Cardiovascular Cardiovascular: REPORTS: Regular Rate and Rhythm, Heart Sounds Normal Peripheral Pulses: Dorsalis-pedis (R): 2+, Dorsalis-pedis (L): 2+ - Abdomen Abdomen: Soft: (All Quadrants), Denies Tenderness: (All Quadrants), No Guarding: (All Quadrants), No Rebound: (All Quadrants), No Distention: (All Quadrants) - Skin Skin: REPORTS: Intact, No Rash - Extremities Extremity: Normal ROM: (All Extremities), Normal Inspection: (All Extremities) - Neurological / Psychological Neurological: POSITIVE: Other (No focal neurologic deficits) Dyspnea Progress - Results Reviewed by me Xrays/CTs/US Reviewed by me: Yes Discussed with Radiologist: Yes Radiology Findings: Chest x-ray shows possible early infiltrate/inflammatory change in the right lower lung per radiologist. CT of the chest shows no evidence of PE, no obvious pneumonia or any other acute findings per radiolo gist. Lab Results Reviewed by Me: Yes CBC and BMP: 10/22/18 09:55 10/22/18 09:55 Lab Results:: Laboratory Results 10/22/18 10/22/18 10/22/18 09:55 09:55 09:55 WBC RBC Hgb Hct MCV MCH MCHC RDW Std Deviation RDW Coeff of [place] Plt Count MPV Immature Gran % (Auto) Neut % (Auto) Lymph % (Auto) [place] % (Auto) Eos % (Auto) Baso % (Auto) Immature Gran # (Auto) Neut # (Auto) Lymph # (Auto) [place] # (Auto) Eos # (Auto) Baso # (Auto) WBC Morphology Comment Plt Morphology Comment RBC Morph Comment D-Dimer VBG pH VBG pCO2 VBG HCO3 VBG Base Excess Sodium Potassium Chloride Carbon Dioxide Anion Gap BUN Creatinine BUN/Creatinine Ratio Glucose Calculated Osmolality Lactic Acid Calcium Magnesium 1.6 Total Bilirubin AST ALT Alkaline Phosphatase Troponin I < 0.012 C-Reactive Protein 0.9 NT-Pro-B Natriuret Pep 643 H Total Protein Albumin Globulin Albumin/Globulin Ratio TSH 1.62 10/22/18 10/22/18 10/22/18 09:55 09:55 09:55 WBC 6.21 RBC 4.81 Hgb 14.1 Hct 43.3 MCV 90.0 MCH 29.3 MCHC 32.6 L RDW Std Deviation 45.1 RDW Coeff of [place] 13.9 Plt Count 167 MPV 12.1 Immature Gran % (Auto) 0.3 Neut % (Auto) 37.8 L Lymph % (Auto) 46.9 [place] % (Auto) 11.8 Eos % (Auto) 0.5 Baso % (Auto) 2.7 H Immature Gran # (Auto) 0.02 Neut # (Auto) 2.35 Lymph # (Auto) 2.91 [place] # (Auto) 0.73 Eos # (Auto) 0.03 Baso # (Auto) 0.17 WBC Morphology Comment See comments Plt Morphology Comment Normal morphology RBC Morph Comment Normal morphology D-Dimer 2.87 H VBG pH VBG pCO2 VBG HCO3 VBG Base Excess Sodium 135 Potassium 3.9 Chloride 100 Carbon Dioxide 28 Anion Gap 7 BUN 21 Creatinine 0.8 BUN/Creatinine Ratio 26.25 H Glucose 359 H Calculated Osmolality 296.0 H Lactic Acid Calcium 8.8 Magnesium Total Bilirubin 0.3 AST 33 ALT 13 Alkaline Phosphatase 89 Troponin I C-Reactive Protein NT-Pro-B Natriuret Pep Total Protein 6.8 Albumin 3.7 Globulin 3.1 Albumin/Globulin Ratio 1.10 L TSH 10/22/18 10/22/18 09:55 10:50 WBC RBC Hgb Hct MCV MCH MCHC RDW Std Deviation RDW Coeff of [place] Plt Count MPV Immature Gran % (Auto) Neut % (Auto) Lymph % (Auto) [place] % (Auto) Eos % (Auto) Baso % (Auto) Immature Gran # (Auto) Neut # (Auto) Lymph # (Auto) [place] # (Auto) Eos # (Auto) Baso # (Auto) WBC Morphology Comment Plt Morphology Comment RBC Morph Comment D-Dimer VBG pH 7.36 VBG pCO2 44 L VBG HCO3 25 VBG Base Excess -1 Sodium Potassium Chloride Carbon Dioxide Anion Gap BUN Creatinine BUN/Creatinine Ratio Glucose Calculated Osmolality Lactic Acid 2.7 H Calcium Magnesium Total Bilirubin AST ALT Alkaline Phosphatase Troponin I C-Reactive Protein NT-Pro-B Natriuret Pep Total Protein Albumin Globulin Albumin/Globulin Ratio TSH EKG Interpreted/Reviewed By Me:: Yes EKG Interpretation:: POSITIVE: Other (EKG has a fair amount of artifact, appears to be in normal sinus rhythm with no obvious acute ST segment or T-wave changes) - Patient's Progress MDM / ED Course: On arrival here to the emergency department the patient's oxygen saturations remained 89% on 4 L and she was placed on a nonrebreather mask. She did receive a second albuterol neb treatment. Blood cultures, lactate and venous blood gas were drawn. Her initial venous blood gas shows a pH of 7.35. Her blood sugar is elevated at 350. Her lactate is mildly elevated at 2.7. Her white blood cell count is normal with some atypical lymphocytes. EKG shows a lot of artifact with no obvious acute ST segment or T-wave changes and apparent sinus rhythm. Her BNP is mildly elevated at 600. Her CRP is normal at 0.9. Her d- dimer was elevated at 2.8. Her initial one view chest x-ray shows what appears to be some diffuse infiltrate in the right lower lobe. CTA of the chest was ordered secondary to her hypoxia and elevated d-dimer. In addition she was treated for reactive airway disease with Solu-Medrol 125 mg IV. She also appears to have pneumonia and was given Rocephin and Zithromax. Her oxygen was weaned down to 4 L to maintain sats above 90%. CTA of the chest shows no evidence of PE and no obvious infiltrate on CT. Her respiratory panel came back positive only for human metapnuemovirus. The patient does have significant hypoxia and this may represent all reactive airway disease with possible bronchitis or early pneumonia. Findings were discussed with the family, patient as well as with Dr. Dorsey. Current plan is for admission for further care. - Consult Counseled: POSITIVE: Patient, Family, RE: Lab Results, RE: Radiology Results, RE: DX Patient Care Time - Estimated PCT Patient Care Time (In Minutes): 45 Vital Signs - Recent Vital Signs Vital Signs: Vital Signs (Last 8 hours) Temp Pulse Pulse Resp BP Pulse Ox 10/22/18 10:43 63 18 10/22/18 10:42 61 18 96 10/22/18 10:28 96.6 F L 63 24 131/60 89 - VS Reviewed Vital Signs Reviewed: Yes Discharge Clinical Impression: RAD (reactive airway disease), Bronchitis, Hypoxia, Elevated blood sugar Discharge Disposition: Admit to Inpatient Condition: Fair Date Decision to Admit to Inpatient: 10/22/18 Time Decision to Admit to Inpatient: 13:15
[2018-10-22] MEDS ORDERED: cefTRIAXone Inj 1 GM in Sodium Chloride 0.9% 100 ML IV ONE (11:34)
--- NOTE | 2018-10-22 11:53 | DI ---
AP CHEST X-RAY, 10/22/2018 10:35 AM : Clinical History: Dyspnea. Previous Exam: 08/03/2017. Soft Tissues: No acute soft tissue abnormality. Bones: Normal. Heart: Normal heart. Lungs: There is increased density along the infrahilar region. This either represents atelectasis or an early right lower lobe pneumonia. Effusion(s): None. Mediastinum: Normal mediastinum. Nodules: No pulmonary nodules. Reading: Increased density in the right lower lobe in the infrahilar region. This either represents atelectasi s or possibly early pneumonia.
--- NOTE | 2018-10-22 13:10 | DI ---
CT ANGIOGRAM OF THE CHEST, 10/22/2018 11:02 AM : Clinical History: Shortness of breath. Elevated D-dimer test. Previous Exam: None at this facility. Technique: Scans from base of neck to lung bases with IV contrast. Bolus tracking protocol was used f or timing the injection. Non-MIPS and MIPS sagittal/coronal images generated. IV Contrast: 65 mL of Isovue 370. Base of Neck: Normal. Nodes: Normal axillary, supraclavicular, mediastinal, and hilar lymph nodes. Heart: Normal. Calcifications are seen in the proximal and middle thirds of the LAD in the proximal p ortion of the left circumflex artery. Aorta: Normal thoracic aorta. No aneurysm or dissection. Pulmonary Arteries: Normal. No pulmonary emboli or infarcts; no pulmonary hypertension. Lungs: No infiltrates. Effusion(s): None. Nodules: Calcified 5 mm nodule in the right upper lobe. Bony Structures: Osteoporosis. Otherwise normal visualized portions of ribs, sternum, scapulae, clavi cles, and shoulders. Normal visualized portions of thoracic spine. Limited Upper Abdomen: Normal adrenal glands and spleen. Normal limited views of liver and pancreas. READIN. Normal CTA of the chest. There are no pulmonary emboli or pulmonary infarcts. 2. Coronary artery calcifications in the LAD and left circumflex artery. 3. Old granulomatous disease.
[2018-10-22] MEDS ORDERED: CALCIUM CARBONATE 500 MG (TUMS) CHEWABLE TABLET PO PRN (14:35)
[2018-10-22] MEDS ORDERED: DOCUSATE 100 MG CAPSULE PO PRN (14:35)
[2018-10-22] MEDS ORDERED: LIDOCAINE W/ SODIUM BICARB 0.5 ML SYR SUBD PRN (14:35)
[2018-10-22] MEDS ORDERED: MAGNESIUM 400 MG/5 ML - 30 ML (MILK OF MAGNESIA) PO PRN (14:35)
[2018-10-22] MEDS ORDERED: ACETAMINOPHEN 325 MG TABLET PO PRN (14:35)
--- NOTE | 2018-10-22 16:35 | PDOC ---
HPI - History of Present Illness Date of Service: 10/22/18 Time of Service: 16:30 Chief Complaint: Cough for 4 days History of Present Illness: This is a very pleasant 88-year-old female with diabetes mellitus type II, history of a hip replacement, amongst other medical issues, who was brought into the emergency room after an urgent care visit today for a cough over the last 4 days. The patient apparently had been having a dry, hacking cough, no fevers and no chills. She had the flu vaccine this year and the Pneumovax vaccine, and apparently her has also developed similar symptoms. The patient has never smoked. Never been on oxygen, and has never been diagnosed with COPD. When she was taken into the urgent care, her oxygen saturation was around 81% and she was directed to the emergency room. She got an albuterol treatment in the urgent care, and further treatment in the emergency room as well as CT scan of the chest which was negative for pulmonary emboli but also interestingly negative for pneumonia. She had wheezing and crackles in her chest. Her chest x-ray suggested possible right-sided perihilar pneumonia, but again CT scan was negative for infiltrate. She's been quite fatigued and tired and slept through most of the exam and most of this information came from the patient's daughter who is present at bedside for this history and physical. There were no complaints of chest pain. There were no complaints of nausea or vomiting. In fact, the patient suggested that she would not go to the urgent care until she finished her very large pancake for breakfast. Past Medical History Medical History: 1. Diabetes type II. 2. Hypertension. 3. Hyperlipidemia. 4. Osteoporosis. 5. Gout attack back in April 2016 Surgical History: 1. Hysterectomy. 2. Tonsillectomy. 3. History of nephrolithiasis. 4. C-sections. 5. Hip replacement Family History: Reviewed an Not Pertinent Pertinent Family History: Both parents had coronary artery disease. Past Social History: Doesn't smoke, rarely drinks no drugs. 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 She is mostly homebound now due to her hip replacement and has aides taking care of her. Tobacco Use: Never Smoker In the Past 12 Months, Have Used or Abuse Any of the Following Substance: None Alcohol Use: Rarely Medication / Allergies Home Medications: Home Medications Medication Instructions Recorded Confirmed Type Blood Sugar Diagnostic [Freestyle 1 ea IN QID #120 strip 08/16/13 10/22/18 History Lite Strips] Multivitamin [Multivitamins] 1 tab PO DAILY 09/15/16 10/22/18 History Magnesium Hydroxide Susp [Milk Of 30 ml PO DAILY PRN #30 cp 10/30/16 10/22/18 Rx Magnesia Susp] Aspirin EC 81 mg PO Q48H tab 11/12/16 10/22/18 Rx cholecalciferol (vitamin D3) 1,000 2,000 unit PO DAILY #250 cap 11/19/17 10/22/18 Rx unit capsule metformin ER 500 mg 500 mg PO BID #120 tab 11/20/17 10/22/18 Rx tablet,extended release 24 hr donepezil 10 mg tablet 10 mg PO QDAY 01/14/18 10/22/18 History mirtazapine 7.5 mg tablet 7.5 mg PO QDAY #30 tab 01/14/18 10/22/18 Rx nifedipine ER 30 mg 30 mg PO QD #30 tab 04/19/18 10/22/18 Rx tablet,extended release 24 hr allopurinol 100 mg tablet 100 mg PO QDAY #90 tab 05/08/18 10/22/18 Rx insulin degludec (U-100) 100 1 unit SUBCUT QDAY #3 ml 08/10/18 10/22/18 Rx unit/mL (3 mL) subcutaneous pen atorvastatin 40 mg tablet 20 mg PO QDAY #45 tab 08/16/18 10/22/18 Rx metoprolol tartrate 100 mg tablet 100 mg PO BID #60 tab 08/25/18 10/22/18 Rx ciprofloxacin 250 mg tablet 250 mg PO BID #6 tab 09/03/18 10/22/18 Rx nitrofurantoin macrocrystal 50 mg 50 mg PO QDAY #30 cap 09/03/18 10/22/18 Rx capsule lisinopril 20 mg tablet 40 mg PO QD #180 tab 10/18/18 10/22/18 Rx Allergies/Adverse Reactions: Allergies Allergy/AdvReac Type Severity Reaction Status Date / Time butorphanol tartrate Allergy Severe Anaphylaxis Verified 10/22/18 10:07 [From Stadol] meperidine HCl [From Demerol] Allergy Severe difficult Verified 10/22/18 10:07 to arouse Penicillins Allergy Mild rash Verified 10/22/18 10:07 mushroom Allergy SHORTNESS Verified 10/22/18 10:07 OF BREATH Review of Systems - Respiratory Respiratory: REPORTS: See HPI - Cardiovascular Cardiovascular: REPORTS: Negative System Review - Gastrointestinal Gastrointestinal / Abdominal: REPORTS: Negative System Review - Genitourinary Genitourinary: REPORTS: Incontinence, Other (Frequency, these are all chronic issues) Exam - Vitals Vital Signs: Vital Signs Temperature 96.6 F Temperature Source Temporal Artery Scan Pulse Rate [Pulse Oximeter] 63 Pulse Rate 68 Respiratory Rate 18 Blood Pressure [Left Arm] 131/60 Pulse Ox 95 Oxygen Flow Rate 3 Oxygen Delivery Method Nasal Cannula Height 4 ft 11 in Weight 90 lb - General General Appearance: No Acute Distress, Cooperative (Followed basic commands on exam. Talks in her sleep frequently.) - Head Head Exam: Normal Inspection, Normocephalic, Atraumatic - Eye Eye Exam: POSITIVE: No Scleral Icterus - ENT ENT Exam: POSITIVE: Mucous Membranes Dry - Neck Neck Exam: Normal Inspection, No Tenderness, No Lymphadenopathy, No Thyromegaly, JVP is not Raised - Respiratory Respiratory Exam: POSITIVE: Breathing Non Labored, Crackles, Wheezes, Coarse Breath Sounds - Cardiovascular Cardiovascular Exam: POSITIVE: RRR, No Murmur, No Clicks, No Gallops, No Rubs, No JVD - GI/Abdominal GI/Abdominal Exam: POSITIVE: Normal Bowel Sounds, Non Tender, Non Distended, Soft - Rectal Rectal Exam: POSITIVE: Deferred - External Exam: POSITIVE: Deferred Exam: POSITIVE: Deferred - Extremities Extremities Exam: POSITIVE: No Clubbing Present, No Edema Present, No Cyanosis Present - Neurological Neurological Exam: POSITIVE: No Facial Droop, Speech Intact / Clear, Moves All Extremities Equally Additional Neurological Exam Details: Sleepy through exam. Patient apparently was "lethargic" last night. According to her daughter. Her speech is intact and clear and non-slurred. Results - Labs CBC and BMP: 10/22/18 09:55 10/22/18 09:55 Additional Lab Results: Laboratory Results 10/22/18 10/22/18 10/22/18 09:55 09:55 09:55 WBC RBC Hgb Hct MCV MCH MCHC RDW Std Deviation RDW Coeff of [place] Plt Count MPV Immature Gran % (Auto) Neut % (Auto) Lymph % (Auto) [place] % (Auto) Eos % (Auto) Baso % (Auto) Immature Gran # (Auto) Neut # (Auto) Lymph # (Auto) [place] # (Auto) Eos # (Auto) Baso # (Auto) WBC Morphology Comment Plt Morphology Comment RBC Morph Comment D-Dimer VBG pH VBG pCO2 VBG HCO3 VBG Base Excess Sodium Potassium Chloride Carbon Dioxide Anion Gap BUN Creatinine BUN/Creatinine Ratio Glucose Calculated Osmolality Lactic Acid Calcium Magnesium 1.6 Total Bilirubin AST ALT Alkaline Phosphatase Troponin I < 0.012 C-Reactive Protein 0.9 NT-Pro-B Natriuret Pep 643 H Total Protein Albumin Globulin Albumin/Globulin Ratio TSH 1.62 10/22/18 10/22/18 10/22/18 09:55 09:55 09:55 WBC 6.21 RBC 4.81 Hgb 14.1 Hct 43.3 MCV 90.0 MCH 29.3 MCHC 32.6 L RDW Std Deviation 45.1 RDW Coeff of [place] 13.9 Plt Count 167 MPV 12.1 Immature Gran % (Auto) 0.3 Neut % (Auto) 37.8 L Lymph % (Auto) 46.9 [place] % (Auto) 11.8 Eos % (Auto) 0.5 Baso % (Auto) 2.7 H Immature Gran # (Auto) 0.02 Neut # (Auto) 2.35 Lymph # (Auto) 2.91 [place] # (Auto) 0.73 Eos # (Auto) 0.03 Baso # (Auto) 0.17 WBC Morphology Comment See comments Plt Morphology Comment Normal morphology RBC Morph Comment Normal morphology D-Dimer 2.87 H VBG pH VBG pCO2 VBG HCO3 VBG Base Excess Sodium 135 Potassium 3.9 Chloride 100 Carbon Dioxide 28 Anion Gap 7 BUN 21 Creatinine 0.8 BUN/Creatinine Ratio 26.25 H Glucose 359 H Calculated Osmolality 296.0 H Lactic Acid Calcium 8.8 Magnesium Total Bilirubin 0.3 AST 33 ALT 13 Alkaline Phosphatase 89 Troponin I C-Reactive Protein NT-Pro-B Natriuret Pep Total Protein 6.8 Albumin 3.7 Globulin 3.1 Albumin/Globulin Ratio 1.10 L TSH 10/22/18 10/22/18 09:55 10:50 WBC RBC Hgb Hct MCV MCH MCHC RDW Std Deviation RDW Coeff of [place] Plt Count MPV Immature Gran % (Auto) Neut % (Auto) Lymph % (Auto) [place] % (Auto) Eos % (Auto) Baso % (Auto) Immature Gran # (Auto) Neut # (Auto) Lymph # (Auto) [place] # (Auto) Eos # (Auto) Baso # (Auto) WBC Morphology Comment Plt Morphology Comment RBC Morph Comment D-Dimer VBG pH 7.36 VBG pCO2 44 L VBG HCO3 25 VBG Base Excess -1 Sodium Potassium Chloride Carbon Dioxide Anion Gap BUN Creatinine BUN/Creatinine Ratio Glucose Calculated Osmolality Lactic Acid 2.7 H Calcium Magnesium Total Bilirubin AST ALT Alkaline Phosphatase Troponin I C-Reactive Protein NT-Pro-B Natriuret Pep Total Protein Albumin Globulin Albumin/Globulin Ratio TSH - EKG Data -: EKG Interpreted by Me Rate: Normal EKG Shows Normal: Sinus Rhythm - Imaging Status: Image Reviewed by Me (I thought the chest x-ray showed some right perihilar prominence, but the CT scan does not show any evidence of infiltrate or pneumonia.), Report Reviewed by Me (I reviewed the reports from radiology) Assessment and Plan - Patient Problems (1) Acute hypoxemic respiratory failure Current Visit: Yes Status: Acute Code(s): J96.01 - Acute respiratory failure with hypoxia (2) Respiratory insufficiency Current Visit: Yes Status: Acute Code(s): R06.89 - Other abnormalities of breathing (3) Diabetes mellitus Current Visit: Yes Status: Acute Code(s): E11.9 - Type 2 diabetes mellitus without complications Qualifiers: Diabetes mellitus type: type 2 Diabetes mellitus half-way insulin use: with construction project coordinator use Diabetes mellitus complication status: without complication Qualified Code(s): E11.9 - Type 2 diabetes mellitus without complications; Z79.4 - prison (current) use of insulin (4) RAD (reactive airway disease) Current Visit: Yes Status: Acute Code(s): J45.909 - Unspecified asthma, uncomplicated Qualifiers: Asthma severity: severe Asthma complication type: with acute exacerbation - Assessment / Plan Additional Assessment/Plan Details: admit as inpatient I will start steroids, 5 day burst, dose today with Solu-Medrol and start prednisone tomorrow. Steroids/prednisone, 40 mg daily for 5 days zithromax, 500 mg PO daily, and this may have an anti-inflammatory effect as well oxygen to maintain oxygen saturations at 91% I think vapotherm if necessary would be appropriate. At this point she is requiring nasal cannula oxygen code status is DNR check CBC with diff in AM, hemoglobin A1c, and BMP Yuliya May do some workup to see if there is any evidence of whooping cough DVT prophylaxis chemical will be started with Lovenox Plan discussed with daughter and she agreed.
[2018-10-22] MEDS ORDERED: methylPREDNISolone 40 MG/1 ML VIAL IVP ONE (16:44)
[2018-10-22] MEDS ORDERED: DEXTROSE 50%-WATER SYRINGE 50 ML SYRINGE IVP PRN (16:59)
[2018-10-22] MEDS ORDERED: Insulin Sliding Scale Protocol SUBCUT PRN (16:59)
[2018-10-22] MEDS ORDERED: Glucagon Inj Vial 1 MG/ML VIAL IM PRN (16:59)
[2018-10-22] MEDS ORDERED: DEXTROSE 31 GM GEL PO PRN (16:59)
[2018-10-22] MEDS: AZITHROMYCIN 250 MG TABLET PO ONE ×2 (17:12→17:33)
[2018-10-22] MEDS: Sodium Chloride 0.9% 1,000 ML PRIMARY IV SCH (17:12)
[2018-10-22] MEDS: Insulin Lispro Flexpen 300 UNIT/3 ML INSULN.PEN SUBCUT SCH (20:00)
[2018-10-22] MEDS: DONEPEZIL 5 MG TABLET PO SCH (20:03)
[2018-10-22] MEDS: Mirtazapine Tab 15 MG TAB PO SCH (20:04)
[2018-10-22] MEDS: ATORVASTATIN 20 MG TABLET PO SCH (20:04)
[2018-10-22] MEDS: Metoprolol TARTRATE Tab 50 MG TAB PO SCH (20:04)
[2018-10-22] MEDS ORDERED: Insulin Glargine SoloStar Inj 100 UNIT/ML INSULN.PEN SUBCUT SCH (21:00)
--- NOTE | 2018-10-22 21:32 | DI ---
CT HEAD SCAN WITHOUT IV CONTRAST, 10/22/2018 7:50 PM : Clinical History: Altered mental status. Previous Exam: 10/21/2016. Technique: Performed from the foramen magnum to vertex without IV contrast. Contrast Volume: None. 4th Ventricle: Normal. 3rd Ventricle: Mildly dilated, but normal for age. Lateral Ventricles: Mildly dilated, but normal for age. Sella: Normal size and normal pituitary gland. Cerebrum: No acute hemorrhagic or bland infarct. 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 This was present on the previous study and has not changed. Multiple punctate periventricular white matter lucencies bilaterally extend into the watershed territory, con sistent with small vessel ischemic disease. This amount of ischemic disease is appropriate for the pa tient's age. Cerebellum: Normal. No acute hemorrhagic or bland infarct. No cerebellopontine angle mass. Normal cer ebellar tonsillar position. Brainstem: Normal. Atrophy: Mild to moderate cerebellar and cerebral atrophy. Extracerebral Mantles/Midline Shift: No extracerebral mantle or dural lesion. No midline shift. Sinuses: Complete opacification of the right maxillary sinus, unchanged from the prior exam. There is complete opacification bilaterally of the anterior ethmoid air cells. Mucous retention cysts or poly ps are present in the floor of the right sphenoid sinus. Skull: Intact. READIN. No acute hemorrhagic or bland infarct. Stable old left lacunar infarct of the basal ganglia near the genu of the internal capsule. 2. Small vessel ischemic disease. 3. Mild to moderate cerebellar and cerebral atrophy. 4. Complete opacification of the right maxillary sinus, unchanged. New opacification of both anterio r ethmoid air cells and mucous retention cysts or polyps in the right sphenoid sinus.
[2018-10-23 05:25] LABS: Hematocrit [HCT] 40.5 % (37.0-47.0); Hemoglobin [HGB] 13.3 g/dL (12.0-16.0); MEAN CORPUSCULAR HEMOGLOBIN 29.4 PG (27-31); MEAN CORPUSCULAR HGB CONC 32.8 g/dL (33-37); MEAN CORPUSCULAR VOLUME 89.6 FL (81-99); MEAN PLATELET VOLUME 11.9 FL (7.4-12.2); RED BLOOD COUNT 4.52 10^6/uL (4.20-5.40)
[2018-10-23 05:35] LABS: HEMOGLOBIN A1C 13.38 % (4.2-6.0)
[2018-10-23 05:36] LABS: BLOOD UREA NITROGEN 20 mg/dL (7-22); BUN/CREATININE RATIO 33.33 (6-20)
[2018-10-23 05:44] LABS: BAND NEUTROPHILS % 0 % (0-10); BASOPHILS % (MANUAL) 0 % (0-1); EOSINOPHILS % (MANUAL) 0 % (0-8); MONOCYTES % (MANUAL) 5 % (0-12); NEUTROPHILS % (MANUAL) 59 % (50-80); PLATELET MORPHOLOGY COMMENT NORMAL MORPHOLOGY (NORM); RBC MORPHOLOGY COMMENT NORMAL MORPHOLOGY (NORM); WBC MORPHOLOGY COMMENT NORMAL MORPHOLOGY (NORM)
[2018-10-23] MEDS: Insulin Lispro Flexpen 300 UNIT/3 ML INSULN.PEN SUBCUT SCH ×4 (07:21→20:04)
[2018-10-23] MEDS: ALLOPURINOL 100 MG TABLET PO SCH (08:41)
[2018-10-23] MEDS: CHOLECALCIFEROL 1000 IU TABLET PO SCH (08:41)
[2018-10-23] MEDS: Metoprolol TARTRATE Tab 50 MG TAB PO SCH ×2 (08:41→20:06)
[2018-10-23] MEDS: AZITHROMYCIN 250 MG TABLET PO SCH (08:41)
[2018-10-23] MEDS: predniSONE Tab 20 MG TAB PO SCH (08:41)
[2018-10-23] MEDS: Multivitamin Tab 1 TAB PO SCH (08:42)
[2018-10-23] MEDS: ENOXAPARIN SODIUM 40 MG/0.4 ML SYRINGE SUBCUT SCH (08:42)
[2018-10-23] MEDS: NIFEdipine 30 MG ER 24H TABLET PO SCH (08:42)
[2018-10-23] MEDS: LISINOPRIL 20 MG TABLET PO SCH (08:42)
[2018-10-23] MEDS: ASPIRIN EC 81 MG TABLET PO SCH (08:42)
[2018-10-23] MEDS ORDERED: INSULIN DEGLUDEC SUBCUT SCH (09:00)
[2018-10-23] MEDS: Sodium Chloride 0.9% 1,000 ML PRIMARY IV SCH (10:17)
[2018-10-23] MEDS ORDERED: FLUTICASONE PROPIONATE 16 GRAM (120 SPRAYS / BOTTLE) ENOS ONE (12:30)
--- NOTE | 2018-10-23 12:33 | PDOC(PROG) ---
Date of Service: 10/23/18 Time of Service: 12:30 Interval History: Feels better. More alert. Head CT scan negative for any acute bleed. Does have a mucus retention cyst. No chest pain. Cough persistent, but shortness of breath improved. Does have a clear runny nasal discharge, particularly on right side. Objective : Data - Labs CBC and BMP: 10/23/18 04:10 10/23/18 04:10 Objective : Exam - General General Appearance: No Acute Distress, Cooperative Additional General Exam Details: Vital Signs - Last Taken Temperature 97.4 F 10/23/18 11:43 Pulse Rate 78 10/23/18 11:43 Respiratory Rate 18 10/23/18 11:43 Blood Pressure 145/79 10/23/18 11:43 Pulse Ox 92 10/23/18 11:43 Selected Entries 10/23/18 05:09 Room Air Challenge 88 - Eye Eye Exam: No Scleral Icterus - ENT ENT Exam: Mucous Membranes Moist - Neck Neck Exam: JVP is not Raised - Respiratory Respiratory Exam: Clear to Auscultation - Bilaterally, Breathing Non Labored Additional Respiratory Exam Details: Wheezing has resolved today. Sounds much better on exam. - Cardiovascular Cardiovascular Exam: RRR, No Murmur, No Clicks, No Gallops, No Rubs, No JVD - GI/Abdominal GI/Abdominal Exam: Non Tender, Non Distended, Soft - Extremities Extremities Exam: No Clubbing Present, No Edema Present, No Cyanosis Present - Neurological Neurological Exam: Alert, No Facial Droop, Speech Intact / Clear, Moves All Extremities Equally, Altered (Alert and oriented to person and place, but not necessarily to time or situation.) Assessment and Plan - Patient Problems (1) RAD (reactive airway disease) Current Visit: Yes Status: Acute Code(s): J45.909 - Unspecified asthma, uncomplicated Qualifiers: Asthma severity: severe Asthma complication type: with acute exacerbation (2) Acute hypoxemic respiratory failure Current Visit: Yes Status: Acute Code(s): J96.01 - Acute respiratory failure with hypoxia (3) Respiratory insufficiency Current Visit: Yes Status: Acute Code(s): R06.89 - Other abnormalities of breathing (4) Diabetes mellitus Current Visit: Yes Status: Acute Code(s): E11.9 - Type 2 diabetes mellitus without complications Qualifiers: Diabetes mellitus type: type 2 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 Continue Zithromax and prednisone. Increase Lantus. Stop IV fluids and saline lock. Breathing treatments as necessary. I like to see some improvement in oxygenation prior to any discharge home. I think the altered mental status yesterday was probably hypoxia in the setting of dementia and prior stroke and microvascular disease. Nasal steroid spray. Discussed with daughter at bedside.
[2018-10-23] MEDS: FLUTICASONE PROPIONATE 16 GRAM (120 SPRAYS / BOTTLE) ENOS SCH (14:00)
[2018-10-23] MEDS: Insulin Glargine SoloStar Inj 100 UNIT/ML INSULN.PEN SUBCUT SCH (20:05)
[2018-10-23] MEDS: Mirtazapine Tab 15 MG TAB PO SCH (20:06)
[2018-10-23] MEDS: DONEPEZIL 5 MG TABLET PO SCH (20:06)
[2018-10-23] MEDS: ATORVASTATIN 20 MG TABLET PO SCH (20:06)
[2018-10-24] MEDS: Insulin Lispro Flexpen 300 UNIT/3 ML INSULN.PEN SUBCUT SCH ×4 (07:40→20:44)
[2018-10-24] MEDS: ENOXAPARIN SODIUM 40 MG/0.4 ML SYRINGE SUBCUT SCH (09:38)
[2018-10-24] MEDS: Multivitamin Tab 1 TAB PO SCH (09:38)
[2018-10-24] MEDS: ALLOPURINOL 100 MG TABLET PO SCH (09:38)
[2018-10-24] MEDS: predniSONE Tab 20 MG TAB PO SCH (09:38)
[2018-10-24] MEDS: CHOLECALCIFEROL 1000 IU TABLET PO SCH (09:38)
[2018-10-24] MEDS: LISINOPRIL 20 MG TABLET PO SCH (09:38)
[2018-10-24] MEDS: Metoprolol TARTRATE Tab 50 MG TAB PO SCH ×2 (09:38→20:38)
[2018-10-24] MEDS: AZITHROMYCIN 250 MG TABLET PO SCH (09:39)
[2018-10-24] MEDS: NIFEdipine 30 MG ER 24H TABLET PO SCH (09:39)
[2018-10-24] MEDS: ONDANSETRON 4 MG/2 ML VIAL IVP PRN (11:46)
[2018-10-24] MEDS: FLUTICASONE PROPIONATE 16 GRAM (120 SPRAYS / BOTTLE) ENOS SCH (11:46)
[2018-10-24] MEDS ORDERED: methylPREDNISolone 40 MG/1 ML VIAL IVP ONE (12:56)
[2018-10-24] MEDS ORDERED: IPRATROPIUM/ALBUTEROL SULFATE 3 ML NEB NEB SCH (13:00)
[2018-10-24] MEDS: IPRATROPIUM/ALBUTEROL SULFATE 3 ML NEB NEB SCH ×2 (13:28→19:38)
--- NOTE | 2018-10-24 14:27 | PDOC(PROG) ---
Date of Service: 10/24/18 Time of Service: 14:22 Interval History: patient seen, examined earlier today. daughter present. patient had vomiting, attributed to prednisone no chest pain. no shortness of breath. cough persistent, now productive Objective : Data - Labs CBC and BMP: 10/23/18 04:10 10/23/18 04:10 Objective : Exam - General General Appearance: No Acute Distress, Cooperative Additional General Exam Details: Vital Signs - Last Taken Temperature 97 F 10/24/18 11:04 Pulse Rate 82 10/24/18 13:29 Respiratory Rate 20 10/24/18 13:29 Blood Pressure 164/90 10/24/18 11:04 Pulse Ox 91 10/24/18 13:28 on 3 LPM - Eye Eye Exam: No Scleral Icterus - ENT ENT Exam: Mucous Membranes Moist - Neck Neck Exam: JVP is not Raised - Respiratory Respiratory Exam: Breathing Non Labored, Wheezes - Cardiovascular Cardiovascular Exam: RRR, No Clicks, No Gallops, No Rubs, No JVD - GI/Abdominal GI/Abdominal Exam: Normal Bowel Sounds, Non Tender, Non Distended, Soft - Extremities Extremities Exam: No Clubbing Present, No Edema Present, No Cyanosis Present - Neurological Neurological Exam: Alert, Oriented x 3, No Facial Droop, Speech Intact / Clear, Moves All Extremities Equally Assessment and Plan - Patient Problems (1) RAD (reactive airway disease) Current Visit: Yes Status: Acute Code(s): J45.909 - Unspecified asthma, uncomplicated Qualifiers: Asthma severity: severe Asthma complication type: with acute exacerbation (2) Acute hypoxemic respiratory failure Current Visit: Yes Status: Acute Code(s): J96.01 - Acute respiratory failure with hypoxia (3) Respiratory insufficiency Current Visit: Yes Status: Acute Code(s): R06.89 - Other abnormalities of breathing (4) Diabetes mellitus Current Visit: Yes Status: Acute Code(s): E11.9 - Type 2 diabetes mellitus without complications Qualifiers: Diabetes mellitus type: type 2 Diabetes mellitus chcf insulin use: with chcf use Diabetes mellitus complication status: without complication Qualified Code(s): E11.9 - Type 2 diabetes mellitus without complications; Z79.4 - correction (current) use of insulin - Assessment / Plan Additional Assessment/Plan Details: change prednisone to solu-Medrol with vomiting continue zithromax add duonebs scheduled, continue PRN albuterol continue oxygen as necessary to maintain oxygen saturations. discussed with daughter, patient at bedside.
[2018-10-24] MEDS: DONEPEZIL 5 MG TABLET PO SCH (20:38)
[2018-10-24] MEDS: ATORVASTATIN 20 MG TABLET PO SCH (20:38)
[2018-10-24] MEDS: Mirtazapine Tab 15 MG TAB PO SCH (20:38)
[2018-10-24] MEDS: Insulin Glargine SoloStar Inj 100 UNIT/ML INSULN.PEN SUBCUT SCH (20:44)
[2018-10-25] MEDS: ONDANSETRON 4 MG/2 ML VIAL IVP PRN
[2018-10-25] MEDS: IPRATROPIUM/ALBUTEROL SULFATE 3 ML NEB NEB SCH ×4 (01:35→19:48)
[2018-10-25] MEDS: Insulin Lispro Flexpen 300 UNIT/3 ML INSULN.PEN SUBCUT SCH ×4 (07:49→20:27)
[2018-10-25] MEDS: CHOLECALCIFEROL 1000 IU TABLET PO SCH (08:45)
[2018-10-25] MEDS: Metoprolol TARTRATE Tab 50 MG TAB PO SCH ×2 (08:45→20:25)
[2018-10-25] MEDS: ASPIRIN EC 81 MG TABLET PO SCH (08:45)
[2018-10-25] MEDS: ENOXAPARIN SODIUM 40 MG/0.4 ML SYRINGE SUBCUT SCH (08:45)
[2018-10-25] MEDS: NIFEdipine 30 MG ER 24H TABLET PO SCH (08:45)
[2018-10-25] MEDS: AZITHROMYCIN 250 MG TABLET PO SCH (08:45)
[2018-10-25] MEDS: Multivitamin Tab 1 TAB PO SCH (08:45)
[2018-10-25] MEDS: ALLOPURINOL 100 MG TABLET PO SCH (08:45)
[2018-10-25] MEDS ORDERED: methylPREDNISolone 125 MG/2 ML VIAL IVP SCH (09:00)
[2018-10-25] MEDS: LISINOPRIL 20 MG TABLET PO SCH (10:27)
[2018-10-25] MEDS: FLUTICASONE PROPIONATE 16 GRAM (120 SPRAYS / BOTTLE) ENOS SCH (12:48)
--- NOTE | 2018-10-25 12:56 | PDOC(PROG) ---
Date of Service: 10/25/18 Time of Service: 12:51 Interval History: no chest pain. no shortness of breath. cough is persistent but perhaps a little better. no nausea or vomiting. has had some weakness. Objective : Data - Labs CBC and BMP: 10/23/18 04:10 10/23/18 04:10 Objective : Exam - General General Appearance: No Acute Distress, Cooperative Additional General Exam Details: Vital Signs - Last Taken Temperature 97 F 10/25/18 11:32 Pulse Rate 61 10/25/18 11:32 Respiratory Rate 17 10/25/18 11:32 Blood Pressure 186/96 10/25/18 11:32 Pulse Ox 96 10/25/18 11:32 - Eye Eye Exam: No Scleral Icterus - ENT ENT Exam: Mucous Membranes Moist - Neck Neck Exam: JVP is not Raised - Respiratory Respiratory Exam: Breathing Non Labored, Wheezes - Cardiovascular Cardiovascular Exam: RRR, No Murmur, No Clicks, No Gallops, No Rubs, No JVD - GI/Abdominal GI/Abdominal Exam: Normal Bowel Sounds, Non Tender, Non Distended, Soft - Extremities Extremities Exam: No Clubbing Present, No Edema Present, No Cyanosis Present - Neurological Neurological Exam: Alert, Oriented x 3, No Facial Droop, Speech Intact / Clear, Moves All Extremities Equally Assessment and Plan - Patient Problems (1) RAD (reactive airway disease) Current Visit: Yes Status: Acute Code(s): J45.909 - Unspecified asthma, uncomplicated Qualifiers: Asthma severity: severe Asthma complication type: with acute exacerbation (2) Acute hypoxemic respiratory failure Current Visit: Yes Status: Acute Code(s): J96.01 - Acute respiratory failure with hypoxia (3) Respiratory insufficiency Current Visit: Yes Status: Acute Code(s): R06.89 - Other abnormalities of breathing (4) Diabetes mellitus Current Visit: Yes Status: Acute Code(s): E11.9 - Type 2 diabetes mellitus without complications Qualifiers: Diabetes mellitus type: type 2 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 PT and OT swing bed evaluation.
[2018-10-25] MEDS: DONEPEZIL 5 MG TABLET PO SCH (20:25)
[2018-10-25] MEDS: ATORVASTATIN 20 MG TABLET PO SCH (20:25)
[2018-10-25] MEDS: Mirtazapine Tab 15 MG TAB PO SCH (20:26)
[2018-10-25] MEDS ORDERED: Insulin Glargine SoloStar Inj 100 UNIT/ML INSULN.PEN SUBCUT SCH (21:00)
[2018-10-26] MEDS: IPRATROPIUM/ALBUTEROL SULFATE 3 ML NEB NEB SCH ×2 (01:42→06:48)
[2018-10-26 04:39] VITALS: TEMP 97.7
[2018-10-26 07:35] VITALS: O2SAT 93
[2018-10-26 07:36] VITALS: BP 195/97; RESP 18
[2018-10-26] MEDS: Insulin Lispro Flexpen 300 UNIT/3 ML INSULN.PEN SUBCUT SCH (07:47)
--- NOTE | 2018-10-26 08:05 | DCSUMMARY ---
Hospitalization Summary Admit Date: 10/22/2018 Discharge Date: 10/26/18 Hospital Course: Discharge diagnoses 1. Acute hypoxic respiratory failure likely secondary to asthmatic bronchitis 2. Diabetes 3. History of hypertension 4. History of gout 5. History of hyperlipidemia 6. History of hip fracture 2 years ago after a fall that needed surgery 7. History of osteoporosis 8. Coronary artery calcifications in the LAD and left circumflex artery. 9. Complete opacification of the right maxillary sinus, unchanged. New opacification of both anterior ethmoid air cells and mucous retention cysts or polyps in the right sphenoid sinus. 10. Dementia Hospital course This is a 88 years old female with medical history significant for history of diabetes on insulin, history of hip fracture 2 years ago that needed surgery, history of hypertension, history of diabetes who was brought to the hospital because of cough of 4 days duration. Evaluation in the urgent care when she was brought in showed hypoxia with oxygen saturation around 81% so she was sent to the ER. CT was negative for PE. She had wheezing and crackles in her chest. She was admitted to the hospital treated as asthmatic bronchitis. She was put on steroid, bronchodilator and Zithromax. Gradually there was improvement in her symptoms. However she remained weak and was decided that the she needs a longer stay on swing bed to continue physical therapy. I saw her on the day of discharge she said she feels better her cough seems to be better she denied shortness of breath. Her strength seemed to be improving. She did have a low blood sugar so cut back on her night insulin. I think the fluctuation in her sugars is secondary to diabetes and will taper off the steroids quickly. Discharge instruction Diet regular Activity as tolerated with physical therapy Medications See chart Follow-up patient status will be switched to when bed status to continue physical therapy. Exam - Vitals Vital Signs: Vital Signs Temperature 97.7 F Temperature Source Temporal Artery Scan Pulse Rate [Pulse Oximeter] 62 Pulse Rate 62 Respiratory Rate 18 Blood Pressure [Right Arm] 143/86 Blood Pressure [Left Arm] 195/97 Pulse Ox 93 Oxygen Flow Rate 3 Oxygen Delivery Method Nasal Cannula Height 4 ft 11 in Weight 101 lb 6.4 oz - General General Appearance: No Acute Distress, Cooperative - Head Head Exam: Normal Inspection - Eye Eye Exam: POSITIVE: Normal Appearance - ENT ENT Exam: POSITIVE: Normal Exam - Neck Neck Exam: Normal Inspection - Respiratory Additional Respiratory Exam Details: Diffuse air entry with few crackles at the bases. - Cardiovascular Cardiovascular Exam: POSITIVE: RRR - GI/Abdominal GI/Abdominal Exam: POSITIVE: Normal Bowel Sounds, Non Tender, Non Distended, Soft, No Organomegaly - Rectal Rectal Exam: POSITIVE: Deferred - External Exam: POSITIVE: Deferred - Extremities Extremities Exam: POSITIVE: Normal Inspection - Back Back Exam: POSITIVE: Normal Inspection - Neurological Neurological Exam: POSITIVE: Alert, CN II-XII Intact, No Facial Droop, Speech Intact / Clear, Moves All Extremities Equally Additional Neurological Exam Details: She couldn't tell me the day or the month or the year. She knows that she is in the hospital in [place]. - Psychiatric Psychiatric Exam: POSITIVE: Normal Affect - Integumentary Integumentary Exam: POSITIVE: Normal Color
[2018-10-26] MEDS ORDERED: methylPREDNISolone 40 MG/1 ML VIAL IVP SCH ×2 (09:00)
--- NOTE | 2018-10-26 10:04 | PTI REPORT ---
Thank you for the referral of Raymon Aaron. She was seen on 10/25/18 for an inpatient evaluation secondary to weakness and dementia. SUBJECTIVE: The patient is an 88-year-old female. At the time of the evaluation the patient's daughter was present as well as occupational therapy. The patient's daughter states last week she could start noticing a decline in her mother's health which resulted in going to Urgent Care Thursday morning where she was quickly hospitalized due to her inability to keep her oxygen levels above 90%. The patient states normally at home she does not wear oxygen but does use an all wheeled walker and except for three hours everyday when she is with her , she does have a caregiver present to help her with all of her ADLs and ambulatory activities. She also states that she has had problems with skin break down on her sacral region that her caregivers dress at home with continued use of Calamine lotion. PAST MEDICAL HISTORY: Past medical history can be found in the patient's medical record. OBJECTIVE FINDINGS: General observations: Please see occupational therapy evaluation for upper extremity motion and strength as well as dressing ability. At this time the patient is on 3.5 liters of oxygen while in her room which is able to keep her above 90% oxygen saturation. Strength: Bilateral lower extremity strength was equal at 3+/5. Ambulation: The patient demonstrated the ability to ambulate up to 50 feet continuously with the use of a walker which was switched out fci through to a front wheeled walker due to her use of an all wheeled walker at home on four liters of continuous oxygen. Balance: The patient has fair standing balance with the use of a standing walker; however, does require verbal and tactile cues for proper hand placement for safety for transfers. ASSESSMENT: Problem List: Decreased safety awareness Decreased endurance Decreased strength Physical Therapy Goals: To be met by discharge from inpatient: Patient will be able to ambulate up to 100 feet continuously with appropriate assistive device for household and community ambulation. Patient will be able to perform all bed mobility and transfers with stand by assistance without the need for verbal cues for safety awareness. Patient will promote good skin care and wound healing. TREATMENT PLAN: Patient will be seen B.I.D during the week and one time per day over the weekend as an inpatient to address the above goals and objectives. INITIAL TREATMENT: Treatment today consisted of the initial evaluation followed by the patient ambulating 50 feet x3 with rest breaks, starting with use of a standard walker and then using an all wheeled walker. We did ask the daughter to bring in the patient's all wheeled walker from home. The patient also performed 5 sit to stands. The therapist inspected the patient's sacral region where she has the initiation of skin breakdown; however, a good skin assessment was unable to be done due to the Calamine lotion that is present that has been put in place by her caregivers and the nursing staff. She was left in her room with call light in place and chair alarm set. ELLY
--- NOTE | 2018-10-26 10:22 | OTI REPORT ---
Thank you for the referral of Raymon Aaron. She was seen on 10/25/18 for an occupational therapy inpatient evaluation secondary to weakness and dementia. SUBJECTIVE: The patient is an 88-year-old female who is being seen secondary to acute hypoxic respiratory failure, respiratory insufficiency, DM, and RAD. The patient has a history of Diabetes Type II and a hip replacement. She does live at home with her spouse; however, she pretty much has 24-hour care. Her daughter reports that she typically has a caregiver all night long, six nights a week from 8 PM to 7 AM and then has another caregiver from 7 AM to 5 PM and her watcher her from 5 PM to 8 PM. The patient does have three steps into her home but they do have a ramp in front of their home. Once inside the home, it is on one level. The patient's daughter reports that she feels like her mom has gone "downhill" over the winter physically. Typically she is not on oxygen and now she is on three liters of oxygen. Her daughter reports that she typically shuffle walks on her own and has not been able to dress her lower extremities in quite some time. Her caregiver helps fill her medication. She has a walk-in shower and a raised toilet with handles. She typically uses a four wheeled walker to ambulate. Prior to admission the patient did have assistance with all laundry, cooking, cleaning, groceries, and driving. She reports that she is not having any difficulty with food or liquids at this time. Cognitively the patient has been diagnosed with dementia, but does have caregiver assistance to help her with those things. PAST MEDICAL HISTORY: Past medical history can be found in the patient's medical record. OBJECTIVE FINDINGS: General observations: The patient was sitting in chair upon the therapist's arrival. Range of motion: The patient has range of motion within functional limits for bilateral shoulders, elbows, and wrists in all planes and ranges. Strength: Strength on the right side is at 3/5 for flexion/abduction, strength on the left side is 3+/5, and elbow flexion/extension is 3+/5 bilaterally. Her right hand has more arthritis in the knuckles than the left hand. She does have a little bit of a flexion contracture on the right side. Activities of daily living: While sitting edge of chair, the patient did demonstrate being able to don and doff her left sock. She did need min assist for her right sock. When asked why she doesn't do this at home, she stated, "I have help to help me, so why should I do it?" Transfers: The patient needed cues to push off of the chair when performing sit to stand transfers. The patient requires min assist and verbal cues for safety with all functional transfers. Balance: The patient requires min assist with balance when standing. Ambulation: Her oxygen levels stayed above 90% with some mild ambulation tasks. ASSESSMENT: The patient's goal is to not be on oxygen when she goes home, but she doesn't know if that will be feasible or not. The patient fatigues easily with simple tasks. Problem List: Decreased activity tolerance Decreased upper extremity strength Decreased ability to complete ADLs and functional tasks Short-Term Goals: To be met by discharge from inpatient: Patient will be able to dress self with contact guard assist for standing balance. Patient will improve upper extremity strength to 4/5 to improve strength for functional transfers and ADLs. Patient will learn energy conservation techniques to improve her breathing abilities and activity tolerance with ADLs. Patient will be able to stand at sink x5 minutes to improve her overall standing abilities and balance. Long-Term Goals: To be met following discharge from inpatient: Patient will return home with 24-hour care for safety and with modified independence with all ADLs and functional transfers. TREATMENT PLAN: Patient will be seen B.I.D during the week and one time per day over the weekend as an inpatient to address the above goals and objectives. The patient may end up going swingbed to further her rehab. We may possibly look at some home health services later on once she is returned home. INITIAL TREATMENT: Treatment today consisted of the initial evaluation followed by the patient doffing and donning socks with verbal cues and increased time. The patient worked on functional standing activity. She was able to stand with contact guard to min assist for balance. She performed hygiene activities x2 minutes but did fatigue. Oxygen levels did stay above 90% on three liters. MTDD
[2018-10-26] MEDS ORDERED: Insulin Glargine SoloStar Inj 100 UNIT/ML INSULN.PEN SUBCUT SCH (21:00)
== END 2018-10-26 09:18 | disposition swing bed (61) | DRG 189 ==
LOC: ER 09:48 → MED/SURG 14:09
PROVIDERS: ADMIT Family Medicine; ATTEND Family Medicine